=== PATIENT | female | born 1950 | race Caucasian/White ===

== ENCOUNTER 2016-10-30 08:00 | Day surgery (SDC) | payer MEDICARE, OTHER ==
--- NOTE | 2016-10-22 10:41 | HISTORY AND PHYSICAL E ---
History and Physical NAME: VANDANA COOL : 1950 AGE: 66Y ADMITTED: 10/30/2016 ROOM: CHIEF COMPLAINT: Followup regarding adenomatous polyps. HISTORY: The patient is known to us. She did have colonoscopy, 2004, showed rectosigmoid polyps. The patient is being followed by [facility], [place]. She did have ovarian cancer. The patient presented at this time regarding colon polyps, diverticulosis. The patient does have a history of diabetes. PAST SURGICAL HISTORY: 1. Hysterectomy. 2. Cardiac bypass. MEDICATION: She is on blood thinner. She is to stop her Eliquis for 2 days. ALLERGIES: Negative. SOCIAL HISTORY: She is , does not smoke, does not drink. FAMILY HISTORY: Her father had a stroke. Her mom had an accident. REVIEW OF SYSTEMS: ENDOCRINE: Diabetes. PHYSICAL EXAMINATION: GENERAL: On exam, pleasant, alert, oriented, in no acute distress. VITAL SIGNS: Blood pressure is 120/80, pulse 80, respirations 18, temp is 98. HEAD, EYES, EARS, NOSE, THROAT: Normal. ABDOMEN: Soft. NEUROLOGIC: Exam negative. CONCLUSION: 1. History adenomatous polyps. 2. Diverticulosis. 3. Colon screening. PLAN: Colonoscopy. Admit on 10/30. DICTATING PHYSICIAN: EFFIE GREER M.D. [id number] PHY#: [id number] ID: [id number] JOB#: [id number] ACCT: [id number] cc:EFFIE GREER M.D. >
[~2016-10-30 08:00] MED LIST: EPINEPHRINE INJ 1 MG/10 ML DISP.SYRIN ONE; FLUMAZENIL INJ 0.5 MG/5 ML VIAL IV ONE; GLUCAGON,HUMAN RECOMB 1 MG INJ ONE; GLYCOPYRROLATE INJ 0.4 MG/2 ML VIAL ONE; LIDOCAINE 2% JELLY 30 ML TUBE ONE; NALOXONE HCL INJ/PF 0.4 MG/1 ML SDV ONE; ONDANSETRON HCL INJ/PF 4 MG/2 ML SDV ONE
[2016-10-30] MEDS: MIDAZOLAM 2 MG/2 ML INJ ONE ×2 (09:23→09:27)
[2016-10-30] MEDS: FENTANYL CITRATE INJ/PF 100 MCG/2 ML AMPUL ONE ×3 (09:25→09:35)
--- NOTE | 2016-10-30 10:09 | OPERATIVE REPORT E ---
Operative Report NAME: VANDANA COOL : 1950 AGE: 66Y DATE OF SURGERY: 10/30/2016 ROOM: PREOPERATIVE DIAGNOSIS: Colon screening, history of polyps. POSTOPERATIVE DIAGNOSIS: Rectosigmoid polyps - benign looking, 1 mm polyp cecum. OPERATION: Colonoscopy. SURGEON: EFFIE GREER M.D. ANESTHESIA: Versed 3, fentanyl 100. TISSUE REMOVED OR ALTERED: Biopsy polyps rectosigmoid. PROCEDURE: Rectal exam shows tiny diminutive polyp, sigmoid diminutive polyp, descending colon normal, transverse colon normal. Ascending colon the cecum junction shows 1 mm polyp, difficult to biopsy, benign looking. Cecum normal. Scope withdrawn. Cecum, ascending, transverse, descending, sigmoid all the way to the rectum. CONCLUSION: Diminutive polyp 1 mm cecum, small to biopsy. Diminutive polyps rectosigmoid, biopsy obtained. DISCHARGE PLAN: Hold blood thinner for two days. Patient awaiting biopsy. The patient takes Xarelto 2 mg daily. Stop Xarelto today and tomorrow awaiting biopsy results. Patient will stop her Xarelto today, . She will start her Xarelto on Thursday morning. Awaiting biopsy results, baseline CBC and CEA. DICTATING PHYSICIAN: EFFIE GREER M.D. [id number] Y#: [id number] ID: [id number] JOB#: [id number] ACCT: [id number] cc:TERE GREER M.D. >
[2016-10-30 11:01] LABS: HEMATOCRIT 40.8 % (36.0-47.0); HEMOGLOBIN 13.3 g/dL (12.0-15.5); HGB HCT DIFFERENCE -0.9; MEAN CORPUSCULAR HEMOGLOBIN 28.5 pg (27.0-33.4); MEAN CORPUSCULAR HGB CONC 32.6 g/dL (32.0-36.0); MEAN CORPUSCULAR VOLUME 87 fl (80-97); RED BLOOD COUNT 4.68 10^6/uL (3.72-5.28); RED CELL DISTRIBUTION WIDTH 14.1 % (11.5-14.0); WHITE BLOOD COUNT 14.7 10^3/uL (4.0-10.5)
[2016-10-30 11:12] VITALS: BP 84/46
--- NOTE | 2016-11-03 10:08 | DISCHARGE SUMMARY E ---
Discharge Summary NAME: VANDANA COOL : 1950 AGE: 66Y ADMITTED: 10/30/2016 DISCHARGED: 10/30/2016 PROCEDURE: Colonoscopy, biopsy. HISTORY: The patient is 66, has history of colonoscopy in 2004 that showed sigmoid polyps. She has been treated by [facility] for ovarian cancer. Today's colonoscopy showing no cancer. She has benign-looking polyps in the rectum and cecum. DISCHARGE PLAN: Awaiting biopsy. Hold blood thinner, Xarelto, for 2 days. Baseline CBC, CEA. Consider followup colonoscopy 2-3 years pending biopsy results. DICTATING PHYSICIAN: EFFIE GREER M.D. [id number] PHY#: [id number] ID: [id number] JOB#: [id number] ACCT: [id number] cc:TERE LOYOLA, EFFIE Pérez >
== END 2016-10-30 11:19 | disposition home or self-care (01) ==
LOC: END 08:00
PROVIDERS: ATTEND Specialist
PROC: 0DBN8ZX Excision of Sigmoid Colon, Via Natural or Artificial Opening Endoscopic, Diagnostic (ICD-10-PCS; 2016-10-30)
PROC: 0DBP8ZX Excision of Rectum, Via Natural or Artificial Opening Endoscopic, Diagnostic (ICD-10-PCS; principal; 2016-10-30 09:00)
DX: Z12.11 Encounter for screening for malignant neoplasm of colon (principal); K63.5 Polyp of colon; R97.8 Other abnormal tumor markers; E11.9 Type 2 diabetes mellitus without complications; Z79.01 Long term (current) use of anticoagulants; Z85.43 Personal history of malignant neoplasm of ovary
CPT/HCPCS: 45380; 36415; 82962; 86304; 82378; 85027; 88305 ×2; J2250; J3010; J1610; J0171; J2310; J2405; J3490

== ENCOUNTER → 2017-08-10 | Outpatient (CLI) | payer MEDICARE, OTHER ==
--- NOTE | 2017-08-10 16:38 | XCELERA REPORT ---
[address] [address] Lower Extremity Arterial Evaluation Name: VANDANA COOL Age: 67 yrs Gender: Female : 1950 Patient Status: Outpatient Patient Location: Study Date: 08/10/2017 11:04 AM Procedure: A color flow and duplex scan of the lower extremity arteries was performed bilaterally with velocity and waveform anaylsis. Ankle brachial indicies performed. Reason For Study: PVD Ordering Physician: NOY MCNAMARA PA-C Performed By: Delmer Monson Measurements and Calculations Right Left PHOTO TECHNICIAN PSV 144.1 57.0 cm/sec Prox PFA PSV -138.3 -37.9 cm/sec Prox SFA PSV 57.0 33.2 cm/sec Mid SFA PSV -0.20 -44.9 cm/sec Dist SFA PSV -27.3 -9.8 cm/sec Prox Pop A PSV 37.2 27.7 cm/sec Dist DAVID PSV 28.5 10.6 cm/sec Dist RADIATOR SPECIALIST PSV 35.8 12.6 cm/sec Jackson Pedis PSV -19.6 0.20 cm/sec Right Side Arterial Evaluation Normal velocity and biphasic waveforms noted from the Common Femoral artery to the infrageniculate vessels. Monophasic in the Dorsalis Pedis. 20-49 % stenosis at the Aorto Iliac inflow. Sequential disease. Ankle Brachial index is 0.68. Left Side Arterial Evaluation Low normal velocity and monophasic waveforms noted from the Common Femoral artery to the infrageniculate vessels. Reduced velocities distally. 50-99% % stenosis at the Aorto Iliac inflow. Ankle Brachial index is 0.62. Interpretation Summary Moderate hemodynamically significant lesions in the right lower extremity only, on duplex imaging, at rest. Severe hemodynamically significant lesions in the left lower extremity only, on duplex imaging, at rest. : NOY MCNAMARA PA-C > Kumar Jackson
== END ==
LOC: SP 10:32
PROVIDERS: ATTEND Physician Assistant
DX: I73.9 Peripheral vascular disease, unspecified (principal)
CPT/HCPCS: 93925

== ENCOUNTER 2018-08-24 16:20 | Observation (INO) | payer MEDICARE, OTHER ==
[2018-08-24] MEDS ORDERED: NORMAL SALINE 1000 ML 1,000 ML IV ONE (16:31)
[2018-08-24 16:56] LABS: ABSOLUTE BASOPHILS # (AUTO) 0.1 10^3/uL (0.0-0.2); ABSOLUTE EOSINOPHILS # (AUTO) 0.2 10^3/uL (0.0-0.6); ABSOLUTE LYMPHOCYTES (AUTO) 2.3 10^3/uL (0.5-4.7); ABSOLUTE MONOCYTES (AUTO) 0.7 10^3/uL (0.1-1.4); ABSOLUTE NEUT (AUTO) 8.5 10^3/uL (1.7-8.2); BASOPHILS % (AUTO) 0.7 % (0-2); EOSINOPHILS % (AUTO) 2.1 % (0-6); HEMATOCRIT 37.4 % (36.0-47.0); HEMOGLOBIN 12.5 g/dL (12.0-15.5); LYMPHOCYTES % (AUTO) 19.4 % (13-45); MEAN CORPUSCULAR HGB CONC 33.4 g/dL (32.0-36.0); MEAN CORPUSCULAR VOLUME 87 fl (80-97); MONOCYTES % (AUTO) 5.9 % (3-13); PLATELET COUNT 149 10^3/uL (150-450); RED BLOOD COUNT 4.32 10^6/uL (3.72-5.28); RED CELL DISTRIBUTION WIDTH 15.8 % (11.5-14.0); SEGMENTED NEUTROPHILS % (AUTO) 71.9 % (42-78); TOTAL CELLS COUNTED % (AUTO) 100 %; WHITE BLOOD COUNT 11.8 10^3/uL (4.0-10.5)
[2018-08-24 17:03] LABS: INTERNATIONAL RATION (INR) 1.61; PROTHROMBIN TIME 19.9 SEC (11.4-15.4)
--- NOTE | 2018-08-24 17:04 | ER Document Report ---
ED Dizziness/Weakness - General Chief Complaint: Dizziness Stated Complaint: DIZZINESS Time Seen by Provider: 08/24/18 16:31 Primary Care Provider: NOY MCNAMARA PA-C [NO LOCAL MD] - Follow up as needed TRAVEL OUTSIDE OF THE [place] IN LAST 30 DAYS: No - HPI Notes: Patient is a 68-year-old female that presents to the emergency department for chief complaint of lightheadedness and syncope. Patient reports increased lightheadedness over the last few days. She states she has had issues with lightheadedness for years and was not concerned until she completely lost consciousness today. She states that when she stands up or exerts herself she begins to feel very lightheaded. Today she was walking and had a complete syncopal episode falling forward hitting the table. She does not remember hitting the table but states she woke up on the ground. Her family member heard her fall and came immediately into the room. Patient is complaining of some pain in the back of her neck since the fall. She has not taken any medication for pain. She denies any associated palpitations, headache, vision changes, numbness, weakness and shortness of breath. Past Medical History: Atrial fibrillation, CAD, hypertension Past Surgical History: CABG, pacemaker Social History: Reviewed in chart Family History: Reviewed and noncontributory for presenting illness Allergies: Reviewed, see documented allergy list. REVIEW OF SYSTEMS: CONSTITUTIONAL : No fever No chills No diaphoresis No recent illness EENT: No vision changes No congestion No sore throat CARDIOVASCULAR: No chest pain No palpitations RESPIRATORY: No shortness of breath No cough No difficulty breathing GASTROINTESTINAL: No abdominal pain No nausea No vomiting No diarrhea GENITOURINARY: No dysuria No hematuria No difficulty urinating MUSCULOSKELETAL: No back pain neck pain No leg pain No arm pain SKIN: No rashes No lesions LYMPHATIC: No swollen, enlarged glands. NEUROLOGICAL: lightheadedness No headache No weakness No paresthesias PSYCHIATRIC: No anxiety No depression PHYSICAL EXAMINATION: Vital signs reviewed, nursing noted reviewed. GENERAL: Well-appearing, obese and in no acute distress. HEAD: Atraumatic, normocephalic. EYES: Eyes appear normal, extraocular movements intact, sclera anicteric, conjunctiva are normal. ENT: nares patent, oropharynx clear without exudates. Moist mucous membranes. NECK: Midline cervical spine tenderness, bilateral paraspinal muscle tenderness, supple without lymphadenopathy LUNGS: Breath sounds mildly diminished to auscultation bilaterally and equal. No wheezes rales or rhonchi. HEART: Regular rate and rhythm without murmurs. No rubs ABDOMEN: Soft, nontender, normoactive bowel sounds. No rebound, guarding, or rigidity. No masses appreciated. EXTREMITIES: Nontender, good range of motion, no pitting or edema. NEUROLOGICAL: No focal neurological deficits. Moves all extremities spontaneously Motor and sensory grossly intact on exam. PSYCH: Normal mood, normal affect. SKIN: Warm, Dry, normal turgor, no rashes or lesions noted on exposed skin - Related Data Allergies/Adverse Reactions: Shellfish * [Shellfish] Allergy (Unknown, Verified 10/30/16 08:19) Hives digoxin [Digoxin] Adverse Reaction (Mild, Verified 10/30/16 08:19) Nausea oxycodone HCl [From Percocet] Adverse Reaction (Mild, Verified 10/30/16 08:19) Vomiting ramipril [From Altace] Adverse Reaction (Mild, Verified 10/30/16 08:19) cough Past Medical History - Social History Smoking Status: Unknown if Ever Smoked Family History: Reviewed & Not Pertinent - Past Medical History Cardiac Medical History: Reports: Hx Atrial Fibrillation, Hx Congestive Heart Failure, Hx Coronary Artery Disease, Hx Heart Attack - 1999, Hx Hypercholesterolemia, Hx Hypertension - no but takes blood pressure meds Pulmonary Medical History: Denies: Hx Asthma, Hx Bronchitis, Hx COPD, Hx Pneumonia Neurological Medical History: Denies: Hx Cerebrovascular Accident, Hx Seizures Endocrine Medical History: Reports: Hx Diabetes Mellitus Type 2 GI Medical History: Denies: Hx Hepatitis, Hx Hiatal Hernia, Hx Ulcer Musculoskeletal Medical History: Reports Hx Arthritis Infectious Medical History: Denies: Hx Hepatitis Past Surgical History: Reports: Hx Coronary Artery Bypass Graft, Hx Coronary Stent, Hx Hysterectomy, Hx Open Heart Surgery - QUAD BYPASS; pacemaker, Hx Pacemaker. Denies: Hx Mastectomy - Immunizations Hx Diphtheria, Pertussis, Tetanus Vaccination: Yes - 07/02/14 Hx Pneumococcal Vaccination: 07/02/14 Course - Re-evaluation Re-evalutation: 08/24/18 17:02 Vitals reviewed per nurse's reviewed. Patient has midline cervical spine tenderness and trauma and was placed in a cervical collar. She is currently anticoagulated on Xarelto and CT scan of her head and cervical spine obtained to evaluate for injury from her syncopal episode today. Patient placed on telemetry monitoring. She is not complaining of any chest pain or difficulty breathing. Her EKG does show new T wave inversion with nonspecific ST depressions in her precordial and lateral leads, there is no ST elevation 08/24/18 17:49 After hydration patient is feeling much better. Her blood pressure has significantly improved. She is less lightheaded with position changes. CT scan of her head and cervical spine show no acute injury. Cervical collar was removed. Patient is not acutely anemic. She does have acute renal insufficiency with a creatinine greater than 1.7 which is new for her. Patient symptoms may be related to dehydration and acute kidney injury. She does have a slight elevation of troponin in the indeterminate range however she has not had any chest pain and this may be related to her WILLIS. Patient was also hypoglycemic at 48 and was given 1 amp of D50. She is improving and will be admitted to the hospital for further cardiac monitoring as well as reevaluation of her acute kidney injury. Case discussed with Dr. Javed Arita 08/24/18 08/24/18 08/24/18 16:45 16:45 16:45 WBC 11.8 H RBC 4.32 Hgb 12.5 Hct 37.4 MCV 87 MCH 29.0 MCHC 33.4 RDW 15.8 H Plt Count 149 L Seg Neutrophils % 71.9 Lymphocytes % 19.4 Monocytes % 5.9 Eosinophils % 2.1 Basophils % 0.7 Absolute Neutrophils 8.5 H Absolute Lymphocytes 2.3 Absolute Monocytes 0.7 Absolute Eosinophils 0.2 Absolute Basophils 0.1 PT 19.9 H INR 1.61 Sodium 141.0 Potassium 4.4 Chloride 106 Carbon Dioxide 27 Anion Gap 8 BUN 40 H Creatinine 1.79 H Est GFR ( Amer) 34 L Est GFR (Non-Af Amer) 28 L Glucose 48 L Calcium 9.7 Total Bilirubin 0.5 Direct Bilirubin 0.3 Neonat Total Bilirubin Not Reportable Neonat Direct Bilirubin Not Reportable Neonat Indirect Bili Not Reportable AST 35 ALT 39 Alkaline Phosphatase 76 Troponin I Total Protein 7.1 Albumin 4.2 08/24/18 16:45 WBC RBC Hgb Hct MCV MCH MCHC RDW Plt Count Seg Neutrophils % Lymphocytes % Monocytes % Eosinophils % Basophils % Absolute Neutrophils Absolute Lymphocytes Absolute Monocytes Absolute Eosinophils Absolute Basophils PT INR Sodium Potassium Chloride Carbon Dioxide Anion Gap BUN Creatinine Est GFR ( Amer) Est GFR (Non-Af Amer) Glucose Calcium Total Bilirubin Direct Bilirubin Neonat Total Bilirubin Neonat Direct Bilirubin Neonat Indirect Bili AST ALT Alkaline Phosphatase Troponin I 0.037 Total Protein Albumin Cervical Spine CT 08/24/18 16:59 IMPRESSION: CHRONIC DEGENERATIVE CHANGES. NO ACUTE FINDINGS. Head CT 08/24/18 16:59 IMPRESSION: NORMAL BRAIN CT WITHOUT CONTRAST. EVIDENCE OF ACUTE STROKE: NO. fermin who has accepted admission. Patient in agreement with plan of care. - Laboratory Result Diagrams: 08/24/18 16:45 08/24/18 16:45 Laboratory results interpreted by me: 08/24/18 08/24/18 08/24/18 16:45 16:45 16:45 WBC 11.8 H RDW 15.8 H Plt Count 149 L Absolute Neutrophils 8.5 H PT 19.9 H BUN 40 H Creatinine 1.79 H Est GFR ( Amer) 34 L Est GFR (Non-Af Amer) 28 L Glucose 48 L - EKG Interpretation by Me Additional EKG results interpreted by me: 08/24/18 17:03 Interpreted by myself 1641: Sinus arrhythmia, rate 75, normal axis, no ectopy, T wave inversion V2 through V6 with slight associated ST depression. No STEMI. T wave changes new when compared to 06/22/2015 Discharge - Discharge Clinical Impression: WILLIS (acute kidney injury), Orthostatic hypotension, Hypoglycemia, Dehydration, Troponin I above reference range Syncope Qualifiers: Syncope type: unspecified Qualified Code(s): R55 - Syncope and collapse Condition: Stable Disposition: ADMITTED INPATIENT Admitting Provider: Cailin (Hospitalist) Unit Admitted: Telemetry Referrals: NOY MCNAMARA PA-C [NO LOCAL MD] - Follow up as needed
[2018-08-24 17:16] LABS: ALANINE AMINOTRANSFERASE 39 U/L (9-52); ALBUMIN 4.2 g/dL (3.5-5.0); ALKALINE PHOSPHATASE 76 U/L (38-126); ANION GAP 8 (5-19); ASPARTATE AMINO TRANSFERASE 35 U/L (14-36); BILIRUBIN,DIRECT 0.3 mg/dL (0.0-0.4); BILIRUBIN,TOTAL 0.5 mg/dL (0.2-1.3); BLOOD UREA NITROGEN 40 mg/dL (7-20); CALCIUM 9.7 mg/dL (8.4-10.2); CARBON DIOXIDE 27 mmol/L (22-30); CHLORIDE 106 mmol/L (98-107); POTASSIUM 4.4 mmol/L (3.6-5.0); TOTAL PROTEIN 7.1 g/dL (6.3-8.2)
[2018-08-24 17:18] LABS: GLUCOSE 48 mg/dL (75-110)
--- NOTE | 2018-08-24 17:23 | EKG REPORT ---
SEVERITY:- ABNORMAL ECG - SINUS ARRHYTHMIA, RATE 57-84 PROBABLE INFERIOR INFARCT, AGE INDETERMINATE NONSPECIFIC T ABNORMALITIES, ANT-LAT LEADS, CHANGES ARE NEW FROM 06/22/15 EKG : Confirmed by: Samuel Walton MD 24-Aug-2018 17:23:25
[2018-08-24] MEDS ORDERED: DEXTROSE 50%-WATER 25 GM/50 ML DISP.SYRIN IV ONE (17:33)
--- NOTE | 2018-08-24 17:33 | RADIOLOGY REPORT (SQ) ---
EXAM DESCRIPTION: CT HEAD WITHOUT COMPLETED DATE/TIME: 08/24/2018 5:16 pm REASON FOR STUDY: trauma COMPARISON: CT brain 09/20/2007 TECHNIQUE: Axial images acquired through the brain without intravenous contrast. Images reviewed wi th bone, brain and subdural windows. Additional sagittal and coronal reconstructions were generated. Images stored on PACS. All CT scanners at this facility use dose modulation, iterative reconstruction, and/or weight based d osing when appropriate to reduce radiation dose to as low as reasonably achievable (ALARA). [facility]: Dose Right [facility]: CareDose [facility]: Dose Right [facility]: Teradose 4D [facility]: [employer] RADIATION DOSE: mGy. LIMITATIONS: None. FINDINGS: VENTRICLES: Normal size and contour. CEREBRUM: No masses. No hemorrhage. No midline shift. No evidence for acute infarction. Normal gra y/white matter differentiation. No areas of low density in the white matter. CEREBELLUM: No masses. No hemorrhage. No alteration of density. No evidence for acute infarction. EXTRAAXIAL SPACES: No fluid collections. No masses. ORBITS AND GLOBE: No intra- or extraconal masses. Normal contour of globe without masses. CALVARIUM: No fracture. PARANASAL SINUSES: No fluid or mucosal thickening. SOFT TISSUES: No mass or hematoma. OTHER: Advanced dental caries on images through the maxilla IMPRESSION: NORMAL BRAIN CT WITHOUT CONTRAST. EVIDENCE OF ACUTE STROKE: NO. COMMENT: Quality ID # [id number]: Final reports with documentation of one or more dose reduction techniques (e.g., Automated exposure control, adjustment of the mA and/or kV according to patient size, use of iterative reconstruction technique) TECHNICAL DOCUMENTATION: JOB ID: [id number] [employer]- All Rights Reserved Reading location - IP/workstation name: [email or web address]
--- NOTE | 2018-08-24 17:35 | RADIOLOGY REPORT (SQ) ---
EXAM DESCRIPTION: CT CERVICAL SPINE WITHOUT COMPLETED DATE/TIME: 08/24/2018 5:19 pm REASON FOR STUDY: trauma COMPARISON: CT cervical spine 09/20/2007 TECHNIQUE: Axial images acquired through the cervical spine without intravenous contrast. Images re viewed with lung, soft tissue and bone windows. Reconstructed coronal and sagittal MPR images review ed. Images stored on PACS. All CT scanners at this facility use dose modulation, iterative reconstruction, and/or weight based d osing when appropriate to reduce radiation dose to as low as reasonably achievable (ALARA). [facility]: Dose Right [facility]: CareDose [facility]: Dose Right [facility]: Teradose 4D [facility]: [employer] RADIATION DOSE: mGy. LIMITATIONS: None. FINDINGS: ALIGNMENT: Anatomic. MINERALIZATION: Normal. VERTEBRAL BODIES: No fractures or dislocation. DISCS: Multilevel disc space narrowing with osteophytes. FACETS, LATERAL MASSES, POSTERIOR ELEMENTS: Facet arthropathy. No fractures. No dislocation. No ac amparo findings. HARDWARE: None in the spine. VISUALIZED RIBS: No fractures. LUNG APICES AND SOFT TISSUES: No significant or acute findings. OTHER: No other significant finding. IMPRESSION: CHRONIC DEGENERATIVE CHANGES. NO ACUTE FINDINGS. TECHNICAL DOCUMENTATION: JOB ID: [id number] Quality ID # [id number]: Final reports with documentation of one or more dose reduction techniques (e.g., Au tomated exposure control, adjustment of the mA and/or kV according to patient size, use of iterative reconstruction technique) 2010 [employer]- All Rights Reserved Reading location - IP/workstation name: [email or web address]
--- NOTE | 2018-08-24 18:01 | RADIOLOGY REPORT (SQ) ---
EXAM DESCRIPTION: CHEST 2 VIEWS COMPLETED DATE/TIME: 08/24/2018 5:35 pm REASON FOR STUDY: dizzieness COMPARISON: Chest films 06/22/2015, 07/01/2010 EXAM PARAMETERS: NUMBER OF VIEWS: two views TECHNIQUE: Digital Frontal and Lateral radiographic views of the chest acquired. RADIATION DOSE: NA LIMITATIONS: none FINDINGS: LUNGS AND PLEURA: Mild alveolar and interstitial edema with pulmonary vascular congestion. No pleural effusion. No pneumothorax. MEDIASTINUM AND HILAR STRUCTURES: No masses or contour abnormalities. HEART AND VASCULAR STRUCTURES: Moderate to marked cardiomegaly. Old sternotomy and CABG BONES: No acute findings. HARDWARE: Left-sided dual lead pacemaker OTHER: No other significant finding. IMPRESSION: Fluid overload or congestive failure with alveolar and interstitial edema Cardiomegaly, old CABG, left-sided pacemaker TECHNICAL DOCUMENTATION: JOB ID: [id number] [employer]- All Rights Reserved Reading location - IP/workstation name: [email or web address]
[2018-08-24 18:11] LABS: VENOUS BLOOD BASE EXCESS -2.4 mmol/L; VENOUS BLOOD HCO3 24.8 mmol/L (20-32); VENOUS BLOOD PCO2 52.9 mmHg (35-63); VENOUS BLOOD PH 7.29 (7.30-7.42)
[2018-08-24] MEDS: NORMAL SALINE 1000 ML 1,000 ML IV PRN ×2 (19:08→22:22)
[2018-08-24] MEDS ORDERED: DEXTROSE 50%-WATER 25 GM/50 ML DISP.SYRIN IV PRN ×2 (19:23)
[2018-08-24] MEDS ORDERED: GLUCAGON,HUMAN RECOMB 1 MG INJ IM PRN (19:23)
[2018-08-24] MEDS ORDERED: DEXTROSE 40% GEL 15 GM TUBE PO PRN ×2 (19:23)
--- NOTE | 2018-08-24 19:28 | PDOC H&P ---
History of Present Illness Admission Date/PCP: 08/24/18 17:50 THIAGO ALARCON MD Patient complains of: syncope History of Present Illness: VANDANA COOL is a 68 year old female with a PMH of atrial fibrillation on Xarelto, prior pacemaker placement, on multiple medications, CAD and CHF who presented with syncope. Patient says she has been having episodes of dizziness and light headedness for the past 2 months, on and off and usually occurring while standing or walking. She says today she had 4 episodes of passing out while standing. She denies any chest pain, palpitations or SOB. Denies headache or vertigo. No seizure-like activity or incontinence. In the ER, she was found to have orthostatic vital signs and was also found to be in WILLIS. Past Medical History Cardiac Medical History: Reports: Atrial Fibrillation, Congestive Heart Failure, Coronary Artery Disease, Myocardial Infarction - 1999, Hyperlipidema, Hypertension - no but takes blood pressure meds Pulmonary Medical History: Denies: Asthma, Bronchitis, Chronic Obstructive Pulmonary Disease (COPD), Pneumonia Neurological Medical History: Denies: Seizures Endocrine Medical History: Reports: Diabetes Mellitus Type 2 GI Medical History: Denies: Hepatitis, Hiatal Hernia Musculoskeltal Medical History: Reports: Arthritis Hematology: Denies: Anemia, Sickle Cell Disease Past Surgical History Past Surgical History: Reports: Coronary Artery Bypass Graft, Coronary Stent, Hysterectomy, Pacemaker Denies: Amputation, Mastectomy Social History Smoking Status: Unknown if Ever Smoked Frequency of Alcohol Use: None Hx Recreational Drug Use: No Family History Family History: Reviewed & Not Pertinent Parental Family History Reviewed: Yes - no premature CAD Children Family History Reviewed: No Sibling(s) Family History Reviewed.: No Medication/Allergy Home Medications: Insulin Glargine,Hum.rec.anlog [Lantus Insulin 100 Unit/mL] 50 unit SUBCUT BID 11/17/12 Isosorbide Mononitrate [Imdur] 60 mg PO DAILY 11/17/12 Losartan Potassium [Cozaar 50 mg Tablet] 50 mg PO QHS 11/17/12 Metoprolol Succinate [Toprol Xl 25 mg Tab.sr] 50 mg PO Q12 11/17/12 Pregabalin [Lyrica] 150 mg PO Q8 11/17/12 Potassium Chloride [Klor-Con 10] 20 meq PO DAILY 06/22/15 Rivaroxaban [Xarelto 10 mg Tablet] 10 mg PO DAILY 06/22/15 Rosuvastatin Calcium [Crestor 20 mg Tablet] 20 mg PO DAILY 06/22/15 Docusate Sodium [Colace 100 mg Capsule] 100 mg PO DAILY 10/27/16 Nitroglycerin [Nitrostat 0.4 mg (1/150 Gr) Tabs 25/Bottle] 1 tab SL Q5MP PRN 10/27/16 Aspirin [Ecotrin 81 mg EC Tablet] 81 mg PO DAILY 08/24/18 Cholecalciferol (Vitamin D3) [Vitamin D3 1000 Unit Tablet] 1,000 unit PO DAILY 08/24/18 Duloxetine HCl [Cymbalta 20 Mg Capsule.Dr] 20 mg PO Q12 08/24/18 Furosemide [Lasix 40 mg Tablet] 80 mg PO QAM 08/24/18 Hydrocodone/Acetaminophen [[place] 7.5-325 mg Tablet] 1 tab PO DAILYP PRN 08/24/18 Insulin Aspart [Novolog Flexpen] 0 unit SUBCUT .SLD SCALE 08/24/18 Levothyroxine Sodium [Synthroid 0.025 mg Tablet] 0.025 mg PO Q6AM 08/24/18 Pramipexole Di-HCl [Pramipexole Dihydrochloride] 0.25 mg PO QHS 08/24/18 Allergies/Adverse Reactions: Shellfish * [Shellfish] Allergy (Unknown, Verified 10/30/16 08:19) Hives digoxin [Digoxin] Adverse Reaction (Mild, Verified 10/30/16 08:19) Nausea oxycodone HCl [From Percocet] Adverse Reaction (Mild, Verified 10/30/16 08:19) Vomiting ramipril [From Altace] Adverse Reaction (Mild, Verified 10/30/16 08:19) cough Review of Systems All systems: reviewed and no additional remarkable complaints except as stated - as mentioned in HPI Physical Exam Vital Signs: Temp Pulse Resp BP Pulse Ox 97.4 F 14 116/74 93 08/24/18 17:32 08/24/18 18:01 08/24/18 18:01 08/24/18 18:01 Intake & Output 08/23/18 08/24/18 08/25/18 06:59 06:59 06:59 Intake Total 1000 Balance 1000 Weight 239 lb 10.279 oz General appearance: PRESENT: no acute distress, well-developed, well-nourished Head exam: PRESENT: atraumatic, normocephalic Eye exam: PRESENT: conjunctiva pink, EOMI, PERRLA. ABSENT: scleral icterus Ear exam: PRESENT: normal external ear exam Mouth exam: PRESENT: moist, tongue midline Neck exam: ABSENT: carotid bruit, JVD, lymphadenopathy, thyromegaly Respiratory exam: PRESENT: clear to auscultation huy. ABSENT: rales, rhonchi, wheezes Cardiovascular exam: PRESENT: RRR. ABSENT: diastolic murmur, rubs, systolic murmur Pulses: PRESENT: normal dorsalis pedis pul Vascular exam: PRESENT: normal capillary refill GI/Abdominal exam: PRESENT: normal bowel sounds, soft. ABSENT: distended, guarding, mass, organolmegaly, rebound, tenderness Rectal exam: PRESENT: deferred Extremities exam: PRESENT: +1 edema Neurological exam: PRESENT: alert, awake, oriented to person, oriented to place, oriented to time, oriented to situation, CN II-XII grossly intact. ABSENT: motor sensory deficit Results Laboratory Results: 08/24/18 16:45 08/24/18 16:45 08/24/18 08/24/18 08/24/18 16:45 16:45 17:50 WBC 11.8 H RBC 4.32 Hgb 12.5 Hct 37.4 MCV 87 MCH 29.0 MCHC 33.4 RDW 15.8 H Plt Count 149 L Seg Neutrophils % 71.9 Lymphocytes % 19.4 Monocytes % 5.9 Eosinophils % 2.1 Basophils % 0.7 Absolute Neutrophils 8.5 H Absolute Lymphocytes 2.3 Absolute Monocytes 0.7 Absolute Eosinophils 0.2 Absolute Basophils 0.1 VBG pH VBG pCO2 VBG HCO3 VBG Base Excess Sodium 141.0 Potassium 4.4 Chloride 106 Carbon Dioxide 27 Anion Gap 8 BUN 40 H Creatinine 1.79 H Est GFR ( Amer) 34 L Est GFR (Non-Af Amer) 28 L Glucose 48 L Lactic Acid 0.9 Calcium 9.7 Total Bilirubin 0.5 AST 35 ALT 39 Alkaline Phosphatase 76 Total Protein 7.1 Albumin 4.2 08/24/18 17:50 WBC RBC Hgb Hct MCV MCH MCHC RDW Plt Count Seg Neutrophils % Lymphocytes % Monocytes % Eosinophils % Basophils % Absolute Neutrophils Absolute Lymphocytes Absolute Monocytes Absolute Eosinophils Absolute Basophils VBG pH 7.29 L VBG pCO2 52.9 VBG HCO3 24.8 VBG Base Excess -2.4 Sodium Potassium Chloride Carbon Dioxide Anion Gap BUN Creatinine Est GFR ( Amer) Est GFR (Non-Af Amer) Glucose Lactic Acid Calcium Total Bilirubin AST ALT Alkaline Phosphatase Total Protein Albumin 08/24/18 16:45 Troponin I 0.037 Impressions: Chest X-Ray 08/24/18 16:31 IMPRESSION: Fluid overload or congestive failure with alveolar and interstitial edema Cardiomegaly, old CABG, left-sided pacemaker Cervical Spine CT 08/24/18 16:59 IMPRESSION: CHRONIC DEGENERATIVE CHANGES. NO ACUTE FINDINGS. Head CT 08/24/18 16:59 IMPRESSION: NORMAL BRAIN CT WITHOUT CONTRAST. EVIDENCE OF ACUTE STROKE: NO. Assessment and Plan - Diagnosis (1) Syncope Qualifiers: Syncope type: unspecified Qualified Code(s): R55 - Syncope and collapse Is this a current diagnosis for this admission?: Yes Plan: Likely related to orthostasis. Orthostatic vital signs q6h. Gentle hydration as she reports history of CHF. No echo on record. (2) Orthostatic hypotension Is this a current diagnosis for this admission?: Yes Plan: Hold antihypertensives. Gentle hydration due to CHF. (3) WILLIS (acute kidney injury) Is this a current diagnosis for this admission?: Yes Plan: Possible a combination of pre renal and ATN from hypotension. Hold antihypertensives. Gentle hydration due to CHF. (4) Dehydration Is this a current diagnosis for this admission?: Yes Plan: As per number 2. (5) Hypoglycemia Is this a current diagnosis for this admission?: Yes Plan: Hold off on home insulin regimen. Accuchecks q6. - Time Time Spent with patient: 25-34 minutes
--- NOTE | 2018-08-24 20:11 | ADVANCED CARE ---
- Diagnosis (1) Syncope Diagnosis Current: Yes (2) Orthostatic hypotension Diagnosis Current: Yes (3) WILLIS (acute kidney injury) Diagnosis Current: Yes (4) Dehydration Diagnosis Current: Yes Resuscitation Status: Full Code Discussion: Discussed with patient and on bedside who is also the surrogate decision maker. She says she wants chest compressions, defibrillation and temporary mechanical ventilation if the need arises. She expressed she does not however want to be on heel shaver ventilation.
[2018-08-24] MEDS: INSULIN LISPRO 100 UNIT/ML 3 ML VIAL SUBCUT SCH (22:10)
[2018-08-24] MEDS: DULOXETINE HCL 20 MG CAPSULE.DR PO SCH (22:23)
[2018-08-24] MEDS: ATORVASTATIN CALCIUM 40 MG TABLET PO SCH (22:23)
[2018-08-25] MEDS: LEVOTHYROXINE SODIUM 0.025 MG TABLET PO SCH (05:41)
[2018-08-25] MEDS: INSULIN LISPRO 100 UNIT/ML 3 ML VIAL SUBCUT SCH ×4 (07:51→22:50)
[2018-08-25 09:22] LABS: APPEARANCE,URINE CLEAR; BILIRUBIN,URINE NEGATIVE (NEGATIVE); COLOR,URINE YELLOW; GLUCOSE, URINE NEGATIVE (NEGATIVE); KETONES,URINE NEGATIVE (NEGATIVE); LEUKOCYTE ESTERASE,URINE NEGATIVE (NEGATIVE); NITRITE,URINE NEGATIVE (NEGATIVE); PROTEIN,URINE NEGATIVE (NEGATIVE); URINE SPECIFIC GRAVITY 1.016; UROBILINOGEN,URINE NEGATIVE mg/dL (<2.0)
[2018-08-25] MEDS ORDERED: (PENDING PHARMACY ID) (Rosuvastatin Calcium [Crestor 20 Mg Tablet] 20 MG) PO SCH (10:00)
[2018-08-25] MEDS: ASPIRIN 81 MG TABLET, ENT COATED PO SCH (11:19)
[2018-08-25] MEDS: RIVAROXABAN 10 MG TABLET PO SCH (11:20)
[2018-08-25] MEDS: DULOXETINE HCL 20 MG CAPSULE.DR PO SCH ×3 (11:22→22:50)
[2018-08-25 11:32] LABS: ABSOLUTE BASOPHILS # (AUTO) 0.1 10^3/uL (0.0-0.2); ABSOLUTE EOSINOPHILS # (AUTO) 0.2 10^3/uL (0.0-0.6); ABSOLUTE LYMPHOCYTES (AUTO) 2.2 10^3/uL (0.5-4.7); ABSOLUTE MONOCYTES (AUTO) 0.7 10^3/uL (0.1-1.4); ABSOLUTE NEUT (AUTO) 5.6 10^3/uL (1.7-8.2); BASOPHILS % (AUTO) 0.7 % (0-2); EOSINOPHILS % (AUTO) 2.5 % (0-6); HEMOGLOBIN 11.9 g/dL (12.0-15.5); LYMPHOCYTES % (AUTO) 25.3 % (13-45); MEAN CORPUSCULAR HEMOGLOBIN 29.3 pg (27.0-33.4); MEAN CORPUSCULAR HGB CONC 33.9 g/dL (32.0-36.0); MEAN CORPUSCULAR VOLUME 86 fl (80-97); MONOCYTES % (AUTO) 7.9 % (3-13); PLATELET COUNT 123 10^3/uL (150-450); RED BLOOD COUNT 4.06 10^6/uL (3.72-5.28); RED CELL DISTRIBUTION WIDTH 16.1 % (11.5-14.0); SEGMENTED NEUTROPHILS % (AUTO) 63.6 % (42-78); TOTAL CELLS COUNTED % (AUTO) 100 %; WHITE BLOOD COUNT 8.9 10^3/uL (4.0-10.5)
[2018-08-25 11:52] LABS: ANION GAP 9 (5-19); BLOOD UREA NITROGEN 30 mg/dL (7-20); CALCIUM 9.1 mg/dL (8.4-10.2); CARBON DIOXIDE 28 mmol/L (22-30); CHLORIDE 104 mmol/L (98-107); GLUCOSE 194 mg/dL (75-110); POTASSIUM 4.2 mmol/L (3.6-5.0); SODIUM 140.8 mmol/L (137-145)
--- NOTE | 2018-08-25 13:39 | RADIOLOGY REPORT (SQ) ---
EXAM DESCRIPTION: CHEST SINGLE VIEW COMPLETED DATE/TIME: 08/25/2018 12:02 pm REASON FOR STUDY: mana COMPARISON: 08/24/2018 EXAM PARAMETERS: NUMBER OF VIEWS: One view. TECHNIQUE: Single frontal radiographic view of the chest acquired. RADIATION DOSE: NA LIMITATIONS: None. FINDINGS: LUNGS AND PLEURA: Slight prominence of vascular markings improved since the recent chest x -ray. No focal infiltrates. No masses or effusions. MEDIASTINUM AND HILAR STRUCTURES: No masses. Contour normal. HEART AND VASCULAR STRUCTURES: Stable moderate cardiomegaly. BONES: No acute findings. HARDWARE: Pacing defibrillator leads intact. Midline sternotomy wires. OTHER: No other significant finding. IMPRESSION: Slight diffuse prominence of vascular markings which is improved when compared to the re cent chest x-ray. No overt congestive heart failure. No new infiltrates. No pleural effusions. TECHNICAL DOCUMENTATION: JOB ID: [id number] [employer]- All Rights Reserved Reading location - IP/workstation name: [email or web address]
--- NOTE | 2018-08-25 14:27 | PDOC PROGRESS REPORT ---
Subjective Progress Note for:: 08/25/18 Subjective:: VANDANA COOL is a 68 year old female with a PMH of atrial fibrillation on Xarelto, prior pacemaker placement, on multiple medications, CAD and CHF who presented with syncope. In the ER, she was found to have orthostatic vital signs and was also found to be in WILLIS. Per RN, patient did have a short episode of passing out last night when she stood up and used the bathroom. She "slouched" and was unresponsive for a few seconds while on the toilet seat and then recovered and was back to baseline after a few seconds. Orthostasis has improved with gentle hydration and withholding of antihypertensives but blood pressures are still running on the low end with the lowest one this morning at 95/48 and HR in the high 50s. She denies chest pain or SOB. She is insisting on going home today. Discussed risks of going AMA and she eventually agreed to staying one more day. Echo ruthy as she says she had a recent one with Dr. Guo. Records requested. Reason For Visit: SYNCOPE Physical Exam Vital Signs: Temp Pulse Resp BP Pulse Ox 97.6 F 59 L 16 100/57 L 98 08/25/18 12:43 08/25/18 12:43 08/25/18 12:43 08/25/18 12:43 08/25/18 12:43 Intake & Output 08/24/18 08/25/18 08/26/18 06:59 06:59 06:59 Intake Total 1462 Output Total 800 Balance 662 Weight 209 lb 14.081 oz General appearance: PRESENT: no acute distress, well-developed, well-nourished Head exam: PRESENT: atraumatic, normocephalic Eye exam: PRESENT: conjunctiva pink, EOMI, PERRLA. ABSENT: scleral icterus Ear exam: PRESENT: normal external ear exam Mouth exam: PRESENT: moist, tongue midline Neck exam: ABSENT: carotid bruit, JVD, lymphadenopathy, thyromegaly Respiratory exam: PRESENT: clear to auscultation huy. ABSENT: rales, rhonchi, wheezes Cardiovascular exam: PRESENT: RRR. ABSENT: diastolic murmur, rubs, systolic murmur Pulses: PRESENT: normal dorsalis pedis pul GI/Abdominal exam: PRESENT: normal bowel sounds, soft. ABSENT: distended, guarding, mass, organolmegaly, rebound, tenderness Rectal exam: PRESENT: deferred Extremities exam: PRESENT: +1 edema Neurological exam: PRESENT: alert, awake, oriented to person, oriented to place, oriented to time, oriented to situation, CN II-XII grossly intact. ABSENT: mot or sensory deficit Results Laboratory Results: 08/25/18 11:21 08/25/18 11:21 08/24/18 08/24/18 08/24/18 16:45 16:45 17:50 WBC 11.8 H RBC 4.32 Hgb 12.5 Hct 37.4 MCV 87 MCH 29.0 MCHC 33.4 RDW 15.8 H Plt Count 149 L Seg Neutrophils % 71.9 Lymphocytes % 19.4 Monocytes % 5.9 Eosinophils % 2.1 Basophils % 0.7 Absolute Neutrophils 8.5 H Absolute Lymphocytes 2.3 Absolute Monocytes 0.7 Absolute Eosinophils 0.2 Absolute Basophils 0.1 VBG pH VBG pCO2 VBG HCO3 VBG Base Excess Sodium 141.0 Potassium 4.4 Chloride 106 Carbon Dioxide 27 Anion Gap 8 BUN 40 H Creatinine 1.79 H Est GFR ( Amer) 34 L Est GFR (Non-Af Amer) 28 L Glucose 48 L Lactic Acid 0.9 Calcium 9.7 Total Bilirubin 0.5 AST 35 ALT 39 Alkaline Phosphatase 76 Total Protein 7.1 Albumin 4.2 Urine Color Urine Appearance Urine pH Ur Specific [place] Urine Protein Urine Glucose (UA) Urine Ketones Urine Blood Urine Nitrite Ur Leukocyte Esterase Urine WBC (Auto) Urine RBC (Auto) 08/24/18 08/25/18 08/25/18 17:50 09:00 10:35 WBC Cancelled RBC Cancelled Hgb Cancelled Hct Cancelled MCV Cancelled MCH Cancelled MCHC Cancelled RDW Cancelled Plt Count Cancelled Seg Neutrophils % Cancelled Lymphocytes % Cancelled Monocytes % Cancelled Eosinophils % Cancelled Basophils % Cancelled Absolute Neutrophils Cancelled Absolute Lymphocytes Cancelled Absolute Monocytes Cancelled Absolute Eosinophils Cancelled Absolute Basophils Cancelled VBG pH 7.29 L VBG pCO2 52.9 VBG HCO3 24.8 VBG Base Excess -2.4 Sodium Potassium Chloride Carbon Dioxide Anion Gap BUN Creatinine Est GFR ( Amer) Est GFR (Non-Af Amer) Glucose Lactic Acid Calcium Total Bilirubin AST ALT Alkaline Phosphatase Total Protein Albumin Urine Color YELLOW Urine Appearance CLEAR Urine pH 6.0 Ur Specific [place] 1.016 Urine Protein NEGATIVE Urine Glucose (UA) NEGATIVE Urine Ketones NEGATIVE Urine Blood NEGATIVE Urine Nitrite NEGATIVE Ur Leukocyte Esterase NEGATIVE Urine WBC (Auto) 0 Urine RBC (Auto) 0 08/25/18 08/25/18 08/25/18 10:35 11:21 11:21 WBC 8.9 RBC 4.06 Hgb 11.9 L Hct 35.0 L MCV 86 MCH 29.3 MCHC 33.9 RDW 16.1 H Plt Count 123 L Seg Neutrophils % 63.6 Lymphocytes % 25.3 Monocytes % 7.9 Eosinophils % 2.5 Basophils % 0.7 Absolute Neutrophils 5.6 Absolute Lymphocytes 2.2 Absolute Monocytes 0.7 Absolute Eosinophils 0.2 Absolute Basophils 0.1 VBG pH VBG pCO2 VBG HCO3 VBG Base Excess Sodium Cancelled 140.8 Potassium Cancelled 4.2 Chloride Cancelled 104 Carbon Dioxide Cancelled 28 Anion Gap Cancelled 9 BUN Cancelled 30 H Creatinine Cancelled 1.08 Est GFR ( Amer) Cancelled > 60 Est GFR (Non-Af Amer) Cancelled 51 L Glucose Cancelled 194 H Lactic Acid Calcium Cancelled 9.1 Total Bilirubin AST ALT Alkaline Phosphatase Total Protein Albumin Urine Color Urine Appearance Urine pH Ur Specific [place] Urine Protein Urine Glucose (UA) Urine Ketones Urine Blood Urine Nitrite Ur Leukocyte Esterase Urine WBC (Auto) Urine RBC (Auto) 08/24/18 08/24/18 16:45 20:22 Troponin I 0.037 0.033 Impressions: Cervical Spine CT 08/24/18 16:59 IMPRESSION: CHRONIC DEGENERATIVE CHANGES. NO ACUTE FINDINGS. Head CT 08/24/18 16:59 IMPRESSION: NORMAL BRAIN CT WITHOUT CONTRAST. EVIDENCE OF ACUTE STROKE: NO. Chest X-Ray 08/25/18 00:00 IMPRESSION: Slight diffuse prominence of vascular markings which is improved when compared to the recent chest x-ray. No overt congestive heart failure. No new infiltrates. No pleural effusions. Assessment and Plan - Diagnosis (1) Syncope Qualifiers: Syncope type: unspecified Qualified Code(s): R55 - Syncope and collapse Is this a current diagnosis for this admission?: Yes Plan: Likely related to orthostatic hypotension. 08/25: Per RN, patient did have a short episode of passing out last night when she stood up and used the bathroom. She "slouched" and was unresponsive for a few seconds while on the toilet seat and then recovered and was back to baseline after a few seconds. Orthostasis has improved with gentle hydration and withholding of antihypertensives but blood pressures are still running on the low end with the lowest one this morning at 95/48. She is now eating and drinking. WILLIS has resolved. Discontinue IV fluids. Will resume CHF/HTN medications (Toprol, losartan, Imdur and Lasix if blood pressures continue to improve. (2) Orthostatic hypotension Is this a current diagnosis for this admission?: Yes Plan: Improving. As per number 1. (3) WILLIS (acute kidney injury) Is this a current diagnosis for this admission?: Yes Plan: Possible a combination of pre renal and ATN from hypotension. Hold antihypertensives. Gentle hydration due to CHF. 08/25: Resolved with IV fluids. On normal saline at 50 cc/hr. Discontinue IVF. (4) Dehydration Is this a current diagnosis for this admission?: Yes Plan: As per number 3. (5) Hypoglycemia Is this a current diagnosis for this admission?: Yes Plan: Continue sliding scale coverage. Check Hba1c. Will resume home insulin regimen depending on subsequent blood sugars. (6) Chronic systolic (congestive) heart failure Is this a current diagnosis for this admission?: Yes - Time Time Spent with patient: 25-34 minutes
--- NOTE | 2018-08-25 18:16 | RADIOLOGY REPORT (SQ) ---
EXAM DESCRIPTION: CAROTID DOPPLER COMPLETED DATE/TIME: 08/25/2018 6:00 pm REASON FOR STUDY: syncope E11.9 TYPE 2 DIABETES MELLITUS WITHOUT COMPLICATIONS E03.8 OTHER SPECIFI ED HYPOTHYROIDISM COMPARISON: 03/03/2012 TECHNIQUE: Grayscale ultrasound, Doppler velocity and spectra, and color Doppler images acquired of the extra-cranial carotid and vertebral arteries. Images stored on PACS. LIMITATIONS: None. FINDINGS: RIGHT CAROTID CCA Velocities: Within normal limits. ICA Velocities Peak systolic 79 cm/s. End diastolic 21 cm/s. Proximal ICA/CCA peak systolic ratio 1.0. Spectra normal. No significant plaque. LEFT CAROTID CCA Velocities: Within normal limits. ICA Velocities Peak systolic 93 cm/s. End diastolic 22 cm/s. Proximal ICA/CCA peak systolic ratio 1.2. Spectra normal. No significant plaque. VERTEBRAL ARTERIES: Antegrade flow. Normal waveforms. SUBCLAVIAN ARTERIES: No finding. OTHER: Similar elevated ECA velocities, right greater than left. IMPRESSION: NO HEMODYNAMICALLY SIGNIFICANT STENOSIS. COMMENT: Quality ID #[id number]: Velocity criteria are extrapolated from the diameter data as defined by t he Society of Radiologists in Ultrasound Consensus Conference. Radiology 2003: 229; 340-346. TECHNICAL DOCUMENTATION: JOB ID: [id number] [employer]- All Rights Reserved Reading location - IP/workstation name: [email or web address]
[2018-08-25] MEDS: ATORVASTATIN CALCIUM 40 MG TABLET PO SCH (22:50)
[2018-08-26] MEDS: LEVOTHYROXINE SODIUM 0.025 MG TABLET PO SCH (05:47)
[2018-08-26] MEDS: INSULIN LISPRO 100 UNIT/ML 3 ML VIAL SUBCUT SCH (08:23)
[2018-08-26] MEDS: DULOXETINE HCL 20 MG CAPSULE.DR PO SCH (09:45)
[2018-08-26] MEDS: ASPIRIN 81 MG TABLET, ENT COATED PO SCH (09:45)
[2018-08-26] MEDS: RIVAROXABAN 10 MG TABLET PO SCH (09:45)
[2018-08-26] MEDS ORDERED: METOPROLOL TARTRATE 25 MG TABLET PO SCH (10:00)
[2018-08-26 11:37] VITALS: BP 113/60
--- NOTE | 2018-08-29 17:17 | PDOC DISCHARGE SUMMARY ---
General - Admit/Disc Date/PCP Admission Date/Primary Care Provider: 08/24/18 17:50 THIAGO ALARCON MD Discharge Date: 08/26/18 - Discharge Diagnosis (1) Syncope Is this a current diagnosis for this admission?: Yes (2) Orthostatic hypotension Is this a current diagnosis for this admission?: Yes (3) WILLIS (acute kidney injury) Is this a current diagnosis for this admission?: Yes (4) Dehydration Is this a current diagnosis for this admission?: Yes (5) Hypoglycemia Is this a current diagnosis for this admission?: Yes (6) Chronic systolic (congestive) heart failure Is this a current diagnosis for this admission?: Yes - Additional Information Resuscitation Status: Full Code Prescriptions: Furosemide [Lasix 40 mg Tablet] 20 mg PO QAM #10 tablet Insulin Glargine,Hum.rec.anlog [Lantus Insulin 100 Unit/1 ml 10 ml] 15 unit SUBCUT DAILY #1 unit Metoprolol Tartrate [Lopressor 25 mg Tablet] 12.5 mg PO Q12 #15 tablet Home Medications: Isosorbide Mononitrate [Imdur] 60 mg PO DAILY 11/17/12 Rivaroxaban [Xarelto 10 mg Tablet] 10 mg PO DAILY 06/22/15 Rosuvastatin Calcium [Crestor 20 mg Tablet] 20 mg PO DAILY 06/22/15 Docusate Sodium [Colace 100 mg Capsule] 100 mg PO DAILY 10/27/16 Aspirin [Ecotrin 81 mg EC Tablet] 81 mg PO DAILY 08/24/18 Cholecalciferol (Vitamin D3) [Vitamin D3 1000 Unit Tablet] 1,000 unit PO DAILY 08/24/18 Duloxetine HCl [Cymbalta 20 mg Capsule.dr] 20 mg PO Q12 08/24/18 Hydrocodone/Acetaminophen [[place] 7.5-325 mg Tablet] 1 tab PO DAILYP PRN 08/24/18 Insulin Aspart [Novolog Flexpen] 0 unit SUBCUT .SLD SCALE 08/24/18 Levothyroxine Sodium [Synthroid 0.025 mg Tablet] 0.025 mg PO Q6AM 08/24/18 Pramipexole Di-HCl [Pramipexole Dihydrochloride] 0.25 mg PO QHS 08/24/18 Furosemide [Lasix 40 mg Tablet] 20 mg PO QAM #10 tablet 08/26/18 Insulin Glargine,Hum.rec.anlog [Lantus Insulin 100 Unit/1 ml 10 ml] 15 unit SUBCUT DAILY #1 unit 08/26/18 Metoprolol Tartrate [Lopressor 25 mg Tablet] 12.5 mg PO Q12 #15 tablet 08/26/18 History of Present Illness History of Present Illness: VANDANA COOL is a 68 year old female with a PMH of atrial fibrillation on Xarelto, prior pacemaker placement, on multiple medications, CAD and CHF who p resented with syncope. Patient says she has been having episodes of dizziness and light headedness for the past 2 months, on and off and usually occurring while standing or walking. She says today she had 4 episodes of passing out while standing. She denies any chest pain, palpitations or SOB. Denies headache or vertigo. No seizure-like activity or incontinence. In the ER, she was found to have orthostatic vital signs and was also found to be in WILLIS. Hospital Course Hospital Course: VANDANA COOL is a 68 year old female with a PMH of atrial fibrillation on Xarelto, prior pacemaker placement, on multiple medications, CAD and CHF who presented with syncope. In the ER, she was found to have orthostatic vital signs and was also found to be in WILLIS. She was started on gentle hydration due to her CHF. Her HTN and CHF meds were initially her including her beta blockers, ACEi and diuretics. Her orthostasis did resolve but her blood pressures were running n the low normal end. Records were requested from her track walker, Dr. Guo. She has a known EF of 20%. Her WILLIS also resolved with cautious hydration. Her insulin regimen was also decreased as her A1c came back at 6.4 and she had initial hypoglycemia in the 40s on presentation. On day of discharge, her pressures improved but on the low normal end. Recommended keeping her one more day while we slowly resume and reduce the dose of her home medications. Patient is insistent on not staying another day. Called Dr. Guo and discussed case. He agrees with holding off on some of her CHF/HTN meds and decreasing on the dose. He has made an appt for her this coming Thursday at 8 am. Her other home meds will be resumed by Dr. Guo if her blood pressures continue to improve upon follow up with him. Physical Exam Vital Signs: Temp Pulse Resp BP Pulse Ox 97.2 F 76 16 105/37 L 96 08/26/18 08:11 08/26/18 08:11 08/26/18 08:11 08/26/18 08:11 08/26/18 08:11 Intake & Output 08/25/18 08/26/18 08/27/18 06:59 06:59 06:59 Intake Total 1462 1717 Output Total 800 1000 Balance 662 717 Weight 209 lb 14.081 oz 209 lb 14.081 oz General appearance: PRESENT: no acute distress, obese Head exam: PRESENT: atraumatic, normocephalic Eye exam: PRESENT: conjunctiva pink, EOMI, PERRLA. ABSENT: scleral icterus Ear exam: PRESENT: normal external ear exam Mouth exam: PRESENT: moist, tongue midline Neck exam: ABSENT: carotid bruit, JVD, lymphadenopathy, thyromegaly Respiratory exam: PRESENT: clear to auscultation huy. ABSENT: rales, rhonchi, wheezes Cardiovascular exam: PRESENT: RRR. ABSENT: diastolic murmur, rubs Pulses: PRESENT: normal dorsalis pedis pul Vascular exam: PRESENT: normal capillary refill GI/Abdominal exam: PRESENT: normal bowel sounds, soft. ABSENT: distended, guarding, mass, organolmegaly, rebound, tenderness Rectal exam: PRESENT: deferred Extremities exam: PRESENT: +2 edema Neurological exam: PRESENT: alert, awake, oriented to person, oriented to place, oriented to time, oriented to situation, CN II-XII grossly intact. ABSENT: motor sensory deficit Results Laboratory Results: 08/25/18 11:21 08/25/18 11:21 08/25/18 08/25/18 08/25/18 11:21 11:21 11:21 WBC 8.9 RBC 4.06 Hgb 11.9 L Hct 35.0 L MCV 86 MCH 29.3 MCHC 33.9 RDW 16.1 H Plt Count 123 L Seg Neutrophils % 63.6 Lymphocytes % 25.3 Monocytes % 7.9 Eosinophils % 2.5 Basophils % 0.7 Absolute Neutrophils 5.6 Absolute Lymphocytes 2.2 Absolute Monocytes 0.7 Absolute Eosinophils 0.2 Absolute Basophils 0.1 Sodium 140.8 Potassium 4.2 Chloride 104 Carbon Dioxide 28 Anion Gap 9 BUN 30 H Creatinine 1.08 Est GFR ( Amer) > 60 Est GFR (Non-Af Amer) 51 L Glucose 194 H Calcium 9.1 TSH 1.38 08/24/18 08/24/18 16:45 20:22 Troponin I 0.037 0.033 Impressions: Cervical Spine CT 08/24/18 16:59 IMPRESSION: CHRONIC DEGENERATIVE CHANGES. NO ACUTE FINDINGS. Head CT 08/24/18 16:59 IMPRESSION: NORMAL BRAIN CT WITHOUT CONTRAST. EVIDENCE OF ACUTE STROKE: NO. Carotid Doppler Study 08/25/18 00:00 IMPRESSION: NO HEMODYNAMICALLY SIGNIFICANT STENOSIS. Chest X-Ray 08/25/18 00:00 IMPRESSION: Slight diffuse prominence of vascular markings which is improved when compared to the recent chest x-ray. No overt congestive heart failure. No new infiltrates. No pleural effusions. Qualifiers - * PATIENT BEING DISCHARGED WITH ANY OF THE FOLLOWING DIAGNOSIS: No
== END 2018-08-26 12:40 | disposition home or self-care (01) ==
LOC: ER 16:20 → INTOOBSV 17:50 → EH 17:50 → 4N 20:47
PROVIDERS: ADMIT Internal Medicine; ATTEND Internal Medicine
DX: R55 Syncope and collapse (principal); I95.1 Orthostatic hypotension; N17.9 Acute kidney failure, unspecified; E86.0 Dehydration; E11.649 Type 2 diabetes mellitus with hypoglycemia without coma; I11.0 Hypertensive heart disease with heart failure; I50.22 Chronic systolic (congestive) heart failure; I48.91 Unspecified atrial fibrillation; I25.10 Atherosclerotic heart disease of native coronary artery without angina pectoris; E66.9 Obesity, unspecified; E78.5 Hyperlipidemia, unspecified; M54.2 Cervicalgia; W18.09XA Striking against other object with subsequent fall, initial encounter; I25.2 Old myocardial infarction; R79.89 Other specified abnormal findings of blood chemistry; Z79.4 Long term (current) use of insulin; Z79.899 Other long term (current) drug therapy; Z79.01 Long term (current) use of anticoagulants; Z95.0 Presence of cardiac pacemaker; Z95.1 Presence of aortocoronary bypass graft; Z95.5 Presence of coronary angioplasty implant and graft
CPT/HCPCS: 93005; 99285; 96361; 96374; 36415 ×2; 87040; 87086; 82962 ×3; 84443; 85025 ×2; 85610; 80048; 80053; 81001; 84484; 83036; 82803; 83605; 93880; 71046; 71045; 70450; 72125; 93010; G0378 ×4; L0120; A9270 ×11; J3490 ×3; J7030; J1815

== ENCOUNTER 2019-06-04 17:38 | Emergency (ER) | payer MEDICARE, OTHER ==
[2019-06-04] MEDS ORDERED: HYDROMORPHONE HCL INJ/PF 2 MG/ML AMPULE IV ONE (21:11)
[2019-06-04] MEDS ORDERED: ONDANSETRON HCL INJ/PF 4 MG/2 ML SDV IV ONE (21:11)
--- NOTE | 2019-06-04 21:12 | ER Document Report ---
ED Fall - General Chief Complaint: Fall Stated Complaint: FALL,BACK PAIN Time Seen by Provider: 06/04/19 20:59 Primary Care Provider: THIAGO ALARCON MD [Primary Care Provider] - Follow up as needed Notes: Patient is a 69-year-old female that comes emergency department for chief complaint of lower back pain from a fall. She states earlier today she was trying to transfer from her bed to a wheelchair, she states she twisted, lost her balance, and fell landing on her lower back on the floor. She denies head injury. She states she hurts in her hips and in her back with radiating pains down both of her legs and the back. She denies numbness, loss of bowel control, and she has been able to urinate without any difficulty. She states that during the day she could not get her pain under control from her back using her hydrocodone for her chronic lower back pain so she came in for evaluation. She has a history of A. fib on Xarelto, AICD, CHF, peripheral vascular disease with femoral stents. TRAVEL OUTSIDE OF THE [place] IN LAST 30 DAYS: No - Related data Allergies/Adverse Reactions: Shellfish * [Shellfish] Allergy (Unknown, Verified 06/04/19 17:48) Hives digoxin [Digoxin] Adverse Reaction (Mild, Verified 06/04/19 17:48) Nausea oxycodone HCl [From Percocet] Adverse Reaction (Mild, Verified 06/04/19 17:48) Vomiting ramipril [From Altace] Adverse Reaction (Mild, Verified 06/04/19 17:48) cough Past Medical History - General Information source: Patient - Social History Smoking Status: Current Some Day Smoker Chew tobacco use (# tins/day): No Frequency of alcohol use: None Drug Abuse: None Lives with: Family Family History: Reviewed & Not Pertinent Patient has suicidal ideation: No Patient has homicidal ideation: No - Past Medical History Cardiac Medical History: Reports: Hx Atrial Fibrillation, Hx Congestive Heart Failure, Hx Coronary Artery Disease, Hx Heart Attack - 1999, Hx Hypercholesterolemia, Hx Hypertension - no but takes blood pressure meds Pulmonary Medical History: Denies: Hx Asthma, Hx Bronchitis, Hx COPD, Hx Pneumonia Neurological Medical History: Denies: Hx Cerebrovascular Accident, Hx Seizures Endocrine Medical History: Reports: Hx Diabetes Mellitus Type 2 Renal/ Medical History: Denies: Hx Peritoneal Dialysis GI Medical History: Denies: Hx Hepatitis, Hx Hiatal Hernia, Hx Ulcer Musculoskeletal Medical History: Reports Hx Arthritis Infectious Medical History: Denies: Hx Hepatitis Past Surgical History: Reports: Hx Cardiac Surgery - open heart, Hx Coronary Artery Bypass Graft, Hx Coronary Stent, Hx Hysterectomy, Hx Open Heart Surgery - QUAD BYPASS; pacemaker, Hx Pacemaker. Denies: Hx Mastectomy - Immunizations Hx Diphtheria, Pertussis, Tetanus Vaccination: Yes - 07/02/14 Hx Pneumococcal Vaccination: 07/02/14 Review of Systems - Review of Systems Constitutional: No symptoms reported EENT: No symptoms reported Cardiovascular: No symptoms reported Respiratory: No symptoms reported Gastrointestinal: No symptoms reported Genitourinary: No symptoms reported Female Genitourinary: No symptoms reported Musculoskeletal: See HPI Skin: No symptoms reported Hematologic/Lymphatic: No symptoms reported Neurological/Psychological: No symptoms reported Physical Exam - Vital signs Vitals: Temp Pulse Resp BP Pulse Ox 97.8 F 77 22 H 163/82 H 93 06/04/19 17:52 06/04/19 17:52 06/04/19 17:52 06/04/19 17:52 06/04/19 17:52 - Notes Notes: GENERAL: Alert, interacts well. No acute distress. HEAD: Normocephalic, atraumatic. EYES: Pupils equal, round, and reactive to light. Extraocular movements intact. ENT: Oral mucosa moist, tongue midline. Oropharynx unremarkable. Airway patent. LUNGS: Clear to auscultation bilaterally, no wheezes, rales, or rhonchi. No respiratory distress. HEART: Regular rate and rhythm. No murmur ABDOMEN: Soft, non-tender. Non-distended. EXTREMITIES: Moves all 4 extremities spontaneously. No edema, normal radial and dorsalis pedis pulses bilaterally. No cyanosis. BACK: No signs of trauma. General tenderness over the lumbar spine and lumbar areas. No saddle anesthesia, normal distal neurovascular exam. Moves all extremities in full range of motion. NEUROLOGICAL: Alert and oriented x3. Normal speech. Cranial nerves II through XII grossly intact. PSYCH: Normal affect, normal mood. SKIN: Warm, dry, normal turgor. No rashes or lesions noted. Course - Re-evaluation Re-evalutation: Imaging performed to evaluate patient's fall, this shows herniated disks in the lumbar spine but no acute findings. Patient has no neurological deficits. She states her pain is worse than usual but her symptoms are at her baseline otherwise. She has not toxic in appearance, vital signs unremarkable, overall appearance is unremarkable. Patient states he does feel better after pain medication. I discussed treatment options with her. After discussion decision was made to provide her with muscle relaxants, she was given dexamethasone after discussion pros and cons including adjusting her insulin. Discussed close follow-up and return cautions in detail. She states appreciation and agreement. Stable at time of discharge. - Vital Signs Vital signs: Temp Pulse Resp BP Pulse Ox 97.8 F 77 16 121/73 92 06/04/19 17:52 06/04/19 17:52 06/05/19 00:01 06/05/19 00:01 06/05/19 00:01 Discharge - Discharge Clinical Impression: Fall Qualifiers: Encounter type: initial encounter Qualified Code(s): W19.XXXA - Unspecified fall, initial encounter Hip pain Qualifiers: Laterality: bilateral Qualified Code(s): M25.551 - Pain in right hip Lower back pain Qualifiers: Chronicity: acute Back pain laterality: bilateral Sciatica presence: with sciatica Sciatica laterality: sciatica laterality unspecified Qualified Code(s): M54.40 - Lumbago with sciatica, unspecified side Condition: Stable Disposition: HOME, SELF-CARE Additional Instructions: Your imaging does show herniated disks in the lower spine but no fractures or concerning findings are seen otherwise. You have been provided with a dose of steroids that will last in your system for about 3 days, please adjust your insulin doses for your blood sugar if needed. You have been prescribed diazepam to use as a muscle relaxer, please use with caution as this can be sedating especially if combined with other sedating medication including pain medication. Apply heat to your lower back and rest. Follow-up close with your provider and pain management for additional treatment. Come back if you are worse including loss of control of your bowels or bladder, fever, new numbness, or any other concerning or worsening symptoms. Prescriptions: Diazepam [Valium 5 mg Tablet] 1 - 2 tab PO TID PRN #15 tablet PRN Reason: Referrals: THIAGO ALARCON MD [Primary Care Provider] - Follow up as needed
--- NOTE | 2019-06-04 22:10 | RADIOLOGY REPORT (SQ) ---
Bilateral hip radiographs: 06/04/2019 9:09 PM DRAWING OPERATOR TECHNIQUE: AP pelvis and lateral views of the bilateral hips were obtained. COMPARISON: None available HISTORY: 69-year-old patient with fall, hip pain. FINDINGS: The visualized sacroiliac joints are unremarkable. There are no findings to suggest an acute fracture or subluxation within the bilateral hips. Mild degenerative changes are seen within the lower lumbar spine. There are surgical clips seen around both hips. Atherosclerotic calcifications are seen at the soft tissues. There are surgical clips seen at the right inguinal region. IMPRESSION: There are no findings to suggest an acute fracture or subluxation within the bilateral hips.
--- NOTE | 2019-06-04 22:16 | RADIOLOGY REPORT (SQ) ---
CT of the lumbar spine: 06/04/2019 9:13 PM TITRATOR TECHNIQUE: Multiple axial contiguous images were obtained through the lumbar spine without intravenous contrast administered. Coronal and sagittal reconstructed images were also obtained and examined. This exam was performed according to our departmental dose-optimization program, which includes automated exposure control, adjustment of the mA and/or KV according to the patient's size and/or use of iterative reconstruction technique. HISTORY: 69-year-old patient with lower back pain. COMPARISON:None available FINDINGS: The visualized vertebral bodies appear to be well aligned. No significant loss of vertebral body height is seen. No significant intervertebral disc space narrowing is seen. The visualized sacroiliac joints appear grossly unremarkable. There are no findings to suggest an acute fracture or subluxation. Moderate multilevel facet hypertrophy is seen. Their disc protrusion seen at L4/L5 and L5/S1. The visualized intrapelvic organs also appear unremarkable. There are no findings to suggest hydronephrosis. Moderate atherosclerotic calcification is seen at aorta and into the iliac arteries. There is a stent noted at the left common iliac artery region. IMPRESSION: There are no findings to suggest an acute fracture or subluxation of the lumbar spine.
--- NOTE | 2019-06-04 23:29 | EKG REPORT ---
SEVERITY:- ABNORMAL ECG - WANDERING PACEMAKER NONSPECIFIC INTRAVENTRICULAR CONDUCTION DELAY PROBABLE INFERIOR INFARCT, AGE INDETERMINATE : Confirmed by: Steph Anthony 04-Jun-2019 23:28:27
[2019-06-05 00:11] VITALS: BP 121/73
[2019-06-05] MEDS ORDERED: DEXAMETHASONE SOD PHOS INJ 10 MG/1 ML VIAL IV ONE (00:12)
[2019-06-05] MEDS ORDERED: HYDROMORPHONE HCL INJ/PF 2 MG/ML AMPULE IV ONE (00:12)
== END 2019-06-05 00:44 | disposition home or self-care (01) ==
LOC: ER 17:38
DX: M54.40 Lumbago with sciatica, unspecified side (principal); M25.551 Pain in right hip; M54.9 Dorsalgia, unspecified; X50.1XXA Overexertion from prolonged static or awkward postures, initial encounter; I48.91 Unspecified atrial fibrillation; Z79.01 Long term (current) use of anticoagulants; I50.9 Heart failure, unspecified; F17.200 Nicotine dependence, unspecified, uncomplicated; I25.10 Atherosclerotic heart disease of native coronary artery without angina pectoris; I25.2 Old myocardial infarction; I11.0 Hypertensive heart disease with heart failure; E11.9 Type 2 diabetes mellitus without complications
CPT/HCPCS: 93005; 96376; 99284; 96374; 96375; 73522; 72131; 93010; J1170 ×2; J2405; J1100

== ENCOUNTER 2019-06-26 18:20 | Inpatient (IN) | payer MEDICARE, OTHER ==
[2019-06-26 20:45] LABS: ABSOLUTE BASOPHILS # (AUTO) 0.1 10^3/uL (0.0-0.2); ABSOLUTE EOSINOPHILS # (AUTO) 0.2 10^3/uL (0.0-0.6); ABSOLUTE LYMPHOCYTES (AUTO) 2.1 10^3/uL (0.5-4.7); ABSOLUTE MONOCYTES (AUTO) 1.1 10^3/uL (0.1-1.4); ABSOLUTE NEUT (AUTO) 12.7 10^3/uL (1.7-8.2); BASOPHILS % (AUTO) 0.3 % (0-2); EOSINOPHILS % (AUTO) 1.2 % (0-6); HEMATOCRIT 40.5 % (36.0-47.0); HEMOGLOBIN 13.9 g/dL (12.0-15.5); MEAN CORPUSCULAR HEMOGLOBIN 32.2 pg (27.0-33.4); MEAN CORPUSCULAR HGB CONC 34.4 g/dL (32.0-36.0); MEAN CORPUSCULAR VOLUME 94 fl (80-97); MONOCYTES % (AUTO) 6.9 % (3-13); PLATELET COUNT 174 10^3/uL (150-450); RED BLOOD COUNT 4.32 10^6/uL (3.72-5.28); RED CELL DISTRIBUTION WIDTH 15.6 % (11.5-14.0); SEGMENTED NEUTROPHILS % (AUTO) 78.6 % (42-78); TOTAL CELLS COUNTED % (AUTO) 100 %; WHITE BLOOD COUNT 16.1 10^3/uL (4.0-10.5)
[2019-06-26] MEDS ORDERED: HYDROMORPHONE HCL INJ/PF 2 MG/ML AMPULE IV ONE (21:00)
[2019-06-26] MEDS ORDERED: ONDANSETRON HCL INJ/PF 4 MG/2 ML SDV IV ONE (21:01)
[2019-06-26 21:06] LABS: ALBUMIN 4.5 g/dL (3.5-5.0); ALKALINE PHOSPHATASE 88 U/L (38-126); ANION GAP 9 (5-19); ASPARTATE AMINO TRANSFERASE 36 U/L (14-36); BILIRUBIN,DIRECT 0.4 mg/dL (0.0-0.4); BILIRUBIN,TOTAL 0.5 mg/dL (0.2-1.3); BLOOD UREA NITROGEN 25 mg/dL (7-20); CALCIUM 10.1 mg/dL (8.4-10.2); CARBON DIOXIDE 33 mmol/L (22-30); CHLORIDE 98 mmol/L (98-107); GLUCOSE 146 mg/dL (75-110); POTASSIUM 3.8 mmol/L (3.6-5.0); TOTAL PROTEIN 7.7 g/dL (6.3-8.2)
[2019-06-26 21:58] LABS: INTERNATIONAL RATION (INR) 1.25; PROTHROMBIN TIME 15.8 SEC (11.4-15.4)
[2019-06-26 22:01] LABS: D-DIMER 0.82 ug/mL (0.00-0.50)
--- NOTE | 2019-06-26 22:12 | RADIOLOGY REPORT (SQ) ---
EXAM DESCRIPTION: XR CHEST 2 VIEWS COMPLETED DATE/TME: 06/26/2019 21:08 CLINICAL HISTORY: 69 years, Female, shortness of breath/chf COMPARISON: 08/25/2018 chest NUMBER OF VIEWS: 2 TECHNIQUE: 2 view chest LIMITATIONS: None. FINDINGS: Stable cardiomegaly and postsurgical change. Mild elevation of the right hemidiaphragm. Mild interstitial edema. No pneumothorax IMPRESSION: Cardiomegaly with mild interstitial edema copyright 2010 [employer]- All Rights Reserved
[2019-06-26 22:35] LABS: APPEARANCE,URINE SLIGHTLY-CLOUDY; BILIRUBIN,URINE NEGATIVE (NEGATIVE); COLOR,URINE YELLOW; GLUCOSE, URINE NEGATIVE (NEGATIVE); KETONES,URINE NEGATIVE (NEGATIVE); LEUKOCYTE ESTERASE,URINE MODERATE (NEGATIVE); NITRITE,URINE POSITIVE (NEGATIVE); PROTEIN,URINE 30 mg/dL (NEGATIVE); URINE SPECIFIC GRAVITY 1.027
[2019-06-26] MEDS ORDERED: CEFAZOLIN 2 GM/D5W RTU 2 GM/50 ML RTUPB IV ONE (22:39)
[2019-06-26] MEDS ORDERED: FUROSEMIDE INJ/PF 40 MG/4 ML SDV IV ONE (22:41)
[2019-06-26] MEDS ORDERED: CEFAZOLIN INJ 1 GM VIAL ONE (23:08)
--- NOTE | 2019-06-26 23:12 | EKG REPORT ---
SEVERITY:- ABNORMAL ECG - SINUS RHYTHM NONSPECIFIC INTRAVENTRICULAR CONDUCTION DELAY PROBABLE INFERIOR INFARCT, AGE INDETERMINATE : Confirmed by: Steph Anthony 26-Jun-2019 23:12:17
--- NOTE | 2019-06-27 00:30 | ER Document Report ---
Entered by JUAN JOSÉ DHILLON SCRIBE 06/26/[id number] Acting as scribe for:LEÓN GUERRA MD ED General - General Chief Complaint: Leg Swelling Stated Complaint: LEG SWELLING Time Seen by Provider: 06/26/19 20:14 Primary Care Provider: THIAGO ALARCON MD [NO LOCAL MD] - Follow up as needed Information source: Patient Notes: 69-year-old female patient presents to the emergency department with a cheif complaint of lower extremity swelling that began three days ago. Patient described associated pain as throbbing and burning. Patient states that the swelling has not been this bad in awhile. Patient stated that the swelling was inhibiting her from moving from her bed to her wheelchair and to her shower. Patient stated that she "could not feel her foot touching the floor". Patient report pale skin and gaining weight. Patient denied chest pain and shortness of breath. TRAVEL OUTSIDE OF THE [place] IN LAST 30 DAYS: No - Related Data Allergies/Adverse Reactions: Shellfish * [Shellfish] Allergy (Unknown, Verified 06/04/19 17:48) Hives digoxin [Digoxin] Adverse Reaction (Mild, Verified 06/04/19 17:48) Nausea oxycodone HCl [From Percocet] Adverse Reaction (Mild, Verified 06/04/19 17:48) Vomiting ramipril [From Altace] Adverse Reaction (Mild, Verified 06/04/19 17:48) cough Past Medical History - General Information source: Patient - Social History Smoking Status: Current Some Day Smoker Cigarette use (# per day): Yes Chew tobacco use (# tins/day): No Lives with: Spouse/Significant other Family History: Reviewed & Not Pertinent - Past Medical History Cardiac Medical History: Reports: Hx Atrial Fibrillation, Hx Congestive Heart Failure, Hx Coronary Artery Disease, Hx Heart Attack - 1999, Hx Hypercholesterolemia, Hx Hypertension - no but takes blood pressure meds Endocrine Medical History: Reports: Hx Diabetes Mellitus Type 2 Musculoskeletal Medical History: Reports Hx Arthritis Past Surgical History: Reports: Hx Cardiac Surgery - open heart, Hx Coronary Art hai Bypass Graft, Hx Coronary Stent, Hx Hysterectomy, Hx Open Heart Surgery - QUAD BYPASS; pacemaker, Hx Pacemaker - Immunizations Hx Diphtheria, Pertussis, Tetanus Vaccination: Yes - 07/02/14 Hx Pneumococcal Vaccination: 07/02/14 Review of Systems - Review of Systems Constitutional: See HPI, Weight gain EENT: No symptoms reported Cardiovascular: See HPI. denies: Chest pain Respiratory: See HPI. denies: Short of breath Gastrointestinal: No symptoms reported Genitourinary: No symptoms reported Female Genitourinary: No symptoms reported Musculoskeletal: See HPI, Leg swelling Skin: See HPI, Change in color Hematologic/Lymphatic: No symptoms reported Neurological/Psychological: No symptoms reported -: Yes All other systems reviewed and negative Physical Exam - Vital signs Vitals: Pulse Ox 98 06/26/19 18:50 - Notes Notes: Physical Exam: General: Alert, appears well. Obese. HEENT: Normocephalic. Atraumatic. PERRL. Extraocular movements intact. Oropharynx clear. Neck: Supple. Non-tender. Respiratory: No respiratory distress. Clear and equal breath sounds bilaterally. Cardiovascular: Regular rate and rhythm. Abdominal: Normal Inspection. Non-tender. No distension. Normal Bowel Sounds. Back: Tenderness to palpation. Extremities: Moves all four extremities. Upper extremities: Normal inspection. Normal ROM. Lower extremities: 3+ edema; LLE greater than RLE. Mild ecchymosis. Calf tenderness to palpation. Normal ROM. Neurological: Normal cognition. AAOx4. Normal speech. Psychological: Normal affect. Normal Mood. Skin: Warm. Dry. Normal color. Course - Vital Signs Vital signs: Temp Pulse Resp BP Pulse Ox 98.1 F 17 143/85 H 90 L 06/26/19 22:18 06/27/19 00:03 06/27/19 00:03 06/27/19 00:03 - Laboratory Result Diagrams: 06/26/19 20:30 06/26/19 20:30 Laboratory results interpreted by me: 06/26/19 06/26/19 06/26/19 20:30 20:30 20:30 WBC 16.1 H RDW 15.6 H Absolute Neuts (auto) 12.7 H Seg Neutrophils % 78.6 H PT D-Dimer Carbon Dioxide 33 H BUN 25 H Glucose 146 H NT-Pro-B Natriuret Pep 601 H Urine Protein Urine Nitrite Urine Urobilinogen Ur Leukocyte Esterase 06/26/19 06/26/19 20:30 22:00 WBC RDW Absolute Neuts (auto) Seg Neutrophils % PT 15.8 H D-Dimer 0.82 H Carbon Dioxide BUN Glucose NT-Pro-B Natriuret Pep Urine Protein 30 H Urine Nitrite POSITIVE H Urine Urobilinogen 2.0 H Ur Leukocyte Esterase MODERATE H 06/26/19 22:36 Patient had is has an elevated white blood cell count at 16. BNP is 601 and a d-dimer is 0.8. Pending at this time is a ultrasound of both lower extremities. Will get blood cultures x2 and begin patient on antibiotics through due to use of antibiotics and treating cellulitis of the left lower extremity. - Diagnostic Test Radiology reviewed: Image reviewed, Reports reviewed Radiology results interpreted by me: 06/26/19 22:36 Chest x-ray shows cardiomegaly and diffuse interstitial edema. Pacemaker defibrillator noted in the left upper chest area.. - EKG Interpretation by Me Additional EKG results interpreted by me: 06/26/19 22:37 Twelve-lead EKG 06/26/2019 done at 2202 atrial fibrillation rhythm rate control of 87 nonspecific intraventricular conduction delay. Probable inferior infarct age indeterminate. 06/27/19 00:17 Discharge - Discharge Clinical Impression: Acute exacerbation of CHF (congestive heart failure), Chronic atrial fibrillation, Bilateral edema of lower extremity, Cellulitis of left lower leg, On home oxygen therapy, Chronic back pain Condition: Fair Disposition: ADMITTED INPATIENT Admitting Provider: Charleen (Hospitalist) Unit Admitted: Medical Floor Referrals: THIAGO ALARCON MD [NO LOCAL MD] - Follow up as needed I personally performed the services described in the documentation, reviewed and edited the documentation which was dictated to the scribe in my presence, and it accurately records my words and actions.
[2019-06-27] MEDS ORDERED: PIPERACILLIN/TAZOBACTAM 3.375 GM VIAL IV SCH (00:54)
[2019-06-27] MEDS ORDERED: VANCOMYCIN HCL INJ 1000 MG VIAL IV ONE (00:54)
[2019-06-27] MEDS ORDERED: PIPERACILLIN SODIUM/TAZOBACTAM 3.375 GM in NORMAL SALINE 100 ML IV SCH (02:00)
[2019-06-27] MEDS ORDERED: VANCOMYCIN HCL INJ 1000 MG VIAL ONE (02:24)
[2019-06-27] MEDS ORDERED: VANCOMYCIN HCL INJ 500 MG VIAL ONE (02:24)
[2019-06-27] MEDS ORDERED: PIPERACILLIN/TAZOBACTAM 3.375 GM VIAL IV ONE (02:24)
[2019-06-27] MEDS ORDERED: PROMETHAZINE HCL INJ 25 MG/1 ML VIAL IV PRN (02:45)
[2019-06-27] MEDS ORDERED: MAG HYDROX/AL HYDROX/SIMETH SUSP 30 ML UDCUP PO PRN (02:45)
[2019-06-27] MEDS ORDERED: MAGNESIUM HYDROXIDE SUSP 30 ML UDCUP PO PRN (02:45)
[2019-06-27] MEDS ORDERED: MORPHINE SULFATE 10 MG/ML INJ IV PRN ×2 (02:50)
[2019-06-27] MEDS ORDERED: HYDRALAZINE HCL INJ/PF 20 MG/1 ML SDV IV PRN (02:50)
[2019-06-27] MEDS ORDERED: NICOTINE 21 MG/24 HR PATCH.TD24 TD PRN (02:50)
[2019-06-27] MEDS ORDERED: ACETAMINOPHEN 325 MG TABLET PO PRN (02:50)
[2019-06-27] MEDS ORDERED: VANCOMYCIN HCL 1,500 MG in DEXTROSE 5%-WATER 250 ML IV ONE (03:00)
--- NOTE | 2019-06-27 06:19 | PDOC H&P ---
History of Present Illness Admission Date/PCP: 06/27/19 00:47 JEY BENAVIDES MD Patient complains of: Left leg pain and swelling History of Present Illness: VANDANA ONOFRE is a 69 year old female who presented the emergency room with a 3-day history of pain in her left lower extremity. She admits to the gradual onset and progressive worsening of constant throbbing and burning pain with accompanying erythema and swelling in her left lower extremity over the last 3 days. She she admits that the pain has become severe, is worsened by activities of daily living and is associated with a recent weight gain. She denies other associated or accompanying signs and symptoms. She denies prior similar episodes. She denies identification of any additional aggravating or ameliorating factors for her left lower extremity pain. In the emergency room she was found to have an elevated white blood count and an erythematous, edematous and tender left lower extremity consistent with an acute cellulitis. Patient was started on IV antibiotics and subsequently admitted to the hospital for further evaluation and treatment. Past Medical History Cardiac Medical History: Reports: Atrial Fibrillation, Congestive Heart Failure, Coronary Artery Disease, Myocardial Infarction - 2000, Hyperlipidema, Hypertension Denies: DVT, Peripheral Vascular Disease, Pulmonary Embolism Pulmonary Medical History: Reports: Respiratory Failure - Chronic respiratory failure with hypoxia on home oxygen Denies: Asthma, Bronchitis, Chronic Obstructive Pulmonary Disease (COPD), Pneumonia, Sleep Apnea EENT Medical History: Denies: Cataracts, Ears - Hearing aids Neurological Medical History: Denies: Hemorrhagic CVA, Ischemic CVA, Seizures Endocrine Medical History: Reports: Diabetes Mellitus Type 2, Hypothyroidism, Obesity Denies: Diabetes Mellitus Type 1, Hyperthyroidism Renal/ Medical History: Denies: Chronic Kidney Disease, Nephrolithiasis Malignancy Medical History: Reports: None GI Medical History: Denies: Cirrhosis, Crohn's Disease, Gastroesophageal Reflux Disease, Hep atitis, Hiatal Hernia, Peptic Ulcer Disease, Ulcerative Colitis Musculoskeltal Medical History: Reports: Arthritis Denies: Gout Skin Medical History: Denies: Eczema, Psoriasis Psychiatric Medical History: Reports: Tobacco Dependency Denies: Alcohol Dependency, Substance Abuse Traumatic Medical History: Reports: None Hematology: Denies: Anemia, Bleeding Tendencies Infectious Medical History: Reports: None Past Surgical History Past Surgical History: Reports: Cardiac Catheterization, Coronary Artery Bypass Graft, Coronary Stent, Hysterectomy, Pacemaker - AICD Social History Information Source: Patient Lives with: Spouse/Significant other Smoking Status: Current Every Day Smoker Electronic Cigarette use?: No Frequency of Alcohol Use: None Hx Recreational Drug Use: No Drugs: None Hx Prescription Drug Abuse: No - Advance Directive Resuscitation Status: Full Code Surrogate healthcare decision maker:: Ruben Onofre Family History Parental Family History Reviewed: Yes Children Family History Reviewed: No Sibling(s) Family History Reviewed.: Yes Medication/Allergy Home Medications: Isosorbide Mononitrate [Imdur] 60 mg PO DAILY 11/17/12 Rivaroxaban [Xarelto 10 mg Tablet] 10 mg PO DAILY 06/22/15 Rosuvastatin Calcium [Crestor 20 mg Tablet] 20 mg PO DAILY 06/22/15 Docusate Sodium [Colace 100 mg Capsule] 100 mg PO DAILY 10/27/16 Aspirin [Ecotrin 81 mg EC Tablet] 81 mg PO DAILY 08/24/18 Cholecalciferol (Vitamin D3) [Vitamin D3 1000 Unit Tablet] 1,000 unit PO DAILY 08/24/18 Duloxetine HCl [Cymbalta 20 mg Capsule.dr] 20 mg PO Q12 08/24/18 Hydrocodone/Acetaminophen [[place] 7.5-325 mg Tablet] 1 tab PO DAILYP PRN 08/24/18 Insulin Aspart [Novolog Flexpen] 0 unit SUBCUT .SLD SCALE 08/24/18 Levothyroxine Sodium [Synthroid 0.025 mg Tablet] 0.025 mg PO Q6AM 08/24/18 Pramipexole Di-HCl [Pramipexole Dihydrochloride] 0.25 mg PO QHS 08/24/18 Furosemide [Lasix 40 mg Tablet] 20 mg PO QAM #10 tablet 08/26/18 Insulin Glargine,Hum.rec.anlog [Lantus Insulin 100 Unit/1 ml 10 ml] 15 unit SUBCUT DAILY #1 unit 08/26/18 Metoprolol Tartrate [Lopressor 25 mg Tablet] 12.5 mg PO Q12 #15 tablet 08/26/18 Diazepam [Valium 5 mg Tablet] 1 - 2 tab PO TID PRN #15 tablet 06/05/19 Allergies/Adverse Reactions: Shellfish * [Shellfish] Allergy (Unknown, Verified 06/04/19 17:48) Hives digoxin [Digoxin] Adverse Reaction (Mild, Verified 06/04/19 17:48) Nausea oxycodone HCl [From Percocet] Adverse Reaction (Mild, Verified 06/04/19 17:48) Vomiting ramipril [From Altace] Adverse Reaction (Mild, Verified 06/04/19 17:48) cough Review of Systems Constitutional: PRESENT: as per HPI, weight gain. ABSENT: chills, fever(s), headache(s) Eyes: ABSENT: visual disturbances, other - Eye pain Ears: ABSENT: hearing changes, other - Ear pain Nose, Mouth, and Throat: ABSENT: headache(s), mouth pain, sore throat Cardiovascular: PRESENT: as per HPI, edema - Left lower extremity. ABSENT: chest pain, dyspnea on exertion, orthropnea, palpitations Respiratory: ABSENT: cough, dyspnea Gastrointestinal: ABSENT: abdominal pain, constipation, diarrhea, nausea, vomiting Genitourinary: ABSENT: dysuria, hematuria Musculoskeletal: PRESENT: other - Painful left lower extremity. ABSENT: back pain, joint swelling, muscle weakness Integumentary: PRESENT: as per HPI, erythema - Left lower extremity, other - Swollen left lower extremity. ABSENT: pruritus, rash Neurological: ABSENT: confusion, convulsions, focal weakness, memory loss, syncope Psychiatric: ABSENT: anxiety, depression Endocrine: ABSENT: cold intolerance, heat intolerance, polydipsia, polyphagia, polyuria Hematologic/Lymphatic: ABSENT: easy bleeding, easy bruising Allergic/Immunologic: ABSENT: seasonal rhinorrhea Physical Exam Vital Signs: Temp Pulse Resp BP Pulse Ox 98.1 F 17 143/85 H 90 L 06/26/19 22:18 06/27/19 00:03 06/27/19 00:03 06/27/19 00:03 Intake & Output 06/25/19 06/26/19 06/27/19 23:59 23:59 23:59 Weight 113.3 kg General appearance: PRESENT: no acute distress, cooperative, morbidly obese Head exam: PRESENT: atraumatic, normocephalic Eye exam: PRESENT: conjunctiva pink. ABSENT: conjunctival injection, scleral i cterus Ear exam: PRESENT: normal external ear exam. ABSENT: bleeding, drainage Mouth exam: PRESENT: dry mucosa, neck supple Neck exam: ABSENT: thyromegaly, tracheal deviation Respiratory exam: PRESENT: rales - Fine bibasilar rales noted on auscultation, symmetrical, unlabored Cardiovascular exam: PRESENT: gallop - Soft S4 gallop, RRR. ABSENT: clicks, rubs Pulses: PRESENT: normal carotid pulses, normal radial pulses Vascular exam: PRESENT: normal capillary refill. ABSENT: pallor GI/Abdominal exam: PRESENT: normal bowel sounds, soft. ABSENT: tenderness Rectal exam: PRESENT: deferred Extremities exam: ABSENT: joint swelling, pedal edema Musculoskeletal exam: ABSENT: deformity, dislocation Neurological exam: PRESENT: alert, oriented to person, oriented to place, oriented to time, oriented to situation, CN II-XII grossly intact. ABSENT: motor sensory deficit Psychiatric exam: PRESENT: appropriate affect, normal mood Skin exam: PRESENT: dry, erythema - Erythema and edema with increased warmth to palpation noted in the left lower extremity from the toes to the knee. This area is also tender to palpation and pain induced by movements whether passive or active is noted., intact, warm. ABSENT: jaundice, rash, urticaria Results Laboratory Results: 06/26/19 20:30 06/26/19 20:30 06/26/19 06/26/19 06/26/19 20:30 20:30 22:00 WBC 16.1 H RBC 4.32 Hgb 13.9 Hct 40.5 MCV 94 MCH 32.2 MCHC 34.4 RDW 15.6 H Plt Count 174 Seg Neutrophils % 78.6 H Sodium 140.0 Potassium 3.8 Chloride 98 Carbon Dioxide 33 H Anion Gap 9 BUN 25 H Creatinine 0.83 Est GFR ( Amer) > 60 Glucose 146 H Lactic Acid 1.3 Calcium 10.1 Total Bilirubin 0.5 AST 36 Alkaline Phosphatase 88 Total Protein 7.7 Albumin 4.5 Urine Color Urine Appearance Urine pH Ur Specific [place] Urine Protein Urine Glucose (UA) Urine Ketones Urine Blood Urine Nitrite Ur Leukocyte Esterase Urine WBC (Auto) 06/26/19 22:00 WBC RBC Hgb Hct MCV MCH MCHC RDW Plt Count Seg Neutrophils % Sodium Potassium Chloride Carbon Dioxide Anion Gap BUN Creatinine Est GFR ( Amer) Glucose Lactic Acid Calcium Total Bilirubin AST Alkaline Phosphatase Total Protein Albumin Urine Color YELLOW Urine Appearance SLIGHTLY-CLOUDY Urine pH 6.0 Ur Specific [place] 1.027 Urine Protein 30 H Urine Glucose (UA) NEGATIVE Urine Ketones NEGATIVE Urine Blood NEGATIVE Urine Nitrite POSITIVE H Ur Leukocyte Esterase MODERATE H Urine WBC (Auto) 103 06/26/19 06/26/19 20:30 20:30 Troponin I 0.016 NT-Pro-B Natriuret Pep 601 H Impressions: Chest X-Ray 06/26/19 21:08 IMPRESSION: Cardiomegaly with mild interstitial edema copyright 2011 [employer]- All Rights Reserved Assessment and Plan - Diagnosis (1) Cellulitis of left lower leg Is this a current diagnosis for this admission?: Yes (2) Chronic respiratory failure with hypoxia Is this a current diagnosis for this admission?: Yes (3) Chronic congestive heart failure Qualifiers: Heart failure type: unspecified Qualified Code(s): I50.9 - Heart failure, unspecified Is this a current diagnosis for this admission?: Yes (4) Coronary artery disease Qualifiers: Coronary Disease-Associated Artery/Lesion type: [place] artery [place] vs. transplanted heart: [place] heart Associated angina: without angina Qualified Code(s): I25.10 - Atherosclerotic heart disease of [place] coronary artery without angina pectoris Is this a current diagnosis for this admission?: Yes (5) Hypertension Qualifiers: Hypertension type: essential hypertension Qualified Code(s): I10 - E ssential (primary) hypertension Is this a current diagnosis for this admission?: Yes (6) Hyperlipidemia Qualifiers: Hyperlipidemia type: unspecified Qualified Code(s): E78.5 - Hyperlipidemia, unspecified Is this a current diagnosis for this admission?: Yes (7) Tobacco use disorder Is this a current diagnosis for this admission?: Yes - Plan Summary Summary: Patient will be admitted to the medical floor where she will receive routine supportive and symptomatic cares. She will be treated with IV antibiotics utilizing vancomycin and Zosyn initially pending blood culture and urine culture results. Her pain will be treated with morphine sulfate 2 to 4 mg IV every 2 hours on as-needed basis. She will use Ativan 1 mg IV every 4 hours as needed for anxiety. Her left lower extremity will be elevated to help reduce the edema. CBCs, metabolic profiles and magnesium levels to be followed as appropriate. Patient will be started back on her usual home medications as appropriate, with adjustments for improved control of her congestive heart failure, as soon as her medication list has been verified and reconciled. Smoking cessation is advised and counseled briefly at the bedside. A nicotine replacement patch is available for the patient's use, if needed. - Time Time Spent with patient: 25-34 minutes Smoking Cessation Education: 3 to 10 minutes Medications reviewed and adjusted accordingly: Yes Anticipated discharge: Home - Inpatient Certification Based on my medical assessment, after consideration of the patient's comorbidities, presenting symptoms, or acuity I expect that the services needed warrant INPATIENT care.: Yes I certify that my determination is in accordance with my understanding of [employer] 's requirements for reasonable and necessary INPATIENT services [42 CFR 412.3e].: Yes Medical Necessity: Significant Comorbidiites Make Outpatient Treatment Too Risky, Need Close Monitoring Due to Risk of Patient Decompensation, Need for Pain Control, Need for IV Antibiotics, Risk of Complication if Not Cared For in Hospital
[2019-06-27] MEDS: HEPARIN SOD (PORCINE) 5,000 UNIT/ML 1 ML VIAL SUBCUT SCH ×3 (06:41→21:05)
--- NOTE | 2019-06-27 09:20 | XCELERA REPORT ---
[address] [facility] [address] Lower Extremity Venous Evaluation Procedure: Color flow and duplex imaging bilaterally of the veins of the lower extremities as well as the Common Femoral veins. Right Sided Venous Evaluation Normal vessel filling wall to wall, compression and augmentation as well as Colour flow down to the infrageniculate veins. Left Sided Venous Evaluation Normal vessel filling wall to wall, compression and augmentation as well as Colour flow down to the infrageniculate veins. Interpretation Summary No duplex evidence of DVT or obstruction in the bilateral lower extremities. Name: VANDANA COOL Age: 69 yrs Gender: Female : 1950 Patient Status: Emergency Patient Location: ER Study Date: 06/26/2019 11:08 PM Reason For Study: bilat lower ext swelling/pain Ordering Physician: LEÓN GUERRA Performed By: Oneida Kirby : LEÓN GUERRA > Kumar Jackson
[2019-06-27] MEDS: FAMOTIDINE 20 MG TABLET PO SCH ×2 (09:34→21:05)
[2019-06-27] MEDS: DOCUSATE SODIUM 100 MG CAPSULE PO SCH ×2 (09:34→18:31)
[2019-06-27] MEDS: PIPERACILLIN SODIUM/TAZOBACTAM 3.375 GM in NORMAL SALINE 100 ML IV SCH ×3 (09:35→21:04)
[2019-06-27] MEDS ORDERED: VANCOMYCIN HCL INJ 1000 MG VIAL IV SCH (10:00)
[2019-06-27] MEDS ORDERED: VANCOMYCIN HCL 750 MG in DEXTROSE 5%-WATER 250 ML IV SCH (10:00)
[2019-06-27] MEDS: MORPHINE SULFATE 10 MG/ML INJ IV PRN ×2 (13:49→20:03)
[2019-06-27] MEDS: VANCOMYCIN HCL 750 MG in DEXTROSE 5%-WATER 250 ML IV SCH (18:30)
[2019-06-27] MEDS: NYSTATIN TOPICAL POWDER 15 GM TP SCH (21:05)
[2019-06-28] MEDS: PIPERACILLIN SODIUM/TAZOBACTAM 3.375 GM in NORMAL SALINE 100 ML IV SCH ×4 (02:33→21:45)
[2019-06-28] MEDS: HEPARIN SOD (PORCINE) 5,000 UNIT/ML 1 ML VIAL SUBCUT SCH ×2 (05:13→13:00)
[2019-06-28] MEDS: VANCOMYCIN HCL 750 MG in DEXTROSE 5%-WATER 250 ML IV SCH ×2 (05:15→17:40)
[2019-06-28] MEDS: MORPHINE SULFATE 10 MG/ML INJ IV PRN ×2 (05:57→18:29)
[2019-06-28 06:43] LABS: HEMATOCRIT 39.3 % (36.0-47.0); HEMOGLOBIN 13.4 g/dL (12.0-15.5); MEAN CORPUSCULAR VOLUME 94 fl (80-97); PLATELET COUNT 137 10^3/uL (150-450); RED BLOOD COUNT 4.17 10^6/uL (3.72-5.28); RED CELL DISTRIBUTION WIDTH 15.5 % (11.5-14.0); WHITE BLOOD COUNT 14.9 10^3/uL (4.0-10.5)
[2019-06-28 07:19] LABS: ANION GAP 9 (5-19); BLOOD UREA NITROGEN 15 mg/dL (7-20); CALCIUM 9.3 mg/dL (8.4-10.2); CARBON DIOXIDE 26 mmol/L (22-30); CHLORIDE 101 mmol/L (98-107); GLUCOSE 187 mg/dL (75-110); POTASSIUM 4.2 mmol/L (3.6-5.0)
[2019-06-28] MEDS: DOCUSATE SODIUM 100 MG CAPSULE PO SCH ×2 (10:34→17:44)
[2019-06-28] MEDS: NYSTATIN TOPICAL POWDER 15 GM TP SCH ×2 (10:34→17:40)
[2019-06-28] MEDS: FAMOTIDINE 20 MG TABLET PO SCH ×2 (10:34→22:20)
[2019-06-28] MEDS ORDERED: HYDROCODONE/ACETAMINOPHEN 7.5-325 MG TABLET PO PRN (14:44)
[2019-06-28] MEDS ORDERED: DIAZEPAM 5 MG TABLET PO PRN (14:44)
--- NOTE | 2019-06-28 14:44 | PDOC PROGRESS REPORT ---
Subjective Progress Note for:: 06/28/19 Subjective:: This is a 69-year-old female who initially presented with lower back pain as well as left lower extremity pain and swelling. Patient was found to have a left lower leg cellulitis and a UTI. She was started on IV antibiotics. Upon encounter, she appears comfortable. Anterior aspect of leg does appear erythematous and tender. She complains of flareup of her chronic low back pain. Reason For Visit: ACUTE PULMONARY EDEMA,ACUTE ON CHRONIC Physical Exam Vital Signs: Temp Pulse Resp BP Pulse Ox 98.5 F 90 16 131/59 H 99 06/28/19 12:00 06/28/19 12:00 06/28/19 12:00 06/28/19 12:00 06/28/19 12:00 Intake & Output 06/27/19 06/28/19 06/29/19 06:59 06:59 06:59 Intake Total 350 1460 100 Balance 350 1460 100 Weight 249 lb 12.54 oz 229 lb 15.074 oz General appearance: PRESENT: no acute distress, well-developed, well-nourished Head exam: PRESENT: atraumatic, normocephalic Eye exam: PRESENT: conjunctiva pink, EOMI, PERRLA. ABSENT: scleral icterus Ear exam: PRESENT: normal external ear exam Mouth exam: PRESENT: moist, tongue midline Neck exam: ABSENT: carotid bruit, JVD, lymphadenopathy, thyromegaly Respiratory exam: PRESENT: clear to auscultation huy. ABSENT: rales, rhonchi, wheezes Cardiovascular exam: PRESENT: RRR. ABSENT: diastolic murmur, rubs, systolic murmur Pulses: PRESENT: normal dorsalis pedis pul GI/Abdominal exam: PRESENT: normal bowel sounds, soft. ABSENT: distended, guarding, mass, organolmegaly, rebound, tenderness Rectal exam: PRESENT: deferred Extremities exam: PRESENT: other - Anterior aspect of leg does appear erythematous and tender. Neurological exam: PRESENT: alert, awake, oriented to person, oriented to place, oriented to time, oriented to situation, CN II-XII grossly intact. ABSENT: motor sensory deficit Results Laboratory Results: 06/28/19 05:42 06/28/19 05:42 06/28/19 06/28/19 05:42 05:42 WBC 14.9 H RBC 4.17 Hgb 13.4 Hct 39.3 MCV 94 MCH 32.0 MCHC 34.0 RDW 15.5 H Plt Count 137 L Sodium 136.1 L Potassium 4.2 Chloride 101 Carbon Dioxide 26 Anion Gap 9 BUN 15 Creatinine 0.86 Est GFR ( Amer) > 60 Glucose 187 H Calcium 9.3 Magnesium 1.5 L 06/26/19 06/26/19 20:30 20:30 Troponin I 0.016 NT-Pro-B Natriuret Pep 601 H Impressions: Chest X-Ray 06/26/19 21:08 IMPRESSION: Cardiomegaly with mild interstitial edema copyright 2010 [employer]- All Rights Reserved Assessment and Plan - Diagnosis (1) Cellulitis of left lower leg Is this a current diagnosis for this admission?: Yes Plan: Currently on vancomycin and Zosyn. (2) UTI (urinary tract infection) Is this a current diagnosis for this admission?: Yes Plan: On Zosyn. (3) Chronic atrial fibrillation Is this a current diagnosis for this admission?: Yes Plan: Resume Xarelto and metoprolol. (4) Chronic back pain Is this a current diagnosis for this admission?: Yes Plan: Noted recent lumbar CT results. (5) Chronic congestive heart failure Qualifiers: Heart failure type: unspecified Qualified Code(s): I50.9 - Heart failure, unspecified Is this a current diagnosis for this admission?: Yes Plan: Resume home dose of Lasix. (6) Chronic respiratory failure with hypoxia Is this a current diagnosis for this admission?: Yes Plan: Patient uses 4 L of home O2. (7) Coronary artery disease Qualifiers: Coronary Disease-Associated Artery/Lesion type: [place] artery [place] vs. transplanted heart: [place] heart Associated angina: without angina Qualified Code(s): I25.10 - Atherosclerotic heart disease of [place] coronary artery without angina pectoris Is this a current diagnosis for this admission?: Yes Plan: Resume aspirin, Imdur and metoprolol. (8) Hypertension Qualifiers: Hypertension type: essential hypertension Qualified Code(s): I10 - Essential (primary) hypertension Is this a current diagnosis for this admission?: Yes (9) Morbid obesity with BMI of 40.0-44.9, adult Is this a current diagnosis for this admission?: Yes Plan: Counseled on lifestyle modifications and weight loss. - Plan Summary Summary: Patient will be admitted to the medical floor where she will receive routine supportive and symptomatic cares. She will be treated with IV antibiotics utilizing vancomycin and Zosyn initially pending blood culture and urine culture results. Her pain will be treated with morphine sulfate 2 to 4 mg IV every 2 hours on as-needed basis. She will use Ativan 1 mg IV every 4 hours as needed for anxiety. Her left lower extremity will be elevated to help reduce the edema. CBCs, metabolic profiles and magnesium levels to be followed as appropriate. Patient will be started back on her usual home medications as appropriate, with adjustments for improved control of her congestive heart failure, as soon as her medication list has been verified and reconciled. Smoking cessation is advised and counseled briefly at the bedside. A nicotine replacement patch is available for the patient's use, if needed. - Time Time Spent with patient: 25-34 minutes
--- NOTE | 2019-06-28 20:25 | XCELERA REPORT ---
[address] [address] Transthoracic Echocardiogram Report Name: VANDANA COOL Age: 69 yrs Gender: Female : 1950 Patient Status: Inpatient Patient Location: [address] [place] [address] Study Date: 06/28/2019 06:37 PM Height: 65 in Weight: 229 lb BSA: 2.1 m2 Procedure: A complete two-dimensional transthoracic echocardiogram was performed (2D, M-mode, spectral and color flow Doppler). The study was technically adequate with some images being suboptimal in quality. The subcostal views were difficult to obtain and are suboptimal in quality. Reason For Study: SOB, edema, congestion Ordering Physician: KHUSHBOO ELAM Performed By: Oneida Kirby Interpretation Summary The left ventricle is mildly to moderately dilated. Left ventricular systolic function is moderately reduced. The Ejection Fraction estimate is 30-35%. Doppler measurements suggest impaired left ventricular relaxation, which is associated with grade I/IV or mild diastolic dysfunction. Regional wall motion abnormalities cannot be excluded due to limited visualization. Mild LAE. Mild MAC without stenosis. Mild to moderate MR, mild to moderate TR, moderate PI. No prior studies for comparison. MMode/2D Measurements & Calculations RVDd: 3.6 cm LVIDd: 6.1 cm FS: 9.8 % Ao root diam: 2.7 cm IVSd: 1.4 cm LVIDs: 5.5 cm EDV(Teich): 188.6 ml Ao root area: 5.6 cm2 LVPWd: 0.96 cm ESV(Teich): 148.9 ml LA dimension: 4.8 cm EF(Teich): 21.1 % Doppler Measurements & Calculations MV E max krystina: MV P1/2t max krystina: Ao V2 max: LV V1 max P.0 cm/sec 95.6 cm/sec 135.3 cm/sec 3.5 mmHg MV A max krystina: MV P1/2t: 110.2 msec Ao max PG: LV V1 max: 88.8 cm/sec MVA(P1/2t): 2.0 cm2 7.3 mmHg 93.8 cm/sec MV E/A: 0.90 MV dec slope: 253.9 cm/sec2 MV dec time: 0.15 sec PA V2 max: PI end-d krystina: TR max krystina: MV P1/2t-pr_phl: 97.7 cm/sec 210.4 cm/sec 285.0 cm/sec 110.2 msec PA max PG: TR max P.8 mmHg 32.5 mmHg Left Ventricle The left ventricle is mildly to moderately dilated. Left ventricular systolic function is moderately reduced. The Ejection Fraction estimate is 30-35%. Doppler measurements suggest impaired left ventricular relaxation, which is associated with grade I/IV or mild diastolic dysfunction. Regional wall motion abnormalities cannot be excluded due to limited visualization. Right Ventricle The right ventricle is normal size. The right ventricular systolic function is normal. Atria The right atrium is normal. The left atrium is mildly dilated. Mitral Valve There is mild mitral annular calcification. There is no evidence of mitral valve prolapse. There is no mitral valve stenosis. There is a mild to moderate amount of mitral regurgitation. Aortic Valve The aortic valve is sclerotic, but shows no functional abnormality. There is no aortic valve stenosis. No aortic regurgitation is present. Tricuspid Valve The tricuspid valve is not well visualized secondary to technical limitations. There is a mild to moderate amount of tricuspid regurgitation. Pulmonic Valve The pulmonic valve is not well seen, but is grossly normal. There is no pulmonic valvular stenosis. There is a moderate amount of pulmonic regurgitation. Effusions There is no pericardial effusion. There is no pleural effusion. : KHUSHBOO ELAM Antonio
[2019-06-28] MEDS ORDERED: PRAMIPEXOLE DI-HCL 0.25 MG TABLET PO SCH (22:00)
[2019-06-28] MEDS ORDERED: ATORVASTATIN CALCIUM 40 MG TABLET PO SCH (22:00)
[2019-06-28] MEDS: INSULIN GLARGINE,HUM.REC.ANLOG 1,000 UNIT/10 ML VIAL SUBCUT SCH (22:16)
[2019-06-28] MEDS: DULOXETINE HCL 20 MG CAPSULE.DR PO SCH (22:19)
[2019-06-28] MEDS: METOPROLOL TARTRATE 25 MG TABLET PO SCH (22:28)
[2019-06-28] MEDS: FUROSEMIDE 40 MG TABLET PO SCH (22:30)
[2019-06-29] MEDS: MORPHINE SULFATE 10 MG/ML INJ IV PRN ×2 (01:50→06:45)
[2019-06-29] MEDS: PIPERACILLIN SODIUM/TAZOBACTAM 3.375 GM in NORMAL SALINE 100 ML IV SCH ×2 (02:01→09:47)
[2019-06-29] MEDS: VANCOMYCIN HCL 750 MG in DEXTROSE 5%-WATER 250 ML IV SCH (05:22)
[2019-06-29 06:24] LABS: HEMATOCRIT 38.6 % (36.0-47.0); HEMOGLOBIN 13.3 g/dL (12.0-15.5); MEAN CORPUSCULAR HEMOGLOBIN 32.2 pg (27.0-33.4); MEAN CORPUSCULAR HGB CONC 34.4 g/dL (32.0-36.0); MEAN CORPUSCULAR VOLUME 94 fl (80-97); PLATELET COUNT 125 10^3/uL (150-450); RED BLOOD COUNT 4.12 10^6/uL (3.72-5.28); RED CELL DISTRIBUTION WIDTH 15.1 % (11.5-14.0); WHITE BLOOD COUNT 11.4 10^3/uL (4.0-10.5)
[2019-06-29 06:58] LABS: VANCOMYCIN,TROUGH 16.2 ug/mL (5.0-20.0)
[2019-06-29] MEDS ORDERED: LEVOTHYROXINE SODIUM 0.025 MG TABLET PO SCH (08:00)
[2019-06-29] MEDS: FUROSEMIDE 40 MG TABLET PO SCH (09:47)
[2019-06-29] MEDS: INSULIN GLARGINE,HUM.REC.ANLOG 1,000 UNIT/10 ML VIAL SUBCUT SCH (09:49)
[2019-06-29] MEDS: FAMOTIDINE 20 MG TABLET PO SCH (09:50)
[2019-06-29] MEDS: DOCUSATE SODIUM 100 MG CAPSULE PO SCH (09:50)
[2019-06-29] MEDS: METOPROLOL TARTRATE 25 MG TABLET PO SCH (09:51)
[2019-06-29] MEDS: DULOXETINE HCL 20 MG CAPSULE.DR PO SCH (09:57)
[2019-06-29] MEDS: NYSTATIN TOPICAL POWDER 15 GM TP SCH (09:58)
[2019-06-29] MEDS ORDERED: CHOLECALCIFEROL (D3) 1,000 UNIT (25 MCG) TABLET PO SCH (10:00)
[2019-06-29] MEDS ORDERED: RIVAROXABAN 10 MG TABLET PO SCH (10:00)
[2019-06-29] MEDS ORDERED: ASPIRIN 81 MG TABLET, ENT COATED PO SCH (10:00)
[2019-06-29] MEDS ORDERED: (PENDING PHARMACY ID) (Rosuvastatin Calcium [Crestor] 20 MG) PO SCH (10:00)
[2019-06-29] MEDS ORDERED: ISOSORBIDE MONONITRATE 60 MG TAB.ER.24H PO SCH (10:00)
--- NOTE | 2019-06-29 10:39 | CDI QUERY ---
CDI Query CDI Review: Dear Provider: To better reflect your patients severity of illness, morbidity, and resource utilization Please specify and document in the Progress Notes and Discharge Summary if you are monitoring / treating / evaluating any of the following conditions: Query Clinical indicators Morbid Obesity / BMI 41.5 Obesity / BMI ? Other Undermined Per H&P: .associated with a recent weight gain. General appearance: PRESENT: no acute distress, cooperative, morbidly obese 06/26/19 23:59 Weight 113.3 kg BMI calculated on height of 5 ft 5 in; weight 113.3 kg (249.26 lbs) = 41.5 *Header of chart reports 5 ft 5 in BSA: 4.73m2 BMI: 259.4 k This is an error. Verified with patients nurse that patients weight is 113.3 kg The terms probable, suspected, likely, possible or still to be ruled out may be used if you are unable to determine the exact nature of a condition. Thank you, Clinical Documentation Physician Advisors JAMES Saeed RN, BSN RN [email or web address] Office [phone] Office [phone]
[2019-06-29 13:20] VITALS: BP 113/56
--- NOTE | 2019-06-29 19:00 | PDOC DISCHARGE SUMMARY ---
Impression - Admit/DC Date/PCP Admission Date/Primary Care Provider: 06/27/19 00:47 JEY BENAVIDES MD Discharge Date: 06/29/19 - Discharge Diagnosis (1) Cellulitis of left lower leg Is this a current diagnosis for this admission?: Yes (2) UTI (urinary tract infection) Is this a current diagnosis for this admission?: Yes (3) Chronic atrial fibrillation Is this a current diagnosis for this admission?: Yes (4) Chronic back pain Is this a current diagnosis for this admission?: Yes (5) Chronic congestive heart failure Is this a current diagnosis for this admission?: Yes (6) Chronic respiratory failure with hypoxia Is this a current diagnosis for this admission?: Yes (7) Coronary artery disease Is this a current diagnosis for this admission?: Yes (8) Hypertension Is this a current diagnosis for this admission?: Yes - Assessment Summary: Patient will be admitted to the medical floor where she will receive routine supportive and symptomatic cares. She will be treated with IV antibiotics utilizing vancomycin and Zosyn initially pending blood culture and urine culture results. Her pain will be treated with morphine sulfate 2 to 4 mg IV every 2 hours on as-needed basis. She will use Ativan 1 mg IV every 4 hours as needed for anxiety. Her left lower extremity will be elevated to help reduce the edema. CBCs, metabolic profiles and magnesium levels to be followed as appropriate. Patient will be started back on her usual home medications as appropriate, with adjustments for improved control of her congestive heart failure, as soon as her medication list has been verified and reconciled. Smoking cessation is advised and counseled briefly at the bedside. A nicotine replacement patch is available for the patient's use, if needed. - Additional Information Resuscitation Status: Full Code Discharge Diet: Cardiac, Diabetic Discharge Activity: Activity As Tolerated, Balance Activity w/Rest, Weigh Daily Referrals: TERE LOYOLA FNP [NO LOCAL MD] - 07/05/19 11:30 am BALWINDER ZENDEJAS MD [ACTIVE PROVISIONAL STAFF] - 07/04/19 3:45 pm Prescriptions: Amoxicillin/Potassium Clav [Augmentin 500-125 Tablet] 1 each PO BID 5 Days #10 tablet Home Medications: Aspirin [Adult Low Dose Aspirin EC] 81 mg PO DAILY 06/27/19 Cholecalciferol (Vitamin D3) [Vitamin D3 1000 Unit Tablet] 1,000 unit PO DAILY 06/27/19 Diazepam [Valium] 5 mg PO TIDP PRN 06/27/19 Docusate Sodium [Colace 100 mg Capsule] 100 mg PO DAILY 06/27/19 Duloxetine HCl [Cymbalta 20 mg Capsule.dr] 20 mg PO Q12 06/27/19 Furosemide [Lasix 40 mg Tablet] 40 mg PO Q12 06/27/19 Hydrocodone/Acetaminophen [[place] 7.5-325 mg Tablet] 1 each PO DAILYP PRN 06/27/19 Insulin Aspart [Novolog Flexpen] 0 unit SUBCUT .SLD SCALE 06/27/19 Insulin Glargine,Hum.rec.anlog [Lantus Insulin 100 Unit/1 ml 10 ml] 50 unit SUBCUT Q12 06/27/19 Isosorbide Mononitrate [Imdur 60 mg Tablet.er] 60 mg PO DAILY 06/27/19 Levothyroxine Sodium [Synthroid 0.025 mg Tablet] 25 mcg PO QAM 06/27/19 Metoprolol Tartrate [Lopressor 25 mg Tablet] 12.5 mg PO Q12 06/27/19 Pramipexole Di-HCl [Mirapex] 0.25 mg PO QHS 06/27/19 Rivaroxaban [Xarelto 10 mg Tablet] 10 mg PO DAILY 06/27/19 Rosuvastatin Calcium [Crestor] 20 mg PO DAILY 06/27/19 Amoxicillin/Potassium Clav [Augmentin 500-125 Tablet] 1 each PO BID 5 Days #10 tablet 06/29/19 History of Present Illiness History of Present Illness: Admitting hospitalist's H&P: VANDANA COOL is a 69 year old female who presented the emergency room with a 3-day history of pain in her left lower extremity. She admits to the gradual onset and progressive worsening of constant throbbing and burning pain with accompanying erythema and swelling in her left lower extremity over the last 3 days. She she admits that the pain has become severe, is worsened by activities of daily living and is associated with a recent weight gain. She denies other associated or accompanying signs and symptoms. She denies prior similar episodes. She denies identification of any additional aggravating or ameliorating factors for her left lower extremity pain. In the emergency room she was found to have an elevated white blood count and an erythematous, edematous and tender left lower extremity consistent with an acute cellulitis. Patient was started on IV antibiotics and subsequently admitted to the hospital for further evaluation and treatment. Hospital Course Hospital Course: This is a 69-year-old female who initially presented with lower back pain as well as left lower extremity pain and swelling. Patient was found to have a left lower leg cellulitis and a UTI. She was started on IV antibiotics. She had significant improvement on the erythema and tenderness of the left leg with IV antibiotics. Erythema was minimal on day of discharge. Her urine culture also grew pansensitive E. coli. She will be discharged on Augmentin for her UTI and her resolving left leg cellulitis. Patient is a chronic low back pain and follows up with pain specialist. She says she does have a following up appointment with them for further possible interventions. She had prior steroid injections in her back. She has a known history of congestive heart failure. She was also diuresed with Lasix. Her echo showed an EF of 30%. She was resumed on her CHF regimen. Patient returned to her baseline. She was evaluated by PT and recommended SNF placement. This was discussed with patient and she we have medically refused any sort of placement. She says she gets a lot of support at home from her family members. She will be discharged with home health and home PT instead. Physical Exam Vital Signs: Temp Pulse Resp BP Pulse Ox 98.2 F 80 16 113/56 L 95 06/29/19 13:14 06/29/19 13:14 06/29/19 13:14 06/29/19 13:14 06/29/19 13:14 Intake & Output 06/28/19 06/29/19 06/30/19 06:59 06:59 06:59 Intake Total 1460 1110 690 Balance 1460 1110 690 Weight 229 lb 15.074 oz 236 lb 1.841 oz General appearance: PRESENT: no acute distress, well-developed, well-nourished Head exam: PRESENT: atraumatic, normocephalic Eye exam: PRESENT: conjunctiva pink, EOMI, PERRLA. ABSENT: scleral icterus Ear exam: PRESENT: normal external ear exam Mouth exam: PRESENT: moist, tongue midline Neck exam: ABSENT: carotid bruit, JVD, lymphadenopathy, thyromegaly Respiratory exam: PRESENT: clear to auscultation huy. ABSENT: rales, rhonchi, wheezes Cardiovascular exam: PRESENT: RRR. ABSENT: diastolic murmur, rubs, systolic murmur Pulses: PRESENT: normal dorsalis pedis pul GI/Abdominal exam: PRESENT: normal bowel sounds, soft. ABSENT: distended, guarding, mass, organolmegaly, rebound, tenderness Rectal exam: PRESENT: deferred Extremities exam: PRESENT: +2 edema, other - minimal erythema on the left leg Neurological exam: PRESENT: alert, awake, oriented to person, oriented to place, oriented to time, oriented to situation, CN II-XII grossly intact. ABSENT: motor sensory deficit Results Laboratory Results: WBC 11.4 10^3/uL (4.0-10.5) H 06/29/19 05:59 RBC 4.12 10^6/uL (3.72-5.28) 06/29/19 05:59 Hgb 13.3 g/dL (12.0-15.5) 06/29/19 05:59 Hct 38.6 % (36.0-47.0) 06/29/19 05:59 MCV 94 fl (80-97) 06/29/19 05:59 MCH 32.2 pg (27.0-33.4) 06/29/19 05:59 MCHC 34.4 g/dL (32.0-36.0) 06/29/19 05:59 RDW 15.1 % (11.5-14.0) H 06/29/19 05:59 Plt Count 125 10^3/uL (150-450) L 06/29/19 05:59 Lymph % (Auto) 13.0 % (13-45) 06/26/19 20:30 [place] % (Auto) 6.9 % (3-13) 06/26/19 20:30 Eos % (Auto) 1.2 % (0-6) 06/26/19 20:30 Baso % (Auto) 0.3 % (0-2) 06/26/19 20:30 Absolute Neuts (auto) 12.7 10^3/uL (1.7-8.2) H 06/26/19 20:30 Absolute Lymphs (auto) 2.1 10^3/uL (0.5-4.7) 06/26/19 20:30 Absolute Monos (auto) 1.1 10^3/uL (0.1-1.4) 06/26/19 20:30 Absolute Eos (auto) 0.2 10^3/uL (0.0-0.6) 06/26/19 20:30 Absolute Basos (auto) 0.1 10^3/uL (0.0-0.2) 06/26/19 20:30 Seg Neutrophils % 78.6 % (42-78) H 06/26/19 20:30 PT 15.8 SEC (11.4-15.4) H 06/26/19 20:30 INR 1.25 06/26/19 20:30 APTT 34.0 SEC (23.5-35.8) 06/26/19 20:30 D-Dimer 0.82 ug/mL (0.00-0.50) H 06/26/19 20:30 Sodium 136.1 mmol/L (137-145) L 06/28/19 05:42 Potassium 4.2 mmol/L (3.6-5.0) 06/28/19 05:42 Chloride 101 mmol/L (98-107) 06/28/19 05:42 Carbon Dioxide 26 mmol/L (22-30) 06/28/19 05:42 Anion Gap 9 (5-19) 06/28/19 05:42 BUN 15 mg/dL (7-20) 06/28/19 05:42 Creatinine 0.86 mg/dL (0.52-1.25) 06/28/19 05:42 Est GFR ( Amer) > 60 (>60) 06/28/19 05:42 Est GFR (MDRD) Non-Af > 60 (>60) 06/28/19 05:42 Glucose 187 mg/dL (75-110) H 06/28/19 05:42 POC Glucose 196 mg/dL (70-110) H 06/29/19 09:46 Hemoglobin A1c % 7.3 % (4.7-6.0) H 06/28/19 05:42 Lactic Acid 1.3 mmol/L (0.7-2.1) 06/26/19 22:00 Calcium 9.3 mg/dL (8.4-10.2) 06/28/19 05:42 Magnesium 1.5 mg/dL (1.6-2.3) L 06/28/19 05:42 Total Bilirubin 0.5 mg/dL (0.2-1.3) 06/26/19 20:30 Direct Bilirubin 0.4 mg/dL (0.0-0.4) 06/26/19 20:30 Neonat Total Bilirubin Not Reportable 06/26/19 20:30 Neonat Direct Bilirubin Not Reportable 06/26/19 20:30 Neonat Indirect Bili Not Reportable 06/26/19 20:30 AST 36 U/L (14-36) 06/26/19 20:30 ALT 35 U/L (<35) 06/26/19 20: Alkaline Phosphatase 88 U/L (38-126) 06/26/19 20:30 Troponin I 0.016 ng/mL 06/26/19 20:30 NT-Pro-B Natriuret Pep 601 pg/mL (<125) H 06/26/19 20:30 Total Protein 7.7 g/dL (6.3-8.2) 06/26/19 20:30 Albumin 4.5 g/dL (3.5-5.0) 06/26/19 20:30 Urine Color YELLOW 06/26/19 22:00 Urine Appearance SLIGHTLY-CLOUDY 06/26/19 22:00 Urine pH 6.0 (5.0-9.0) 06/26/19 22:00 Ur Specific [place] 1.027 06/26/19 22:00 Urine Protein 30 mg/dL (NEGATIVE) H 06/26/19 22:00 Urine Glucose (UA) NEGATIVE mg/dL (NEGATIVE) 06/26/19 22:00 Urine Ketones NEGATIVE mg/dL (NEGATIVE) 06/26/19 22:00 Urine Blood NEGATIVE (NEGATIVE) 06/26/19 22:00 Urine Nitrite POSITIVE (NEGATIVE) H 06/26/19 22:00 Urine Bilirubin NEGATIVE (NEGATIVE) 06/26/19 22:00 Urine Urobilinogen 2.0 mg/dL (<2.0) H 06/26/19 22:00 Ur Leukocyte Esterase MODERATE (NEGATIVE) H 06/26/19 22:00 Urine WBC (Auto) 103 /HPF 06/26/19 22:00 Urine Bacteria (Auto) 3+ /HPF 06/26/19 22:00 Squamous Epi Cells Auto 1 /HPF 06/26/19 22:00 Urine Ascorbic Acid NEGATIVE (NEGATIVE) 06/26/19 22:00 Time Trough Drawn 0559 06/29/19 05:59 Vancomycin Trough 16.2 ug/mL (5.0-20.0) 06/29/19 05:59 06/26/19 06/26/19 20:30 20:30 Troponin I 0.016 NT-Pro-B Natriuret Pep 601 H Impressions: Chest X-Ray 06/26/19 21:08 IMPRESSION: Cardiomegaly with mild interstitial edema copyright 2011 [employer]- All Rights Reserved Stroke Is this a Stroke Patient?: No Acute Heart Failure - Is this a Heart Failure Patient?: Yes Documentation of LVEF assessment?: Yes LVEF < 40%?: Yes-if yes answer questions a through e a) Discharged on ACEI?: Yes b) Discharges on ARB?: Yes c) Discharged on ARNI?: No-Document Contraindications d) Discharged on evidence-based Beta lamin(carvedilol, sustained release metoprolol succinate, or bisoprolol)?: Yes e) For LVEF <35%, discharged on Aldosterone antagonist?: No-document contraincations Reason(s) not discharged on Aldosterone antagonist for LVEF < 35%: Other 3. Anticoagulant therapy for permanect/persistent/paraoxysmal Afib or Aflutter: Yes
== END 2019-06-29 14:16 | disposition home health service (06) | DRG 603 ==
LOC: ER 18:20 → EH 06-27 00:47 → 5 06-27 14:05
PROVIDERS: ADMIT Emergency Medicine; ATTEND Emergency Medicine
DX: L03.116 Cellulitis of left lower limb (principal); J96.11 Chronic respiratory failure with hypoxia; I48.20 Chronic atrial fibrillation, unspecified; N39.0 Urinary tract infection, site not specified; Z68.41 Body mass index [BMI] 40.0-44.9, adult; I11.0 Hypertensive heart disease with heart failure; I50.9 Heart failure, unspecified; Z99.81 Dependence on supplemental oxygen; B96.20 Unspecified Escherichia coli [E. coli] as the cause of diseases classified elsewhere; E11.9 Type 2 diabetes mellitus without complications; E03.9 Hypothyroidism, unspecified; M54.9 Dorsalgia, unspecified; G89.29 Other chronic pain; I25.10 Atherosclerotic heart disease of native coronary artery without angina pectoris; E78.5 Hyperlipidemia, unspecified; E66.01 Morbid (severe) obesity due to excess calories; M19.90 Unspecified osteoarthritis, unspecified site; F17.210 Nicotine dependence, cigarettes, uncomplicated; Z71.6 Tobacco abuse counseling; Z79.82 Long term (current) use of aspirin; Z79.4 Long term (current) use of insulin; I25.2 Old myocardial infarction; Z95.1 Presence of aortocoronary bypass graft; Z95.5 Presence of coronary angioplasty implant and graft; Z95.0 Presence of cardiac pacemaker; Z88.6 Allergy status to analgesic agent; Z91.013 Allergy to seafood
CPT/HCPCS: 36415; 71046; 80048; 80053; 80202; 81001; 82962; 83036; 83605; 83735; 83880; 84484; 85025; 85027; 85379; 85610; 85730; 87040; 87086; 87088; 87186; 93005; 93010; 93306; 93970; 96374; 96375; 99284; J1170; J1644; J1815; J1940; J2270; J2405; J2543; J3370; J3490; J7050; J7060

== ENCOUNTER 2019-11-10 15:39 | Emergency (ER) | payer MEDICARE, OTHER ==
[2019-11-10] MEDS ORDERED: LIDOCAINE 1% INJ-PF (10 MG/ML) 30 ML SDV INJ ONE (16:02)
--- NOTE | 2019-11-10 16:10 | ER Document Report ---
ED Medical Screen (RME) - General Chief Complaint: Foot Injury Stated Complaint: LEFT FOOT LACERATION Time Seen by Provider: 11/10/19 15:57 Primary Care Provider: TERE LOYOLA FNP [Primary Care Provider] - Follow up as needed Information source: Patient Notes: HPI; 69-year-old female presents to the emergency room with a laceration to her right foot. Patient states she is wheelchair-bound and went to turn in her kitchen without any shoes on and cut the top of her right foot underneath her cabinet. Bleeding is persistent. Patient is on Xarelto. PE: Alert and oriented x3. Right dorsal aspect of the foot with a irregular 7 cm laceration. Bleeding is persistent. Dressing applied. Positive right pedal pulse. Capillary refill less than 3 seconds. I have greeted and performed a rapid initial assessment of this patient. A comprehensive ED assessment and evaluation of the patient, analysis of test results and completion of the medical decision making process will be conducted by additional ED providers. I have specifically instructed the patient or family members with the patient to immediately return to any nursing staff should anything change in the patient's condition or with their chief complaint. TRAVEL OUTSIDE OF THE [place] IN LAST 30 DAYS: No - Related Data Allergies/Adverse Reactions: Shellfish * [Shellfish] Allergy (Unknown, Verified 11/10/19 15:52) Hives digoxin [Digoxin] Adverse Reaction (Mild, Verified 11/10/19 15:52) Nausea oxycodone HCl [From Percocet] Adverse Reaction (Mild, Verified 11/10/19 15:52) Vomiting ramipril [From Altace] Adverse Reaction (Mild, Verified 11/10/19 15:52) cough Home Medications: pt reports she does not have her list of medications with her. states it is a very long list. Past Medical History - Social History Chew tobacco use (# tins/day): No Frequency of alcohol use: None Drug Abuse: None - Past Medical History Cardiac Medical History: Reports: Hx Atrial Fibrillation, Hx Congestive Heart Failure, Hx Coronary Artery Disease, Hx Heart Attack - 1999, Hx Hypercholesterolemia, Hx Hypertension Denies: Hx DVT, Hx Peripheral Vascular Disease, Hx Pulmonary Embolism Pulmonary Medical History: Reports: Hx Respiratory Failure - Chronic respiratory failure with hypoxia on home oxygen Denies: Hx Asthma, Hx Bronchitis, Hx COPD, Hx Pneumonia, Hx Sleep Apnea Neurological Medical History: Denies: Hx Cerebrovascular Accident, Hx Seizures Endocrine Medical History: Reports: Hx Diabetes Mellitus Type 2, Hx Hypothyroidism. Denies: Hx Diabetes Mellitus Type 1, Hx Hyperthyroidism Renal/ Medical History: Denies: Hx Peritoneal Dialysis GI Medical History: Denies: Hx Cirrhosis, Hx Crohn's Disease, Hx Gastroesophageal Reflux Disease, Hx Hepatitis, Hx Hiatal Hernia, Hx Ulcer, Hx Ulcerative Colitis Musculoskeltal Medical History: Reports Hx Arthritis, Denies Hx Gout Skin Medical History: Denies Hx Eczema, Denies Hx Psoriasis Infectious Medical History: Denies: Hx Hepatitis Past Surgical History: Reports: Hx Cardiac Catheterization, Hx Cardiac Surgery - open heart, Hx Coronary Artery Bypass Graft, Hx Coronary Stent, Hx Hysterectomy, Hx Open Heart Surgery - QUAD BYPASS; pacemaker, Hx Pacemaker - AICD. Denies: Hx Mastectomy - Immunizations Hx Diphtheria, Pertussis, Tetanus Vaccination: Yes - 07/02/14 Physical Exam - Vital signs Vitals: Temp Pulse Resp BP Pulse Ox 98.4 F 79 22 H 106/58 L 93 11/10/19 15:45 11/10/19 15:45 11/10/19 15:45 11/10/19 15:45 11/10/19 15:45 Course - Vital Signs Vital signs: Temp Pulse Resp BP Pulse Ox 98.4 F 79 22 H 106/58 L 93 11/10/19 15:52 11/10/19 15:45 11/10/19 15:45 11/10/19 15:45 11/10/19 15:45 Doctor's Discharge - Discharge Referrals: TERE LOYOLA FNP [Primary Care Provider] - Follow up as needed
[2019-11-10] MEDS ORDERED: HYDROCODONE/ACETAMINOPHEN 5-325 MG TABLET PO ONE (18:49)
--- NOTE | 2019-11-10 19:34 | ER Document Report ---
HPI - HPI Patient complains to provider of: Laceration Time Seen by Provider: 11/10/19 15:57 Onset: Other - This is a 69-year-old female presents to the emergency room today stating that she had a laceration to her right foot on the anterior surface from the bottom of a cabinet this evening. Pain Level: 5 Associated Symptoms: None Exacerbated by: Denies Relieved by: Denies - CONSTITUTIONAL Constitutional: DENIES: Fever, Chills - REPRODUCTIVE Reproductive: DENIES: : - MUSCULOSKELETAL Musculoskeletal: REPORTS: Extremity pain - right foot - DERM Skin Color: Normal Past Medical History - General Information source: Patient - Social History Smoking Status: Current Every Day Smoker Chew tobacco use (# tins/day): No Frequency of alcohol use: None Drug Abuse: None Family History: Reviewed & Not Pertinent Patient has homicidal ideation: No - Past Medical History Cardiac Medical History: Reports: Hx Atrial Fibrillation, Hx Congestive Heart Failure, Hx Coronary Artery Disease, Hx Heart Attack - 1999, Hx Hypercholesterolemia, Hx Hypertension Denies: Hx DVT, Hx Peripheral Vascular Disease, Hx Pulmonary Embolism Pulmonary Medical History: Reports: Hx Respiratory Failure - Chronic respiratory failure with hypoxia on home oxygen Denies: Hx Asthma, Hx Bronchitis, Hx COPD, Hx Pneumonia, Hx Sleep Apnea Neurological Medical History: Denies: Hx Cerebrovascular Accident, Hx Seizures Endocrine Medical History: Reports: Hx Diabetes Mellitus Type 2, Hx Hypothyro idism. Denies: Hx Diabetes Mellitus Type 1, Hx Hyperthyroidism Renal/ Medical History: Denies: Hx Peritoneal Dialysis GI Medical History: Denies: Hx Cirrhosis, Hx Crohn's Disease, Hx Gastroesophageal Reflux Disease, Hx Hepatitis, Hx Hiatal Hernia, Hx Ulcer, Hx Ulcerative Colitis Musculoskeletal Medical History: Reports Hx Arthritis, Denies Hx Gout Skin Medical History: Denies Hx Eczema, Denies Hx Psoriasis Infectious Medical History: Denies: Hx Hepatitis Past Surgical History: Reports: Hx Cardiac Catheterization, Hx Cardiac Surgery - open heart, Hx Coronary Artery Bypass Graft, Hx Coronary Stent, Hx Hysterectomy, Hx Open Heart Surgery - QUAD BYPASS; pacemaker, Hx Pacemaker - AICD. Denies: Hx Mastectomy - Immunizations Hx Diphtheria, Pertussis, Tetanus Vaccination: Yes - 07/02/14 Hx Pneumococcal Vaccination: 07/02/14 Vertical Provider Document - CONSTITUTIONAL Agree With Documented VS: Yes - INFECTION CONTROL TRAVEL OUTSIDE OF THE [place] IN LAST 30 DAYS: No - HEENT HEENT: Atraumatic, Conjuctival Injection, Normocephalic, PERRLA - NECK Neck: Normal Inspection, Supple - RESPIRATORY Respiratory: Breath Sounds Normal, No Respiratory Distress - CARDIOVASCULAR Cardiovascular: Regular Rate, Regular Rhythm - GI/ABDOMEN Gastrointestinal: Abdomen Soft, Abdomen Non-Tender - NEURO Level of Consciousness: Awake, Alert - DERM Integumentary: Warm, Dry, Laceration - Patient sustained a large laceration to the anterior surface of her right foot avulsion type laceration approximately 4 inches x 3 inches in a V-shaped pattern. Course - Re-evaluation Re-evalutation: 11/10/19 19:31 This 69-year-old female with a history of diabetes diabetes peripheral vascular disease she had a spinal injury does not have much sensation to her lower extremities. She lacerated the anterior aspect of her right foot on the bottom of a cabinet today at home prior to arrival. She does have a rapid capillary refill distal to the affected area. - Vital Signs Vital signs: Temp Pulse Resp BP Pulse Ox 98.4 F 79 22 H 106/58 L 93 11/10/19 15:52 11/10/19 15:45 11/10/19 15:45 11/10/19 15:45 11/10/19 15:45 Procedures - Laceration/Wound Repair Right Dorsal Foot Wound length (cm): 8 Wound's Depth, Shape: Flap, Contused tissue Anesthetic type: 1% Lidocaine Wound explored: Contaminated Wound Debrided: Moderate Wound Repaired With: Sutures, [place] Suture Size/Type: 4:0, Ethilon Number of Sutures: 6 - 10 jan were also utilized Discharge - Discharge Clinical Impression: Laceration Condition: Fair Disposition: HOME, SELF-CARE Instructions: Laceration Care ([facility]), Soap Cleansing ([facility]) Additional Instructions: Must keep wound clean and dry. Must keep wound dressed. Must present here to the emergency room in 2 days for a recheck. Must follow-up with podiatry in 4 to 5 days. Must have wound care evaluations at home per current schedule twice a week. Return to the emergency room for absolutely any change worsening condition. Prescriptions: Sulfamethoxazole/Trimethoprim [Septra-Ds 800-160 mg Tablet] 1 tab PO BID #20 tablet Referrals: TERE LOYOLA FNP [Primary Care Provider] - Follow up as needed
[2019-11-10] MEDS ORDERED: HYDROCODONE/ACETAMINOPHEN 7.5-325 MG TABLET PO ONE (19:35)
[2019-11-10] MEDS ORDERED: SULFAMETHOXAZOLE/TRIMETHOPRIM 800-160 MG TABLET PO ONE (19:35)
[2019-11-10] MEDS ORDERED: DIPH/PERTUSS(ACELL)/TETANUS VAC/PF 0.5 ML SYR (>=10YO) IM ONE (19:35)
[2019-11-10 19:56] VITALS: BP 119/54
== END 2019-11-10 20:05 | disposition home or self-care (01) ==
LOC: ER 15:39
DX: S91.311A Laceration without foreign body, right foot, initial encounter (principal); W45.8XXA Other foreign body or object entering through skin, initial encounter; Y93.89 Activity, other specified; Y92.000 Kitchen of unspecified non-institutional (private) residence as the place of occurrence of the external cause; E11.51 Type 2 diabetes mellitus with diabetic peripheral angiopathy without gangrene; F17.200 Nicotine dependence, unspecified, uncomplicated; I25.10 Atherosclerotic heart disease of native coronary artery without angina pectoris; I10 Essential (primary) hypertension; Z23 Encounter for immunization
CPT/HCPCS: 12004; 99282; 90471; 90715; J3490; A9270 ×3

== ENCOUNTER 2019-11-11 17:10 | Emergency (ER) | payer MEDICARE, OTHER ==
--- NOTE | 2019-11-11 17:58 | ER Document Report ---
ED Medical Screen (RME) - General Chief Complaint: Post Surgical Bleeding Stated Complaint: POST SURGICAL BLEEDING Time Seen by Provider: 11/11/19 17:56 Primary Care Provider: TERE LOYOLA FNP [Primary Care Provider] - Follow up as needed Information source: Patient Notes: This 69-year-old female with peripheral vascular disease a spinal injury and lower extremity neuropathy that lacerated her right dorsal aspect of her foot last night on the bottom of her counter when she spun around with a wheelchair. Was pretty large wound was closed to the best of my ability yesterday patient presents today because she is losing a fair amount of blood and felt that she started getting dizzy as a result of such. Should also be noted she is on Xarelto. TRAVEL OUTSIDE OF THE [place] IN LAST 30 DAYS: No - Related Data Allergies/Adverse Reactions: Shellfish * [Shellfish] Allergy (Unknown, Verified 11/10/19 15:52) Hives digoxin [Digoxin] Adverse Reaction (Mild, Verified 11/10/19 15:52) Nausea oxycodone HCl [From Percocet] Adverse Reaction (Mild, Verified 11/10/19 15:52) Vomiting ramipril [From Altace] Adverse Reaction (Mild, Verified 11/10/19 15:52) cough Past Medical History - Past Medical History Cardiac Medical History: Reports: Hx Atrial Fibrillation, Hx Congestive Heart Failure, Hx Coronary Artery Disease, Hx Heart Attack - 1999, Hx Hypercholesterolemia, Hx Hypertension Denies: Hx DVT, Hx Peripheral Vascular Disease, Hx Pulmonary Embolism Pulmonary Medical History: Reports: Hx Respiratory Failure - Chronic respiratory failure with hypoxia on home oxygen Denies: Hx Asthma, Hx Bronchitis, Hx COPD, Hx Pneumonia, Hx Sleep Apnea Neurological Medical History: Denies: Hx Cerebrovascular Accident, Hx Seizures Endocrine Medical History: Reports: Hx Diabetes Mellitus Type 2, Hx Hypothyroidism. Denies: Hx Diabetes Mellitus Type 1, Hx Hyperthyroidism Renal/ Medical History: Denies: Hx Peritoneal Dialysis GI Medical History: Denies: Hx Cirrhosis, Hx Crohn's Disease, Hx Gastroesophageal Reflux Disease, Hx Hepatitis, Hx Hiatal Hernia, Hx Ulcer, Hx Ulcerative Colitis Musculoskeltal Medical History: Reports Hx Arthritis, Denies Hx Gout Skin Medical History: Denies Hx Eczema, Denies Hx Psoriasis Infectious Medical History: Denies: Hx Hepatitis Past Surgical History: Reports: Hx Cardiac Catheterization, Hx Cardiac Surgery - open heart, Hx Coronary Artery Bypass Graft, Hx Coronary Stent, Hx Hysterectomy, Hx Open Heart Surgery - QUAD BYPASS; pacemaker, Hx Pacemaker - AICD. Denies: Hx Mastectomy - Immunizations Hx Diphtheria, Pertussis, Tetanus Vaccination: Yes - 07/02/14 Doctor's Discharge - Discharge Referrals: TERE LOYOLA FNP [Primary Care Provider] - Follow up as needed
[2019-11-11 18:46] LABS: ABSOLUTE BASOPHILS # (AUTO) 0.1 10^3/uL (0.0-0.2); ABSOLUTE EOSINOPHILS # (AUTO) 0.5 10^3/uL (0.0-0.6); ABSOLUTE LYMPHOCYTES (AUTO) 1.5 10^3/uL (0.5-4.7); ABSOLUTE MONOCYTES (AUTO) 1.3 10^3/uL (0.1-1.4); ABSOLUTE NEUT (AUTO) 9.6 10^3/uL (1.7-8.2); BASOPHILS % (AUTO) 0.4 % (0-2); EOSINOPHILS % (AUTO) 4.2 % (0-6); HEMATOCRIT 32.6 % (36.0-47.0); LYMPHOCYTES % (AUTO) 11.7 % (13-45); MEAN CORPUSCULAR HEMOGLOBIN 30.2 pg (27.0-33.4); MEAN CORPUSCULAR HGB CONC 33.7 g/dL (32.0-36.0); MEAN CORPUSCULAR VOLUME 90 fl (80-97); MONOCYTES % (AUTO) 9.9 % (3-13); PLATELET COUNT 191 10^3/uL (150-450); RED BLOOD COUNT 3.63 10^6/uL (3.72-5.28); RED CELL DISTRIBUTION WIDTH 14.7 % (11.5-14.0); SEGMENTED NEUTROPHILS % (AUTO) 73.8 % (42-78); TOTAL CELLS COUNTED % (AUTO) 100 %
[2019-11-11 19:05] LABS: ALKALINE PHOSPHATASE 87 U/L (38-126); ANION GAP 6 (5-19); ASPARTATE AMINO TRANSFERASE 22 U/L (14-36); BILIRUBIN,DIRECT 0.1 mg/dL (0.0-0.4); BILIRUBIN,TOTAL 0.3 mg/dL (0.2-1.3); BLOOD UREA NITROGEN 25 mg/dL (7-20); CALCIUM 9.2 mg/dL (8.4-10.2); CARBON DIOXIDE 29 mmol/L (22-30); CHLORIDE 102 mmol/L (98-107); GLUCOSE 117 mg/dL (75-110); POTASSIUM 4.3 mmol/L (3.6-5.0); TOTAL PROTEIN 7.2 g/dL (6.3-8.2)
[2019-11-11] MEDS ORDERED: MORPHINE SULFATE 10 MG/ML INJ IV ONE (22:33)
[2019-11-11] MEDS ORDERED: TRANEXAMIC ACID INJ/PF 1,000 MG/10 ML SDV IV ONE (22:35)
--- NOTE | 2019-11-11 23:11 | EKG REPORT ---
SEVERITY:- ABNORMAL ECG - SINUS ARRHYTHMIA, RATE 61-85 NONSPECIFIC INTRAVENTRICULAR CONDUCTION DELAY NONSPECIFIC ST-T CHANGES : Confirmed by: Samuel Walton MD 11-Nov-2019 23:10:50
--- NOTE | 2019-11-12 00:21 | ER Document Report ---
Entered by PATRICE VARGHESE SCRIBE 11/11/19 2226 Acting as scribe for:ISMAEL STARR IV, MD ED General - General Chief Complaint: Post Surgical Bleeding Stated Complaint: POST SURGICAL BLEEDING Time Seen by Provider: 11/11/19 17:56 Primary Care Provider: TERE LOYOLA FNP [Primary Care Provider] - Follow up as needed Mode of Arrival: Wheelchair Information source: Patient Notes: This 69 year old female patient on Xarelto presents to the ED today with complaints of bleeding from a laceration to her right foot. Patient states that she cut her foot yesterday and came to the ED where it was repaired. Tonight, she reports increased pain and bleeding from the site. Denies any other complaints. TRAVEL OUTSIDE OF THE [place] IN LAST 30 DAYS: No - Related Data Allergies/Adverse Reactions: Shellfish * [Shellfish] Allergy (Unknown, Verified 11/10/19 15:52) Hives digoxin [Digoxin] Adverse Reaction (Mild, Verified 11/10/19 15:52) Nausea oxycodone HCl [From Percocet] Adverse Reaction (Mild, Verified 11/10/19 15:52) Vomiting ramipril [From Altace] Adverse Reaction (Mild, Verified 11/10/19 15:52) cough Past Medical History - General Information source: Patient - Social History Smoking Status: Never Smoker Cigarette use (# per day): No Chew tobacco use (# tins/day): No Smoking Education Provided: No Frequency of alcohol use: None Drug Abuse: None Family History: Reviewed & Not Pertinent Patient has suicidal ideation: No Patient has homicidal ideation: No - Past Medical History Cardiac Medical History: Reports: Hx Atrial Fibrillation, Hx Congestive Heart Failure, Hx Coronary Artery Disease, Hx Heart Attack - 1999, Hx Hypercholesterolemia, Hx Hypertension Pulmonary Medical History: Reports: Hx Respiratory Failure - Chronic respiratory failure with hypoxia on home oxygen Endocrine Medical History: Reports: Hx Diabetes Mellitus Type 2, Hx Hypothyroidism Musculoskeletal Medical History: Reports Hx Arthritis Past Surgical History: Reports: Hx Cardiac Catheterization, Hx Coronary Artery Bypass Graft, Hx Coronary Stent, Hx Hysterectomy, Hx Open Heart Surgery - QUAD BYPASS; pacemaker, Hx Pacemaker - AICD - Immunizations Hx Diphtheria, Pertussis, Tetanus Vaccination: Yes - 07/02/14 Hx Pneumococcal Vaccination: 07/02/14 Review of Systems - Review of Systems Constitutional: No symptoms reported EENT: No symptoms reported Cardiovascular: No symptoms reported Respiratory: No symptoms reported Gastrointestinal: No symptoms reported Genitourinary: No symptoms reported Female Genitourinary: No symptoms reported Musculoskeletal: See HPI, Other - Right foot pain Skin: See HPI Hematologic/Lymphatic: No symptoms reported Neurological/Psychological: No symptoms reported -: Yes All other systems reviewed and negative Physical Exam - General General appearance: Alert In distress: None - HEENT Head: Normocephalic, Atraumatic Eyes: Normal Pupils: PERRL - Respiratory Respiratory status: No respiratory distress Chest status: Nontender Breath sounds: Normal Chest palpation: Normal - Cardiovascular Rhythm: Regular Heart sounds: Normal auscultation Murmur: No Friction rub: No Gallop: None auscultated Normal capillary refill: Yes - < 2 seconds in distal extremites - Abdominal Inspection: Normal Distension: No distension Bowel sounds: Normal Tenderness: Nontender - Abdomen soft Organomegaly: No organomegaly - Back Back: Normal, Nontender - Extremities General upper extremity: Normal inspection Foot: Laceration, Other - Left foot is grossly neurovasculary intact - Neurological Neuro grossly intact: Yes Phillip Coma Scale Eye Opening: Spontaneous Phillip Coma Scale Verbal: Oriented Phillip Coma Scale Motor: Obeys Commands [place] Coma Scale Total: 15 - Psychological Associated symptoms: Tearful - Skin Skin irregularity: Laceration - 8 cm V-shaped laceration noted to dorsum of rig ht foot that appears adequately repaired. There are some areas with weeping blood and there is ecchymosis noted under the flap itself. The skin is not pale, tense, or distended. Course - Re-evaluation Re-evalutation: 11/12/19 00:15 Bleeding at wound site was controlled with quick clot pads saturated in TXA as well as pressure dressing. results of ED MSE discussed with patient. Patient states her foot feels much better this point. Patient asked when she should have her jan and sutures removed. This MD recommended 10 days the patient asked if she can have her concrete plant laborer do this. This MD sent that was acceptable. All questions were answered prior to discharge. Emergency signs and symptoms, reasons to return to the emergency department discussed with patient. 11/12/19 00:19 - Laboratory Result Diagrams: 11/11/19 18:25 11/11/19 18:25 Laboratory results interpreted by me: 11/11/19 11/11/19 18:25 18:25 WBC 13.0 H RBC 3.63 L Hgb 11.0 L Hct 32.6 L RDW 14.7 H Lymph % (Auto) 11.7 L Absolute Neuts (auto) 9.6 H BUN 25 H Est GFR ( Amer) 56 L Est GFR (MDRD) Non-Af 46 L Glucose 117 H Procedures - Immobilization Right Foot Time completed: 00:07 - Short leg posterior splint ordered to immobilize foot, avoid movement and rebleeding of foot laceration Pre-Proc Neuro Vasc Exam: Normal Immobilizer type: Short Leg Posterior Performed by: PCT Post-Proc Neuro Vasc Exam: Normal Alignment checked and good: Yes Notes: 11/12/19 00:17 Splint appears to be in good placement. There is noted coming through the dressing. Patient denies pain. Discharge - Discharge Clinical Impression: Encounter for post-traumatic wound check Condition: Stable Disposition: HOME, SELF-CARE Additional Instructions: Return to the Emergency Department without delay if any worse. Follow-up with your concrete plant laborer in 10 days to reevaluate your foot wound and look at the possibility of removing the sutures and jan at that time. HOME CARE INSTRUCTIONS & INFORMATION: Thank you for choosing us for your medical needs. We hope you're satisfied with the care you received. After you leave, you must properly care for your problem and, at the same time, observe its progress. Any condition can change. Some illnesses can change rapidly over hours or days. If your condition worsens, return to the Emergency Department or see your physician promptly. ABOUT YOUR X-RAYS AND EKG'S: If you had an EKG or X-rays taken, they have been read by the Emergency Physician. The X-rays and EKG's will also be read by a Radiologist or Caustic Room Operator within 24 hours. If discrepancies are noted, you will be notified by telephone. Please be certain the ED has a correct telephone number & address where you can be reached. Also, realize that some fractures or abnormalities do not show up on initial X-rays. If your symptoms continue, see your physician. ABOUT YOUR LABORATORY TEST: If you had laboratory tests, the results have been reviewed by the Emergency Physician. Some test results (for example cultures) may not be available for several days. You will be contacted if any test result shows you need additional treatment. Please be certain the ED has a correct telephone number and address where you can be reached. ABOUT YOUR MEDICATIONS: You will receive instructions on how to take your medicine on the prescription label you receive. Additional information may be provided by the Pharmacy. If you have questions afterwards, call the ED for clarification or further instructions. Some prescribed medications may cause drowsiness. Do not perform tasks such as driving a car or operating machinery without consulting your Pharmacist. If you feel you need a refill of pain medication, your condition will need re-evaluation. Please do not call for a refill of any medication. ABOUT YOUR SIGNATURE: Signature of this document acknowledges to followin. Understanding that you received emergency treatment and that you may be released before al medical problems are known or treated. Please be certain the ED has a correct phone number & address where you can be reached. 2. Acknowledgement that you will arrange for follow-up care as recommended. 3. Authorization for the Emergency Physician to provide information to your follow-up Physician in order to maximize your care. AT ANY TIME, IF YOUR SYMPTOMS CHANGE SIGNIFICANTLY OR WORSEN OR YOU DEVELOP NEW SYMPTOMS, RETURN TO THE EMERGENCY DEPARTMENT IMMEDIATELY FOR RE-EVALUATION. OUR GOAL IS TO PROVIDE EXCELLENT MEDICAL CARE! WE HOPE THAT WE HAVE MET YOUR EXPECTATIONS DURING YOUR EMERGENCY DEPARTMENT VISIT AND THAT YOU FEEL YOU HAVE RECEIVED EXCELLENT CARE! Referrals: TERE LOYOLA FNP [Primary Care Provider] - Follow up as needed I personally performed the services described in the documentation, reviewed and edited the documentation which was dictated to the scribe in my presence, and it accurately records my words and actions.
[2019-11-12 00:52] VITALS: BP 110/60
== END 2019-11-12 00:52 | disposition home or self-care (01) ==
LOC: ER 17:10
DX: S91.311D Laceration without foreign body, right foot, subsequent encounter (principal); X58.XXXD Exposure to other specified factors, subsequent encounter
CPT/HCPCS: 93005; 99283; 96374; 96375; 36415; 85025; 80053; 84484; 93010; 29515; J2270; J3490

== ENCOUNTER → 2019-11-16 | Outpatient (CLI) | payer MEDICARE, OTHER ==
[2019-11-16 15:35] LABS: ABSOLUTE BASOPHILS # (AUTO) 0.1 10^3/uL (0.0-0.2); ABSOLUTE EOSINOPHILS # (AUTO) 0.8 10^3/uL (0.0-0.6); ABSOLUTE LYMPHOCYTES (AUTO) 2.3 10^3/uL (0.5-4.7); ABSOLUTE MONOCYTES (AUTO) 0.9 10^3/uL (0.1-1.4); ABSOLUTE NEUT (AUTO) 8.9 10^3/uL (1.7-8.2); BASOPHILS % (AUTO) 1.1 % (0-2); HEMATOCRIT 26.1 % (36.0-47.0); HEMOGLOBIN 8.7 g/dL (12.0-15.5); LYMPHOCYTES % (AUTO) 17.9 % (13-45); MEAN CORPUSCULAR HEMOGLOBIN 29.8 pg (27.0-33.4); MEAN CORPUSCULAR HGB CONC 33.5 g/dL (32.0-36.0); MEAN CORPUSCULAR VOLUME 89 fl (80-97); PLATELET COUNT 188 10^3/uL (150-450); RED BLOOD COUNT 2.93 10^6/uL (3.72-5.28); RED CELL DISTRIBUTION WIDTH 14.9 % (11.5-14.0); TOTAL CELLS COUNTED % (AUTO) 100 %; WHITE BLOOD COUNT 13.1 10^3/uL (4.0-10.5)
== END ==
LOC: OD 15:06
PROVIDERS: ATTEND Nurse Practitioner
DX: D50.9 Iron deficiency anemia, unspecified (principal); D64.89 Other specified anemias; Z79.01 Long term (current) use of anticoagulants
CPT/HCPCS: 36415; 83540; 85025

== ENCOUNTER 2019-11-19 09:23 | Emergency (ER) | payer MEDICARE, OTHER ==
[2019-11-19] MEDS ORDERED: DILTIAZEM HCL INJ 25 MG/5 ML VIAL IV ONE ×2 (09:51→10:48)
[2019-11-19] MEDS ORDERED: NORMAL SALINE 250 ML IV PRN ×2 (09:52)
[2019-11-19] MEDS ORDERED: DILTIAZEM HCL/D5W 125 MG/125 ML RTUINJ IV ONE (10:05)
[2019-11-19 10:07] LABS: HEMATOCRIT 28.9 % (36.0-47.0); HEMOGLOBIN 9.6 g/dL (12.0-15.5); MEAN CORPUSCULAR HEMOGLOBIN 30.1 pg (27.0-33.4); MEAN CORPUSCULAR HGB CONC 33.3 g/dL (32.0-36.0); MEAN CORPUSCULAR VOLUME 90 fl (80-97); PLATELET COUNT 246 10^3/uL (150-450); RED CELL DISTRIBUTION WIDTH 15.3 % (11.5-14.0); WHITE BLOOD COUNT 21.7 10^3/uL (4.0-10.5)
[2019-11-19 10:13] LABS: INTERNATIONAL RATION (INR) 1.17; PROTHROMBIN TIME 14.9 SEC (11.4-15.4)
[2019-11-19] MEDS ORDERED: DILTIAZEM HCL/D5W 125 MG/125 ML RTUINJ IV PRN (10:20)
[2019-11-19 10:22] LABS: ALBUMIN 4.1 g/dL (3.5-5.0); ALKALINE PHOSPHATASE 94 U/L (38-126); ANION GAP 9 (5-19); ASPARTATE AMINO TRANSFERASE 52 U/L (14-36); BILIRUBIN,DIRECT 0.2 mg/dL (0.0-0.4); BILIRUBIN,TOTAL 0.7 mg/dL (0.2-1.3); BLOOD UREA NITROGEN 13 mg/dL (7-20); CALCIUM 9.3 mg/dL (8.4-10.2); CARBON DIOXIDE 24 mmol/L (22-30); CHLORIDE 105 mmol/L (98-107); CREATINE KINASE 478 U/L (30-135); GLUCOSE 241 mg/dL (75-110); POTASSIUM 4.3 mmol/L (3.6-5.0); TOTAL PROTEIN 7.8 g/dL (6.3-8.2)
[2019-11-19] MEDS ORDERED: FENTANYL CITRATE INJ/PF 100 MCG/2 ML AMPUL IV ONE (10:22)
[2019-11-19 10:27] LABS: ABSOLUTE LYMPHOCYTES# (MANUAL) 2.2 10^3/uL (0.5-4.7); ABSOLUTE MONOCYTES # (MANUAL) 1.3 10^3/uL (0.1-1.4); BASOPHILS % (MANUAL) 0 % (0-2); EOSINOPHILS % (MANUAL) 1 % (0-6); LYMPHOCYTES % (MANUAL) 10 % (13-45); MONOCYTES % (MANUAL) 6 % (3-13); SEGMENTED NEUTROPHILS % (MAN) 83 % (42-78); TOTAL CELLS COUNTED 100
--- NOTE | 2019-11-19 10:27 | RADIOLOGY REPORT (SQ) ---
EXAM DESCRIPTION: CHEST SINGLE VIEW IMAGES COMPLETED DATE/TIME: 11/19/2019 10:06 am REASON FOR STUDY: chest pain COMPARISON: 08/25/2018 EXAM PARAMETERS: NUMBER OF VIEWS: One view. TECHNIQUE: Single frontal radiographic view of the chest acquired. RADIATION DOSE: NA LIMITATIONS: None. FINDINGS: LUNGS AND PLEURA: New opacity at the right lung base. No effusions. MEDIASTINUM AND HILAR STRUCTURES: No masses. Contour normal. HEART AND VASCULAR STRUCTURES: Heart enlarged with vascular congestion. BONES: Sternal wires. HARDWARE: Extensive cardiac hardware unchanged. OTHER: No other significant finding. IMPRESSION: New opacity at the right base superimposed on chronic vascular congestion. TECHNICAL DOCUMENTATION: JOB ID: [id number] 2010 [employer]- All Rights Reserved Reading location - IP/workstation name: [email or web address]
[2019-11-19 10:28] LABS: ANISOCYTOSIS SLIGHT; PLATELET COMMENT ADEQUATE; POLYCHROMASIA SLIGHT; TOXIC GRANULATION 1+
[2019-11-19 10:34] LABS: CREATINE KINASE MB 27.2 ng/mL (<4.55)
[2019-11-19 10:38] LABS: TROPONIN I 2.58 ng/mL
--- NOTE | 2019-11-19 10:42 | ER Document Report ---
Entered by SHARDA STEWARD SCRIBE 11/19/19 0949 Acting as scribe for:FRANCISCA DURHAM MD ED General - General Stated Complaint: CHEST PAIN Time Seen by Provider: 11/19/19 09:43 Primary Care Provider: TERE LOYOLA FNP [Primary Care Provider] - Follow up as needed Information source: Patient Notes: This 69 year old female patient presents to the emergency department today for complaints of shortness of breath. Patient states she began feeling short of breath yesterday but wasn't sure if it was anxiety or true shortness of breath. Patient is tachycardic and hypoxic on arrival here. She is also complaining of substernal chest pain. Patient's past history is significant for coronary artery disease, atrial fib, CHF, myocardial infarction. She had a four-vessel bypass in 1999 at [facility]. She had a pacemaker defibrillator placed in 2012 at [facility]. Her outsole molder is Dr. Guo with the [facility] group here in [place]. She is in chronic pain management and takes [place] 7.5 mg 4 times daily. TRAVEL OUTSIDE OF THE [place] IN LAST 30 DAYS: No - Related Data Allergies/Adverse Reactions: Shellfish * [Shellfish] Allergy (Unknown, Verified 11/10/19 15:52) Hives digoxin [Digoxin] Adverse Reaction (Mild, Verified 11/10/19 15:52) Nausea oxycodone HCl [From Percocet] Adverse Reaction (Mild, Verified 11/10/19 15:52) Vomiting ramipril [From Altace] Adverse Reaction (Mild, Verified 11/10/19 15:52) cough Past Medical History - General Information source: Patient - Social History Smoking Status: Current Every Day Smoker Cigarette use (# per day): Yes Family History: Reviewed & Not Pertinent - Past Medical History Cardiac Medical History: Reports: Hx Atrial Fibrillation, Hx Congestive Heart Failure, Hx Coronary Artery Disease, Hx Heart Attack - 1999, Hx Hypercholesterolemia, Hx Hypertension Pulmonary Medical History: Reports: Hx Respiratory Failure - Chronic respiratory failure with hypoxia on home oxygen Endocrine Medical History: Reports: Hx Diabetes Mellitus Type 2, Hx Hypothyroidism Musculoskeletal Medical History: Reports Hx Arthritis Past Surgical History: Reports: Hx Cardiac Catheterization, Hx Cardiac Surgery - open heart, Hx Coronary Artery Bypass Graft, Hx Coronary Stent, Hx Hysterectomy, Hx Open Heart Surgery - QUAD BYPASS; pacemaker, Hx Pacemaker - AICD - Immunizations Hx Diphtheria, Pertussis, Tetanus Vaccination: Yes - 07/02/14 Hx Pneumococcal Vaccination: 07/02/14 Review of Systems - Review of Systems Constitutional: No symptoms reported EENT: No symptoms reported Cardiovascular: See HPI, Heart racing Respiratory: See HPI, Short of breath Gastrointestinal: No symptoms reported Genitourinary: No symptoms reported Female Genitourinary: No symptoms reported Musculoskeletal: No symptoms reported Skin: No symptoms reported Hematologic/Lymphatic: No symptoms reported Neurological/Psychological: See HPI, Anxiety -: Yes All other systems reviewed and negative Physical Exam - Vital signs Vitals: Resp 21 H 11/19/19 09:30 - General General appearance: Alert, Anxious In distress: Moderate - HEENT Head: Normocephalic, Atraumatic Eyes: Pale conjunctiva Pupils: PERRL Neck: Normal - Respiratory Breath sounds: Rales - Faint rales in bases, Other - Decreased breath sounds in the right lower lung field Chest palpation: Normal. No: Tender - no chest wall tenderness - Cardiovascular Rhythm: Irregularly irregular, Tachycardia Murmur: No - Abdominal Inspection: Obese Bowel sounds: Normal Tenderness: Nontender - No epigastric tenderness. - Back Back: Normal - Extremities General upper extremity: Normal inspection General lower extremity: Edema - 2-3+ pitting edema to the lower extremities - Neurological Neuro grossly intact: Yes - Psychological Associated symptoms: Normal affect, Normal mood, Anxious - Skin Skin Temperature: Warm Skin Moisture: Dry Skin Color: Normal Course - Re-evaluation Re-evalutation: 11/19/19 11:58 The patient requested that if she needed transfer, she would like to go to [facility]. I discussed the case with the cardiology on-call Dr. Almanza at [facility], he requested a repeat troponin to see if it is rising to confirm non-STEMI. He recommended not giving aspirin or any other antiplatelet or anticoagulant therapy due to the patient being on Xarelto. 11/19/19 15:28 The repeat troponin showed the value go from 2.58 to 2.84 over a 2-hour period. Dr. Almanza felt this was a nonsignificant elevation and really represented a flat curve. He did not feel this was a non-STEMI, that the elevated troponin was only due to her atrial fibrillation and tachycardia. He did agree to accept the patient. I recently went back to reevaluate the patient because of her ongoing pain, she has been given topical nitroglycerin after my last visit to see her. On repeat physical exam, the patient has no tenderness with epigastric palpation, and she does report that she is not had reflux-like symptoms in many many years. There is no tenderness to palpate the anterior chest wall where she feels her discomfort. She does not describe the pain she is having is really being related to her breathing, she just states that the severe pain tends to come and go but never completely goes away. Due to her being on chronic pain management, it is a little difficult to evaluate her pain in her response to pain medication. 11/19/19 16:21 Noticed the patient's pulse oximetry readings had dropped into the 78% range but there was not a particular good waveform. I went to check on the patient and she said her breathing was feeling much worse. A stat portable chest x-ray was ordered and I asked for a manual blood pressure. 11/19/19 16:51 Chest x-ray shows worsening CHF. Lasix 20 mg IV was ordered, BiPAP was ordered, nonrebreather until BiPAP could arrive was ordered, and the patient had a Ruth catheter put in and received Ativan 0.5 mg IV for her anxiety. The third troponin came back and had gone up to 4.6 I called back to [facility] and spoke with the motor vehicle light assembler Dr. Ruano, he agrees to accept the patient into their ICU. The transfer center will coordinate with [facility] for helicopter transport due to the patient's rapidly deteriorating condition. 11/19/19 17:20 BiPAP was placed, the patient required some Ativan for her anxiety and to allow her to tolerate the mask. Once she was relaxed enough to tolerate the mask her pulse ox went to 96 to 98%. 11/19/19 17:30 At this time the patient's pulse is down to 110-115, pulse oximetry is 94%. - Vital Signs Vital signs: Temp Pulse Resp BP Pulse Ox 98.1 F 128 H 20 107/63 92 11/19/19 10:30 11/19/19 12:24 11/19/19 17:15 11/19/19 17:05 11/19/19 17:15 - Laboratory Result Diagrams: 11/19/19 15:43 11/19/19 09:40 Laboratory results interpreted by me: 11/19/19 11/19/19 11/19/19 09:40 09:40 09:40 WBC 21.7 H RBC 3.20 L Hgb 9.6 L Hct 28.9 L RDW 15.3 H Seg Neuts % (Manual) 83 H Lymphocytes % (Manual) 10 L Abs Neuts (Manual) 18.0 H Abs Monocytes (Manual) Glucose 241 H AST 52 H Creatine Kinase 478 H CK-MB (CK-2) 27.20 H Crossmatch 11/19/19 11/19/19 09:54 15:43 WBC 20.3 H RBC 3.58 L Hgb 10.5 L Hct 32.5 L RDW 15.4 H Seg Neuts % (Manual) 83 H Lymphocytes % (Manual) 8 L Abs Neuts (Manual) 16.8 H Abs Monocytes (Manual) 1.8 H Glucose AST Creatine Kinase CK-MB (CK-2) Crossmatch See Detail - Diagnostic Test Radiology reviewed: Image reviewed, Reports reviewed - Chest x-ray shows a new right lower lobe infiltrate superimposed on chronic vascular congestion. - EKG Interpretation by Me EKG shows normal: [place], Intervals, QRS Complexes. abnormal: ST-T Waves - Rate related ST depression Rate: Tachycardia - 147 Rhythm: A.Fib Hardin/QRS: IVCD - A repeat EKG done after pain medication, blood transfusion, and Cardizem shows atrial fibrillation with RVR rate 114, and ST depression in the lateral leads. - Transfer of Care Care transferred to following provider: Dr. Echeverria Notes: 11/19/19 17:31 Patient is pending transfer to [facility]. She is currently on BiPAP, has nitroglycerin paste, has received 1 unit of packed RBCs, is beginning to diurese. Her oxygen saturation, heart rate, and blood pressure are all improving at this time. Critical Care Note - Critical Care Note Total time excluding time spent on procedures (mins): 75 Comments: Initial H&P evaluation. Review of past admissions and the past several emergency room visits which were contributory to today's problem. Multiple re- evaluations. Multiple phone calls and attempts to get the patient transferred. The patient is a very complicated, critically ill patient with several serious issues occurring simultaneously. Discharge - Discharge Clinical Impression: Anemia due to blood loss, Atrial fibrillation with RVR, Elevated troponin I le krystina, Non-STEMI (non-ST elevated myocardial infarction) Chest pain Qualifiers: Chest pain type: chest pain due to myocardial ischemia Ischemic chest pain type: unstable angina pectoris Qualified Code(s): I20.0 - Unstable angina Hypotension Qualifiers: Hypotension type: unspecified hypotension type Qualified Code(s): I95.9 - Hypotension, unspecified Acute on chronic congestive heart failure Qualifiers: Heart failure type: systolic Qualified Code(s): I50.23 - Acute on chronic systolic (congestive) heart failure Condition: Serious Disposition: [facility] Referrals: TERE LOYOLA FNP [Primary Care Provider] - Follow up as needed I personally performed the services described in the documentation, reviewed and edited the documentation which was dictated to the scribe in my presence, and it accurately records my words and actions.
[2019-11-19] MEDS ORDERED: MORPHINE SULFATE 10 MG/ML INJ IV ONE ×2 (10:49→13:09)
[2019-11-19] MEDS ORDERED: LEVOFLOXACIN 750 MG/D5W RTU 750 MG/150 ML RTUPB IV ONE (11:40)
--- NOTE | 2019-11-19 11:49 | EKG REPORT ---
SEVERITY:- ABNORMAL ECG - PROBABLE SINUS TACHYCARDIA WITH PACS REPOL ABNRM SUGGESTS ISCHEMIA, LATERAL LEADS : Confirmed by: Harish Porras MD 19-Nov-2019 11:49:11
--- NOTE | 2019-11-19 11:49 | EKG REPORT ---
SEVERITY:- ABNORMAL ECG - SINUS TACHYCARDIA NONSPECIFIC INTRAVENTRICULAR CONDUCTION DELAY ST DEPRESSION, PROBABLY RATE RELATED : Confirmed by: Harish Porras MD 19-Nov-2019 11:49:21
[2019-11-19] MEDS ORDERED: HYDROMORPHONE HCL INJ/PF 2 MG/ML AMPULE IV ONE (14:22)
[2019-11-19] MEDS ORDERED: NITROGLYCERIN 2% OINTMENT 1 GM PACKET TP ONE (14:22)
[2019-11-19 15:56] LABS: HEMATOCRIT 32.5 % (36.0-47.0); HEMOGLOBIN 10.5 g/dL (12.0-15.5); MEAN CORPUSCULAR HEMOGLOBIN 29.3 pg (27.0-33.4); MEAN CORPUSCULAR HGB CONC 32.2 g/dL (32.0-36.0); MEAN CORPUSCULAR VOLUME 91 fl (80-97); PLATELET COUNT 232 10^3/uL (150-450); RED BLOOD COUNT 3.58 10^6/uL (3.72-5.28); RED CELL DISTRIBUTION WIDTH 15.4 % (11.5-14.0); WHITE BLOOD COUNT 20.3 10^3/uL (4.0-10.5)
[2019-11-19 16:26] LABS: ABSOLUTE LYMPHOCYTES# (MANUAL) 1.6 10^3/uL (0.5-4.7); ABSOLUTE MONOCYTES # (MANUAL) 1.8 10^3/uL (0.1-1.4); BASOPHILS % (MANUAL) 0 % (0-2); EOSINOPHILS % (MANUAL) 0 % (0-6); LYMPHOCYTES % (MANUAL) 8 % (13-45); MONOCYTES % (MANUAL) 9 % (3-13); SEGMENTED NEUTROPHILS % (MAN) 83 % (42-78); TOTAL CELLS COUNTED 100
[2019-11-19 16:28] LABS: ANISOCYTOSIS 1+; PLATELET COMMENT ADEQUATE
[2019-11-19] MEDS ORDERED: FUROSEMIDE INJ/PF 20 MG/2 ML SDV IV ONE (16:28)
[2019-11-19] MEDS ORDERED: LORAZEPAM INJ 2 MG/1 ML VIAL IV ONE ×2 (16:37→16:59)
--- NOTE | 2019-11-19 16:41 | RADIOLOGY REPORT (SQ) ---
EXAM DESCRIPTION: CHEST SINGLE VIEW IMAGES COMPLETED DATE/TIME: 11/19/2019 4:33 pm REASON FOR STUDY: increasing SOB COMPARISON: 11/19/2019 NUMBER OF VIEWS: One view. TECHNIQUE: Single frontal radiographic view of the chest acquired. LIMITATIONS: None. FINDINGS: LUNGS AND PLEURA: Worsening bilateral airspace disease most consistent with pulmonary delma a. MEDIASTINUM AND HILAR STRUCTURES: Stable. HEART AND VASCULATURE: Cardiac enlargement. Vascular congestion. BONES: No acute findings. HARDWARE: CABG. Defibrillator. OTHER: No other significant finding. IMPRESSION: CHF. TECHNICAL DOCUMENTATION: JOB ID: [id number] 2010 [employer]- All Rights Reserved Reading location - IP/workstation name: [email or web address]
[2019-11-19 18:20] LABS: APPEARANCE,URINE CLEAR; BILIRUBIN,URINE NEGATIVE (NEGATIVE); COLOR,URINE YELLOW; GLUCOSE, URINE 50 mg/dL (NEGATIVE); KETONES,URINE TRACE mg/dL (NEGATIVE); LEUKOCYTE ESTERASE,URINE NEGATIVE (NEGATIVE); NITRITE,URINE NEGATIVE (NEGATIVE); PROTEIN,URINE 100 mg/dL (NEGATIVE); URINE SPECIFIC GRAVITY 1.027
[2019-11-19 19:00] VITALS: BP 97/66
--- NOTE | 2019-11-20 08:43 | EKG REPORT ---
SEVERITY:- ABNORMAL ECG - SINUS TACHYCARDIA REPOL ABNRM SUGGESTS ISCHEMIA, LATERAL LEADS : Confirmed by: Harish Porras MD 20-Nov-2019 08:41:59
== END 2019-11-19 19:00 | disposition short-term general hospital (02) ==
LOC: ER 09:23
DX: I21.4 Non-ST elevation (NSTEMI) myocardial infarction (principal); I11.0 Hypertensive heart disease with heart failure; I50.23 Acute on chronic systolic (congestive) heart failure; I25.110 Atherosclerotic heart disease of native coronary artery with unstable angina pectoris; I95.9 Hypotension, unspecified; I48.91 Unspecified atrial fibrillation; D50.0 Iron deficiency anemia secondary to blood loss (chronic); F41.9 Anxiety disorder, unspecified; I25.2 Old myocardial infarction; F17.210 Nicotine dependence, cigarettes, uncomplicated; Z95.810 Presence of automatic (implantable) cardiac defibrillator; Z79.899 Other long term (current) drug therapy; Z79.01 Long term (current) use of anticoagulants; Z95.5 Presence of coronary angioplasty implant and graft; Z95.1 Presence of aortocoronary bypass graft; Z91.013 Allergy to seafood
CPT/HCPCS: 93005; 96376; 99291; 99292; 51702; 96375; 96365; 96366; 96367; 86900; 86901; 36415; 87040; 82553; 36430; 86850; 82550; 85025; 85610; 80053; 81001; 84484; 86920; 71045; 93010; P9016; A9270; J3010; J1940; J3490 ×2; J2270; J1170; J2060; J1956

== ENCOUNTER 2019-12-13 12:28 | Emergency (ER) | payer MEDICARE, OTHER ==
[2019-12-13 13:01] LABS: ABSOLUTE EOSINOPHILS # (AUTO) 0.7 10^3/uL (0.0-0.6); ABSOLUTE LYMPHOCYTES (AUTO) 1.7 10^3/uL (0.5-4.7); ABSOLUTE MONOCYTES (AUTO) 0.7 10^3/uL (0.1-1.4); ABSOLUTE NEUT (AUTO) 10.5 10^3/uL (1.7-8.2); BASOPHILS % (AUTO) 0.3 % (0-2); EOSINOPHILS % (AUTO) 5.1 % (0-6); HEMATOCRIT 32.6 % (36.0-47.0); HEMOGLOBIN 10.6 g/dL (12.0-15.5); LYMPHOCYTES % (AUTO) 12.4 % (13-45); MEAN CORPUSCULAR HEMOGLOBIN 28.3 pg (27.0-33.4); MEAN CORPUSCULAR HGB CONC 32.6 g/dL (32.0-36.0); MONOCYTES % (AUTO) 5.3 % (3-13); PLATELET COUNT 195 10^3/uL (150-450); RED BLOOD COUNT 3.75 10^6/uL (3.72-5.28); RED CELL DISTRIBUTION WIDTH 16.1 % (11.5-14.0); SEGMENTED NEUTROPHILS % (AUTO) 76.9 % (42-78); TOTAL CELLS COUNTED % (AUTO) 100 %; WHITE BLOOD COUNT 13.6 10^3/uL (4.0-10.5)
[2019-12-13 13:14] LABS: ALBUMIN 3.5 g/dL (3.5-5.0); ALKALINE PHOSPHATASE 102 U/L (38-126); ANION GAP 8 (5-19); ASPARTATE AMINO TRANSFERASE 27 U/L (14-36); BILIRUBIN,TOTAL 0.6 mg/dL (0.2-1.3); BLOOD UREA NITROGEN 18 mg/dL (7-20); CALCIUM 9.3 mg/dL (8.4-10.2); CARBON DIOXIDE 30 mmol/L (22-30); CHLORIDE 102 mmol/L (98-107); GLUCOSE 92 mg/dL (75-110); POTASSIUM 4.1 mmol/L (3.6-5.0)
[2019-12-13 13:18] LABS: MEAN CORPUSCULAR VOLUME 87 fl (80-97)
[2019-12-13] MEDS ORDERED: MORPHINE SULFATE 10 MG/ML INJ IV ONE (13:51)
--- NOTE | 2019-12-13 15:15 | RADIOLOGY REPORT (SQ) ---
EXAM DESCRIPTION: HIP RIGHT AP/LATERAL IMAGES COMPLETED DATE/TIME: 12/13/2019 3:06 pm REASON FOR STUDY: bed 11 right hip s/o fall +tenderness COMPARISON: 06/04/2019. NUMBER OF VIEWS: Two views. TECHNIQUE: AP pelvis and additional frog-leg view of the right hip. LIMITATIONS: None. FINDINGS: MINERALIZATION: Normal. RIGHT HIP: No fracture or dislocation. No worrisome bone lesions. LEFT HIP: No fracture or dislocation. No worrisome bone lesions. PUBIS AND ISCHIUM: No fracture. PELVIS: No fracture. SACRUM: No fracture or dislocation. No worrisome bone lesions. LOWER LUMBAR SPINE: No fracture or dislocation. No worrisome bone lesions. Degenerative disc disease . SOFT TISSUES: No findings. OTHER: No other significant finding. IMPRESSION: NEGATIVE STUDY OF THE RIGHT HIP. NO RADIOGRAPHIC EVIDENCE OF ACUTE INJURY. TECHNICAL DOCUMENTATION: JOB ID: [id number] 2010 [employer]- All Rights Reserved Reading location - IP/workstation name: [email or web address]
--- NOTE | 2019-12-13 15:55 | RADIOLOGY REPORT (SQ) ---
EXAM DESCRIPTION: CT RT LOWER EXTREMITY WITHOUT IMAGES COMPLETED DATE/TIME: 12/13/2019 3:26 pm REASON FOR STUDY: right hip pain COMPARISON: None. TECHNIQUE: CT scan of the pelvis performed without intravenous or oral contrast. Images reviewed wi th soft tissue and bone windows. Reconstructed coronal and sagittal MPR images reviewed. All images stored on PACS. All CT scanners at this facility use dose modulation, iterative reconstruction, and/or weight based d osing when appropriate to reduce radiation dose to as low as reasonably achievable (ALARA). [facility]: Dose Right [facility]: CareDose [facility]: Dose Right [facility]: Teradose 4D [facility]: Defixo RADIATION DOSE: CT Rad equipment meets quality standard of care and radiation dose reduction techniq ues were employed. CTDIvol: 42.3 mGy. DLP: 1559 mGy-cm. mGy. LIMITATIONS: None. FINDINGS: PELVIC BONES: No acute fracture. No worrisome bone lesions. VISUALIZED SPINE: No acute findings. HIP(S): No acute fracture or dislocation. No worrisome bone lesions. PELVIC SOFT TISSUES: No significant findings. EXTRAPELVIC SOFT TISSUES: No significant findings. OTHER: There is a rounded mixed density material in the right psoas muscle, measuring up to 2.2 cm. There are a few bubbles of gas within this mixed density material (axial series 4, image 23 and image 36). This finding was not present on prior CT lumbar spine dated 06/04/2019. IMPRESSION: 1. NO EVIDENCE OF ACUTE FRACTURE IN THE PELVIS OR HIPS. 2. ROUNDED MIXED DENSITY MATERIAL IN THE RIGHT PSOAS MUSCLE DESCRIBED. THIS MAY REPRESENT A SUBAC IVA HEMATOMA. ABSCESS IS LESS LIKELY. TECHNICAL DOCUMENTATION: JOB ID: [id number] Quality ID # [id number]: Final reports with documentation of one or more dose reduction techniques (e.g., Au tomated exposure control, adjustment of the mA and/or kV according to patient size, use of iterative reconstruction technique) 2010 [employer]- All Rights Reserved Reading location - IP/workstation name: [email or web address]
--- NOTE | 2019-12-13 17:35 | ER Document Report ---
ED General - General Chief Complaint: Hip Pain Stated Complaint: RIGHT HIP PAIN Time Seen by Provider: 12/13/19 13:27 Primary Care Provider: TERE LOYOLA FNP [Primary Care Provider] - Follow up as needed Mode of Arrival: Medic Information source: Patient TRAVEL OUTSIDE OF THE [place] IN LAST 30 DAYS: No - HPI Notes: Patient comes in complaining of right hip pain. She states the pain is in the lateral and anterior aspects of the hip. It is constant. It is worse if moved and better if left alone. It is severe and sharp. She states the pain started several days ago when her was turning her in the bed. She states she felt a "pop" and ever since she has had pain. No fevers. No known previous issues with the right hip. The pain does radiate down the right leg. - Related Data Allergies/Adverse Reactions: Shellfish * [Shellfish] Allergy (Unknown, Verified 11/10/19 15:52) Hives digoxin [Digoxin] Adverse Reaction (Mild, Verified 11/10/19 15:52) Nausea oxycodone HCl [From Percocet] Adverse Reaction (Mild, Verified 11/10/19 15:52) Vomiting ramipril [From Altace] Adverse Reaction (Mild, Verified 11/10/19 15:52) cough Home Medications: Clonidine, lasix, lantus, iron, lyrica, novolog, vicaden, xaralto Past Medical History - General Information source: Patient - Social History Smoking Status: Former Smoker Frequency of alcohol use: None Drug Abuse: None Family History: Reviewed & Not Pertinent Patient has homicidal ideation: No - Past Medical History Cardiac Medical History: Reports: Hx Atrial Fibrillation, Hx Congestive Heart Failure, Hx Coronary Artery Disease, Hx Heart Attack - 1999, Hx Hypercholesterolemia, Hx Hypertension Denies: Hx DVT, Hx Peripheral Vascular Disease, Hx Pulmonary Embolism Pulmonary Medical History: Reports: Hx Respiratory Failure - Chronic respiratory failure with hypoxia on home oxygen Denies: Hx Asthma, Hx Bronchitis, Hx COPD, Hx Pneumonia, Hx Sleep Apnea Neurological Medical History: Denies: Hx Cerebrovascular Accident, Hx Seizures Endocrine Medical History: Reports: Hx Diabetes Mellitus Type 2, Hx Hypothyroidism. Denies: Hx Diabetes Mellitus Type 1, Hx Hyperthyroidism Renal/ Medical History: Denies: Hx Peritoneal Dialysis GI Medical History: Denies: Hx Cirrhosis, Hx Crohn's Disease, Hx Gastroesophageal Reflux Disease, Hx Hepatitis, Hx Hiatal Hernia, Hx Ulcer, Hx Ulcerative Colitis Musculoskeletal Medical History: Reports Hx Arthritis, Denies Hx Gout Skin Medical History: Denies Hx Eczema, Denies Hx Psoriasis Infectious Medical History: Denies: Hx Hepatitis Past Surgical History: Reports: Hx Cardiac Catheterization, Hx Cardiac Surgery - open heart, Hx Coronary Artery Bypass Graft, Hx Coronary Stent, Hx Hysterectomy, Hx Open Heart Surgery - QUAD BYPASS; pacemaker, Hx Pacemaker - AICD. Denies: Hx Mastectomy - Immunizations Hx Diphtheria, Pertussis, Tetanus Vaccination: Yes - 07/02/14 Hx Pneumococcal Vaccination: 07/02/14 Review of Systems - Review of Systems Constitutional: denies: Chills, Fever Cardiovascular: denies: Chest pain, Palpitations Respiratory: denies: Cough, Short of breath -: Yes All other systems reviewed and negative Physical Exam - Vital signs Vitals: Resp 12 12/13/19 12:32 Interpretation: Normal - General General appearance: Appears well, Alert - HEENT Head: Normocephalic, Atraumatic Eyes: Normal Pupils: PERRL - Respiratory Respiratory status: No respiratory distress Chest status: Nontender Breath sounds: Normal Chest palpation: Normal - Cardiovascular Rhythm: Irregularly irregular Heart sounds: Normal auscultation Murmur: No - Abdominal Inspection: Normal Distension: No distension Bowel sounds: Normal Tenderness: Nontender Organomegaly: No organomegaly - Back Back: Normal, Nontender - Extremities General upper extremity: Normal inspection, Nontender, Normal color, Normal ROM, Normal temperature General lower extremity: Normal color, Normal temperature, Other - Patient has tenderness to palpation of the right lateral and right anterior hip. Inspection of these areas is unremarkable. There is no evidence of induration or erythema. No evidence of fluctuance or crepitus. There is no bruising overlying the skin. Patient does have limited range of motion of the right hip secondary to pain. She has a 2+ dorsalis pedis pulse on the right. She has a chronic healing foot wound on the right. She has inability to flex or extend the toes on the right however she said this is been going on for many months.. No: Angelito's sign - Neurological Neuro grossly intact: Yes Cognition: Normal Orientation: AAOx4 [place] Coma Scale Eye Opening: Spontaneous Phillip Coma Scale Verbal: Oriented [place] Coma Scale Motor: Obeys Commands Phillip Coma Scale Total: 15 Speech: Normal - Psychological Associated symptoms: Normal affect, Normal mood - Skin Skin Temperature: Warm Skin Moisture: Dry Course - Re-evaluation Re-evalutation: 12/13/19 17:47 Patient presents with severe right hip pain. CT scan shows no evidence of fracture. It does show an ill-defined mass that is a hematoma versus abscess. With the patient having no fever, and no significant elevation of her C-reactive protein it seems most consistent with a hematoma. The patient is on Xarelto so this also lends more credence to this being a hematoma. I have discussed the case with Dr. Saucedo. He will see the patient at 8 AM in the office 2 days from now. Patient states that she believes she may not have transportation to this visit. Therefore I have left a note with case management to assist the patient with transportation. - Vital Signs Vital signs: Temp Pulse Resp BP Pulse Ox 98.2 F 13 140/67 H 99 12/13/19 16:07 12/13/19 17:00 12/13/19 15:01 12/13/19 17:00 - Laboratory Result Diagrams: 12/13/19 12:42 12/13/19 12:42 Laboratory results interpreted by me: 12/13/19 12/13/19 12/13/19 12:42 12:42 12:42 WBC 13.6 H Hgb 10.6 L Hct 32.6 L RDW 16.1 H Lymph % (Auto) 12.4 L Absolute Neuts (auto) 10.5 H Absolute Eos (auto) 0.7 H ESR 81 H C-Reactive Protein 28.2 H - Diagnostic Test Radiology reviewed: Image reviewed, Reports reviewed Discharge - Discharge Clinical Impression: Psoas hematoma, right, secondary to anticoagulant therapy Qualifiers: Encounter type: initial encounter Qualified Code(s): S30.1XXA - Contusion of abdominal wall, initial encounter Condition: Stable Disposition: HOME, SELF-CARE Instructions: Hematoma ([facility]) Additional Instructions: Please go to Dr. Saucedo's office this December 14 at 8am. Someone from the hospital should be in contact with you tomorrow to discuss transportation to doctor's visits. Referrals: CORONA SAUCEDO MD [ACTIVE STAFF] - 12/15/19 8:00 am
[2019-12-13 18:19] VITALS: BP 140/86
== END 2019-12-13 19:03 | disposition home or self-care (01) ==
LOC: ER 12:28
DX: M79.81 Nontraumatic hematoma of soft tissue (principal); T45.515A Adverse effect of anticoagulants, initial encounter; M25.551 Pain in right hip; I25.10 Atherosclerotic heart disease of native coronary artery without angina pectoris; E11.9 Type 2 diabetes mellitus without complications; I11.0 Hypertensive heart disease with heart failure; I50.9 Heart failure, unspecified; I48.91 Unspecified atrial fibrillation; I25.2 Old myocardial infarction; Z79.899 Other long term (current) drug therapy; Z79.4 Long term (current) use of insulin; Z79.01 Long term (current) use of anticoagulants; Z79.891 Long term (current) use of opiate analgesic; Z95.1 Presence of aortocoronary bypass graft; Z95.5 Presence of coronary angioplasty implant and graft; Z95.810 Presence of automatic (implantable) cardiac defibrillator; Z87.891 Personal history of nicotine dependence; Z91.013 Allergy to seafood
CPT/HCPCS: 99285; 96374; 36415; 85025; 85652; 86140; 80053; 73502; 73700; J2270

== ENCOUNTER 2020-01-25 21:43 | Inpatient (IN) | payer MEDICARE, OTHER ==
--- NOTE | 2020-01-25 22:13 | ER Document Report ---
ED General - General Chief Complaint: Knee Pain Stated Complaint: KNEE PAIN Time Seen by Provider: 01/25/20 22:12 Primary Care Provider: TERE LOYOLA FNP [Primary Care Provider] - Follow up as needed TRAVEL OUTSIDE OF THE [place] IN LAST 30 DAYS: No - HPI Notes: 69-year-old female presents with right knee pain following a fall. Patient states she was attempting to transfer herself from her wheelchair to her home hospital bed, fell to the ground. States she did not hit her head. Patient reports that she has no sensation in her lower legs, however can still feel pain. She had a previous spinal cord injury. Nonambulatory at baseline. Patient states that she has home health that comes out about twice a week. Patient was noted to have a very large sacral wound, patient states that she knows about the wound, home health has been applying dressings to it but feels like it is gotten out of hand. She states that she has noticed an odor recently. She wears oxygen at baseline. Patient also states that her blood pressure is typically very low, normally 90s/50s. - Related Data Allergies/Adverse Reactions: Shellfish * [Shellfish] Allergy (Unknown, Verified 11/10/19 15:52) Hives digoxin [Digoxin] Adverse Reaction (Mild, Verified 11/10/19 15:52) Nausea oxycodone HCl [From Percocet] Adverse Reaction (Mild, Verified 11/10/19 15:52) Vomiting ramipril [From Altace] Adverse Reaction (Mild, Verified 11/10/19 15:52) cough Past Medical History - General Information source: Patient - Social History Smoking Status: Unknown if Ever Smoked Family History: Reviewed & Not Pertinent - Past Medical History Cardiac Medical History: Reports: Hx Atrial Fibrillation, Hx Congestive Heart Failure, Hx Coronary Artery Disease, Hx Heart Attack - 1999, Hx Hyp ercholesterolemia, Hx Hypertension Denies: Hx DVT, Hx Peripheral Vascular Disease, Hx Pulmonary Embolism Pulmonary Medical History: Reports: Hx Respiratory Failure - Chronic respiratory failure with hypoxia on home oxygen Denies: Hx Asthma, Hx Bronchitis, Hx COPD, Hx Pneumonia, Hx Sleep Apnea Neurological Medical History: Denies: Hx Cerebrovascular Accident, Hx Seizures Endocrine Medical History: Reports: Hx Diabetes Mellitus Type 2, Hx Hypothyroidism. Denies: Hx Diabetes Mellitus Type 1, Hx Hyperthyroidism Renal/ Medical History: Denies: Hx Peritoneal Dialysis GI Medical History: Denies: Hx Cirrhosis, Hx Crohn's Disease, Hx Gastroesophageal Reflux Disease, Hx Hepatitis, Hx Hiatal Hernia, Hx Ulcer, Hx Ulcerative Colitis Musculoskeletal Medical History: Reports Hx Arthritis, Denies Hx Gout Skin Medical History: Denies Hx Eczema, Denies Hx Psoriasis Infectious Medical History: Denies: Hx Hepatitis Past Surgical History: Reports: Hx Cardiac Catheterization, Hx Cardiac Surgery - open heart, Hx Coronary Artery Bypass Graft, Hx Coronary Stent, Hx Hysterectomy, Hx Open Heart Surgery - QUAD BYPASS; pacemaker, Hx Pacemaker - AICD. Denies: Hx Mastectomy - Immunizations Hx Diphtheria, Pertussis, Tetanus Vaccination: Yes - 07/02/14 Hx Pneumococcal Vaccination: 07/02/14 Review of Systems - Review of Systems Constitutional: denies: Fever EENT: No symptoms reported Cardiovascular: denies: Chest pain Respiratory: Short of breath - At baseline Gastrointestinal: denies: Abdominal pain Genitourinary: Other - Chronic indwelling Ruth Musculoskeletal: Joint pain Skin: Other - Wound Hematologic/Lymphatic: No symptoms reported Neurological/Psychological: Paralysis - Baseline Physical Exam - Vital signs Vitals: Temp 97.3 F 01/25/20 21:44 - General General appearance: Alert In distress: None - HEENT Head: Normocephalic, Atraumatic Extraocular movements intact: Yes Pupils: PERRL - Respiratory Breath sounds: Decreased air movement - At bases - Cardiovascular Rhythm: Regular Heart sounds: Normal auscultation - Abdominal Inspection: Obese Tenderness: Nontender - Extremities Notes: No ecchymosis or wound to right knee. Musculature atrophy to lower extremities - Neurological Cognition: Normal Orientation: AAOx4 - Psychological Associated symptoms: Normal affect - Skin Skin Temperature: Warm Notes: Large necrotic sacral ulcer with purulent appearing material, foul smelling Course - Re-evaluation Re-evalutation: 69-year-old female here for reported right knee pain after fall while transferring from wheelchair to bed, no head injury, no loss of consciousness. She does report some tenderness to the knee, no ecchymosis or abrasion, will obtain x-ray. She also reports chronic pain to her right hip, however will obtain x-ray of this as well. Most concerning is actually patient's large sacral ulcer which appears necrotic and is very foul smelling. She additionally has chronic wounds to her heels as well. Labs including blood cultures to be drawn. Patient is afebrile and not tachycardic, her blood pressure is mamta hnically hypotension, however she reports this is her normal, likely has some degree of autonomic dysfunction. Additionally has significant yeast infection under her pannus and groin, nystatin cream ordered. 01/26/20 01:36 Mild leukocytosis present. She does have reported toxic granulations as well. Hemoglobin has dropped since previous values. Electrolytes are okay currently. Her creatinine is elevated markedly from baseline, WILLIS present. No elevation of lactic acid. Given her decreased renal function, have elected to cover her with linezolid and cefepime for sacral wound as source of infection Patient to be admitted to the hospitalist service - Vital Signs Vital signs: Temp Pulse Resp BP Pulse Ox 97.1 F 10 L 87/63 L 98 01/26/20 02:04 01/26/20 03:29 01/26/20 03:30 01/26/20 03:30 - Laboratory Result Diagrams: 01/26/20 00:30 01/26/20 00:30 Laboratory results interpreted by me: 01/26/20 01/26/20 01/26/20 00:20 00:30 00:30 WBC 13.3 H RBC 3.00 L Hgb 8.3 L Hct 25.5 L RDW 17.7 H Band Neutrophils % 1 L Abs Neuts (Manual) 8.9 H Abs Monocytes (Manual) 1.6 H Absolute Eos (Manual) 0.7 H Sodium 135.4 L Chloride 95 L BUN 73 H Creatinine 2.54 H Est GFR ( Amer) 23 L Est GFR (MDRD) Non-Af 19 L Glucose 240 H NT-Pro-B Natriuret Pep Urine Protein 100 H Urine Blood MODERATE H Urine Urobilinogen 2.0 H Ur Leukocyte Esterase MODERATE H 01/26/20 00:30 WBC RBC Hgb Hct RDW Band Neutrophils % Abs Neuts (Manual) Abs Monocytes (Manual) Absolute Eos (Manual) Sodium Chloride BUN Creatinine Est GFR ( Amer) Est GFR (MDRD) Non-Af Glucose NT-Pro-B Natriuret Pep 13161 H Urine Protein Urine Blood Urine Urobilinogen Ur Leukocyte Esterase - Diagnostic Test Radiology reviewed: Image reviewed, Reports reviewed Discharge - Discharge Clinical Impression: WILLIS (acute kidney injury), Fungal skin infection Sacral wound Qualifiers: Encounter type: initial encounter Qualified Code(s): S31.000A - Unspecified open wound of lower back and pelvis without penetration into retroperitoneum, initial encounter Knee pain Qualifiers: Chronicity: acute Laterality: right Qualified Code(s): M25.561 - Pain in right knee Disposition: ADMITTED INPATIENT Admitting Provider: Radames (Hospitalist) Unit Admitted: [facility] Referrals: TERE LOYOLA FNP [Primary Care Provider] - Follow up as needed
[2020-01-25] MEDS ORDERED: NYSTATIN TOPICAL POWDER 15 GM TP ONE (22:26)
[2020-01-25] MEDS ORDERED: HYDROCODONE/ACETAMINOPHEN 5-325 MG TABLET PO ONE (22:29)
--- NOTE | 2020-01-25 23:44 | RADIOLOGY REPORT (SQ) ---
EXAM DESCRIPTION: XR KNEE 1-2 VIEWS COMPLETED DATE/TME: 01/25/2020 22:26 CLINICAL HISTORY: 69 years, Female, fall, pain COMPARISON: None. NUMBER OF VIEWS: 2 views TECHNIQUE: Frontal and lateral radiograph are obtained LIMITATIONS: None. FINDINGS: Visualized osseous structures are normal in appearance. Joint spaces are well-maintained. No acute fracture or dislocation is evident. Suspect trace knee joint effusion. Multiple surgical clips are noted about the visualized portions of the distal thigh/lower leg. Arterial calcinosis. IMPRESSION: No acute osseous anomaly. copyright 2010 [employer]- All Rights Reserved
--- NOTE | 2020-01-25 23:44 | RADIOLOGY REPORT (SQ) ---
EXAM DESCRIPTION: XR HIP 2 OR MORE VIEWS COMPLETED DATE/TME: 01/25/2020 22:26 CLINICAL HISTORY: 69 years, Female, fall, pain COMPARISON: None. TECHNIQUE: Four view study of the pelvis and both hips. FINDINGS: Extensive vascular calcifications. Previous surgery presumably vascular. Suspected degenerative changes in lower lumbar spine. No suspicious acute fracture dislocation. IMPRESSION: No acute fracture dislocation the pelvis and both hips.
--- NOTE | 2020-01-25 23:46 | RADIOLOGY REPORT (SQ) ---
EXAM DESCRIPTION: X-ray, single view of the chest CLINICAL HISTORY: 69 years Female, fall, pain COMPARISON: Single view of the chest November 19, 2019 FINDINGS: Lungs: There is diffuse prominence of the interstitial lung markings with more focal volume loss seen in the right medial lung base. Overall lung volumes and aeration have improved. No pneumothorax. No pleural effusion. Mediastinum: Heart size is enlarged. ICD device is in place. There is postoperative change of CABG. The appearance is stable. Bones: No displaced fractures are identified. IMPRESSION: Cardiomegaly with mild volume loss in the right medial lung base. Overall lung volumes and aeration have improved. No acute process.
[2020-01-26] MEDS ORDERED: RINGERS SOLUTION,LACTATED 1,000 ML IV ONE ×2 (00:50→03:37)
[2020-01-26 00:55] LABS: HEMATOCRIT 25.5 % (36.0-47.0); HEMOGLOBIN 8.3 g/dL (12.0-15.5); MEAN CORPUSCULAR HEMOGLOBIN 27.5 pg (27.0-33.4); MEAN CORPUSCULAR HGB CONC 32.4 g/dL (32.0-36.0); MEAN CORPUSCULAR VOLUME 85 fl (80-97); PLATELET COUNT 222 10^3/uL (150-450); RED CELL DISTRIBUTION WIDTH 17.7 % (11.5-14.0); WHITE BLOOD COUNT 13.3 10^3/uL (4.0-10.5)
[2020-01-26 01:04] LABS: ANION GAP 15 (5-19); BLOOD UREA NITROGEN 73 mg/dL (7-20); CALCIUM 8.5 mg/dL (8.4-10.2); CARBON DIOXIDE 25 mmol/L (22-30); CHLORIDE 95 mmol/L (98-107); GLUCOSE 240 mg/dL (75-110)
[2020-01-26 01:20] LABS: ABSOLUTE LYMPHOCYTES# (MANUAL) 2.1 10^3/uL (0.5-4.7); ABSOLUTE MONOCYTES # (MANUAL) 1.6 10^3/uL (0.1-1.4); BAND NEUTROPHILS % (MANUAL) 1 % (3-5); BASOPHILS % (MANUAL) 0 % (0-2); EOSINOPHILS % (MANUAL) 5 % (0-6); LYMPHOCYTES % (MANUAL) 16 % (13-45); METAMYELOCYTES % (MANUAL) 1 % (0-1); MONOCYTES % (MANUAL) 12 % (3-13); NUCLEATED RED BLOOD CELLS 2 /100 WBC (0); SEGMENTED NEUTROPHILS % (MAN) 65 % (42-78); TOTAL CELLS COUNTED 100
[2020-01-26 01:24] LABS: ANISOCYTOSIS 1+; BURR CELLS SLIGHT; OVALOCYTES SLIGHT; PLATELET COMMENT ADEQUATE; POIKILOCYTOSIS SLIGHT; POLYCHROMASIA SLIGHT; SCHISTOCYTES SLIGHT; TOXIC GRANULATION SLIGHT; TOXIC VACUOLATION PRESENT
[2020-01-26] MEDS ORDERED: CEFEPIME 2 GM/D5W RTU 2 GM/50 ML RTUPB IV ONE (01:33)
[2020-01-26] MEDS ORDERED: LINEZOLID 600 MG/300 ML RTUPB IV ONE ×2 (01:33→02:32)
[2020-01-26] MEDS ORDERED: NYSTATIN CREAM 15 GM ONE (02:12)
[2020-01-26] MEDS ORDERED: NYSTATIN CREAM 15 GM TOP ONE (02:30)
[2020-01-26 03:07] LABS: APPEARANCE,URINE TURBID; BILIRUBIN,URINE NEGATIVE (NEGATIVE); COLOR,URINE AMBER; GLUCOSE, URINE NEGATIVE (NEGATIVE); KETONES,URINE NEGATIVE (NEGATIVE); LEUKOCYTE ESTERASE,URINE MODERATE (NEGATIVE); NITRITE,URINE NEGATIVE (NEGATIVE); PROTEIN,URINE 100 mg/dL (NEGATIVE); URINE SPECIFIC GRAVITY 1.017
[2020-01-26] MEDS: MIDODRINE HCL 5 MG TABLET PO SCH ×4 (04:25→17:18)
[2020-01-26] MEDS ORDERED: TEMAZEPAM 7.5 MG CAPSULE PO PRN (04:48)
[2020-01-26] MEDS ORDERED: ACETAMINOPHEN 325 MG TABLET PO PRN (04:48)
[2020-01-26] MEDS ORDERED: IPRATROPIUM/ALBUTEROL 0.5-2.5 MG/3 ML AMPUL NEB PRN (04:48)
[2020-01-26] MEDS ORDERED: ONDANSETRON HCL INJ/PF 4 MG/2 ML SDV IV PRN ×2 (04:48→10:00)
[2020-01-26] MEDS ORDERED: PROMETHAZINE HCL INJ 25 MG/1 ML VIAL IV PRN ×2 (04:48→10:00)
--- NOTE | 2020-01-26 06:10 | PDOC H&P ---
History of Present Illness Admission Date/PCP: 01/26/20 04:28 CHER WELCH History of Present Illness: VANDANA COOL is a 69 year old female past medical history of atrial f ibrillation, CHF, CAD, hyperlipidemia, hypertension, COPD on home oxygen, diabetes type 2, hypothyroidism, arthritis, CAD status post CABG and stent placement, who is paraplegic due to spinal cord injury, chronic indwelling Ruth catheter due to neurogenic bladder caused by spinal cord injury, presenting to ED after a fall out of the bed. Patient is stating that when she was transferring herself from wheelchair to her bed he fell on her right knee and to the ground, patient does not lose any consciousness, did not have any head trauma, and is nonambulatory at baseline due to spinal cord injury, patient has bilateral lower extremity stasis dermatitis and worsening large sacral wound. Patient is also has soft BPs at baseline. Patient denies any fever, chills, nausea, vomiting, abdominal pain, chest pain, shortness of breath. In ED was noted to have mild leukocytosis, elevated creatinine, elevated proBNP, positive leukocyte esterase on UA with normal lactic acid. Hospitalist consulted for further management. Past Medical History Cardiac Medical History: Reports: Atrial Fibrillation, Congestive Heart Failure, Coronary Artery Disease, Myocardial Infarction - 2000, Hyperlipidema, Hypertension Denies: DVT, Peripheral Vascular Disease, Pulmonary Embolism Pulmonary Medical History: Reports: Respiratory Failure - Chronic respiratory failure with hypoxia on home oxygen Denies: Asthma, Bronchitis, Chronic Obstructive Pulmonary Disease (COPD), Pneumonia, Sleep Apnea Neurological Medical History: Denies: Seizures Endocrine Medical History: Reports: Diabetes Mellitus Type 2, Hypothyroidism Denies: Diabetes Mellitus Type 1, Hyperthyroidism GI Medical History: Denies: Cirrhosis, Crohn's Disease, Gastroesophageal Reflux Disease, Hep atitis, Hiatal Hernia, Ulcerative Colitis Musculoskeltal Medical History: Reports: Arthritis Denies: Gout Skin Medical History: Denies: Eczema, Psoriasis Hematology: Denies: Anemia, Sickle Cell Disease, Bleeding Tendencies Past Surgical History Past Surgical History: Reports: Cardiac Catheterization, Coronary Artery Bypass Graft, Coronary Stent, Hysterectomy, Pacemaker - AICD Denies: Amputation, Mastectomy Social History Smoking Status: Unknown if Ever Smoked Electronic Cigarette use?: No Frequency of Alcohol Use: None Hx Recreational Drug Use: No Drugs: None Hx Prescription Drug Abuse: No Family History Family History: Reviewed & Not Pertinent Parental Family History Reviewed: Yes Children Family History Reviewed: Yes Sibling(s) Family History Reviewed.: Yes Medication/Allergy Home Medications: Aspirin [Adult Low Dose Aspirin EC] 81 mg PO DAILY 06/27/19 Cholecalciferol (Vitamin D3) [Vitamin D3 1000 Unit Tablet] 1,000 unit PO DAILY 06/27/19 Diazepam [Valium] 5 mg PO TIDP PRN 06/27/19 Docusate Sodium [Colace 100 mg Capsule] 100 mg PO DAILY 06/27/19 Duloxetine HCl [Cymbalta 20 mg Capsule.dr] 20 mg PO Q12 06/27/19 Furosemide [Lasix 40 mg Tablet] 40 mg PO Q12 06/27/19 Hydrocodone/Acetaminophen [[place] 7.5-325 mg Tablet] 1 each PO DAILYP PRN 06/27/19 Insulin Aspart [Novolog Flexpen] 0 unit SUBCUT .SLD SCALE 06/27/19 Insulin Glargine,Hum.rec.anlog [Lantus Insulin 100 Unit/1 ml 10 ml] 50 unit SUBCUT Q12 06/27/19 Isosorbide Mononitrate [Imdur 60 mg Tablet.er] 60 mg PO DAILY 06/27/19 Levothyroxine Sodium [Synthroid 0.025 mg Tablet] 25 mcg PO QAM 06/27/19 Metoprolol Tartrate [Lopressor 25 mg Tablet] 12.5 mg PO Q12 06/27/19 Pramipexole Di-HCl [Mirapex] 0.25 mg PO QHS 06/27/19 Rivaroxaban [Xarelto 10 mg Tablet] 10 mg PO DAILY 06/27/19 Rosuvastatin Calcium [Crestor] 20 mg PO DAILY 06/27/19 Amoxicillin/Potassium Clav [Augmentin 500-125 Tablet] 1 each PO BID 5 Days #10 tablet 06/29/19 Sulfamethoxazole/Trimethoprim [Septra-Ds 800-160 mg Tablet] 1 tab PO BID #20 tablet 11/10/19 Allergies/Adverse Reactions: Shellfish * [Shellfish] Allergy (Unknown, Verified 11/10/19 15:52) Hives digoxin [Digoxin] Adverse Reaction (Mild, Verified 11/10/19 15:52) Nausea oxycodone HCl [From Percocet] Adverse Reaction (Mild, Verified 11/10/19 15:52) Vomiting ramipril [From Altace] Adverse Reaction (Mild, Verified 11/10/19 15:52) cough Review of Systems Review of Systems: as per hpi Physical Exam Vital Signs: Temp Pulse Resp BP Pulse Ox 97.1 F 10 L 90/54 L 100 01/26/20 02:04 01/26/20 05:31 01/26/20 05:31 01/26/20 05:31 Intake & Output 01/24/20 01/25/20 01/26/20 06:59 06:59 06:59 Intake Total 2350 Balance 2350 Weight 110 kg General appearance: PRESENT: no acute distress, obese, well-developed, well- nourished Neck exam: ABSENT: carotid bruit, JVD, lymphadenopathy, thyromegaly Respiratory exam: PRESENT: clear to auscultation huy. ABSENT: rales, rhonchi, wheezes Cardiovascular exam: PRESENT: RRR. ABSENT: diastolic murmur, rubs, systolic murmur GI/Abdominal exam: PRESENT: normal bowel sounds, soft. ABSENT: distended, guarding, mass, organolmegaly, rebound, tenderness Extremities exam: PRESENT: full ROM. ABSENT: calf tenderness, clubbing, pedal edema Musculoskeletal exam: PRESENT: other - Large unstable decubitus sacral ulcer with necrotic tissue and foul-smelling discharge. Neurological exam: PRESENT: alert, awake, oriented to person, oriented to place, oriented to time, oriented to situation, CN II-XII grossly intact, motor sensory deficit - Bilateral lower extremity weakness, chronic. Results Laboratory Results: 01/26/20 00:30 01/26/20 00:30 01/26/20 01/26/20 01/26/20 00:20 00:30 00:30 WBC 13.3 H RBC 3.00 L Hgb 8.3 L Hct 25.5 L MCV 85 MCH 27.5 MCHC 32.4 RDW 17.7 H Plt Count 222 Seg Neutrophils % Not Reportable Sodium 135.4 L Potassium 4.0 Chloride 95 L Carbon Dioxide 25 Anion Gap 15 BUN 73 H Creatinine 2.54 H Est GFR ( Amer) 23 L Glucose 240 H Lactic Acid Calcium 8.5 Urine Color ANTONI Urine Appearance TURBID Urine pH 5.0 Ur Specific [place] 1.017 Urine Protein 100 H Urine Glucose (UA) NEGATIVE Urine Ketones NEGATIVE Urine Blood MODERATE H Urine Nitrite NEGATIVE Ur Leukocyte Esterase MODERATE H Urine WBC (Auto) 32 Urine RBC (Auto) 12 01/26/20 00:30 WBC RBC Hgb Hct MCV MCH MCHC RDW Plt Count Seg Neutrophils % Sodium Potassium Chloride Carbon Dioxide Anion Gap BUN Creatinine Est GFR ( Amer) Glucose Lactic Acid 1.5 Calcium Urine Color Urine Appearance Urine pH Ur Specific [place] Urine Protein Urine Glucose (UA) Urine Ketones Urine Blood Urine Nitrite Ur Leukocyte Esterase Urine WBC (Auto) Urine RBC (Auto) 01/26/20 00:30 NT-Pro-B Natriuret Pep [id number] H Impressions: Chest X-Ray 01/25/20 22:26 IMPRESSION: Cardiomegaly with mild volume loss in the right medial lung base. Overall lung volumes and aeration have improved. No acute process. Hip/Pelvis X-Ray 01/25/20 22:26 IMPRESSION: No acute fracture dislocation the pelvis and both hips. Knee X-Ray 01/25/20 22:26 IMPRESSION: No acute osseous anomaly. copyright 2010 [employer]- All Rights Reserved Assessment and Plan - Diagnosis (1) Decubitus ulcer Qualifiers: Pressure injury location: sacral region Pressure injury stage: unstageable Qualified Code(s): L89.150 - Pressure ulcer of sacral region, unstageable Is this a current diagnosis for this admission?: Yes Plan: Chronic unstageable sacral decubitus ulcer with necrotic tissue and foul- smelling discharge. Empiric broad-spectrum IV antibiotics, will consult surgery for I&D. (2) Hypotension Qualifiers: Hypotension type: idiopathic hypotension Qualified Code(s): I95.0 - Idiopathic hypotension Is this a current diagnosis for this admission?: Yes Plan: As per patient baseline SBP is in the 90s. No sign of sepsis. Mild leukocytosis, lactic acid WNL. Cautious polymerization guided by volume status, may use midodrine. Continue treating underlying infectious process. (3) WILLIS (acute kidney injury) Is this a current diagnosis for this admission?: Yes Plan: Likely prerenal, electrolytes WNL, cautious volume restriction guided volume status. If no improvement consult nephrology. Avoid nephrotoxic meds. (4) Chronic atrial fibrillation Is this a current diagnosis for this admission?: Yes Plan: Chronic persistent atrial fibrillation, rate controlled. Anticoagulated. Resume home meds. Outpatient PCP and cardiology follow-up. (5) UTI (urinary tract infection) Qualifiers: Urinary tract infection type: catheter-associated UTI Indwelling urinary catheter type: indwelling urethral catheter Is this a current diagnosis for this admission?: Yes Plan: Indwelling chronic Ruth catheter due to spinal cord injury. UA positive for leukocyte esterase. We will start empiric IV antibiotics, urine culture, blood culture. Replace Ruth cath. Ruth care. - Time Time Spent with patient: 35 or more minutes Smoking Cessation Education: 3 to 10 minutes Medications reviewed and adjusted accordingly: Yes Anticipated Discharge Disposition: Care Home Facility Anticipated Discharge Timeframe: within 72 hours
[2020-01-26] MEDS ORDERED: NALOXONE HCL INJ/PF 0.4 MG/1 ML SDV IV ONE (06:19)
[2020-01-26] MEDS ORDERED: NALOXONE HCL INJ/PF 0.4 MG/1 ML SDV ONE (06:21)
[2020-01-26 06:51] LABS: ARTERIAL BLOOD BASE EXCESS -1.4 mmol/L; ARTERIAL BLOOD H2CO3 1.07 mmol/L (1.05-1.35); ARTERIAL BLOOD HCO3 22.7 mmol/L (20-24); ARTERIAL BLOOD O2 SATURATION 97.8 % (94-98); ARTERIAL BLOOD PCO2 35.7 mmHg (35-45); ARTERIAL BLOOD PH 7.42 (7.35-7.45); ARTERIAL BLOOD PO2 100.9 mmHg (80-100); ARTERIAL BLOOD TOTAL CO2 23.8 mmol/L (21-25)
[2020-01-26] MEDS: LEVOTHYROXINE SODIUM 0.025 MG TABLET PO SCH (07:20)
[2020-01-26] MEDS ORDERED: NORMAL SALINE 1000 ML 1,000 ML IV PRN (09:48)
[2020-01-26] MEDS ORDERED: DOCUSATE SODIUM 100 MG/10 ML UDC PO SCH (10:00)
[2020-01-26] MEDS ORDERED: FUROSEMIDE INJ/PF 20 MG/2 ML SDV IV SCH (10:00)
--- NOTE | 2020-01-26 10:05 | PDOC CONSULTATION ---
Consultation Consult Date: 01/26/20 Provider Consulted: CYNTHIA HASSAN Consult reason:: Evaluate sacral decubitus ulcer History of Present Illness Admission Date/PCP: 01/26/20 04:28 CHER WELCH Patient complains of: Status post fall. History of Present Illness: VANDANA COOL is a 69 year old female who has been bedbound with multiple medical problems including diabetes, significant cardiac issues with congestive heart failure and coronary artery disease with myocardial infarction several weeks ago (uncertain whether any stents were placed at that time) on Xarelto. She presented to the ER status post low impact fall from a wheelchair hitting her right knee and hip with some associated pain. She had no loss of consciousness and no evidence of upper extremity nor head or neck trauma. Patient was noted with acute renal insufficiency as well as decubitus ulcer over sacral region and was subsequently admitted. Patient has noted sacral decubitus ulcer for several weeks now. Uncertain whether she has had drainage at home or fevers. Surgicalist now being consulted for evaluation of the sacral decubitus ulcer. Past Medical History Cardiac Medical History: Reports: Atrial Fibrillation, Congestive Heart Failure, Coronary Artery Disease, Myocardial Infarction - 1999, Hyperlipidema, Hypertension Denies: DVT, Peripheral Vascular Disease, Pulmonary Embolism Pulmonary Medical History: Reports: Respiratory Failure - Chronic respiratory failure with hypoxia on home oxygen Denies: Asthma, Bronchitis, Chronic Obstructive Pulmonary Disease (COPD), Pneumonia, Sleep Apnea Neurological Medical History: Denies: Seizures Endocrine Medical History: Reports: Diabetes Mellitus Type 2, Hypothyroidism Denies: Diabetes Mellitus Type 1, Hyperthyroidism GI Medical History: Denies: Cirrhosis, Crohn's Disease, Gastroesophageal Reflux Disease, Hepatitis, Hiatal Hernia, Ulcerative Colitis Musculoskeltal Medical History: Reports: Arthritis Denies: Gout Skin Medical History: Denies: Eczema, Psoriasis Psychiatric Medical History: Denies: Depression Hematology: Denies: Anemia, Sickle Cell Disease, Bleeding Tendencies Past Surgical History Past Surgical History: Reports: Cardiac Catheterization, Coronary Artery Bypass Graft, Coronary Stent, Hysterectomy, Pacemaker - AICD Denies: Amputation, Mastectomy Social History Smoking Status: Former Smoker Electronic Cigarette use?: No Frequency of Alcohol Use: None Hx Recreational Drug Use: No Drugs: None Hx Prescription Drug Abuse: No Family History Family History: Reviewed & Not Pertinent Parental Family History Reviewed: No Children Family History Reviewed: No Sibling(s) Family History Reviewed.: No Medication/Allergy Home Medications: Docusate Sodium [Colace 100 mg Capsule] 100 mg PO BID 06/27/19 Furosemide [Lasix 40 mg Tablet] 40 mg PO Q12 06/27/19 Hydrocodone/Acetaminophen [[place] 7.5-325 mg Tablet] 1 each PO Q6HP PRN 06/27/19 Insulin Aspart [Novolog Flexpen] 0 unit SUBCUT .SLD SCALE 06/27/19 Levothyroxine Sodium [Synthroid 0.025 mg Tablet] 25 mcg PO QAM 06/27/19 Rivaroxaban [Xarelto 10 mg Tablet] 10 mg PO DAILY 06/27/19 Clonazepam [Klonopin] 0.5 mg PO BIDP PRN 01/26/20 Ferrous Sulfate [Feosol 325 mg Tablet] 325 mg PO DAILY 01/26/20 Multivitamin [One-Daily Multi-Vitamin] 1 each PO DAILY 01/26/20 Nitroglycerin [Nitrostat 0.4 mg (1/150 Gr) Tabs 25/Bottle] 1 tab SL Q5MP PRN 01/26/20 Potassium Chloride 20 meq PO DAILY 01/26/20 Allergies/Adverse Reactions: Shellfish * [Shellfish] Allergy (Unknown, Verified 11/10/19 15:52) Hives digoxin [Digoxin] Adverse Reaction (Mild, Verified 11/10/19 15:52) Nausea oxycodone HCl [From Percocet] Adverse Reaction (Mild, Verified 11/10/19 15:52) Vomiting ramipril [From Altace] Adverse Reaction (Mild, Verified 11/10/19 15:52) cough Physical Exam Vital Signs: Temp Pulse Resp BP Pulse Ox 95.2 F L 78 13 93/51 L 100 01/26/20 06:47 01/26/20 07:00 01/26/20 06:47 01/26/20 06:47 01/26/20 06:47 Intake & Output 01/25/20 01/26/20 01/27/20 06:59 06:59 06:59 Intake Total 2350 Output Total 400 Balance 1950 Weight 110 kg General appearance: PRESENT: no acute distress, cooperative Neck exam: PRESENT: other - Supple with no tenderness. No tenderness along her spine. No palpable deformities of her spine. No ecchymosis. Head is normocephalic atraumatic. Respiratory exam: PRESENT: clear to auscultation hyu Cardiovascular exam: PRESENT: RRR GI/Abdominal exam: PRESENT: other - Soft, Nondistended, nontender to palpation. Pelvis stable. No ecchymosis noted in the hip region. Extremities exam: PRESENT: +2 edema, other - No leg deformities seen however she does have a partial-thickness relatively clean ulcer at the dorsum of her right foot as well as her left heel with no fluctuance and no necrotic tissue. Neurological exam: PRESENT: alert, awake Skin exam: PRESENT: warm, other - At her sacral region there is an approximately 10 x 8 cm region of partial thickness decubitus ulcer with central area that appears dusky with a small punctate opening with no active drainage at this time. Results Laboratory Results: 01/26/20 00:30 01/26/20 00:30 01/26/20 01/26/20 01/26/20 00:20 00:30 00:30 WBC 13.3 H RBC 3.00 L Hgb 8.3 L Hct 25.5 L MCV 85 MCH 27.5 MCHC 32.4 RDW 17.7 H Plt Count 222 Seg Neutrophils % Not Reportable Carbonic Acid HCO3/H2CO3 Ratio ABG pH ABG pCO2 ABG pO2 ABG HCO3 ABG O2 Saturation ABG Base Excess FiO2 Sodium 135.4 L Potassium 4.0 Chloride 95 L Carbon Dioxide 25 Anion Gap 15 BUN 73 H Creatinine 2.54 H Est GFR ( Amer) 23 L Glucose 240 H Lactic Acid Calcium 8.5 Urine Color ANTONI Urine Appearance TURBID Urine pH 5.0 Ur Specific [place] 1.017 Urine Protein 100 H Urine Glucose (UA) NEGATIVE Urine Ketones NEGATIVE Urine Blood MODERATE H Urine Nitrite NEGATIVE Ur Leukocyte Esterase MODERATE H Urine WBC (Auto) 32 Urine RBC (Auto) 12 01/26/20 01/26/20 00:30 06:30 WBC RBC Hgb Hct MCV MCH MCHC RDW Plt Count Seg Neutrophils % Carbonic Acid 1.07 HCO3/H2CO3 Ratio 21:1 ABG pH 7.42 ABG pCO2 35.7 ABG pO2 100.9 H ABG HCO3 22.7 ABG O2 Saturation 97.8 ABG Base Excess -1.4 FiO2 34% Sodium Potassium Chloride Carbon Dioxide Anion Gap BUN Creatinine Est GFR ( Amer) Glucose Lactic Acid 1.5 Calcium Urine Color Urine Appearance Urine pH Ur Specific [place] Urine Protein Urine Glucose (UA) Urine Ketones Urine Blood Urine Nitrite Ur Leukocyte Esterase Urine WBC (Auto) Urine RBC (Auto) 01/26/20 01/26/20 01/26/20 00:30 06:52 06:52 Creatine Kinase 567 H Troponin I 0.219 NT-Pro-B Natriuret Pep [id number] H Impressions: Chest X-Ray 01/25/20 22:26 IMPRESSION: Cardiomegaly with mild volume loss in the right medial lung base. Overall lung volumes and aeration have improved. No acute process. Hip/Pelvis X-Ray 01/25/20 22:26 IMPRESSION: No acute fracture dislocation the pelvis and both hips. Knee X-Ray 01/25/20 22:26 IMPRESSION: No acute osseous anomaly. copyright 2011 [employer]- All Rights Reserved Assessment & Plan - Diagnosis (1) Sacral decubitus ulcer Is this a current diagnosis for this admission?: Yes Plan: Patient would likely benefit from debridement of this ulcer however would like cardiology input concerning stoppage of Xarelto, would like to optimize her medical status, obtain a COVID test prior to operative debridement. Patient does have shallow ulcer at her right foot that appears clean and can be managed with Santyl ointment dressings. The left heel ulcer can be managed with Allevyn dressing.
[2020-01-26] MEDS: DOCUSATE SODIUM 100 MG CAPSULE PO SCH (10:55)
[2020-01-26] MEDS: ASPIRIN 81 MG TABLET, CHEWABLE PO SCH (11:07)
[2020-01-26] MEDS: PRAMIPEXOLE DI-HCL 0.25 MG TABLET PO SCH (11:07)
[2020-01-26] MEDS: CEFEPIME 1 GM/D5W RTU 1 GM/50 ML RTUPB IV SCH ×2 (11:08→21:44)
[2020-01-26] MEDS: ISOSORBIDE MONONITRATE 30 MG TAB.ER.24H PO SCH (11:10)
[2020-01-26] MEDS: METOPROLOL TARTRATE 25 MG TABLET PO SCH ×2 (11:10→21:44)
[2020-01-26] MEDS: DULOXETINE HCL 20 MG CAPSULE.DR PO SCH ×2 (12:15→17:18)
[2020-01-26] MEDS: FAMOTIDINE 20 MG TABLET PO SCH ×2 (12:16→21:44)
--- NOTE | 2020-01-26 14:20 | PDOC PROGRESS REPORT ---
Subjective Progress Note for:: 01/26/20 Subjective:: VANDANA COOL is a 69 year old female past medical history of atrial fibrillation, CHF, CAD, hyperlipidemia, hypertension, COPD on home oxygen, diabetes type 2, hypothyroidism, arthritis, CAD status post CABG and stent placement, who is paraplegic due to spinal cord injury, chronic indwelling Ruth catheter due to neurogenic bladder caused by spinal cord injury who was admitted 01/26/20 for acute kidney injury, hypotension, and decubitus ulcer. Patient was seen on morning rounds with her daughter present. She is found resting in bed, comfortably, On supplemental oxygen at 3.5 L/min. She is home O2 dependent. Patient is very tearful today; primarily related to disagreement she had with her . Otherwise, she has no specific complaints. She does comment on multiple chronic skin wounds. She also reports that she was admitted to [facility] in November for CO; can't recall if she underwent cardiac cath. She denies fever, chills, chest pain, palpitations, dyspnea, abd pain, nausea and vomiting. She has no questions or concerns at this time. No concerns per nursing. Reason For Visit: DECUBITUS ULCER,UTI,HYPOTENSION,ACUTE CHF EXACERBA Physical Exam Vital Signs: Temp Pulse Resp BP Pulse Ox 95.2 F L 68 14 99/48 L 95 01/26/20 06:47 01/26/20 13:27 01/26/20 13:27 01/26/20 11:29 01/26/20 13:27 Intake & Output 01/25/20 01/26/20 01/27/20 06:59 06:59 06:59 Intake Total 2350 290 Output Total 400 Balance 1950 290 Weight 110 kg General appearance: PRESENT: no acute distress, disheveled, obese, well- developed, well-nourished Head exam: PRESENT: atraumatic, normocephalic Eye exam: PRESENT: conjunctiva pink, EOMI, PERRLA. ABSENT: scleral icterus Mouth exam: PRESENT: moist, tongue midline Respiratory exam: PRESENT: clear to auscultation huy, symmetrical, unlabored, other - supplemental oxygen. ABSENT: rales, rhonchi, wheezes Cardiovascular exam: PRESENT: RRR. ABSENT: diastolic murmur, rubs, systolic murmur Vascular exam: PRESENT: normal capillary refill GI/Abdominal exam: PRESENT: normal bowel sounds, soft. ABSENT: distended, guarding, mass, organolmegaly, rebound, tenderness Rectal exam: PRESENT: deferred Gentrourinary exam: PRESENT: indwelling catheter - chronic Extremities exam: PRESENT: +2 edema - BLE pitting edema. ABSENT: calf tenderness, clubbing, pedal edema Neurological exam: PRESENT: alert, awake, oriented to person, oriented to place, oriented to time, oriented to situation, CN II-XII grossly intact, other - Bilateral lower extremity weakness, chronic. ABSENT: motor sensory deficit Psychiatric exam: PRESENT: depressed - tearful, normal mood. ABSENT: homicidal ideation, suicidal ideation Skin exam: PRESENT: dry, warm, other - multiple skin wounds: partial thickness wound to dorsum Rt foot w/ slough, multiple ~1 cm round shallow ulcerations to left pretibial region (?venous stasis), unstagable left heel, large unstagable decubitus sacral ulcer w/ surrounding erythema. ABSENT: cyanosis, intact, rash Results Laboratory Results: 01/26/20 00:30 01/26/20 00:30 01/26/20 01/26/20 01/26/20 00:20 00:30 00:30 WBC 13.3 H RBC 3.00 L Hgb 8.3 L Hct 25.5 L MCV 85 MCH 27.5 MCHC 32.4 RDW 17.7 H Plt Count 222 Seg Neutrophils % Not Reportable Carbonic Acid HCO3/H2CO3 Ratio ABG pH ABG pCO2 ABG pO2 ABG HCO3 ABG O2 Saturation ABG Base Excess FiO2 Sodium 135.4 L Potassium 4.0 Chloride 95 L Carbon Dioxide 25 Anion Gap 15 BUN 73 H Creatinine 2.54 H Est GFR ( Amer) 23 L Glucose 240 H Lactic Acid Calcium 8.5 Urine Color ANTONI Urine Appearance TURBID Urine pH 5.0 Ur Specific [place] 1.017 Urine Protein 100 H Urine Glucose (UA) NEGATIVE Urine Ketones NEGATIVE Urine Blood MODERATE H Urine Nitrite NEGATIVE Ur Leukocyte Esterase MODERATE H Urine WBC (Auto) 32 Urine RBC (Auto) 12 01/26/20 01/26/20 00:30 06:30 WBC RBC Hgb Hct MCV MCH MCHC RDW Plt Count Seg Neutrophils % Carbonic Acid 1.07 HCO3/H2CO3 Ratio 21:1 ABG pH 7.42 ABG pCO2 35.7 ABG pO2 100.9 H ABG HCO3 22.7 ABG O2 Saturation 97.8 ABG Base Excess -1.4 FiO2 34% Sodium Potassium Chloride Carbon Dioxide Anion Gap BUN Creatinine Est GFR ( Amer) Glucose Lactic Acid 1.5 Calcium Urine Color Urine Appearance Urine pH Ur Specific [place] Urine Protein Urine Glucose (UA) Urine Ketones Urine Blood Urine Nitrite Ur Leukocyte Esterase Urine WBC (Auto) Urine RBC (Auto) 01/26/20 01/26/20 01/26/20 00:30 06:52 06:52 Creatine Kinase 567 H Troponin I 0.219 NT-Pro-B Natriuret Pep 83412 H 01/26/20 11:14 Creatine Kinase Troponin I 0.190 NT-Pro-B Natriuret Pep Impressions: Chest X-Ray 01/25/20 22:26 IMPRESSION: Cardiomegaly with mild volume loss in the right medial lung base. Overall lung volumes and aeration have improved. No acute process. Hip/Pelvis X-Ray 01/25/20 22:26 IMPRESSION: No acute fracture dislocation the pelvis and both hips. Knee X-Ray 01/25/20 22:26 IMPRESSION: No acute osseous anomaly. copyright 2010 [employer]- All Rights Reserved Assessment and Plan - Diagnosis (1) WILLIS (acute kidney injury) Is this a current diagnosis for this admission?: Yes Plan: Likely prerenal, electrolytes WNL, cautious volume restriction guided volume status. Has received 2.3 L IV fluids. Some urine noted to Ruth bag. Nephrology was consulted; appreciate Dr. Quintana's assistance. Optimize cardiac output. Avoid nephrotoxic medications as able. Continue gentle IV fluids; some bilateral lower extremity edema noted. Monitor for fluid volume overload. Follow-up chemistry. (2) Decubitus ulcer Qualifiers: Pressure injury location: sacral region Pressure injury stage: unstageable Qualified Code(s): L89.150 - Pressure ulcer of sacral region, unstageable Is this a current diagnosis for this admission?: Yes Plan: Chronic unstageable sacral decubitus ulcer with necrotic tissue and foul- smelling discharge. Unstageable left foot ulceration Blood cultures pending Continue IV cefepime and Zyvox. Surgical service is consulted Wound care per surgery. Every 2 turns. (3) Hypotension Qualifiers: Hypotension type: idiopathic hypotension Qualified Code(s): I95.0 - Idiopathic hypotension Is this a current diagnosis for this admission?: Yes Plan: As per patient baseline SBP is in the 90s. No sign of sepsis. Mild leukocytosis, lactic acid WNL. Trial midodrine. Cautious IVF Continue treating underlying infectious process. Cardiology and Nephrology consulted. (4) Chronic atrial fibrillation Is this a current diagnosis for this admission?: Yes Plan: Chronic persistent atrial fibrillation, rate controlled. Monitor on telemetry Anticoagulated on Xarelto Discussed w/ Dr. Cancino. Hold Xarelto today, start Heparin gtt in am in anticipation of operative intervention. Outpatient PCP and cardiology follow-up. (5) Troponin I above reference range Is this a current diagnosis for this admission?: Yes Plan: Trending down; 0.219-> 0.190 Monitor on telemtry. Discussed w/ Dr. Cancino. Troponin elevation is likely 2/2 WILLIS. Cardiology is consulted. (6) UTI (urinary tract infection) Qualifiers: Urinary tract infection type: catheter-associated UTI Indwelling urinary catheter type: indwelling urethral catheter Is this a current diagnosis for this admission?: Yes Plan: Indwelling chronic Ruth catheter due to spinal cord injury. UA positive for leukocyte esterase. Blood and Urine cultures pending. Replace Ruth cath. Meticulous Ruth care. Continue Cefepime and Zyvoxx. (7) Morbid obesity with BMI of 40.0-44.9, adult Is this a current diagnosis for this admission?: Yes Plan: BMI 41.6 Bed-bound/wheelchair bound patient Incentive spirometer. Turn/reposition Wound care as mentioned above. We will check TSH, lipid, A1c with a.m. lab work. Registered dietitian is consulted. - Time Time Spent with patient: 35 or more minutes Medications reviewed and adjusted accordingly: Yes Anticipated Discharge Disposition: [facility] Facility Anticipated Discharge Timeframe: >72 hrs
[2020-01-26 16:16] LABS: APPEARANCE,URINE CLOUDY; BILIRUBIN,URINE NEGATIVE (NEGATIVE); COLOR,URINE YELLOW; GLUCOSE, URINE NEGATIVE (NEGATIVE); KETONES,URINE NEGATIVE (NEGATIVE); LEUKOCYTE ESTERASE,URINE LARGE (NEGATIVE); NITRITE,URINE NEGATIVE (NEGATIVE); PROTEIN,URINE 100 mg/dL (NEGATIVE); URINE SPECIFIC GRAVITY 1.016; UROBILINOGEN,URINE NEGATIVE mg/dL (<2.0)
[2020-01-26] MEDS ORDERED: RIVAROXABAN 10 MG TABLET PO SCH (17:00)
[2020-01-26] MEDS: LINEZOLID 600 MG/300 ML RTUPB IV SCH (17:19)
[2020-01-26] MEDS: ATORVASTATIN CALCIUM 40 MG TABLET PO SCH (21:44)
--- NOTE | 2020-01-26 21:55 | PDOC CONSULTATION ---
Consultation-Blank Consultation: CARDIOLOGY CONSULTATION by Dr. Delfina Oliveros on 01/26/2020. Patient seen at 3 PM 60 minutes spent with patient more than 50% of time spent in direct patient care. REASON FOR CONSULTATION: Preoperative cardiac risk assessment. CONSULT REQUESTING PHYSICIAN: dong Alas hospitalist physician group history OF present ILLNESS: Patient is a 69-year-old morbidly obese female with multiple medical problems was seen in the emergency room after accidental fall and injury to her right knee. At this time she was found to have a elevated BUN/creatinine, elevated troponin I and elevated lactic acid levels and was admitted for further treatment. The patient also was found to have a decubitus ulcer that had needed debridement and debridement. Hence cardiology consultation. The patient does have a history of oxygen dependent COPD. He also has chronic kidney disease and coronary artery disease history of coronary bypass graft surgery after an NV in the past and moderately reduced LV ejection fraction of 35%. She also has an AICD which has not fired. The patient denies any recent symptoms of angina. She has no PND orthopnea or leg edema. The patient has chronic atrial fibrillation on Xarelto. There is no history of TIA CVA. There is no rapid ventricular response to atrial fib rillation. There is no syncope. In spite of her multiple problems the patient's lung and cardiac status seem to be stable. She was in November transferred to [facility] after a troponin elevation which led to a diagnosis of non-ST relation NV. At that time echocardiogram showed LV ejection fraction of 35%. She was treated conservatively. Past Medical History Cardiac Medical History: Reports: Atrial Fibrillation, Congestive Heart Failure, Coronary Artery Disease, Myocardial Infarction - 2000, Hyperlipidema, Hypertension Denies: DVT, Peripheral Vascular Disease, Pulmonary Embolism Pulmonary Medical History: Reports: Respiratory Failure - Chronic respiratory failure with hypoxia on home oxygen Denies: Asthma, Bronchitis, Chronic Obstructive Pulmonary Disease (COPD), Pneumonia, Sleep Apnea Neurological Medical History: Denies: Seizures Endocrine Medical History: Reports: Diabetes Mellitus Type 2, Hypothyroidism Denies: Diabetes Mellitus Type 1, Hyperthyroidism GI Medical History: Denies: Cirrhosis, Crohn's Disease, Gastroesophageal Reflux Disease, Hepatitis, Hiatal Hernia, Ulcerative Colitis Musculoskeltal Medical History: Reports: Arthritis Denies: Gout Skin Medical History: Denies: Eczema, Psoriasis Hematology: Denies: Anemia, Sickle Cell Disease, Bleeding Tendencies Past Surgical History Past Surgical History: Reports: Cardiac Catheterization, Coronary Artery Bypass Graft, Coronary Stent, Hysterectomy, Pacemaker - AICD Denies: Amputation, Mastectomy Social History Smoking Status: Unknown if Ever Smoked Electronic Cigarette use?: No Frequency of Alcohol Use: None Hx Recreational Drug Use: No Drugs: None Hx Prescription Drug Abuse: No Family History Family History: Reviewed & Not Pertinent Parental Family History RevRN 06/27/19 Docusate Sodium [Colace 100 mg Capsule] 100 mg PO DAILY 06/27/19 Duloxetine HCl [Cymbalta 20 mg Capsule.dr] 20 mg PO Q12 06/27/19 Furosemide [Lasix 40 mg Tablet] 40 mg PO Q12 06/27/19 Hydrocodone/Acetaminophen [Underwood 7.5-325 mg Tablet] 1 each PO DAILYP PRN 06/27/19 Insulin Aspart [Novolog Flexpen] 0 unit SUBCUT .SLD SCALE 06/27/19 Current Medications Generic Name Dose Route Start Last Admin Trade Name Freq PRN Reason Stop Dose Admin Acetaminophen 325 mg 01/26/20 04:48 Tylenol 325 Mg Tablet PO 02/25/20 04:47 Q4HP PRN FEVER >101 Hydrocodone Bitart/Acetaminophen 1 tab 01/26/20 04:44 Underwood 7.5-325 Mg Tablet PO 02/02/20 04:43 Q6HP PRN FOR PAIN SCALE 3-5 Albuterol/Ipratropium 3 ml 01/26/20 04:48 Duoneb 3 Ml Ampul NEB 02/25/20 04:47 RTQ6HP PRN SHORTNESS OF BREATH Aspirin 81 mg 01/26/20 10:00 01/26/20 11:07 Aspirin 81 Mg Chewable Tablet PO 02/25/20 09:59 81 mg DAILY RADHA Administration Atorvastatin Calcium 40 mg 01/26/20 22:00 01/26/20 21:44 Lipitor 40 Mg Tablet PO 02/25/20 21:59 40 mg QHS RADHA Administration Docusate Sodium 100 mg 01/26/20 10:00 01/26/20 10:55 Colace 100 Mg Capsule PO 02/25/20 09:59 Not Given DAILY RADHA Duloxetine HCl 20 mg 01/26/20 10:00 01/26/20 17:18 Cymbalta 20 Mg Capsule.Dr PO 02/25/20 09:59 20 mg BID RADHA Administration Famotidine 20 mg 01/26/20 10:00 01/26/20 21:44 Pepcid 20 Mg Tablet PO 02/25/20 09:59 20 mg Q12 RADHA Administration Heparin Sodium (Porcine) 4,000 unit 01/27/20 06:00 Heparin Inj 1,000 Unit/Ml 10 Ml Vial IV 01/27/20 06:01 NOW ONE Heparin Sodium (Porcine) 0 - 12,000 unit 01/27/20 06:00 Heparin Inj 1,000 Unit/Ml 10 Ml Vial IV 02/26/20 05:59 .BOLUS PER PROTOCOL PRN RESPOND TO aPTT VALUE Protocol Linezolid 600 mg in 300 mls @ 300 mls/hr 01/26/20 18:00 01/26/20 18:19 Zyvox Rtu 600 Mg/300 Ml Premixed IV 02/02/20 17:59 Infused Q12A RADHA Infusion Cefepime HCl 1 gm in 50 mls @ 100 mls/hr 01/26/20 10:00 01/26/20 21:44 Maxipime Rtu 1 Gm/D5w 50 Ml Premix Bag IV 02/02/20 09:59 100 mls/hr Q12 RADHA Administration Heparin Sodium/Dextrose 25,000 unit in 250 mls @ 0 mls/hr 01/27/20 06:00 Heparin Rtu 25,000 Unit/250 Ml D5w Premix IV 02/26/20 05:59 CONTINUOUS PRN THIS MED IS NOT "PRN" Protocol Titrate Isosorbide Mononitrate 30 mg 01/26/20 10:00 01/26/20 11:10 Imdur 30 Mg Tablet.Er PO 02/25/20 09:59 Not Given DAILY RADHA Levothyroxine Sodium 0.025 mg 01/26/20 06:00 01/26/20 07:20 Synthroid 0.025 Mg Tablet PO 02/25/20 05:59 Not Given Q6AM RADHA Metoprolol Tartrate 12.5 mg 01/26/20 10:00 01/26/20 21:44 Lopressor 25 Mg Tablet PO 02/25/20 09:59 12.5 mg Q12 RADHA Administration Midodrine 5 mg 01/26/20 04:00 01/26/20 17:18 Proamatine 5 Mg Tablet PO 02/25/20 03:59 5 mg TID RADHA Administration Ondansetron HCl 4 mg 01/26/20 10:00 Zofran Inj/Pf 4 Mg/2 Ml Sdv IV 02/25/20 04:47 Q4HP PRN FOR NAUSEA/VOMITING Pramipexole Dihydrochloride 0.25 mg 01/26/20 10:00 01/26/20 11:07 Mirapex 0.25 Mg Tablet PO 02/25/20 09:59 0.25 mg DAILY RADHA Administration Promethazine HCl 12.5 mg 01/26/20 10:00 Phenergan Inj 25 Mg/1 Ml Vial IV 02/25/20 04:47 Q4HP PRN UNRESOLVED NAUSEA/VOMITING Temazepam 7.5 mg 01/26/20 04:48 Restoril 7.5 Mg Capsule PO 02/02/20 04:47 HSP PRN SLEEP OR INSOMNIA Discontinued Medications Generic Name Dose Route Start Last Admin Trade Name Freq PRN Reason Stop Dose Admin Hydrocodone Bitart/Acetaminophen 1 tab 01/25/20 22:29 01/25/20 22:55 [place]wood 5-325 Mg Tablet PO 01/25/20 22:30 1 tab NOW ONE Administration Docusate Sodium 100 mg 01/26/20 10:00 Colace Udc 100 Mg/10 Ml Oral Soln PO 02/25/20 09:59 DAILY RADHA Furosemide 20 mg 01/26/20 10:00 Lasix Inj/Pf 20 Mg/2 Ml Sdv IV 02/25/20 09:59 Q12 RADHA Lactated Ringer's 1,000 mls @ 0 mls/hr 01/26/20 00:50 01/26/20 02:52 Lactated Ringers 1000 Ml Iv Soln IV 01/26/20 00:51 Infused BOLUS ONE Infusion Wide Open Cefepime HCl 2 gm in 50 mls @ 100 mls/hr 01/26/20 01:33 01/26/20 02:30 Maxipime Rtu 2 Gm-D5w 50 Ml Premix Bag IV 01/26/20 02:02 Infused NOW ONE Infusion Linezolid 600 mg in 300 mls @ 300 mls/hr 01/26/20 01:33 01/26/20 03:45 Zyvox Rtu 600 Mg/300 Ml Premixed IV 01/26/20 02:32 Infused NOW ONE Infusion Linezolid Confirm 01/26/20 02:32 01/26/20 02:36 Zyvox Rtu 600 Mg/300 Ml Premixed Administered 01/26/20 02:33 Not Given Dose 600 mg in 300 mls @ ud IV .STK-MED ONE Lactated Ringer's 1,000 mls @ 0 mls/hr 01/26/20 03:37 01/26/20 05:42 Lactated Ringers 1000 Ml Iv Soln IV 01/26/20 03:38 Infused BOLUS ONE Infusion Wide Open Sodium Chloride 1,000 mls @ 250 mls/hr 01/26/20 09:48 01/26/20 15:08 Nacl 0.9% 1000 Ml Iv Soln IV Infused CONTINUOUS PRN Infusion THIS MED IS NOT "PRN" Naloxone HCl 0.4 mg 01/26/20 06:19 01/26/20 06:49 Narcan Inj/Pf 0.4 Mg/1 Ml Sdv IV 01/26/20 06:20 0.4 mg NOW ONE Administration Naloxone HCl Confirm 01/26/20 06:21 01/26/20 06:49 Narcan Inj/Pf 0.4 Mg/1 Ml Sdv Administered 01/26/20 06:22 Not Given Dose 0.4 mg .ROUTE .STK-MED ONE Nystatin 1 applic 01/25/20 22:26 01/26/20 02:22 Mycostatin Topical Powder 15 Gm TP 01/25/20 22:27 Not Given NOW ONE Nystatin Confirm 01/26/20 02:12 01/26/20 02:18 Mycostatin Cream 15 Gm Administered 01/26/20 02:13 Not Given Dose 15 applic .ROUTE .STK-MED ONE Nystatin 15 applic 01/26/20 02:30 01/26/20 02:25 Mycostatin Cream 15 Gm TOP 01/26/20 02:31 15 gm NOW ONE Administration Ondansetron HCl 4 mg 01/26/20 04:48 Zofran Inj/Pf 4 Mg/2 Ml Sdv IV 02/25/20 04:47 Q4HP PRN FOR NAUSEA/VOMITING Promethazine HCl 12.5 mg 01/26/20 04:48 Phenergan Inj 25 Mg/1 Ml Vial IV 02/25/20 04:47 Q4HP PRN FOR NAUSEA/VOMITING Rivaroxaban 10 mg 01/26/20 17:00 Xarelto 10 Mg Tablet PO 02/25/20 16:59 [facility] Insulin Glargine,Hum.rec.anlog [Lantus Insulin 100 Unit/1 ml 10 ml] 50 unit SUBCUT Q12 06/27/19 Isosorbide Mononitrate [Imdur 60 mg Tablet.er] 60 mg PO DAILY 06/27/19 Levothyroxine Sodium [Synthroid 0.025 mg Tablet] 25 mcg PO QAM 06/27/19 Metoprolol Tartrate [Lopressor 25 mg Tablet] 12.5 mg PO Q12 06/27/19 Pramipexole Di-HCl [Mirapex] 0.25 mg PO QHS 06/27/19 Rivaroxaban [Xarelto 10 mg Tablet] 10 mg PO DAILY 06/27/19 Rosuvastatin Calcium [Crestor] 20 mg PO DAILY 06/27/19 Amoxicillin/Potassium Clav [Augmentin 500-125 Tablet] 1 each PO BID 5 Days #10 tablet 06/29/19 Sulfamethoxazole/Trimethoprim [Septra-Ds 800-160 mg Tablet] 1 tab PO BID #20 tablet 11/10/19 Allergies/Adverse Reactions: Shellfish * [Shellfish] Allergy (Unknown, Verified 11/10/19 15:52) Hives digoxin [Digoxin] Adverse Reaction (Mild, Verified 11/10/19 15:52) Nausea oxycodone HCl [From Percocet] Adverse Reaction (Mild, Verified 11/10/19 15:52) Vomiting ramipril [From Altace] Adverse Reaction (Mild, Verified 11/10/19 15:52) cough Review of Systems CONSTITUTIONAL: Denies fever chills or rigors. HEAD:. No history of headaches or migraines. EYES: No history of amblyopia diplopia. EARS: No history of hearing loss. No tinnitus. NOSE: No history of hayfever. No nosebleeds. MOUTH: No history of altered taste sensation. No ulcers in the mouth. THROAT: No odynophagia dysphagia. SKIN: No history of pruritus. She does have a decubitus ulcer. No history of petechia or ecchymosis. No pruritus. No LH discoloration skin. THROAT: No history of odynophagia or dysphagia. LUNGS: No history of cough or sputum production. HEART: No history of anginal symptoms. Denies shortness of breath. There is no PND orthopnea. Patient has chronic atrial fibrillation with no rapid ventricular response no syncope. History of AICD no firing of AICD recently. GI: History of GERD. No history of GI bleed. ENDOCRINE: History of diabetes mellitus. No polydipsia polyuria. No history of heat or cold intolerance. METABOLIC: History of obesity present history of hyperlipidemia present. No history of gout. RENAL: History of chronic kidney disease. No history of symptoms of UTI. Patient has a neurogenic bladder and has a chronic indwelling Ruth. ANUS: Denies history of TIA CVA. History of spinal cord injury and hence the patient is bedridden and nonambulatory. Alcohol psychiatric: No history of suicidal ideation or homicidal ideation. PHYSICAL EXAMINATION: The patient is morbidly obese. At present in no acute distress. Selected Entries 01/26/20 15:32 Temperature 97.2 F Temperature Axillary Source Pulse Rate 62 Respiratory 17 Rate Blood Pressure 92/43 L Blood Pressure 59 Mean BP Location Right Arm BP Position Supine O2 Sat by Pulse 100 Oximetry Oxygen Flow 3.50 Rate Oxygen Delivery Nasal Cannula Method HEAD: Is atraumatic normocephalic. EYES: Pupils equal round regular reactive light accommodation. Extraocular movements are normal. THERE IS NO CONJUNCTIVAL PALLOR. THERE IS NO SCLERAL ICTERUS. Ears: Tympanic membranes intact. External auditory canals are clear. NOSE: There is no deviated nasal septum. There is no inflammation of the nasal mucous membrane. MOUTH: There is no ulcers in the mouth. There is no bleeding from the gums. THROAT: There is no redness of the oropharynx there is no exudates. SKIN: There is no skin rashes. There is no petechia or ecchymosis. There is no skin lesions. LUNGS: There is diminished air entry and prolonged expiration without any rhonchi rales or wheezing. HEART: S1-S2 is heard. There is no S3 gallop. There is no S4 gallop. S1 is of variable intensity. There is systolic murmur left sternal border and the apex there is no rub. ABDOMEN: Is obese. Nontender there is no paraspinal megaly. Bowel sounds are well heard. EXTREMITIES femorals are deep femorals are diminished. Leg pulses are diminished. There is a dressing in the right foot of an ulcer. There is no pedal edema. There is no DVT or cellulitis. Decubitus patient has a decubitus ulcer. FOUNDRY PROCESS ENGINEER: The patient is conscious awake alert oriented x3 with no focal deficits. PSYCHIATRIC: The patient judgment site are intact her affect is normal. Labs- Entire Visit 01/26/20 01/26/20 01/26/20 00:20 00:30 00:30 WBC 13.3 H RBC 3.00 L Hgb 8.3 L Hct 25.5 L MCV 85 MCH 27.5 MCHC 32.4 RDW 17.7 H Plt Count 222 Lymph % (Auto) Not Reportable [place] % (Auto) Not Reportable Eos % (Auto) Not Reportable Baso % (Auto) Not Reportable Absolute Neuts (auto) Not Reportable Absolute Lymphs (auto) Not Reportable Absolute Monos (auto) Not Reportable Absolute Eos (auto) Not Reportable Absolute Basos (auto) Not Reportable Total Counted 100 Seg Neutrophils % Not Reportable Seg Neuts % (Manual) 65 Band Neutrophils % 1 L Lymphocytes % (Manual) 16 Monocytes % (Manual) 12 Eosinophils % (Manual) 5 Basophils % (Manual) 0 Metamyelocytes % 1 Abs Neuts (Manual) 8.9 H Abs Lymphs (Manual) 2.1 Abs Monocytes (Manual) 1.6 H Absolute Eos (Manual) 0.7 H Abs Basophils (Manual) 0.0 Nucleated RBCs 2 Toxic Granulation SLIGHT Toxic Vacuolation PRESENT Platelet Comment ADEQUATE Polychromasia SLIGHT Poikilocytosis SLIGHT Anisocytosis 1+ Ovalocytes SLIGHT [place] Cells SLIGHT Schistocytes SLIGHT Carbonic Acid HCO3/H2CO3 Ratio ABG pH ABG pCO2 ABG pO2 ABG HCO3 ABG Total CO2 ABG O2 Saturation ABG Base Excess FiO2 Sodium 135.4 L Potassium 4.0 Chloride 95 L Carbon Dioxide 25 Anion Gap 15 BUN 73 H Creatinine 2.54 H Est GFR ( Amer) 23 L Est GFR (MDRD) Non-Af 19 L Glucose 240 H Lactic Acid Calcium 8.5 Creatine Kinase Troponin I NT-Pro-B Natriuret Pep Urine Color ANTONI Urine Appearance TURBID Urine pH 5.0 Ur Specific [place] 1.017 Urine Protein 100 H Urine Glucose (UA) NEGATIVE Urine Ketones NEGATIVE Urine Blood MODERATE H Urine Nitrite NEGATIVE Urine Bilirubin NEGATIVE Urine Urobilinogen 2.0 H Ur Leukocyte Esterase MODERATE H Urine WBC (Auto) 32 Urine RBC (Auto) 12 Urine Bacteria (Auto) 1+ Urine WBC Clumps Squamous Epi Cells Auto <1 U Non-Squamous Epis Auto Urine Mucus (Auto) Urine Ascorbic Acid NEGATIVE COVID-19 Source 01/26/20 01/26/20 01/26/20 00:30 00:30 06:30 WBC RBC Hgb Hct MCV MCH MCHC RDW Plt Count Lymph % (Auto) [place] % (Auto) Eos % (Auto) Baso % (Auto) Absolute Neuts (auto) Absolute Lymphs (auto) Absolute Monos (auto) Absolute Eos (auto) Absolute Basos (auto) Total Counted Seg Neutrophils % Seg Neuts % (Manual) Band Neutrophils % Lymphocytes % (Manual) Monocytes % (Manual) Eosinophils % (Manual) Basophils % (Manual) Metamyelocytes % Abs Neuts (Manual) Abs Lymphs (Manual) Abs Monocytes (Manual) Absolute Eos (Manual) Abs Basophils (Manual) Nucleated RBCs Toxic Granulation Toxic Vacuolation Platelet Comment Polychromasia Poikilocytosis Anisocytosis Ovalocytes [place] Cells Schistocytes Carbonic Acid 1.07 HCO3/H2CO3 Ratio 21:1 ABG pH 7.42 ABG pCO2 35.7 ABG pO2 100.9 H ABG HCO3 22.7 ABG Total CO2 23.8 ABG O2 Saturation 97.8 ABG Base Excess -1.4 FiO2 34% Sodium Potassium Chloride Carbon Dioxide Anion Gap BUN Creatinine Est GFR ( Amer) Est GFR (MDRD) Non-Af Glucose Lactic Acid 1.5 Calcium Creatine Kinase Troponin I NT-Pro-B Natriuret Pep 83336 H Urine Color Urine Appearance Urine pH Ur Specific [place] Urine Protein Urine Glucose (UA) Urine Ketones Urine Blood Urine Nitrite Urine Bilirubin Urine Urobilinogen Ur Leukocyte Esterase Urine WBC (Auto) Urine RBC (Auto) Urine Bacteria (Auto) Urine WBC Clumps Squamous Epi Cells Auto U Non-Squamous Epis Auto Urine Mucus (Auto) Urine Ascorbic Acid COVID-19 Source 01/26/20 01/26/20 01/26/20 06:52 06:52 11:14 WBC RBC Hgb Hct MCV MCH MCHC RDW Plt Count Lymph % (Auto) [place] % (Auto) Eos % (Auto) Baso % (Auto) Absolute Neuts (auto) Absolute Lymphs (auto) Absolute Monos (auto) Absolute Eos (auto) Absolute Basos (auto) Total Counted Seg Neutrophils % Seg Neuts % (Manual) Band Neutrophils % Lymphocytes % (Manual) Monocytes % (Manual) Eosinophils % (Manual) Basophils % (Manual) Metamyelocytes % Abs Neuts (Manual) Abs Lymphs (Manual) Abs Monocytes (Manual) Absolute Eos (Manual) Abs Basophils (Manual) Nucleated RBCs Toxic Granulation Toxic Vacuolation Platelet Comment Polychromasia Poikilocytosis Anisocytosis Ovalocytes [place] Cells Schistocytes Carbonic Acid HCO3/H2CO3 Ratio ABG pH ABG pCO2 ABG pO2 ABG HCO3 ABG Total CO2 ABG O2 Saturation ABG Base Excess FiO2 Sodium Potassium Chloride Carbon Dioxide Anion Gap BUN Creatinine Est GFR ( Amer) Est GFR (MDRD) Non-Af Glucose Lactic Acid Calcium Creatine Kinase 567 H Troponin I 0.219 0.190 NT-Pro-B Natriuret Pep Urine Color Urine Appearance Urine pH Ur Specific [place] Urine Protein Urine Glucose (UA) Urine Ketones Urine Blood Urine Nitrite Urine Bilirubin Urine Urobilinogen Ur Leukocyte Esterase Urine WBC (Auto) Urine RBC (Auto) Urine Bacteria (Auto) Urine WBC Clumps Squamous Epi Cells Auto U Non-Squamous Epis Auto Urine Mucus (Auto) Urine Ascorbic Acid COVID-19 Source 01/26/20 01/26/20 14:30 15:15 WBC RBC Hgb Hct MCV MCH MCHC RDW Plt Count Lymph % (Auto) [place] % (Auto) Eos % (Auto) Baso % (Auto) Absolute Neuts (auto) Absolute Lymphs (auto) Absolute Monos (auto) Absolute Eos (auto) Absolute Basos (auto) Total Counted Seg Neutrophils % Seg Neuts % (Manual) Band Neutrophils % Lymphocytes % (Manual) Monocytes % (Manual) Eosinophils % (Manual) Basophils % (Manual) Metamyelocytes % Abs Neuts (Manual) Abs Lymphs (Manual) Abs Monocytes (Manual) Absolute Eos (Manual) Abs Basophils (Manual) Nucleated RBCs Toxic Granulation Toxic Vacuolation Platelet Comment Polychromasia Poikilocytosis Anisocytosis Ovalocytes [place] Cells Schistocytes Carbonic Acid HCO3/H2CO3 Ratio ABG pH ABG pCO2 ABG pO2 ABG HCO3 ABG Total CO2 ABG O2 Saturation ABG Base Excess FiO2 Sodium Potassium Chloride Carbon Dioxide Anion Gap BUN Creatinine Est GFR ( Amer) Est GFR (MDRD) Non-Af Glucose Lactic Acid Calcium Creatine Kinase Troponin I NT-Pro-B Natriuret Pep Urine Color YELLOW Urine Appearance CLOUDY Urine pH 5.0 Ur Specific [place] 1.016 Urine Protein 100 H Urine Glucose (UA) NEGATIVE Urine Ketones NEGATIVE Urine Blood MODERATE H Urine Nitrite NEGATIVE Urine Bilirubin NEGATIVE Urine Urobilinogen NEGATIVE Ur Leukocyte Esterase LARGE H Urine WBC (Auto) >182 Urine RBC (Auto) 17 Urine Bacteria (Auto) TRACE Urine WBC Clumps MANY Squamous Epi Cells Auto 5 U Non-Squamous Epis Auto 3 Urine Mucus (Auto) RARE Urine Ascorbic Acid NEGATIVE COVID-19 Source See comment Chest X-Ray 01/25/20 22:26 IMPRESSION: Cardiomegaly with mild volume loss in the right medial lung base. Overall lung volumes and aeration have improved. No acute process. Hip/Pelvis X-Ray 01/25/20 22:26 IMPRESSION: No acute fracture dislocation the pelvis and both hips. Knee X-Ray 01/25/20 22:26 IMPRESSION: No acute osseous anomaly. copyright 2010 [email or web address]- All Rights Reserved IMPRESSION/RECOMMENDATION: 1. Elevated troponin iron level. Most likely secondary to supply demand mismatch. This is secondary to patient's low blood pressure, cardiomyopathy, and acute on chronic renal failure. No definite evidence of non-ST elevation NV. 2. Coronary artery disease. History of coronary artery bypass graft surgery and history of old NV. No anginal symptoms. 3. Dilated cardiomyopathy with moderately reduced LV ejection fraction. LV ejection fraction by recent echo was 35%. No evidence of heart failure there is decompensated. . History of hypertension: Blood pressure is on the low side. But patient is not symptomatic from her blood pressure in the high 90s. 5. History of chronic atrial fibrillation: On Xarelto. Would recommend holding Xarelto for 48 hours prior to surgery. 6. Diabetes mellitus. Continue antidiabetic medication. 7. Oxygen dependent COPD continue current nasal O2 and anti-COPD medication. No evidence of acute exacerbation of COPD. 8. Hypothyroidism: Continue thyroid replacement. 9. History of AICD placement no firing of her AICD. 10. Acute on chronic kidney disease at present stage IV. Avoid nephrotoxic drugs. 11. History of spinal cord injury. 12. Decubitus ulcer for debridement right foot ulcer which is supposedly clean and not infected. And decubitus ulcer. 13. Preoperative cardiac risk assessment. 14. History of bed bedridden status due to spinal cord injury. There is no EKG done. We will get an EKG morning. NOTE: Would place a magnet on the patient's AICD during the surgical procedure to prevent unexpected firing of the AICD. Medication reviewed. The patient's overall clinical status reviewed. The patient has multiple significant comorbidities. But at present seems to be clinically stable. Hence the patient will be at moderate risk for this debridement procedure. Postoperative continue to monitor patient and check serial EKGs and enzymes. Will follow medical decision making is of high complexity. 60 minutes spent with patient with more than 50% of time spent direct patient care.
[2020-01-27] MEDS: LEVOTHYROXINE SODIUM 0.025 MG TABLET PO SCH (05:27)
[2020-01-27] MEDS: LINEZOLID 600 MG/300 ML RTUPB IV SCH ×2 (05:28→17:59)
[2020-01-27] MEDS ORDERED: HEPARIN SOD (PORCINE) 1,000 UNIT/ML 10 ML VIAL IV PRN (06:00)
[2020-01-27] MEDS ORDERED: HEPARIN SOD (PORCINE) 1,000 UNIT/ML 10 ML VIAL IV ONE (06:00)
[2020-01-27 06:48] LABS: HEMATOCRIT 26.6 % (36.0-47.0); HEMOGLOBIN 8.5 g/dL (12.0-15.5); MEAN CORPUSCULAR HEMOGLOBIN 27.9 pg (27.0-33.4); MEAN CORPUSCULAR VOLUME 87 fl (80-97); PLATELET COUNT 171 10^3/uL (150-450); RED BLOOD COUNT 3.06 10^6/uL (3.72-5.28); RED CELL DISTRIBUTION WIDTH 17.4 % (11.5-14.0); WHITE BLOOD COUNT 11.9 10^3/uL (4.0-10.5)
[2020-01-27 06:57] LABS: INTERNATIONAL RATION (INR) 1.41; PROTHROMBIN TIME 17.4 SEC (11.4-15.4)
[2020-01-27 06:58] LABS: PARTIAL THROMBOPLASTIN TIME 49.8 SEC (23.5-35.8)
[2020-01-27 07:11] LABS: ALBUMIN 3.2 g/dL (3.5-5.0); ALKALINE PHOSPHATASE 202 U/L (38-126); ANION GAP 12 (5-19); ASPARTATE AMINO TRANSFERASE 443 U/L (14-36); BILIRUBIN,DIRECT 0.8 mg/dL (0.0-0.4); BILIRUBIN,TOTAL 0.9 mg/dL (0.2-1.3); BLOOD UREA NITROGEN 63 mg/dL (7-20); CALCIUM 8.4 mg/dL (8.4-10.2); CARBON DIOXIDE 26 mmol/L (22-30); CHLORIDE 97 mmol/L (98-107); GLUCOSE 294 mg/dL (75-110); PHOSPHORUS 4.7 mg/dL (2.5-4.5); POTASSIUM 4.4 mmol/L (3.6-5.0); TRIGLYCERIDES 117 mg/dL (<150)
[2020-01-27 07:24] LABS: CHOLESTEROL < 50.00 mg/dL (0-200); DIRECT LDL < 30 mg/dL (<100)
[2020-01-27 08:14] LABS: ABSOLUTE LYMPHOCYTES# (MANUAL) 1.7 10^3/uL (0.5-4.7); ABSOLUTE MONOCYTES # (MANUAL) 2.1 10^3/uL (0.1-1.4); BASOPHILS % (MANUAL) 0 % (0-2); EOSINOPHILS % (MANUAL) 7 % (0-6); LYMPHOCYTES % (MANUAL) 14 % (13-45); MONOCYTES % (MANUAL) 18 % (3-13); NUCLEATED RED BLOOD CELLS 2 /100 WBC (0); SEGMENTED NEUTROPHILS % (MAN) 61 % (42-78); TOTAL CELLS COUNTED 100
[2020-01-27 08:15] LABS: ANISOCYTOSIS 1+; HYPOCHROMASIA SLIGHT; PLATELET COMMENT ADEQUATE; PLATELET LARGE PRESENT; POLYCHROMASIA SLIGHT
[2020-01-27 08:16] LABS: OVALOCYTES SLIGHT
[2020-01-27] MEDS: ASPIRIN 81 MG TABLET, CHEWABLE PO SCH (10:18)
[2020-01-27] MEDS: DOCUSATE SODIUM 100 MG CAPSULE PO SCH (10:18)
[2020-01-27] MEDS: ISOSORBIDE MONONITRATE 30 MG TAB.ER.24H PO SCH (10:22)
[2020-01-27] MEDS: MIDODRINE HCL 5 MG TABLET PO SCH ×3 (10:22→17:57)
[2020-01-27] MEDS: CEFEPIME 1 GM/D5W RTU 1 GM/50 ML RTUPB IV SCH ×2 (10:23→21:51)
[2020-01-27] MEDS: FAMOTIDINE 20 MG TABLET PO SCH ×2 (10:31→21:52)
[2020-01-27] MEDS: DULOXETINE HCL 20 MG CAPSULE.DR PO SCH ×2 (10:31→17:56)
[2020-01-27] MEDS: PRAMIPEXOLE DI-HCL 0.25 MG TABLET PO SCH (10:31)
[2020-01-27] MEDS: METOPROLOL TARTRATE 25 MG TABLET PO SCH ×2 (10:31→21:49)
--- NOTE | 2020-01-27 12:13 | RADIOLOGY REPORT (SQ) ---
EXAM DESCRIPTION: U/S ABDOMEN LIMITED W/O DOP IMAGES COMPLETED DATE/TIME: 01/27/2020 11:47 am REASON FOR STUDY: elevated lft COMPARISON: None. TECHNIQUE: Dynamic and static grayscale images acquired of the abdomen and recorded on PACS. Marialuisao shaista selected color Doppler and spectral images recorded. LIMITATIONS: None. FINDINGS: PANCREAS: Not seen. LIVER: Slightly heterogeneous echotexture. No masses. LIVER VASCULATURE: Normal directional flow of the main portal vein and hepatic veins. GALLBLADDER: There are some small gallstones. There is thickening of the gallbladder wall to 6 mm. There is small amount of pericholecystic fluid. ULTRASOUND-DETECTED ESTRELLA'S SIGN: Negative. INTRAHEPATIC DUCTS AND COMMON DUCT: CBD and intrahepatic ducts normal caliber. No filling defects. AORTA: Proximal aorta is normal. Mid and distal aorta were obscured by gas. RIGHT KIDNEY: Normal size, 10.9 cm. Normal echogenicity. No solid or suspicious masses. No hydroneph rosis. No calcifications. PERITONEAL AND RIGHT PLEURAL SPACE: No ascites or effusions. OTHER: No other significant findings. IMPRESSION: Cholelithiasis with thickening of gallbladder wall and small amount of pericholecystic f luid. Correlate for cholecystitis. The liver is slightly heterogeneous, but there is no sage fatty infiltration. Study is slightly limited. TECHNICAL DOCUMENTATION: JOB ID: [id number] 2010 [employer]- All Rights Reserved Reading location - IP/workstation name: [email or web address]
[2020-01-27] MEDS: HEPARIN SODIUM,PORCINE/D5W 25,000 UNIT/250 ML RTUINJ IV PRN (13:27)
[2020-01-27] MEDS ORDERED: NORMAL SALINE 1000 ML 1,000 ML IV PRN (14:31)
[2020-01-27] MEDS ORDERED: DEXTROSE 40% GEL 15 GM TUBE PO PRN ×2 (14:36)
[2020-01-27] MEDS ORDERED: GLUCAGON,HUMAN RECOMB 1 MG INJ IM PRN (14:36)
[2020-01-27] MEDS ORDERED: DEXTROSE 50%-WATER 25 GM/50 ML DISP.SYRIN IV PRN ×2 (14:36)
--- NOTE | 2020-01-27 14:44 | PDOC PROGRESS REPORT ---
Subjective Progress Note for:: 01/27/20 Subjective:: VANDANA COOL is a 69 year old female past medical history of atrial fibrillation, CHF, CAD, hyperlipidemia, hypertension, COPD on home oxygen, diabetes type 2, hypothyroidism, arthritis, CAD status post CABG and stent placement, who is paraplegic due to spinal cord injury, chronic indwelling Ruth catheter due to neurogenic bladder caused by spinal cord injury who was admitted 01/26/20 for acute kidney injury, hypotension, and decubitus ulcer. Patient was seen on morning rounds. She is found resting in bed, comfortably, On supplemental oxygen at 3.5 L/min. She is home O2 dependent. She was sleeping and had a breathing pattern consistent with TEVIN. She did wake easily w/ startle. She reports last sleep study was several years ago; no CPAP at that time. She reports fatigue, but otherwise denies all complaints. She specifically denies fever, chills, chest pain, palpitations, dyspnea, abd pain, nausea and vomiting. She has no questions or concerns at this time. No concerns per nursing. Reason For Visit: DECUBITUS ULCER,UTI,HYPOTENSION,ACUTE CHF EXACERBA Physical Exam Vital Signs: Temp Pulse Resp BP Pulse Ox 97.4 F 62 14 110/53 L 99 01/27/20 12:00 01/27/20 12:00 01/27/20 12:00 01/27/20 12:00 01/27/20 12:00 Intake & Output 01/26/20 01/27/20 01/28/20 06:59 06:59 06:59 Intake Total 2350 2392 Output Total 400 1150 Balance 1950 1242 Weight 110 kg 110.2 kg General appearance: PRESENT: no acute distress, disheveled, obese, well- developed, well-nourished Head exam: PRESENT: atraumatic, normocephalic Eye exam: PRESENT: conjunctiva pink, EOMI, PERRLA. ABSENT: scleral icterus Mouth exam: PRESENT: moist, tongue midline Respiratory exam: PRESENT: clear to auscultation huy, decreased breath sounds - throughout r/t effort, positioning, habitus, symmetrical, unlabored, other - supplemental oxygen via NC. ABSENT: rales, rhonchi, wheezes Cardiovascular exam: PRESENT: RRR. ABSENT: diastolic murmur, rubs, systolic murmur Pulses: PRESENT: normal dorsalis pedis pul Vascular exam: PRESENT: normal capillary refill Gentrourinary exam: PRESENT: indwelling catheter - chronic Extremities exam: PRESENT: full ROM, +1 edema - LLE. ABSENT: calf tenderness, clubbing, pedal edema Neurological exam: PRESENT: alert, awake, oriented to person, oriented to place, oriented to time, oriented to situation, CN II-XII grossly intact, other - fa tigue. ABSENT: motor sensory deficit Psychiatric exam: PRESENT: depressed, normal mood. ABSENT: homicidal ideation, suicidal ideation Skin exam: PRESENT: dry, warm, other. ABSENT: cyanosis, intact - multiple skin wounds: partial thickness wound to dorsum Rt foot w/ slough, multiple ~1 cm round shallow ulcerations to left pretibial region (?venous stasis), unstagable left heel, large unstagable decubitus sacral ulcer w/ surrounding erythema., r job Results Laboratory Results: 01/27/20 05:55 01/27/20 05:55 01/26/20 01/27/20 01/27/20 15:15 05:55 05:55 WBC 11.9 H RBC 3.06 L Hgb 8.5 L Hct 26.6 L MCV 87 MCH 27.9 MCHC 32.0 RDW 17.4 H Plt Count 171 Seg Neutrophils % Not Reportable Sodium 135.0 L Potassium 4.4 Chloride 97 L Carbon Dioxide 26 Anion Gap 12 BUN 63 H Creatinine 2.09 H Est GFR ( Amer) 29 L Glucose 294 H Calcium 8.4 Phosphorus 4.7 H Magnesium 2.0 Total Bilirubin 0.9 AST 443 H Alkaline Phosphatase 202 H Total Protein 7.0 Albumin 3.2 L Triglycerides 117 Cholesterol < 50.00 LDL Cholesterol Direct < 30 VLDL Cholesterol 23.0 HDL Cholesterol 8 L TSH Free T4 Urine Color YELLOW Urine Appearance CLOUDY Urine pH 5.0 Ur Specific [place] 1.016 Urine Protein 100 H Urine Glucose (UA) NEGATIVE Urine Ketones NEGATIVE Urine Blood MODERATE H Urine Nitrite NEGATIVE Ur Leukocyte Esterase LARGE H Urine WBC (Auto) >182 Urine RBC (Auto) 17 01/27/20 01/27/20 05:55 05:55 WBC RBC Hgb Hct MCV MCH MCHC RDW Plt Count Seg Neutrophils % Sodium Potassium Chloride Carbon Dioxide Anion Gap BUN Creatinine Est GFR ( Amer) Glucose Calcium Phosphorus Magnesium Total Bilirubin AST Alkaline Phosphatase Total Protein Albumin Triglycerides Cholesterol LDL Cholesterol Direct VLDL Cholesterol HDL Cholesterol TSH 4.77 H Free T4 0.97 Urine Color Urine Appearance Urine pH Ur Specific [place] Urine Protein Urine Glucose (UA) Urine Ketones Urine Blood Urine Nitrite Ur Leukocyte Esterase Urine WBC (Auto) Urine RBC (Auto) 01/26/20 01/26/20 01/26/20 00:30 06:52 06:52 Creatine Kinase 567 H Troponin I 0.219 NT-Pro-B Natriuret Pep 01742 H 01/26/20 11:14 Creatine Kinase Troponin I 0.190 NT-Pro-B Natriuret Pep Impressions: Chest X-Ray 01/25/20 22:26 IMPRESSION: Cardiomegaly with mild volume loss in the right medial lung base. Overall lung volumes and aeration have improved. No acute process. Hip/Pelvis X-Ray 01/25/20 22:26 IMPRESSION: No acute fracture dislocation the pelvis and both hips. Knee X-Ray 01/25/20 22:26 IMPRESSION: No acute osseous anomaly. copyright 2011 [employer]- All Rights Reserved Abdomen Ultrasound 01/27/20 00:00 IMPRESSION: Cholelithiasis with thickening of gallbladder wall and small amount of pericholecystic fluid. Correlate for cholecystitis. The liver is slightly heterogeneous, but there is no sage fatty infiltration. Study is slightly limited. Assessment and Plan - Diagnosis (1) WILLIS (acute kidney injury) Is this a current diagnosis for this admission?: Yes Plan: Likely prerenal, electrolytes WNL, cautious volume restriction guided volume status. Nephrology was consulted; appreciate Dr. Blackman's assistance. Optimize cardiac output. Avoid nephrotoxic medications as able. Continue gentle IV fluids; some bilateral lower extremity edema noted. Monitor for fluid volume overload. daily weight, Strict I&Os Follow-up chemistry. (2) Decubitus ulcer Qualifiers: Pressure injury location: sacral region Pressure injury stage: unstageable Qualified Code(s): L89.150 - Pressure ulcer of sacral region, unstageable Is this a current diagnosis for this admission?: Yes Plan: Chronic unstageable sacral decubitus ulcer with necrotic tissue and foul- smelling discharge. Unstageable left foot ulceration Blood cultures pending Continue IV cefepime and Zyvox. Surgical service is consulted Wound care per surgery. Every 2 turns. (3) Hypotension Qualifiers: Hypotension type: idiopathic hypotension Qualified Code(s): I95.0 - Idiopathic hypotension Is this a current diagnosis for this admission?: Yes Plan: Improved; 110/53 today As per patient baseline SBP is in the 90s. No sign of sepsis. Mild leukocytosis, lactic acid WNL. Continue midodrine. Cautious IVF Continue treating underlying infectious process. Cardiology and Nephrology consulted. (4) Chronic atrial fibrillation Is this a current diagnosis for this admission?: Yes Plan: Chronic persistent atrial fibrillation, rate controlled. Monitor on telemetry Anticoagulated on Xarelto Discussed w/ Dr. Cancino. Hold Xarelto, start Heparin gtt in am in anticipation of operative intervention. Outpatient PCP and cardiology follow-up. (5) Troponin I above reference range Is this a current diagnosis for this admission?: Yes Plan: Trending down; 0.219-> 0.190 Monitor on telemtry. Discussed w/ Dr. Cancino. Troponin elevation is likely 2/2 WILLIS. Cardiology is consulted. (6) UTI (urinary tract infection) Qualifiers: Urinary tract infection type: catheter-associated UTI Indwelling urinary catheter type: indwelling urethral catheter Is this a current diagnosis for this admission?: Yes Plan: Indwelling chronic Ruth catheter due to spinal cord injury. UA positive for leukocyte esterase. Blood and Urine cultures pending. Replace Ruth cath. Meticulous Ruth care. Continue Cefepime and Zyvoxx. (7) Morbid obesity with BMI of 40.0-44.9, adult Is this a current diagnosis for this admission?: Yes Plan: BMI 41.6 Bed-bound/wheelchair bound patient Incentive spirometer. Turn/reposition Wound care as mentioned above. Registered dietitian is consulted. (8) Diabetes Qualifiers: Diabetes mellitus type: type 2 Diabetes mellitus ocean transportation intermediary insulin use: without fpc use Is this a current diagnosis for this admission?: Yes Plan: A1c 7.2% Patient is placed on a consistent carb diet. Accu-Cheks before meals and at bedtime with Humalog for sliding scale coverage. Hypoglycemia protocol in place. Registered dietitian and medical educator consulted. (9) Cholelithiasis Qualifiers: Cholelithiasis location: gallbladder Is this a current diagnosis for this admission?: Yes Plan: Right upper quadrant ultrasound shows cholelithiasis with thickening of gallbladder wall and small amount of pericholecystic fluid; correlate for cholecystitis. Patient currently asymptomatic; denies abdominal pain, nausea and vomiting. Discussed findings with Dr. Vincent. (10) Elevated LFTs Is this a current diagnosis for this admission?: Yes Plan: U/S findings as above. Hepatitis panel is pending. Monitor labs. - Time Time Spent with patient: 35 or more minutes Medications reviewed and adjusted accordingly: Yes Anticipated Discharge Disposition: Care Home Facility Anticipated Discharge Timeframe: >72 hrs
[2020-01-27] MEDS: FUROSEMIDE INJ/PF 20 MG/2 ML SDV IV SCH ×2 (17:56→22:00)
[2020-01-27] MEDS: INSULIN LISPRO 100 UNIT/ML 3 ML VIAL SUBCUT SCH ×2 (17:57→21:52)
--- NOTE | 2020-01-27 20:17 | PDOC PROGRESS REPORT ---
Subjective Progress Note for:: 01/27/20 Subjective:: 69-year-old female with degenerative disc disease, and lower extremity weakness. She can no longer walk. She has a developing sacral decubitus ulcer. She reports weakness. She also has a history of congestive heart failure with an EF of 35% she has an AICD in place. Today she denies chest pain, shortness of breath, fevers, chills, nausea, vomiting, abdominal pain, blurry vision, headache. Reason For Visit: DECUBITUS ULCER,UTI,HYPOTENSION,ACUTE CHF EXACERBA Physical Exam Vital Signs: Temp Pulse Resp BP Pulse Ox 97.4 F 60 18 122/57 L 99 01/27/20 12:00 01/27/20 16:41 01/27/20 16:41 01/27/20 16:41 01/27/20 12:00 Intake & Output 01/26/20 01/27/20 01/28/20 06:59 06:59 06:59 Intake Total 2350 2392 50 Output Total 400 1150 Balance 1950 1242 50 Weight 110 kg 110.2 kg 110.2 kg General appearance: PRESENT: no acute distress, morbidly obese Head exam: PRESENT: atraumatic Eye exam: PRESENT: EOMI. ABSENT: scleral icterus Mouth exam: PRESENT: moist, neck supple Neck exam: ABSENT: meningismus, tenderness, thyromegaly, tracheal deviation Respiratory exam: PRESENT: unlabored. ABSENT: tachypnea, wheezes Cardiovascular exam: ABSENT: tachycardia GI/Abdominal exam: PRESENT: soft. ABSENT: distended, tenderness Rectal exam: PRESENT: deferred Extremities exam: ABSENT: clubbing Musculoskeletal exam: ABSENT: deformity Neurological exam: PRESENT: alert, awake, oriented to person, oriented to place, oriented to time, oriented to situation, CN II-XII grossly intact Psychiatric exam: ABSENT: agitated, anxious, depressed Focused psych exam: ABSENT: delusional Skin exam: PRESENT: other - Developing sacral decubitus ulcer. There is ongoing necrosis. It is at least stage II at this time.. ABSENT: cyanosis Results Laboratory Results: 01/27/20 05:55 01/27/20 05:55 01/27/20 01/27/20 01/27/20 05:55 05:55 05:55 WBC 11.9 H RBC 3.06 L Hgb 8.5 L Hct 26.6 L MCV 87 MCH 27.9 MCHC 32.0 RDW 17.4 H Plt Count 171 Seg Neutrophils % Not Reportable Sodium 135.0 L Potassium 4.4 Chloride 97 L Carbon Dioxide 26 Anion Gap 12 BUN 63 H Creatinine 2.09 H Est GFR ( Amer) 29 L Glucose 294 H Calcium 8.4 Phosphorus 4.7 H Magnesium 2.0 Total Bilirubin 0.9 AST 443 H Alkaline Phosphatase 202 H Total Protein 7.0 Albumin 3.2 L Triglycerides 117 Cholesterol < 50.00 LDL Cholesterol Direct < 30 VLDL Cholesterol 23.0 HDL Cholesterol 8 L TSH 4.77 H Free T4 01/27/20 05:55 WBC RBC Hgb Hct MCV MCH MCHC RDW Plt Count Seg Neutrophils % Sodium Potassium Chloride Carbon Dioxide Anion Gap BUN Creatinine Est GFR ( Amer) Glucose Calcium Phosphorus Magnesium Total Bilirubin AST Alkaline Phosphatase Total Protein Albumin Triglycerides Cholesterol LDL Cholesterol Direct VLDL Cholesterol HDL Cholesterol TSH Free T4 0.97 01/26/20 01/26/20 01/26/20 00:30 06:52 06:52 Creatine Kinase 567 H Troponin I 0.219 NT-Pro-B Natriuret Pep 93651 H 01/26/20 11:14 Creatine Kinase Troponin I 0.190 NT-Pro-B Natriuret Pep Impressions: Chest X-Ray 01/25/20 22:26 IMPRESSION: Cardiomegaly with mild volume loss in the right medial lung base. Overall lung volumes and aeration have improved. No acute process. Hip/Pelvis X-Ray 01/25/20 22:26 IMPRESSION: No acute fracture dislocation the pelvis and both hips. Knee X-Ray 01/25/20 22:26 IMPRESSION: No acute osseous anomaly. copyright 2011 [employer]- All Rights Reserved Abdomen Ultrasound 01/27/20 00:00 IMPRESSION: Cholelithiasis with thickening of gallbladder wall and small amount of pericholecystic fluid. Correlate for cholecystitis. The liver is slightly heterogeneous, but there is no sage fatty infiltration. Study is slightly limited. Assessment & Plan - Diagnosis (1) Decubitus ulcer Qualifiers: Pressure injury location: sacral region Pressure injury stage: stage 2 Qualified Code(s): L89.152 - Pressure ulcer of sacral region, stage 2 Is this a current diagnosis for this admission?: Yes (2) Elevated LFTs Is this a current diagnosis for this admission?: Yes - Time Anticipated Discharge Disposition: unknown Anticipated Discharge Timeframe: unknown - Plan Summary Plan Summary: 69-year-old female who is nonambulatory due to "back problems". The patient also has incontinence of urine and stool. She has a sacral decubitus ulcer that is currently stage II. There is necrosis present, and it will require debridement. After debridement, I suspect it will be stage IV. Her anticoagulants are on hold, and we are awaiting her COVID test results. N.p.o. after midnight for likely surgery tomorrow (pending COVID results). I have discussed the distinct possibility that the patient will require a diverting colostomy due to her non-ambulatory status and her worsening sacral decubitus ulcer. The patient would like to think about this, prior to agreeing to undergo surgery. The patient was found to have elevated liver function tests. An ultrasound was performed showing thickened gallbladder wall. The patient has known congestive heart failure. Thickening of the gallbladder wall in conjunction with elevated AST and ALT is a common finding in congestive heart failure (cardiac hepatopathy). Unless she begins to exhibit symptoms, I would not recommend any intervention besides watchful waiting. Surgery will continue to follow closely with you.
--- NOTE | 2020-01-27 21:24 | EKG REPORT ---
SEVERITY:- ABNORMAL ECG - ATRIAL-PACED COMPLEXES MULTIFORM VENTRICULAR PREMATURE COMPLEXES NONSPECIFIC INTRAVENTRICULAR CONDUCTION DELAY : Confirmed by: Delfina Oliveros MD 27-Jan-2020 21:23:52
[2020-01-27] MEDS: ATORVASTATIN CALCIUM 40 MG TABLET PO SCH (21:52)
--- NOTE | 2020-01-27 22:43 | Progress Note ---
Provider Note Provider Note: CARDIOLOGY PROGRESS NOTE by Dr. Delfina Oliveros on 01/27/2020. OBJECTIVE: The patient denies any chest pain discomfort. There is no shortness of breath. There is no PND orthopnea. She is in atrial fibrillation with controlled ventricular response. Xarelto has been held for proposed/schedule surgery. There is no firing of her AICD. There is no pedal edema. There is no ventricle arrhythmia seen on the monitor. PHYSICAL EXAMINATION: The patient is morbidly obese. In no acute distress. Selected Entries 01/27/20 12:00 Temperature 97.4 F Temperature Axillary Source Pulse Rate 62 Respiratory 14 Rate Blood Pressure 110/53 L Blood Pressure 72 Mean BP Location Left Arm BP Position Supine O2 Sat by Pulse 99 Oximetry Oxygen Flow 3.00 Rate Oxygen Delivery Nasal Cannula Method HEAD: Is atraumatic normocephalic. EYES: Pupils equal round regular reactive light accommodation. Extraocular movements are normal. THERE IS NO CONJUNCTIVAL PALLOR. THERE IS NO SCLERAL ICTERUS. Ears: Tympanic membranes intact. External auditory canals are clear. NOSE: There is no deviated nasal septum. There is no inflammation of the nasal mucous membrane. MOUTH: There is no ulcers in the mouth. There is no bleeding from the gums. THROAT: There is no redness of the oropharynx there is no exudates. SKIN: There is no skin rashes. There is no petechia or ecchymosis. There is no skin lesions. LUNGS: There is diminished air entry and prolonged expiration without any rhonchi rales or wheezing. HEART: S1-S2 is heard. There is no S3 gallop. There is no S4 gallop. S1 is of variable intensity. There is systolic murmur left sternal border and the apex there is no rub. ABDOMEN: Is obese. Nontender there is no paraspinal megaly. Bowel sounds are well heard. EXTREMITIES femorals are deep femorals are diminished. Leg pulses are diminished. There is a dressing in the right foot of an ulcer. There is no pedal edema. There is no DVT or cellulitis. Decubitus patient has a decubitus ulcer. DEPUTY COURT CLERK: The patient is conscious awake alert oriented x3 with no focal deficits. PSYCHIATRIC: The patient judgment site are intact her affect is normal. Labs- All tests 24 hr 01/27/20 01/27/20 01/27/20 05:55 05:55 05:55 WBC 11.9 H RBC 3.06 L Hgb 8.5 L Hct 26.6 L MCV 87 MCH 27.9 MCHC 32.0 RDW 17.4 H Plt Count 171 Lymph % (Auto) Not Reportable [place] % (Auto) Not Reportable Eos % (Auto) Not Reportable Baso % (Auto) Not Reportable Absolute Neuts (auto) Not Reportable Absolute Lymphs (auto) Not Reportable Absolute Monos (auto) Not Reportable Absolute Eos (auto) Not Reportable Absolute Basos (auto) Not Reportable Total Counted 100 Seg Neutrophils % Not Reportable Seg Neuts % (Manual) 61 Lymphocytes % (Manual) 14 Monocytes % (Manual) 18 H Eosinophils % (Manual) 7 H Basophils % (Manual) 0 Abs Neuts (Manual) 7.3 Abs Lymphs (Manual) 1.7 Abs Monocytes (Manual) 2.1 H Absolute Eos (Manual) 0.8 H Abs Basophils (Manual) 0.0 Nucleated RBCs 2 Large Platelets PRESENT Platelet Comment ADEQUATE Polychromasia SLIGHT Hypochromasia SLIGHT Anisocytosis 1+ Ovalocytes SLIGHT PT 17.4 H INR 1.41 APTT 49.8 H Sodium 135.0 L Potassium 4.4 Chloride 97 L Carbon Dioxide 26 Anion Gap 12 BUN 63 H Creatinine 2.09 H Est GFR ( Amer) 29 L Est GFR (MDRD) Non-Af 24 L Glucose 294 H POC Glucose Hemoglobin A1c % Calcium 8.4 Phosphorus 4.7 H Magnesium 2.0 Total Bilirubin 0.9 Direct Bilirubin 0.8 H Neonat Total Bilirubin Not Reportable Neonat Direct Bilirubin Not Reportable Neonat Indirect Bili Not Reportable AST 443 H ALT 394 H Alkaline Phosphatase 202 H Total Protein 7.0 Albumin 3.2 L Triglycerides 117 Cholesterol < 50.00 LDL Cholesterol Direct < 30 VLDL Cholesterol 23.0 HDL Cholesterol 8 L TSH Free T4 01/27/20 01/27/20 01/27/20 05:55 05:55 05:55 WBC RBC Hgb Hct MCV MCH MCHC RDW Plt Count Lymph % (Auto) [place] % (Auto) Eos % (Auto) Baso % (Auto) Absolute Neuts (auto) Absolute Lymphs (auto) Absolute Monos (auto) Absolute Eos (auto) Absolute Basos (auto) Total Counted Seg Neutrophils % Seg Neuts % (Manual) Lymphocytes % (Manual) Monocytes % (Manual) Eosinophils % (Manual) Basophils % (Manual) Abs Neuts (Manual) Abs Lymphs (Manual) Abs Monocytes (Manual) Absolute Eos (Manual) Abs Basophils (Manual) Nucleated RBCs Large Platelets Platelet Comment Polychromasia Hypochromasia Anisocytosis Ovalocytes PT INR APTT Sodium Potassium Chloride Carbon Dioxide Anion Gap BUN Creatinine Est GFR ( Amer) Est GFR (MDRD) Non-Af Glucose POC Glucose Hemoglobin A1c % 7.2 H Calcium Phosphorus Magnesium Total Bilirubin Direct Bilirubin Neonat Total Bilirubin Neonat Direct Bilirubin Neonat Indirect Bili AST ALT Alkaline Phosphatase Total Protein Albumin Triglycerides Cholesterol LDL Cholesterol Direct VLDL Cholesterol HDL Cholesterol TSH 4.77 H Free T4 0.97 01/27/20 01/27/20 01/27/20 17:29 19:25 21:00 WBC RBC Hgb Hct MCV MCH MCHC RDW Plt Count Lymph % (Auto) [place] % (Auto) Eos % (Auto) Baso % (Auto) Absolute Neuts (auto) Absolute Lymphs (auto) Absolute Monos (auto) Absolute Eos (auto) Absolute Basos (auto) Total Counted Seg Neutrophils % Seg Neuts % (Manual) Lymphocytes % (Manual) Monocytes % (Manual) Eosinophils % (Manual) Basophils % (Manual) Abs Neuts (Manual) Abs Lymphs (Manual) Abs Monocytes (Manual) Absolute Eos (Manual) Abs Basophils (Manual) Nucleated RBCs Large Platelets Platelet Comment Polychromasia Hypochromasia Anisocytosis Ovalocytes PT INR APTT 75.3 H Sodium Potassium Chloride Carbon Dioxide Anion Gap BUN Creatinine Est GFR ( Amer) Est GFR (MDRD) Non-Af Glucose POC Glucose 324 H 391 H Hemoglobin A1c % Calcium Phosphorus Magnesium Total Bilirubin Direct Bilirubin Neonat Total Bilirubin Neonat Direct Bilirubin Neonat Indirect Bili AST ALT Alkaline Phosphatase Total Protein Albumin Triglycerides Cholesterol LDL Cholesterol Direct VLDL Cholesterol HDL Cholesterol TSH Free T4 Chest X-Ray 01/25/20 22:26 IMPRESSION: Cardiomegaly with mild volume loss in the right medial lung base. Overall lung volumes and aeration have improved. No acute process. Hip/Pelvis X-Ray 01/25/20 22:26 IMPRESSION: No acute fracture dislocation the pelvis and both hips. Knee X-Ray 01/25/20 22:26 IMPRESSION: No acute osseous anomaly. copyright 2011 [employer]- All Rights Reserved Abdomen Ultrasound 01/27/20 00:00 IMPRESSION: Cholelithiasis with thickening of gallbladder wall and small amount of pericholecystic fluid. Correlate for cholecystitis. The liver is slightly heterogeneous, but there is no sage fatty infiltration. Study is slightly limited. IMPRESSION/RECOMMENDATION: 1. Elevated troponin iron level. Most likely secondary to supply demand mismatch. This is secondary to patient's low blood pressure, cardiomyopathy, and acute on chronic renal failure. No definite evidence of non-ST elevation MD. 2. Coronary artery disease. History of coronary artery bypass graft surgery and history of old MD. No anginal symptoms. 3. Dilated cardiomyopathy with moderately reduced LV ejection fraction. LV ejection fraction by recent echo was 35%. No evidence of heart failure there is decompensated. . History of hypertension: Blood pressure is on the low side. But patient is not symptomatic from her blood pressure in the high 90s. 5. History of chronic atrial fibrillation: On Xarelto. Would recommend holding Xarelto for 48 hours prior to surgery. 6. Diabetes mellitus. Continue antidiabetic medication. 7. Oxygen dependent COPD continue current nasal O2 and anti-COPD medication. No evidence of acute exacerbation of COPD. 8. Hypothyroidism: Continue thyroid replacement. 9. History of AICD placement no firing of her AICD. 10. Acute on chronic kidney disease at present stage IV. Avoid nephrotoxic drugs. 11. History of spinal cord injury. 12. Decubitus ulcer for debridement right foot ulcer which is supposedly clean and not infected. And decubitus ulcer. 13. Preoperative cardiac risk assessment. 14. History of bed bedridden status due to spinal cord injury. There is no EKG done. We will get an EKG morning. NOTE: Would place a magnet on the patient's AICD during the surgical procedure to prevent unexpected firing of the AICD. Medication reviewed. The patient's overall clinical status reviewed. The ginette ortiz has multiple significant comorbidities. But at present seems to be clinically stable. Hence the patient will be at moderate risk for this debridement procedure. Postoperative continue to monitor patient and check serial EKGs and enzymes. Will follow.Medical decision making is of moderate complexity. 40 minutes spent with patient with more than 50% of time spent direct patient care.
--- NOTE | 2020-01-27 23:03 | PDOC CONSULTATION ---
Consultation Consult Date: 01/27/20 Provider Consulted: YOLIS GARCÍA Consult reason:: WILLIS History of Present Illness Admission Date/PCP: 01/26/20 04:28 CHER WELCH History of Present Illness: VANDANA COOL is a 69 year old female with history of coronary artery disease, dilated cardiomyopathy, atrial fibrillation, hypertension, COPD on home oxygen, diabetes mellitus type 2, paraplegia due to spinal cord injury, neurogenic bladder and chronic indwelling Ruth catheter and hypothyroidism who was admitted yesterday after a fall. Patient was found to be hypotensive as low as 80/55 yesterday. Blood pressure is better today. Patient relates though that her usual blood pressure has been low to about 90s systolic. Patient relates that since her non-STEMI in November 2019 she has not been able to transfer by herself. She has been incontinent and had Ruth catheter inserted since then. Upon initial evaluation patient was found to have decubitus ulcer. Initial labs showed a BUN of 73, creatinine of 2.54 with EGFR of 19. Back in December 2019 she had a BUN of 18, creatinine of 0.65 with normal EGFR. She was given 3 L of IV fluids since admission. Today her BUN is 63, creatinine of 2.09 with EGFR of 26. She has made about 1150 mL of urine output. Her hemoglobin A1c is 7.2. COVID-19 testing is still pending. She has elevated liver enzymes and abdominal ultrasound revealed cholelithiasis. She also has elevated troponin for which Dr. Oliveros has evaluated the patient she also has urinary tract infection with urine culture positive for gram-negative rods. Her hemoglobin is also low at 8.3 initially Patient states that she has had abnormal kidney function in the past. She has no history of kidney stones no hepatitis. She states that her urine volume has not changed. She denies any hematuria or foamy urine. She admits that she takes Aleve twice a day for the past month. She also admits that she has been having leg swelling for the last couple months. She denies any nausea, vomiting, diarrhea, cough, fever nor abdominal pain. She denies chest pains nor shortness of breath. Past Medical History Cardiac Medical History: Reports: Atrial Fibrillation, CHF-Systolic, Coronary Artery Disease, Hyperlipidemia, Myocardial Infarction - 1999, Peripheral Vascular Disease Pulmonary Medical History: Reports: Respiratory Failure - Chronic respiratory failure with hypoxia on home oxygen Endocrine Medical History: Reports: Diabetes Mellitus Type 2, Hypothyroidism Renal/ Medical History: Reports: Other - Neurogenic bladder Musculoskeltal Medical History: Reports: Arthritis Past Surgical History Past Surgical History: Reports: Cardiac Catheterization, Coronary Artery Bypass Graft - X4, Coronary Stent, Hysterectomy, Pacemaker - AICD, Vascular Surgery - Angioplasty for the left leg and bypass grafting on the right leg, Other - Bilateral carpal tunnel surgery, bilateral cataract surgery Social History Information Source: Patient Lives with: Spouse/Significant other Smoking Status: Former Smoker Electronic Cigarette use?: No Frequency of Alcohol Use: None Hx Recreational Drug Use: No Drugs: None Hx Prescription Drug Abuse: No Family History Family History: CAD - Father and paternal grandfather, DM - Maternal grandmother Parental Family History Reviewed: Yes Children Family History Reviewed: Yes Sibling(s) Family History Reviewed.: Yes Medication/Allergy Home Medications: Docusate Sodium [Colace 100 mg Capsule] 100 mg PO BID 06/27/19 Furosemide [Lasix 40 mg Tablet] 40 mg PO Q12 06/27/19 Hydrocodone/Acetaminophen [[place] 7.5-325 mg Tablet] 1 each PO Q6HP PRN 06/27/19 Insulin Aspart [Novolog Flexpen] 0 unit SUBCUT .SLD SCALE 06/27/19 Levothyroxine Sodium [Synthroid 0.025 mg Tablet] 25 mcg PO QAM 06/27/19 Rivaroxaban [Xarelto 10 mg Tablet] 10 mg PO DAILY 06/27/19 Clonazepam [Klonopin] 0.5 mg PO BIDP PRN 01/26/20 Ferrous Sulfate [Feosol 325 mg Tablet] 325 mg PO DAILY 01/26/20 Multivitamin [One-Daily Multi-Vitamin] 1 each PO DAILY 01/26/20 Nitroglycerin [Nitrostat 0.4 mg (1/150 Gr) Tabs 25/Bottle] 1 tab SL Q5MP PRN 01/26/20 Potassium Chloride 20 meq PO DAILY 01/26/20 Allergies/Adverse Reactions: Shellfish * [Shellfish] Allergy (Unknown, Verified 11/10/19 15:52) Hives digoxin [Digoxin] Adverse Reaction (Mild, Verified 11/10/19 15:52) Nausea oxycodone HCl [From Percocet] Adverse Reaction (Mild, Verified 11/10/19 15:52) Vomiting ramipril [From Altace] Adverse Reaction (Mild, Verified 11/10/19 15:52) cough Review of Systems All systems: reviewed and no additional remarkable complaints except as stated Review of Systems: Constitutional: ABSENT: chills, fatigue, fever(s), headache(s), weight gain, weight loss Eyes: ABSENT: visual disturbances Ears: ABSENT: hearing changes Cardiovascular: ABSENT: chest pain, dyspnea on exertion, edema, orthropnea, palpitations Respiratory: ABSENT: cough, dyspnea, hemoptysis Gastrointestinal: ABSENT: abdominal pain, constipation, diarrhea, hematemesis, hematochezia, nausea, vomiting Genitourinary: ABSENT: dysuria, hematuria Musculoskeletal: ABSENT: joint swelling; reports knee pain Integumentary: ABSENT: rash, wounds Neurological: ABSENT: abnormal speech, confusion, dizziness, focal weakness, numbness, syncope; patient is paraplegic Psychiatric: ABSENT: anxiety, depression Endocrine: ABSENT: cold intolerance, heat intolerance, polydipsia, polyuria Hematologic/Lymphatic: ABSENT: easy bleeding, easy bruising, lymphadenopathy Physical Exam Vital Signs: Temp Pulse Resp BP Pulse Ox 97.4 F 62 14 110/53 L 99 01/27/20 12:00 01/27/20 12:00 01/27/20 12:00 01/27/20 12:00 01/27/20 12:00 Intake & Output 01/26/20 01/27/20 01/28/20 06:59 06:59 06:59 Intake Total 2350 2392 50 Output Total 400 1150 Balance 1950 1242 50 Weight 110 kg 110.2 kg Exam: General appearance: No acute distress, cooperative, well-developed, well- nourished, obese Head exam: PRESENT: atraumatic, normocephalic Eye exam: PRESENT: Conjunctiva pale, EOMI, PERRLA. ABSENT: conjunctival injection, scleral icterus Mouth exam: PRESENT: moist, neck supple, tongue midline Neck exam: PRESENT: full ROM. ABSENT: carotid bruit, JVD, lymphadenopathy, thyromegaly Respiratory exam: PRESENT: clear to auscultation bilaterally. ABSENT: rales, rhonchi, stridor, wheezes Cardiovascular exam: PRESENT: RRR, +S1, +S2. ABSENT: systolic murmur Pulses: PRESENT: normal radial pulses, normal dorsalis pedis pulses GI/Abdominal exam: PRESENT: normal bowel sounds, soft. Obese ABSENT: guarding, mass, tenderness Rectal exam: Deferred Extremities exam: PRESENT: full ROM. Grade 2 bilateral pitting edema ABSENT: calf tenderness Musculoskeletal: PRESENT: full ROM. ABSENT: deformity Neurological exam: PRESENT: alert, Awake, Oriented to person, Oriented to place, Oriented to time, reflexes normal, CN II-XII grossly intact. ABSENT: motor sensory deficit Psychiatric exam: PRESENT: appropriate affect, normal mood. ABSENT: homicidal ideation, suicidal ideation Skin exam: PRESENT: intact, dry, warm. Positive sacral decubitus ulcer ABSENT: rash Results Laboratory Results: 01/27/20 05:55 01/27/20 05:55 01/27/20 01/27/20 01/27/20 05:55 05:55 05:55 WBC 11.9 H RBC 3.06 L Hgb 8.5 L Hct 26.6 L MCV 87 MCH 27.9 MCHC 32.0 RDW 17.4 H Plt Count 171 Seg Neutrophils % Not Reportable Sodium 135.0 L Potassium 4.4 Chloride 97 L Carbon Dioxide 26 Anion Gap 12 BUN 63 H Creatinine 2.09 H Est GFR ( Amer) 29 L Glucose 294 H Calcium 8.4 Phosphorus 4.7 H Magnesium 2.0 Total Bilirubin 0.9 AST 443 H Alkaline Phosphatase 202 H Total Protein 7.0 Albumin 3.2 L Triglycerides 117 Cholesterol < 50.00 LDL Cholesterol Direct < 30 VLDL Cholesterol 23.0 HDL Cholesterol 8 L TSH 4.77 H Free T4 01/27/20 05:55 WBC RBC Hgb Hct MCV MCH MCHC RDW Plt Count Seg Neutrophils % Sodium Potassium Chloride Carbon Dioxide Anion Gap BUN Creatinine Est GFR ( Amer) Glucose Calcium Phosphorus Magnesium Total Bilirubin AST Alkaline Phosphatase Total Protein Albumin Triglycerides Cholesterol LDL Cholesterol Direct VLDL Cholesterol HDL Cholesterol TSH Free T4 0.97 01/26/20 01/26/20 01/26/20 00:30 06:52 06:52 Creatine Kinase 567 H Troponin I 0.219 NT-Pro-B Natriuret Pep 44625 H 01/26/20 11:14 Creatine Kinase Troponin I 0.190 NT-Pro-B Natriuret Pep Impressions: Chest X-Ray 01/25/20 22:26 IMPRESSION: Cardiomegaly with mild volume loss in the right medial lung base. Overall lung volumes and aeration have improved. No acute process. Hip/Pelvis X-Ray 01/25/20 22:26 IMPRESSION: No acute fracture dislocation the pelvis and both hips. Knee X-Ray 01/25/20 22:26 IMPRESSION: No acute osseous anomaly. copyright 2010 [employer]- All Rights Reserved Abdomen Ultrasound 01/27/20 00:00 IMPRESSION: Cholelithiasis with thickening of gallbladder wall and small amount of pericholecystic fluid. Correlate for cholecystitis. The liver is slightly heterogeneous, but there is no sage fatty infiltration. Study is slightly limited. Assessment & Plan - Diagnosis (1) WILLIS (acute kidney injury) Is this a current diagnosis for this admission?: Yes Plan: Patient is nonoliguric. Baseline creatinine was 0.65 in December 2019. Acute worsening of kidney function is most likely secondary to prerenal factors including hypotension, NSAID use and cardiorenal syndrome. Patient has minimal positive response to IV fluid hydration of 3 L since admission. Clinically the patient appears to actually be hypervolemic. I will start the patient on low-dose diuretics. Monitor urine output. Continue to monitor kidney function. Advised the patient avoid NSAIDs. Patient does not need any renal replacement therapy currently. Avoid nephrotoxic medications. (2) Decubitus ulcer Qualifiers: Pressure injury location: sacral region Pressure injury stage: stage 2 Qualified Code(s): L89.152 - Pressure ulcer of sacral region, stage 2 Is this a current diagnosis for this admission?: Yes Plan: Surgery consulted and patient is scheduled for debridement tomorrow. (3) UTI (urinary tract infection) Qualifiers: Urinary tract infection type: catheter-associated UTI Indwelling urinary catheter type: indwelling urethral catheter Is this a current diagnosis for this admission?: Yes Plan: Due to gram-negative rods. Patient on IV cefepime and linezolid. (4) Hypotension Qualifiers: Hypotension type: idiopathic hypotension Qualified Code(s): I95.0 - Idiopathic hypotension Is this a current diagnosis for this admission?: Yes Plan: Possibly due to cardiomyopathy. Patient started on midodrine. (5) Anemia Is this a current diagnosis for this admission?: Yes Plan: Check iron panel and stool for occult blood. (6) Hyponatremia Is this a current diagnosis for this admission?: Yes Plan: Secondary to hypervolemic state. (7) Cholelithiasis Qualifiers: Cholelithiasis location: gallbladder Is this a current diagnosis for this admission?: Yes Plan: Associated with elevated liver enzymes. Currently asymptomatic. (8) Chronic atrial fibrillation Is this a current diagnosis for this admission?: Yes (9) Chronic systolic (congestive) heart failure Is this a current diagnosis for this admission?: Yes Plan: Patient with LVEF of 35% last November 2019. - Notes Notes: Thank you very much for this consultation. Discussed with JEROME Jane.
[2020-01-28] MEDS: FUROSEMIDE INJ/PF 20 MG/2 ML SDV IV SCH ×4 (06:29→21:48)
[2020-01-28] MEDS: LEVOTHYROXINE SODIUM 0.025 MG TABLET PO SCH (06:30)
[2020-01-28] MEDS: LINEZOLID 600 MG/300 ML RTUPB IV SCH ×2 (06:30→18:47)
[2020-01-28 06:43] LABS: HEMATOCRIT 27.6 % (36.0-47.0); MEAN CORPUSCULAR HEMOGLOBIN 28.3 pg (27.0-33.4); MEAN CORPUSCULAR HGB CONC 32.6 g/dL (32.0-36.0); MEAN CORPUSCULAR VOLUME 87 fl (80-97); PLATELET COUNT 164 10^3/uL (150-450); RED BLOOD COUNT 3.18 10^6/uL (3.72-5.28); RED CELL DISTRIBUTION WIDTH 17.8 % (11.5-14.0); RETICULOCYTE COUNT (AUTO) 8.48 % (0.66-2.85); WHITE BLOOD COUNT 11.6 10^3/uL (4.0-10.5)
[2020-01-28 07:04] LABS: ALBUMIN 3.1 g/dL (3.5-5.0); ALKALINE PHOSPHATASE 192 U/L (38-126); ANION GAP 11 (5-19); ASPARTATE AMINO TRANSFERASE 229 U/L (14-36); BILIRUBIN,DIRECT 0.7 mg/dL (0.0-0.4); BLOOD UREA NITROGEN 50 mg/dL (7-20); CALCIUM 8.8 mg/dL (8.4-10.2); CARBON DIOXIDE 29 mmol/L (22-30); CHLORIDE 97 mmol/L (98-107); GLUCOSE 297 mg/dL (75-110); IRON(TIBC) 43.6 ug/dL (37-170); POTASSIUM 3.7 mmol/L (3.6-5.0); TOTAL PROTEIN 7.1 g/dL (6.3-8.2)
[2020-01-28 08:10] LABS: FOLATE 9.91 ng/mL (>2.76)
[2020-01-28 08:37] LABS: HEPATITS B SURFACE ANTIGEN Negative (Negative)
[2020-01-28] MEDS: ASPIRIN 81 MG TABLET, CHEWABLE PO SCH (10:32)
[2020-01-28] MEDS: MIDODRINE HCL 5 MG TABLET PO SCH ×3 (10:32→18:47)
[2020-01-28] MEDS: INSULIN LISPRO 100 UNIT/ML 3 ML VIAL SUBCUT SCH ×4 (10:32→21:48)
[2020-01-28] MEDS: FAMOTIDINE 20 MG TABLET PO SCH ×2 (10:32→21:48)
[2020-01-28] MEDS: DOCUSATE SODIUM 100 MG CAPSULE PO SCH (10:32)
[2020-01-28] MEDS: CEFEPIME 1 GM/D5W RTU 1 GM/50 ML RTUPB IV SCH ×2 (10:33→21:49)
[2020-01-28] MEDS: ISOSORBIDE MONONITRATE 30 MG TAB.ER.24H PO SCH (10:41)
[2020-01-28] MEDS: METOPROLOL TARTRATE 25 MG TABLET PO SCH ×2 (10:41→21:50)
[2020-01-28] MEDS: PRAMIPEXOLE DI-HCL 0.25 MG TABLET PO SCH (10:43)
[2020-01-28] MEDS: DULOXETINE HCL 20 MG CAPSULE.DR PO SCH ×2 (10:43→18:47)
[2020-01-28] MEDS: HYDROCODONE/ACETAMINOPHEN 7.5-325 MG TABLET PO PRN (10:50)
--- NOTE | 2020-01-28 13:15 | PDOC PROGRESS REPORT ---
Subjective Progress Note for:: 01/28/20 Subjective:: VANDANA COOL is a 69 year old female past medical history of atrial fibrillation, CHF, CAD, hyperlipidemia, hypertension, COPD on home oxygen, diabetes type 2, hypothyroidism, arthritis, CAD status post CABG and stent placement, who is paraplegic due to spinal cord injury, chronic indwelling Ruth catheter due to neurogenic bladder caused by spinal cord injury who was admitted 01/26/20 for acute kidney injury, hypotension, and decubitus ulcer. Patient was seen on morning rounds with nursing present. She is found resting in bed, comfortably, on her baseline supplemental oxygen. She reports fatigue, but otherwise denies all complaints. She is noted to be somewhat tearful w/ flat affect and avoidance of eye contact. She denies fever, chills, chest pain, palpitations, dyspnea, abd pain, nausea and vomiting. She has no questions or concerns at this time. No concerns per nursing. Reason For Visit: DECUBITUS ULCER,UTI,HYPOTENSION,ACUTE CHF EXACERBA Physical Exam Vital Signs: Temp Pulse Resp BP Pulse Ox 97.4 F 65 19 107/60 100 01/28/20 11:33 01/28/20 11:33 01/28/20 11:33 01/28/20 11:33 01/28/20 11:33 Intake & Output 01/27/20 01/28/20 01/29/20 06:59 06:59 06:59 Intake Total 2392 1032 400 Output Total 1150 3425 425 Balance 1242 -6413 -25 Weight 110.2 kg 107.1 kg General appearance: PRESENT: no acute distress, disheveled, morbidly obese, well-developed, well-nourished Head exam: PRESENT: atraumatic, normocephalic Eye exam: PRESENT: conjunctiva pink, EOMI, PERRLA. ABSENT: scleral icterus Mouth exam: PRESENT: moist, tongue midline Teeth exam: PRESENT: poor dentation Respiratory exam: PRESENT: clear to auscultation uhy - anterior, decreased breath sounds - throughout r/t effort, positioning, habitus, symmetrical, unlabored, other - baseline oxygen requirement. ABSENT: rales, rhonchi, wheezes Cardiovascular exam: PRESENT: RRR. ABSENT: diastolic murmur, rubs, systolic murmur Vascular exam: PRESENT: normal capillary refill GI/Abdominal exam: PRESENT: normal bowel sounds, soft. ABSENT: distended, guarding, mass, organolmegaly, rebound, tenderness Rectal exam: PRESENT: deferred Gentrourinary exam: PRESENT: indwelling catheter - chronic Extremities exam: PRESENT: +1 edema - BLE. ABSENT: calf tenderness, clubbing, pedal edema Neurological exam: PRESENT: alert, awake, oriented to person, oriented to place, oriented to time, oriented to situation, CN II-XII grossly intact. ABSENT: motor sensory deficit Psychiatric exam: PRESENT: depressed, flat affect. ABSENT: homicidal ideation, suicidal ideation Skin exam: PRESENT: dry, warm, other - multiple skin wounds: partial thickness wound to dorsum Rt foot w/ slough, multiple ~1 cm round shallow ulcerations to left pretibial region (?venous stasis), unstagable left heel, large unstagable decubitus sacral ulcer w/ surrounding erythema. ABSENT: cyanosis, rash Results Laboratory Results: 01/28/20 06:12 01/28/20 06:12 01/28/20 01/28/20 06:12 06:12 WBC 11.6 H RBC 3.18 L Hgb 9.0 L Hct 27.6 L MCV 87 MCH 28.3 MCHC 32.6 RDW 17.8 H Plt Count 164 Retic Count (auto) 8.48 H Sodium 136.9 L Potassium 3.7 Chloride 97 L Carbon Dioxide 29 Anion Gap 11 BUN 50 H Creatinine 1.66 H Est GFR ( Amer) 37 L Glucose 297 H Calcium 8.8 Iron 43.6 TIBC 302 % Saturation 14 Ferritin 816.00 H Total Bilirubin 1.0 AST 229 H Alkaline Phosphatase 192 H Total Protein 7.1 Albumin 3.1 L Vitamin B12 > 1000.0 H Folate 9.91 01/26/20 00:20 Ruth Catheter Urine Culture - Final Enterobacter Cloacae 01/26/20 01/26/20 01/26/20 00:30 06:52 06:52 Creatine Kinase 567 H Troponin I 0.219 NT-Pro-B Natriuret Pep 45590 H 01/26/20 11:14 Creatine Kinase Troponin I 0.190 NT-Pro-B Natriuret Pep Impressions: Chest X-Ray 01/25/20 22:26 IMPRESSION: Cardiomegaly with mild volume loss in the right medial lung base. Overall lung volumes and aeration have improved. No acute process. Hip/Pelvis X-Ray 01/25/20 22:26 IMPRESSION: No acute fracture dislocation the pelvis and both hips. Knee X-Ray 01/25/20 22:26 IMPRESSION: No acute osseous anomaly. copyright 2011 [employer]- All Rights Reserved Abdomen Ultrasound 01/27/20 00:00 IMPRESSION: Cholelithiasis with thickening of gallbladder wall and small amount of pericholecystic fluid. Correlate for cholecystitis. The liver is slightly heterogeneous, but there is no sage fatty infiltration. Study is slightly limited. Assessment and Plan - Diagnosis (1) WILLIS (acute kidney injury) Is this a current diagnosis for this admission?: Yes Plan: Improved; Cr 2.54-> 2.09-> 1.66 Normal renal function at baseline Likely prerenal, electrolytes WNL, cautious volume restriction guided volume status. Nephrology was consulted; appreciate Dr. Blackman's assistance. Optimize cardiac output. Avoid nephrotoxic medications as able. IV fluids held Furosemide 20 IV q8h per nephrology Daily weight, Strict I&Os Follow-up chemistry. (2) Decubitus ulcer Qualifiers: Pressure injury location: sacral region Pressure injury stage: stage 2 Qualified Code(s): L89.152 - Pressure ulcer of sacral region, stage 2 Is this a current diagnosis for this admission?: Yes Plan: Chronic unstageable sacral decubitus ulcer with necrotic tissue and foul- smelling discharge. Unstageable left heal wound Blood cultures negative at 48 hrs Preop COVID pending. Continue IV cefepime and Zyvox. Surgical service is consulted Xarelto held; last dose >48 hrs ago On Heparing gtt for anticoagulation needs r/t a.fib during intraoperative period Wound care per surgery. Every 2 turns. (3) Hypotension Qualifiers: Hypotension type: idiopathic hypotension Qualified Code(s): I95.0 - Idiopathic hypotension Is this a current diagnosis for this admission?: Yes Plan: Improved; 107/60 today As per patient baseline SBP is in the 90s. No sign of sepsis. Mild leukocytosis, lactic acid WNL. Continue midodrine. Continue treating underlying infectious process. Cardiology and Nephrology consulted. (4) Chronic atrial fibrillation Is this a current diagnosis for this admission?: Yes Plan: Chronic persistent atrial fibrillation, rate controlled. Monitor on telemetry Discussed w/ Dr. Cancino. Xarelto held; last dose >48 hrs ago On Heparing gtt for anticoagulation needs r/t a.fib during intraoperative period Outpatient PCP and cardiology follow-up. (5) Troponin I above reference range Is this a current diagnosis for this admission?: Yes Plan: Trending down; 0.219-> 0.190; no longer following. Monitor on telemtry. Discussed w/ Dr. Cancino. Troponin elevation is likely 2/2 WILLIS. Cardiology is consulted. (6) UTI (urinary tract infection) Qualifiers: Urinary tract infection type: catheter-associated UTI Indwelling urinary catheter type: indwelling urethral catheter Is this a current diagnosis for this admission?: Yes Plan: Indwelling chronic Ruth catheter due to spinal cord injury. UA positive for leukocyte esterase. Blood culture negative Urine cultures shows enterobacter cloacae >100k colonies; sensitive to cefepime Have replaced Ruth cath. Meticulous Ruth care. Continue Cefepime and Zyvoxx. (7) Morbid obesity with BMI of 40.0-44.9, adult Is this a current diagnosis for this admission?: Yes Plan: BMI 41.6 Bed-bound/wheelchair bound patient Incentive spirometer. Turn/reposition Wound care as mentioned above. Registered dietitian is consulted. (8) Diabetes Qualifiers: Diabetes mellitus type: type 2 Diabetes mellitus care home insulin use: without care home use Is this a current diagnosis for this admission?: Yes Plan: A1c 7.2% Patient is placed on a consistent carb diet. Accu-Cheks before meals and at bedtime with Humalog for sliding scale coverage. Hypoglycemia protocol in place. Registered dietitian and ict educator consulted. (9) Cholelithiasis Qualifiers: Cholelithiasis location: gallbladder Is this a current diagnosis for this admission?: Yes Plan: Right upper quadrant ultrasound shows cholelithiasis with thickening of gallbladder wall and small amount of pericholecystic fluid; correlate for cholecystitis. Patient currently asymptomatic; denies abdominal pain, nausea and vomiting. Discussed findings with Dr. Vincent. (10) Elevated LFTs Is this a current diagnosis for this admission?: Yes Plan: U/S findings as above. Hepatitis panel is pending. LFTs somewhat improved today Monitor labs. (11) Depression Is this a current diagnosis for this admission?: Yes Plan: Continue home medication regimen. Supportive care. - Time Time Spent with patient: 35 or more minutes Medications reviewed and adjusted accordingly: Yes Anticipated Discharge Disposition: Retirement Facility Anticipated Discharge Timeframe: >72 hrs
--- NOTE | 2020-01-28 14:50 | PDOC PROGRESS REPORT ---
Subjective Progress Note for:: 01/28/20 Reason For Visit: DECUBITUS ULCER,UTI,HYPOTENSION,ACUTE CHF EXACERBA Patient tearful Physical Exam Vital Signs: Temp Pulse Resp BP Pulse Ox 97.4 F 65 19 107/60 100 01/28/20 11:33 01/28/20 11:33 01/28/20 11:33 01/28/20 11:33 01/28/20 11:33 Intake & Output 01/27/20 01/28/20 01/29/20 06:59 06:59 06:59 Intake Total 2392 1032 400 Output Total 1150 3425 425 Balance 1242 -2393 -25 Weight 110.2 kg 107.1 kg General appearance: PRESENT: no acute distress - No acute distress Rectal exam: PRESENT: other - Sacral wound not examined Results Laboratory Results: 01/28/20 06:12 01/28/20 06:12 01/28/20 01/28/20 06:12 06:12 WBC 11.6 H RBC 3.18 L Hgb 9.0 L Hct 27.6 L MCV 87 MCH 28.3 MCHC 32.6 RDW 17.8 H Plt Count 164 Retic Count (auto) 8.48 H Sodium 136.9 L Potassium 3.7 Chloride 97 L Carbon Dioxide 29 Anion Gap 11 BUN 50 H Creatinine 1.66 H Est GFR ( Amer) 37 L Glucose 297 H Calcium 8.8 Iron 43.6 TIBC 302 % Saturation 14 Ferritin 816.00 H Total Bilirubin 1.0 AST 229 H Alkaline Phosphatase 192 H Total Protein 7.1 Albumin 3.1 L Vitamin B12 > 1000.0 H Folate 9.91 01/26/20 00:20 Ruth Catheter Urine Culture - Final Enterobacter Cloacae 01/26/20 01/26/20 01/26/20 00:30 06:52 06:52 Creatine Kinase 567 H Troponin I 0.219 NT-Pro-B Natriuret Pep 06619 H 01/26/20 11:14 Creatine Kinase Troponin I 0.190 NT-Pro-B Natriuret Pep Impressions: Chest X-Ray 01/25/20 22:26 IMPRESSION: Cardiomegaly with mild volume loss in the right medial lung base. Overall lung volumes and aeration have improved. No acute process. Hip/Pelvis X-Ray 01/25/20 22:26 IMPRESSION: No acute fracture dislocation the pelvis and both hips. Knee X-Ray 01/25/20 22:26 IMPRESSION: No acute osseous anomaly. copyright 2011 [employer]- All Rights Reserved Abdomen Ultrasound 01/27/20 00:00 IMPRESSION: Cholelithiasis with thickening of gallbladder wall and small amount of pericholecystic fluid. Correlate for cholecystitis. The liver is slightly heterogeneous, but there is no sage fatty infiltration. Study is slightly limited. Assessment & Plan - Diagnosis (1) Decubitus ulcer Qualifiers: Pressure injury location: sacral region Pressure injury stage: stage 2 Qualified Code(s): L89.152 - Pressure ulcer of sacral region, stage 2 Plan: Impression: Chronic intermediate to deep stage sacral ulcer in need of debridement and patient on anticoagulation, now held; COVID status unknown plan: Fecal incontinence Recommendations: 1. No rapid COVID tests available; awaiting send out COVID test sent yesterday. 2. We will attempt to take patient to the operating room if COVID status is known. - Time Time Spent: 30 to 50 Minutes Medications reviewed and adjusted accordingly: Yes Anticipated Discharge Disposition: Home, Self Care Anticipated Discharge Timeframe: tbd
[2020-01-28 15:01] LABS: HEPATITIS C VIRUS ANTIBODY 0.1 s/co ratio (0.0-0.9)
[2020-01-28] MEDS: HEPARIN SODIUM,PORCINE/D5W 25,000 UNIT/250 ML RTUINJ IV PRN (15:30)
[2020-01-28 17:13] LABS: AMORPHOUS SEDIMENT,URINE TRACE /HPF; APPEARANCE,URINE CLOUDY; BILIRUBIN,URINE NEGATIVE (NEGATIVE); COLOR,URINE YELLOW; GLUCOSE, URINE 50 mg/dL (NEGATIVE); KETONES,URINE NEGATIVE (NEGATIVE); LEUKOCYTE ESTERASE,URINE MODERATE (NEGATIVE); NITRITE,URINE NEGATIVE (NEGATIVE); PROTEIN,URINE 30 mg/dL (NEGATIVE); URIC ACID CRYSTALS,URINE FEW /HPF; URINE SPECIFIC GRAVITY 1.014; UROBILINOGEN,URINE NEGATIVE mg/dL (<2.0)
[2020-01-28] MEDS: ATORVASTATIN CALCIUM 40 MG TABLET PO SCH (21:48)
--- NOTE | 2020-01-28 22:05 | Progress Note ---
Provider Note Provider Note: CARDIOLOGY PROGRESS NOTE by Dr. Delfina Oliveros on 01/28/2020. SUBJECTIVE: The patient is awaiting for her debridement surgery. She denies any chest pain or discomfort. There is no shortness of breath. There is no PND orthopnea. She continues to be atrial fibrillation with controlled ventricular response. There is no anginal symptoms. There is no PND orthopnea. There is no firing of the AICD. There is no ventricular arrhythmias seen on the monitor. PHYSICAL EXAMINATION: The patient is morbidly obese. In no acute distress Selected Entries 01/28/20 15:56 Temperature 97.4 F Temperature Axillary Source Pulse Rate 64 Respiratory 17 Rate Blood Pressure 126/60 H Blood Pressure 82 Mean BP Location Left Arm BP Position Supine O2 Sat by Pulse 99 Oximetry Oxygen Flow 3.00 Rate Oxygen Delivery Nasal Cannula Method HEAD: Is atraumatic normocephalic. EYES: Pupils equal round regular reactive light accommodation. Extraocular movements are normal. THERE IS NO CONJUNCTIVAL PALLOR. THERE IS NO SCLERAL ICTERUS. Ears: Tympanic membranes intact. External auditory canals are clear. NOSE: There is no deviated nasal septum. There is no inflammation of the nasal mucous membrane. MOUTH: There is no ulcers in the mouth. There is no bleeding from the gums. THROAT: There is no redness of the oropharynx there is no exudates. SKIN: There is no skin rashes. There is no petechia or ecchymosis. There is no skin lesions. LUNGS: There is diminished air entry and prolonged expiration without any rhonchi rales or wheezing. HEART: S1-S2 is heard. There is no S3 gallop. There is no S4 gallop. S1 is of variable intensity. There is systolic murmur left sternal border and the apex there is no rub. ABDOMEN: Is obese. Nontender there is no paraspinal megaly. Bowel sounds are well heard. EXTREMITIES femorals are deep femorals are diminished. Leg pulses are diminished. There is a dressing in the right foot of an ulcer. There is no pedal edema. There is no DVT or cellulitis. Decubitus patient has a decubitus ulcer. REPORTING CONSULTANT: The patient is conscious awake alert oriented x3 with no focal deficits. PSYCHIATRIC: The patient judgment site are intact her affect is normal. Labs- All tests 24 hr 01/26/20 01/27/20 01/28/20 14:30 09:03 06:12 WBC 11.6 H RBC 3.18 L Hgb 9.0 L Hct 27.6 L MCV 87 MCH 28.3 MCHC 32.6 RDW 17.8 H Plt Count 164 Reticulocyte # 0.270 H Retic Count (auto) 8.48 H APTT Sodium Potassium Chloride Carbon Dioxide Anion Gap BUN Creatinine Est GFR ( Amer) Est GFR (MDRD) Non-Af Glucose POC Glucose Calcium Iron TIBC % Saturation Ferritin Total Bilirubin Direct Bilirubin Neonat Total Bilirubin Neonat Direct Bilirubin Neonat Indirect Bili AST ALT Alkaline Phosphatase Total Protein Albumin Vitamin B12 Folate Urine Color Urine Appearance Urine pH Ur Specific [place] Urine Protein Urine Glucose (UA) Urine Ketones Urine Blood Urine Nitrite Urine Bilirubin Urine Urobilinogen Ur Leukocyte Esterase Urine WBC (Auto) Urine RBC (Auto) Squamous Epi Cells Auto Uric Acid Cryst (Auto) Amorphous Sediment Auto Urine Mucus (Auto) Urine Yeast (Budding) Urine Ascorbic Acid COVID-19 ([facility]) Not Detected Hepatitis A IgM Ab Negative Hep Bs Antigen Negative Hep B Core IgM Ab Negative Hepatitis C Antibody 0.1 01/28/20 01/28/20 01/28/20 06:12 08:08 11:34 WBC RBC Hgb Hct MCV MCH MCHC RDW Plt Count Reticulocyte # Retic Count (auto) APTT Sodium 136.9 L Potassium 3.7 Chloride 97 L Carbon Dioxide 29 Anion Gap 11 BUN 50 H Creatinine 1.66 H Est GFR ( Amer) 37 L Est GFR (MDRD) Non-Af 31 L Glucose 297 H POC Glucose 274 H 299 H Calcium 8.8 Iron 43.6 TIBC 302 % Saturation 14 Ferritin 816.00 H Total Bilirubin 1.0 Direct Bilirubin 0.7 H Neonat Total Bilirubin Not Reportable Neonat Direct Bilirubin Not Reportable Neonat Indirect Bili Not Reportable AST 229 H ALT 314 H Alkaline Phosphatase 192 H Total Protein 7.1 Albumin 3.1 L Vitamin B12 > 1000.0 H Folate 9.91 Urine Color Urine Appearance Urine pH Ur Specific [place] Urine Protein Urine Glucose (UA) Urine Ketones Urine Blood Urine Nitrite Urine Bilirubin Urine Urobilinogen Ur Leukocyte Esterase Urine WBC (Auto) Urine RBC (Auto) Squamous Epi Cells Auto Uric Acid Cryst (Auto) Amorphous Sediment Auto Urine Mucus (Auto) Urine Yeast (Budding) Urine Ascorbic Acid COVID-19 ([facility]) Hepatitis A IgM Ab Hep Bs Antigen Hep B Core IgM Ab Hepatitis C Antibody 01/28/20 01/28/20 01/28/20 15:12 15:56 20:19 WBC RBC Hgb Hct MCV MCH MCHC RDW Plt Count Reticulocyte # Retic Count (auto) APTT 147.9 H* Sodium Potassium Chloride Carbon Dioxide Anion Gap BUN Creatinine Est GFR ( Amer) Est GFR (MDRD) Non-Af Glucose POC Glucose 235 H Calcium Iron TIBC % Saturation Ferritin Total Bilirubin Direct Bilirubin Neonat Total Bilirubin Neonat Direct Bilirubin Neonat Indirect Bili AST ALT Alkaline Phosphatase Total Protein Albumin Vitamin B12 Folate Urine Color YELLOW Urine Appearance CLOUDY Urine pH 6.0 Ur Specific [place] 1.014 Urine Protein 30 H Urine Glucose (UA) 50 H Urine Ketones NEGATIVE Urine Blood SMALL H Urine Nitrite NEGATIVE Urine Bilirubin NEGATIVE Urine Urobilinogen NEGATIVE Ur Leukocyte Esterase MODERATE H Urine WBC (Auto) 31 Urine RBC (Auto) 16 Squamous Epi Cells Auto <1 Uric Acid Cryst (Auto) FEW Amorphous Sediment Auto TRACE Urine Mucus (Auto) RARE Urine Yeast (Budding) PRESENT Urine Ascorbic Acid NEGATIVE COVID-19 ([facility]) Hepatitis A IgM Ab Hep Bs Antigen Hep B Core IgM Ab Hepatitis C Antibody 01/28/20 21:41 WBC RBC Hgb Hct MCV MCH MCHC RDW Plt Count Reticulocyte # Retic Count (auto) APTT Sodium Potassium Chloride Carbon Dioxide Anion Gap BUN Creatinine Est GFR ( Amer) Est GFR (MDRD) Non-Af Glucose POC Glucose 266 H Calcium Iron TIBC % Saturation Ferritin Total Bilirubin Direct Bilirubin Neonat Total Bilirubin Neonat Direct Bilirubin Neonat Indirect Bili AST ALT Alkaline Phosphatase Total Protein Albumin Vitamin B12 Folate Urine Color Urine Appearance Urine pH Ur Specific [place] Urine Protein Urine Glucose (UA) Urine Ketones Urine Blood Urine Nitrite Urine Bilirubin Urine Urobilinogen Ur Leukocyte Esterase Urine WBC (Auto) Urine RBC (Auto) Squamous Epi Cells Auto Uric Acid Cryst (Auto) Amorphous Sediment Auto Urine Mucus (Auto) Urine Yeast (Budding) Urine Ascorbic Acid COVID-19 ([facility]) Hepatitis A IgM Ab Hep Bs Antigen Hep B Core IgM Ab Hepatitis C Antibody Chest X-Ray 01/25/20 22:26 IMPRESSION: Cardiomegaly with mild volume loss in the right medial lung base. Overall lung volumes and aeration have improved. No acute process. Hip/Pelvis X-Ray 01/25/20 22:26 IMPRESSION: No acute fracture dislocation the pelvis and both hips. Knee X-Ray 01/25/20 22:26 IMPRESSION: No acute osseous anomaly. copyright 2010 [employer]- All Rights Reserved Abdomen Ultrasound 01/27/20 00:00 IMPRESSION: Cholelithiasis with thickening of gallbladder wall and small amount of pericholecystic fluid. Correlate for cholecystitis. The liver is slightly heterogeneous, but there is no sage fatty infiltration. Study is slightly limited. EKGARIAL-PACED COMPLEXES [MFVPC] . MULTIFORM VENTRICULAR PREMATURE COMPLEXES [NIVCD] . NONSPECIFIC INTRAVENTRICULAR CONDUCTION DELAY. Intermittent V paced rhythm. IMPRESSION/RECOMMENDATION: 1. Elevated troponin iron level. Most likely secondary to supply demand mismatch. This is secondary to patient's low blood pressure, cardiomyopathy, and acute on chronic renal failure. No definite evidence of non-ST elevation VT. 2. Coronary artery disease. History of coronary artery bypass graft surgery and history of old VT. No anginal symptoms. 3. Dilated cardiomyopathy with moderately reduced LV ejection fraction. LV ejection fraction by recent echo was 35%. No evidence of heart failure there is decompensated. . History of hypertension: Blood pressure is on the low side. But patient is not symptomatic from her blood pressure in the high 90s. 5. History of chronic atrial fibrillation: On Xarelto. Would recommend holding Xarelto for 48 hours prior to surgery. 6. Diabetes mellitus. Continue antidiabetic medication. 7. Oxygen dependent COPD continue current nasal O2 and anti-COPD medication. No evidence of acute exacerbation of COPD. 8. Hypothyroidism: Continue thyroid replacement. 9. History of AICD placement no firing of her AICD. 10. Acute on chronic kidney disease at present stage IV. Avoid nephrotoxic drugs. 11. History of spinal cord injury. 12. Decubitus ulcer for debridement. Right foot ulcer which is supposedly clean and not infected. 13. Preoperative cardiac risk assessment. 14. History of bed bedridden status due to spinal cord injury. . NOTE: Would place a magnet on the patient's AICD during the surgical procedure to prevent unexpected firing of the AICD. Medication reviewed. The patient's overall clinical status reviewed. The patient has multiple significant comorbidities. But at present seems to be clinically stable. Hence the patient will be at moderate risk for this debridement procedure. Postoperative continue to monitor patient and check serial EKGs and enzymes. Will follow.Medical decision making is of moderate complexity. 40 minutes spent with patient with more than 50% of time spent direct patient care.
[2020-01-29 03:54] LABS: HEMATOCRIT 28.3 % (36.0-47.0); HEMOGLOBIN 9.2 g/dL (12.0-15.5); MEAN CORPUSCULAR HEMOGLOBIN 27.8 pg (27.0-33.4); MEAN CORPUSCULAR HGB CONC 32.4 g/dL (32.0-36.0); MEAN CORPUSCULAR VOLUME 86 fl (80-97); PLATELET COUNT 155 10^3/uL (150-450); RED CELL DISTRIBUTION WIDTH 18.4 % (11.5-14.0)
[2020-01-29 04:37] LABS: ANION GAP 11 (5-19); BLOOD UREA NITROGEN 38 mg/dL (7-20); CALCIUM 8.8 mg/dL (8.4-10.2); CARBON DIOXIDE 29 mmol/L (22-30); CHLORIDE 96 mmol/L (98-107); GLUCOSE 247 mg/dL (75-110); POTASSIUM 3.2 mmol/L (3.6-5.0)
[2020-01-29] MEDS: LINEZOLID 600 MG/300 ML RTUPB IV SCH ×2 (05:46→17:36)
[2020-01-29] MEDS: FUROSEMIDE INJ/PF 20 MG/2 ML SDV IV SCH ×3 (05:46→21:20)
[2020-01-29] MEDS: LEVOTHYROXINE SODIUM 0.025 MG TABLET PO SCH (05:47)
[2020-01-29] MEDS ORDERED: LIDOCAINE 1% INJ-PF (10 MG/ML) 30 ML SDV ONE (07:32)
[2020-01-29] MEDS ORDERED: BUPIVACAINE HCL 0.25 % INJ/PF (2.5 MG/1 ML) 30 ML VIAL ONE (07:32)
[2020-01-29] MEDS ORDERED: LIDOCAINE 2% INJ-PF (20 MG/ML) 10 ML AMPUL ONE (07:39)
[2020-01-29] MEDS ORDERED: ONDANSETRON HCL INJ/PF 4 MG/2 ML SDV ONE (07:39)
[2020-01-29] MEDS ORDERED: PROPOFOL INJ 200 MG/20 ML VIAL IV ONE (07:39)
[2020-01-29] MEDS ORDERED: FENTANYL CITRATE INJ/PF 100 MCG/2 ML AMPUL ONE (07:39)
[2020-01-29] MEDS ORDERED: HYDROMORPHONE HCL INJ/PF 2 MG/ML AMPULE ONE (07:39)
[2020-01-29] MEDS: INSULIN LISPRO 100 UNIT/ML 3 ML VIAL SUBCUT SCH ×4 (08:47→21:26)
[2020-01-29] MEDS: POTASSI CL 20 MEQ/50 ML RIDER 20 MEQ/50 ML RTUPB IV SCH ×2 (08:48→13:24)
[2020-01-29] MEDS ORDERED: MIDAZOLAM 2 MG/2 ML INJ ONE (09:52)
[2020-01-29] MEDS ORDERED: DIPHENHYDRAMINE HCL 50 MG/ML VIAL IV PRN (10:44)
--- NOTE | 2020-01-29 10:55 | Operative Report ---
Operative Report DATE OF SURGERY: 01/29/20 PREOPERATIVE DIAGNOSIS: 1. Stage III sacral decutius necrotic tissue. 2. Obe sity. 3. Pharmacologic anticoagulation POSTOPERATIVE DIAGNOSIS: Same OPERATION: Excisional debridement of skin subcutaneous tissue of 6 x 6 x 2 cm s tage III deep sacral decubitus SURGEON: BILLY FLORES ANESTHESIA: LMAC TISSUE REMOVED OR ALTERED: Skin, subcutaneous tissue necrotic material COMPLICATIONS: None ESTIMATED BLOOD LOSS: Minimal INTRAOPERATIVE FINDINGS: See below PROCEDURE: Patient was taken to the main holding area to the operating room where LMAC anesthesia was induced. She was placed in the left lateral cubitus position. Buttock taped widely open and sacrum exposed. Is prepped and draped sterile fashion Surgical plan and surgical timeout were conducted. This was a stage III sacral decubitus approximately 6 cm in diameter in terms of the full-thickness component. The skin was anesthetized with 1% plain lidocaine. The 6 cm x 6 cm plug of necrotic full-thickness skin was excised with a #10 blade down to the subcutaneous tissue. The epithelium and partial dermis of the surrounding skin which was a stage I-II depth was shaved with the #10 blade. Wound irrigated and small bleeders controlled with electrocautery. There was approximately 1/2 to 1 cm undermining in a circumferential fashion around the perimeter of the excisionally debrided cavity. Patient had been on heparin which was stopped several hours prior to the operation. Wound irrigated again, packed with one-point five 4 x 4's, slightly moistened with saline gauzes, then Adaptic placed around the perimeter skin, then honeycomb dressing applied. Patient Toller procedure well Plan: 1. Dressing changes initiated as above on a daily basis 2. Pressure offloading by having patient lie in the left and right lateral decubitus positions. 3. Surgery will sign off; reconsult if clinically indicated
--- NOTE | 2020-01-29 12:27 | PDOC PROGRESS REPORT ---
Subjective Progress Note for:: 01/29/20 Subjective:: VANDANA COOL is a 69 year old female past medical history of atrial fibrillation, CHF, CAD, hyperlipidemia, hypertension, COPD on home oxygen, diabetes type 2, hypothyroidism, arthritis, CAD status post CABG and stent placement, who is paraplegic due to spinal cord injury, chronic indwelling Ruth catheter due to neurogenic bladder caused by spinal cord injury who was admitted 01/26/20 for acute kidney injury, hypotension, and decubitus ulcer. Patient was seen on morning rounds. She is found resting in bed, comfortably, on her baseline supplemental oxygen. She reports fatigue, but otherwise denies all complaints. Continues to avoid eye contact and speak in flat affect; per nursing she cries frequently. She denies fever, chills, chest pain, palpitations, dyspnea, abd pain, nausea and vomiting. She has no questions or concerns at this time. No concerns per nursing. Reason For Visit: DECUBITUS ULCER,UTI,HYPOTENSION,ACUTE CHF EXACERBA Physical Exam Vital Signs: Temp Pulse Resp BP Pulse Ox 98.0 F 68 14 150/79 H 99 01/29/20 11:17 01/29/20 11:17 01/29/20 11:17 01/29/20 11:17 01/29/20 11:17 Intake & Output 01/28/20 01/29/20 01/30/20 06:59 06:59 06:59 Intake Total 1032 1071 663 Output Total 8633 0130 420 Balance -1656 -1448 243 Weight 107.1 kg 109.6 kg General appearance: PRESENT: no acute distress, disheveled, morbidly obese, well-developed, well-nourished Head exam: PRESENT: atraumatic, normocephalic Eye exam: PRESENT: conjunctiva pink, EOMI, PERRLA. ABSENT: scleral icterus Mouth exam: PRESENT: moist, tongue midline Teeth exam: PRESENT: poor dentation Respiratory exam: PRESENT: clear to auscultation huy, symmetrical, unlabored, other - baseline oxygen. ABSENT: rales, rhonchi, wheezes Cardiovascular exam: PRESENT: RRR. ABSENT: diastolic murmur, rubs, systolic murmur Vascular exam: PRESENT: normal capillary refill Rectal exam: PRESENT: deferred Gentrourinary exam: PRESENT: indwelling catheter Extremities exam: PRESENT: full ROM, +1 edema - pitting BLE; improved. ABSENT: calf tenderness, clubbing, pedal edema Neurological exam: PRESENT: alert, awake, oriented to person, oriented to place, oriented to time, oriented to situation, CN II-XII grossly intact. ABSENT: motor sensory deficit Psychiatric exam: PRESENT: depressed, flat affect. ABSENT: homicidal ideation, suicidal ideation Skin exam: PRESENT: dry, warm, other - multiple skin wounds: partial thickness wound to dorsum Rt foot, multiple ~1 cm round shallow ulcerations to left pr etibial region (improved appearance), unstagable left heel, large unstagable decubitus sacral ulcer w/ surrounding erythema. ABSENT: cyanosis, rash Results Laboratory Results: 01/29/20 03:44 01/29/20 03:44 01/28/20 01/29/20 01/29/20 15:12 03:44 03:44 WBC 12.0 H RBC 3.30 L Hgb 9.2 L Hct 28.3 L MCV 86 MCH 27.8 MCHC 32.4 RDW 18.4 H Plt Count 155 Sodium 136.3 L Potassium 3.2 L Chloride 96 L Carbon Dioxide 29 Anion Gap 11 BUN 38 H Creatinine 1.42 H Est GFR ( Amer) 45 L Glucose 247 H Calcium 8.8 Urine Color YELLOW Urine Appearance CLOUDY Urine pH 6.0 Ur Specific [place] 1.014 Urine Protein 30 H Urine Glucose (UA) 50 H Urine Ketones NEGATIVE Urine Blood SMALL H Urine Nitrite NEGATIVE Ur Leukocyte Esterase MODERATE H Urine WBC (Auto) 31 Urine RBC (Auto) 16 01/26/20 01/26/20 01/26/20 00:30 06:52 06:52 Creatine Kinase 567 H Troponin I 0.219 NT-Pro-B Natriuret Pep 41904 H 01/26/20 11:14 Creatine Kinase Troponin I 0.190 NT-Pro-B Natriuret Pep Impressions: Chest X-Ray 01/25/20 22:26 IMPRESSION: Cardiomegaly with mild volume loss in the right medial lung base. Overall lung volumes and aeration have improved. No acute process. Hip/Pelvis X-Ray 01/25/20 22:26 IMPRESSION: No acute fracture dislocation the pelvis and both hips. Knee X-Ray 01/25/20 22:26 IMPRESSION: No acute osseous anomaly. copyright 2011 [employer]- All Rights Reserved Abdomen Ultrasound 01/27/20 00:00 IMPRESSION: Cholelithiasis with thickening of gallbladder wall and small amount of pericholecystic fluid. Correlate for cholecystitis. The liver is slightly heterogeneous, but there is no sage fatty infiltration. Study is slightly limited. Assessment and Plan - Diagnosis (1) WILLIS (acute kidney injury) Is this a current diagnosis for this admission?: Yes Plan: Improved; Cr 2.54-> 2.09-> 1.66-> 1.42 Normal renal function at baseline Likely prerenal, electrolytes WNL, cautious volume restriction guided volume status. Nephrology was consulted; appreciate Dr. Blackman's assistance. Optimize cardiac output. Avoid nephrotoxic medications as able. IV fluids held Furosemide 20 IV q8h per nephrology Daily weight, Strict I&Os Follow-up chemistry. (2) Decubitus ulcer Qualifiers: Pressure injury location: sacral region Pressure injury stage: stage 2 Qualified Code(s): L89.152 - Pressure ulcer of sacral region, stage 2 Is this a current diagnosis for this admission?: Yes Plan: Chronic stage III sacral decubitus ulcer s/p surgical debridement (01/29/20) Unstageable left heal wound Blood cultures negative at 72 hrs Surgical service is consulted; have signed off. Xarelto held; last dose >48 hrs ago On Heparing gtt for anticoagulation needs r/t a.fib during intraoperative period Wound care per surgery; advise wet-to-dry for sacral wound Turn/reposition every 2 hours. (3) Hypotension Qualifiers: Hypotension type: idiopathic hypotension Qualified Code(s): I95.0 - Idiopathic hypotension Is this a current diagnosis for this admission?: Yes Plan: Resolved As per patient baseline SBP is in the 90s. No sign of sepsis. Mild leukocytosis, lactic acid WNL. Continue midodrine. Continue treating underlying infectious process. Cardiology and Nephrology consulted. (4) Chronic atrial fibrillation Is this a current diagnosis for this admission?: Yes Plan: Chronic persistent atrial fibrillation, rate controlled. Monitor on telemetry Discussed w/ Dr. Cancino. Xarelto held; last dose >48 hrs ago On Heparing gtt for anticoagulation needs r/t a.fib during intraoperative period No s/p surgical debridement; plan to resume Xarelto tomorrow. Outpatient PCP and cardiology follow-up. (5) Troponin I above reference range Is this a current diagnosis for this admission?: Yes Plan: Trending down; 0.219-> 0.190; no longer following. Monitor on telemtry. Discussed w/ Dr. Cancino. Troponin elevation is likely 2/2 WILLIS. Cardiology is consulted. (6) UTI (urinary tract infection) Qualifiers: Urinary tract infection type: catheter-associated UTI Indwelling urinary catheter type: indwelling urethral catheter Is this a current diagnosis for this admission?: Yes Plan: Indwelling chronic Ruth catheter due to spinal cord injury. UA positive for leukocyte esterase. Blood culture negative Urine cultures shows enterobacter cloacae >100k colonies; sensitive to cefepime Have replaced Ruth cath. Meticulous Ruth care. Continue Cefepime; Day #3 (7) Morbid obesity with BMI of 40.0-44.9, adult Is this a current diagnosis for this admission?: Yes Plan: BMI 41.6 Bed-bound/wheelchair bound patient Incentive spirometer. Turn/reposition Wound care as mentioned above. Registered dietitian is consulted. (8) Diabetes Qualifiers: Diabetes mellitus type: type 2 Diabetes mellitus intermodal customer service insulin use: wi thout intermodal customer service use Is this a current diagnosis for this admission?: Yes Plan: A1c 7.2% Patient is placed on a consistent carb diet. Accu-Cheks before meals and at bedtime with Humalog for sliding scale coverage. Hypoglycemia protocol in place. Registered dietitian and medical educator consulted. (9) Cholelithiasis Qualifiers: Cholelithiasis location: gallbladder Is this a current diagnosis for this admission?: Yes Plan: Right upper quadrant ultrasound shows cholelithiasis with thickening of gallbladder wall and small amount of pericholecystic fluid; correlate for cholecystitis. Patient currently asymptomatic; denies abdominal pain, nausea and vomiting. Discussed findings with Dr. Vincent; no surgical intervention indicated. (10) Elevated LFTs Is this a current diagnosis for this admission?: Yes Plan: U/S findings as above. Hepatitis panel is negative. LFTs trending down Periodically follow up liver panel. (11) Depression Is this a current diagnosis for this admission?: Yes Plan: Lexapro Supportive care. - Time Time Spent with patient: 35 or more minutes Medications reviewed and adjusted accordingly: Yes Anticipated Discharge Disposition: [facility] Facility Anticipated Discharge Timeframe: within 72 hours
[2020-01-29] MEDS: ISOSORBIDE MONONITRATE 30 MG TAB.ER.24H PO SCH (12:32)
[2020-01-29] MEDS: ESCITALOPRAM OXALATE 10 MG TABLET PO SCH (12:32)
[2020-01-29] MEDS: FAMOTIDINE 20 MG TABLET PO SCH ×2 (12:32→21:21)
[2020-01-29] MEDS: ASPIRIN 81 MG TABLET, CHEWABLE PO SCH (12:32)
[2020-01-29] MEDS: METOPROLOL TARTRATE 25 MG TABLET PO SCH ×2 (12:32→21:21)
[2020-01-29] MEDS: MIDODRINE HCL 5 MG TABLET PO SCH ×3 (12:33→17:50)
[2020-01-29] MEDS: CEFEPIME 1 GM/D5W RTU 1 GM/50 ML RTUPB IV SCH ×2 (12:33→21:21)
[2020-01-29] MEDS: PRAMIPEXOLE DI-HCL 0.25 MG TABLET PO SCH (12:36)
[2020-01-29] MEDS: DOCUSATE SODIUM 100 MG CAPSULE PO SCH (12:52)
[2020-01-29] MEDS: HYDROCODONE/ACETAMINOPHEN 7.5-325 MG TABLET PO PRN (15:05)
--- NOTE | 2020-01-29 20:30 | Progress Note ---
Provider Note Provider Note: CARDIOLOGY PROGRESS NOTE by Dr. Delfina Oliveros on 01/29/2020. SUBJECTIVE: The patient underwent debridement of her sacral decubitus without any problems. She remained stable she has no anginal symptoms. There is no shortness of breath. There is no PND orthopnea. There is no leg edema. There is no arrhythmias seen on the monitor. There is no firing of AICD. PHYSICAL EXAMINATION: The patient morbidly obese. In no acute distress. Selected Entries 01/29/20 15:30 Temperature 97.8 F Temperature Oral Source Pulse Rate 63 Respiratory 20 Rate Blood Pressure 135/77 H Blood Pressure 96 Mean BP Location Left Arm BP Position Sitting O2 Sat by Pulse 100 Oximetry Oxygen Flow 3.00 Rate Oxygen Delivery Nasal Cannula Method HEAD: Is atraumatic normocephalic. EYES: Pupils equal round regular reactive light accommodation. Extraocular movements are normal. THERE IS NO CONJUNCTIVAL PALLOR. THERE IS NO SCLERAL ICTERUS. Ears: Tympanic membranes intact. External auditory canals are clear. NOSE: There is no deviated nasal septum. There is no inflammation of the nasal mucous membrane. MOUTH: There is no ulcers in the mouth. There is no bleeding from the gums. THROAT: There is no redness of the oropharynx there is no exudates. SKIN: There is no skin rashes. There is no petechia or ecchymosis. There is no skin lesions. LUNGS: There is diminished air entry and prolonged expiration without any rhonchi rales or wheezing. HEART: S1-S2 is heard. There is no S3 gallop. There is no S4 gallop. S1 is of variable intensity. There is systolic murmur left sternal border and the apex there is no rub. ABDOMEN: Is obese. Nontender there is no paraspinal megaly. Bowel sounds are well heard. EXTREMITIES femorals are deep femorals are diminished. Leg pulses are diminished. There is a dressing in the right foot of an ulcer. There is no pedal edema. There is no DVT or cellulitis. Decubitus patient has a decubitus ulcer. 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 PSYCHIATRIC: The patient judgment site are intact her affect is normal. Chest X-Ray 01/25/20 22:26 IMPRESSION: Cardiomegaly with mild volume loss in the right medial lung base. Overall lung volumes and aeration have improved. No acute process. Hip/Pelvis X-Ray 01/25/20 22:26 IMPRESSION: No acute fracture dislocation the pelvis and both hips. Knee X-Ray 01/25/20 22:26 IMPRESSION: No acute osseous anomaly. copyright 2010 [employer]- All Rights Reserved Abdomen Ultrasound 01/27/20 00:00 IMPRESSION: Cholelithiasis with thickening of gallbladder wall and small amount of pericholecystic fluid. Correlate for cholecystitis. The liver is slightly heterogeneous, but there is no sage fatty infiltration. Study is slightly limited. Labs- All tests 24 hr 01/29/20 01/29/20 01/29/20 03:44 03:44 03:44 WBC 12.0 H RBC 3.30 L Hgb 9.2 L Hct 28.3 L MCV 86 MCH 27.8 MCHC 32.4 RDW 18.4 H Plt Count 155 APTT 80.8 H Sodium 136.3 L Potassium 3.2 L Chloride 96 L Carbon Dioxide 29 Anion Gap 11 BUN 38 H Creatinine 1.42 H Est GFR ( Amer) 45 L Est GFR (MDRD) Non-Af 37 L Glucose 247 H POC Glucose Calcium 8.8 01/29/20 01/29/20 01/29/20 07:21 11:41 16:45 WBC RBC Hgb Hct MCV MCH MCHC RDW Plt Count APTT Sodium Potassium Chloride Carbon Dioxide Anion Gap BUN Creatinine Est GFR ( Amer) Est GFR (MDRD) Non-Af Glucose POC Glucose 275 H 218 H 183 H Calcium 01/29/20 21:13 WBC RBC Hgb Hct MCV MCH MCHC RDW Plt Count APTT Sodium Potassium Chloride Carbon Dioxide Anion Gap BUN Creatinine Est GFR ( Amer) Est GFR (MDRD) Non-Af Glucose POC Glucose 209 H Calcium IMPRESSION/RECOMMENDATION: 1. Elevated troponin iron level. Most likely secondary to supply demand mismatch. This is secondary to patient's low blood pressure, cardiomyopathy, and acute on chronic renal failure. No definite evidence of non-ST elevation GA. 2. Coronary artery disease. History of coronary artery bypass graft surgery and history of old GA. No anginal symptoms. 3. Dilated cardiomyopathy with moderately reduced LV ejection fraction. LV ejection fraction by recent echo was 35%. No evidence of heart failure there is decompensated. . History of hypertension: Blood pressure is on the low side. But patient is not symptomatic from her blood pressure in the high 90s. 5. History of chronic atrial fibrillation: On Xarelto. Would recommend holding Xarelto for 48 hours prior to surgery. 6. Diabetes mellitus. Continue antidiabetic medication. 7. Oxygen dependent COPD continue current nasal O2 and anti-COPD medication. No evidence of acute exacerbation of COPD. 8. Hypothyroidism: Continue thyroid replacement. 9. History of AICD placement no firing of her AICD. 10. Acute on chronic kidney disease at present stage IV. Avoid nephrotoxic drugs. 11. History of spinal cord injury. 12. Decubitus ulcer : Status post debridement.. Patient cardiac status is stable. Would recommend restarting the patient's Xarelto. Medical decision making is a moderate complexity. 40 minutes spent as patient more than 50% of time spent in direct patient care. We will sign off the case. The patient can follow-up with Dr. Guo as an outpatient.
[2020-01-29] MEDS: ATORVASTATIN CALCIUM 40 MG TABLET PO SCH (21:21)
[2020-01-30] MEDS: LEVOTHYROXINE SODIUM 0.025 MG TABLET PO SCH (05:19)
[2020-01-30] MEDS: FUROSEMIDE INJ/PF 20 MG/2 ML SDV IV SCH (05:19)
[2020-01-30] MEDS: LINEZOLID 600 MG/300 ML RTUPB IV SCH (05:19)
[2020-01-30 05:40] LABS: HEMATOCRIT 29.5 % (36.0-47.0); HEMOGLOBIN 9.8 g/dL (12.0-15.5); MEAN CORPUSCULAR HEMOGLOBIN 28.1 pg (27.0-33.4); MEAN CORPUSCULAR VOLUME 85 fl (80-97); PLATELET COUNT 130 10^3/uL (150-450); RED BLOOD COUNT 3.47 10^6/uL (3.72-5.28); RED CELL DISTRIBUTION WIDTH 19.1 % (11.5-14.0); WHITE BLOOD COUNT 10.6 10^3/uL (4.0-10.5)
[2020-01-30 06:27] LABS: ANION GAP 10 (5-19); BLOOD UREA NITROGEN 28 mg/dL (7-20); CALCIUM 9.1 mg/dL (8.4-10.2); CARBON DIOXIDE 36 mmol/L (22-30); CHLORIDE 91 mmol/L (98-107); GLUCOSE 178 mg/dL (75-110); POTASSIUM 3.1 mmol/L (3.6-5.0)
[2020-01-30] MEDS: ESCITALOPRAM OXALATE 10 MG TABLET PO SCH (09:23)
[2020-01-30] MEDS: FAMOTIDINE 20 MG TABLET PO SCH ×2 (09:23→22:13)
[2020-01-30] MEDS: METOPROLOL TARTRATE 25 MG TABLET PO SCH ×2 (09:23→22:13)
[2020-01-30] MEDS: DOCUSATE SODIUM 100 MG CAPSULE PO SCH (09:23)
[2020-01-30] MEDS: ISOSORBIDE MONONITRATE 30 MG TAB.ER.24H PO SCH (09:23)
[2020-01-30] MEDS: MIDODRINE HCL 5 MG TABLET PO SCH ×3 (09:23→17:56)
[2020-01-30] MEDS: ASPIRIN 81 MG TABLET, CHEWABLE PO SCH (09:23)
[2020-01-30] MEDS: CEFEPIME 1 GM/D5W RTU 1 GM/50 ML RTUPB IV SCH (09:24)
[2020-01-30] MEDS: INSULIN LISPRO 100 UNIT/ML 3 ML VIAL SUBCUT SCH ×4 (09:24→22:12)
[2020-01-30] MEDS ORDERED: LORAZEPAM INJ 2 MG/1 ML VIAL ONE (09:45)
[2020-01-30] MEDS: PRAMIPEXOLE DI-HCL 0.25 MG TABLET PO SCH (09:54)
[2020-01-30] MEDS: HYDROCODONE/ACETAMINOPHEN 7.5-325 MG TABLET PO PRN (10:14)
--- NOTE | 2020-01-30 11:46 | PDOC PROGRESS REPORT ---
Subjective Progress Note for:: 01/30/20 Subjective:: Patient states today that she just does not feel well. She denies any shortness of breath or chest pains. She constantly complains of generalized pain. She has been passing an excellent amount of urine output when I initiated her on Lasix last Thursday. Over the weekend she made anywhere between 3 to 7 L daily of urine output. She had surgical debridement of her decubitus ulcer yesterday. Reason For Visit: DECUBITUS ULCER,UTI,HYPOTENSION,ACUTE CHF EXACERBA Physical Exam Vital Signs: Temp Pulse Resp BP Pulse Ox 97.8 F 77 18 132/64 H 90 L 01/30/20 07:47 01/30/20 07:00 01/30/20 03:41 01/30/20 03:41 01/30/20 10:30 Intake & Output 01/29/20 01/30/20 01/31/20 06:59 06:59 06:59 Intake Total 0289 8603 50 Output Total 6029 5802 [facility] -[id number] -[id number] 50 Weight 109.6 kg 108.4 kg Exam: General appearance: PRESENT: no acute distress, cooperative, well-developed, well-nourished Head exam: PRESENT: atraumatic, normocephalic Eye exam: PRESENT: conjunctiva pale, PERRLA. ABSENT: scleral icterus Neck exam: ABSENT: JVD Respiratory exam: PRESENT: Diminished breath sounds. ABSENT: crackles, rales, rhonchi, unlabored, wheezes Cardiovascular exam: PRESENT: Regular rate rhythm -+S1, +S2. ABSENT: diastolic murmur, systolic murmur GI/Abdominal exam: PRESENT: normal bowel sounds, soft. Obese ABSENT: guarding, mass, tenderness Extremities exam: Much improved grade 1 bilateral lower extremity pitting edema; right foot ulcer appears to be clean without any drainage Neurological exam: PRESENT: alert, awake, oriented to person, place and time. Skin exam: PRESENT: dry, warm, Results Laboratory Results: 01/30/20 05:01 01/30/20 05:01 01/30/20 01/30/20 05:01 05:01 WBC 10.6 H RBC 3.47 L Hgb 9.8 L Hct 29.5 L MCV 85 MCH 28.1 MCHC 33.0 RDW 19.1 H Plt Count 130 L Sodium 136.6 L Potassium 3.1 L Chloride 91 L Carbon Dioxide 36 H Anion Gap 10 BUN 28 H Creatinine 1.14 Est GFR ( Amer) 58 L Glucose 178 H Calcium 9.1 01/26/20 01/26/20 01/26/20 00:30 06:52 06:52 Creatine Kinase 567 H Troponin I 0.219 NT-Pro-B Natriuret Pep 86011 H 01/26/20 11:14 Creatine Kinase Troponin I 0.190 NT-Pro-B Natriuret Pep Impressions: Chest X-Ray 01/25/20 22:26 IMPRESSION: Cardiomegaly with mild volume loss in the right medial lung base. Overall lung volumes and aeration have improved. No acute process. Hip/Pelvis X-Ray 01/25/20 22:26 IMPRESSION: No acute fracture dislocation the pelvis and both hips. Knee X-Ray 01/25/20 22: IMPRESSION: No acute osseous anomaly. copyright 2011 [employer]- All Rights Reserved Abdomen Ultrasound 01/27/20 00:00 IMPRESSION: Cholelithiasis with thickening of gallbladder wall and small amount of pericholecystic fluid. Correlate for cholecystitis. The liver is slightly heterogeneous, but there is no sage fatty infiltration. Study is slightly limited. Assessment & Plan - Diagnosis (1) WILLIS (acute kidney injury) Is this a current diagnosis for this admission?: Yes Plan: Patient is nonoliguric. Baseline creatinine was 0.65 in December 2019. Acute worsening of kidney function is most likely secondary to prerenal factors including hypotension, NSAID use and cardiorenal syndrome. Patient has minimal positive response to IV fluid hydration of 3 L since admission. Clinically the patient appears to actually be hypervolemic. Kidney function now much improved with creatinine of 1.14 today with excellent response to furosemide 20 mg IV every 8 hours for the last 72 hours. I would decrease her furosemide dose to 20 mg IV daily at this point. She may need to go home with a maintenance Lasix orally. Continue to monitor kidney function. Advised the patient avoid NSAIDs. Patient does not need any renal replacement therapy currently. Avoid nephrotoxic medications. I expect the patient's kidney function to continue to improve. I will sign off at this time. Please do not hesitate to call if I can be of further help. (2) Decubitus ulcer Qualifiers: Pressure injury location: sacral region Pressure injury stage: stage 2 Qualified Code(s): L89.152 - Pressure ulcer of sacral region, stage 2 Is this a current diagnosis for this admission?: Yes Plan: Status post surgical debridement, 01/28. (3) UTI (urinary tract infection) Qualifiers: Urinary tract infection type: catheter-associated UTI Indwelling urinary catheter type: indwelling urethral catheter Is this a current diagnosis for this admission?: Yes Plan: Positive for Enterobacter Cloacae. On oral cefpodoxime. (4) Hypotension Qualifiers: Hypotension type: idiopathic hypotension Qualified Code(s): I95.0 - Idi opathic hypotension Is this a current diagnosis for this admission?: Yes Plan: Possibly due to cardiomyopathy. Patient started on midodrine. Stable. (5) Anemia Is this a current diagnosis for this admission?: Yes Plan: Hemoglobin improved. Iron is 43.6, T sat 14 and ferritin 816 secondary to acute infection. Stool for occult blood not collected yet. (6) Hypokalemia Is this a current diagnosis for this admission?: Yes Plan: Replete as necessary. (7) Hyponatremia Is this a current diagnosis for this admission?: Yes Plan: Secondary to hypervolemic state. Improved. (8) Chronic systolic (congestive) heart failure Is this a current diagnosis for this admission?: Yes Plan: Patient with LVEF of 35% last November 2019. Clinically improved. Lasix be decreased to 20 mg IV daily today. (9) Cholelithiasis Qualifiers: Cholelithiasis location: gallbladder Is this a current diagnosis for this admission?: Yes Plan: Associated with elevated liver enzymes. Currently asymptomatic. (10) Chronic atrial fibrillation Is this a current diagnosis for this admission?: Yes - Time Time with patient: 15-25 minutes
[2020-01-30] MEDS: POTASSI CL 20 MEQ/50 ML RIDER 20 MEQ/50 ML RTUPB IV SCH ×2 (12:24→14:44)
--- NOTE | 2020-01-30 15:46 | PDOC PROGRESS REPORT ---
Subjective Progress Note for:: 01/30/20 Subjective:: VANDANA COOL is a 69 year old female past medical history of atrial fibrillation, CHF, CAD, hyperlipidemia, hypertension, COPD on home oxygen, diabetes type 2, hypothyroidism, arthritis, CAD status post CABG and stent placement, who is paraplegic due to spinal cord injury, chronic indwelling Ruth catheter due to neurogenic bladder caused by spinal cord injury who was admitted 01/26/20 for acute kidney injury, hypotension, and decubitus ulcer. Patient was seen on morning rounds. She is found resting in bed, comfortably, on her baseline supplemental oxygen. She reports fatigue, and "pain everywhere." She does not describe her pain further despite multiple attempts to clarify/quantify. Later in our conversation, she does say, "I just ache, I hate this bed." Otherwise, she is very tearful; initially did not make eye contact and would intermittently not answer questions. She did become engaged in conversation for a short period when prompted to tell me what she thinks of the president (determined through this conversation that she is orientated to self, time, and situation; previously had not answered my questions and turned her head away from me). She appears to be very depressed. She denies fever, chest pain, dyspnea, abd pain, and nausea. Poor appetite; ate ~25% of her meal. She has no questions or concerns at this time. No concerns per nursing. Reason For Visit: DECUBITUS ULCER,UTI,HYPOTENSION,ACUTE CHF EXACERBA Physical Exam Vital Signs: Temp Pulse Resp BP Pulse Ox 97.8 F 77 18 132/64 H 90 L 01/30/20 07:47 01/30/20 07:00 01/30/20 03:41 01/30/20 03:41 01/30/20 10:30 Intake & Output 01/29/20 01/30/20 01/31/20 06:59 06:59 06:59 Intake Total 1466 0703 50 Output Total 6689 5109 [facility] -[id number] -[id number] 50 Weight 109.6 kg 108.4 kg General appearance: PRESENT: no acute distress, disheveled, morbidly obese, well-developed, well-nourished Head exam: PRESENT: atraumatic, normocephalic Eye exam: PRESENT: conjunctiva pink, EOMI, PERRLA. ABSENT: scleral icterus Mouth exam: PRESENT: moist, tongue midline Teeth exam: PRESENT: poor dentation Respiratory exam: PRESENT: clear to auscultation huy, symmetrical, unlabored, other. ABSENT: rales, rhonchi, wheezes Cardiovascular exam: PRESENT: RRR. ABSENT: diastolic murmur, rubs, systolic murmur Vascular exam: PRESENT: normal capillary refill Rectal exam: PRESENT: deferred Gentrourinary exam: PRESENT: indwelling catheter - chronic Extremities exam: PRESENT: full ROM. ABSENT: calf tenderness, clubbing, pedal edema Neurological exam: PRESENT: alert, awake, oriented to person, oriented to place, oriented to time, oriented to situation, CN II-XII grossly intact. ABSENT: motor sensory deficit Psychiatric exam: PRESENT: depressed, flat affect. ABSENT: homicidal ideation, suicidal ideation Skin exam: PRESENT: dry, warm, other - multiple skin wounds: partial thickness wound to dorsum Rt foot w/ maceration, multiple ~1 cm round shallow ulcerations to left pretibial region (improved appearance), Stage III (POA) left heel, stage III (POA) decubitus sacral ulcer. ABSENT: cyanosis, rash Results Laboratory Results: 01/30/20 05:01 01/30/20 05:01 01/30/20 01/30/20 05:01 05:01 WBC 10.6 H RBC 3.47 L Hgb 9.8 L Hct 29.5 L MCV 85 MCH 28.1 MCHC 33.0 RDW 19.1 H Plt Count 130 L Sodium 136.6 L Potassium 3.1 L Chloride 91 L Carbon Dioxide 36 H Anion Gap 10 BUN 28 H Creatinine 1.14 Est GFR ( Amer) 58 L Glucose 178 H Calcium 9.1 01/26/20 01/26/20 01/26/20 00:30 06:52 06:52 Creatine Kinase 567 H Troponin I 0.219 NT-Pro-B Natriuret Pep 17379 H 01/26/20 11:14 Creatine Kinase Troponin I 0.190 NT-Pro-B Natriuret Pep Impressions: Chest X-Ray 01/25/20 22:26 IMPRESSION: Cardiomegaly with mild volume loss in the right medial lung base. Overall lung volumes and aeration have improved. No acute process. Hip/Pelvis X-Ray 09/23/20 22:26 IMPRESSION: No acute fracture dislocation the pelvis and both hips. Knee X-Ray 01/25/20 22:26 IMPRESSION: No acute osseous anomaly. copyright 2011 [employer]- All Rights Reserved Abdomen Ultrasound 01/27/20 00:00 IMPRESSION: Cholelithiasis with thickening of gallbladder wall and small amount of pericholecystic fluid. Correlate for cholecystitis. The liver is slightly heterogeneous, but there is no sage fatty infiltration. Study is slightly limited. Assessment and Plan - Diagnosis (1) WILLIS (acute kidney injury) Is this a current diagnosis for this admission?: Yes Plan: Resolved; Cr 2.54-> 2.09-> 1.66-> 1.42-> 1.14 Normal renal function at baseline Likely prerenal, electrolytes WNL, cautious volume restriction guided volume status. Nephrology was consulted; appreciate Dr. Blackman's assistance. Have signed off. Optimize cardiac output. Avoid nephrotoxic medications as able. IV fluids held Furosemide decreased to 20 IV daily. Daily weight, Strict I&Os Follow-up chemistry. (2) Decubitus ulcer Qualifiers: Pressure injury location: sacral region Pressure injury stage: stage 2 Qualified Code(s): L89.152 - Pressure ulcer of sacral region, stage 2 Is this a current diagnosis for this admission?: Yes Plan: Chronic stage III sacral decubitus ulcer s/p surgical debridement (01/29/20) Unstageable left heal wound Blood cultures negative at 4 days. Surgical service is consulted; have signed off. Wound care per surgery; advise wet-to-dry for sacral wound Turn/reposition every 2 hours. Transition to oral abx; Cefpodoxime and Zyvoxx to complete course of therapy. (3) Hypotension Qualifiers: Hypotension type: idiopathic hypotension Qualified Code(s): I95.0 - Idiopathic hypotension Is this a current diagnosis for this admission?: Yes Plan: Resolved Mild leukocytosis, lactic acid WNL. Continue midodrine. Continue treating underlying infectious process. Cardiology and Nephrology consulted. (4) Chronic atrial fibrillation Is this a current diagnosis for this admission?: Yes Plan: Chronic persistent atrial fibrillation, rate controlled. Discontinue telemetry today. Discussed w/ Dr. Cancino. Have resumed Xarelto. Outpatient PCP and cardiology follow-up. (5) Troponin I above reference range Is this a current diagnosis for this admission?: Yes Plan: Trending down; 0.219-> 0.190; no longer following. Monitor on telemtry. Discussed w/ Dr. Cancino. Troponin elevation is likely 2/2 WILLIS. Cardiology is consulted. (6) UTI (urinary tract infection) Qualifiers: Urinary tract infection type: catheter-associated UTI Indwelling urinary catheter type: indwelling urethral catheter Is this a current diagnosis for this admission?: Yes Plan: Indwelling chronic Ruth catheter due to spinal cord injury. UA positive for leukocyte esterase. Blood culture negative Urine cultures shows enterobacter cloacae >100k colonies; sensitive to cefepime Have replaced Ruth cath. Meticulous Ruth care. Transition to oral abx; Cefpodoxime to complete course of therapy. (7) Morbid obesity with BMI of 40.0-44.9, adult Is this a current diagnosis for this admission?: Yes Plan: BMI 41.6 Bed-bound/wheelchair bound patient Incentive spirometer. Turn/reposition Wound care as mentioned above. Registered dietitian is consulted. (8) Diabetes Qualifiers: Diabetes mellitus type: type 2 Diabetes mellitus care home insulin use: without intermodal dispatcher use Is this a current diagnosis for this admission?: Yes Plan: A1c 7.2% Patient is placed on a consistent carb diet. Accu-Cheks before meals and at bedtime with Humalog for sliding scale coverage. Hypoglycemia protocol in place. Registered dietitian and tobacco prevention health educator consulted. (9) Cholelithiasis Qualifiers: Cholelithiasis location: gallbladder Is this a current diagnosis for this admission?: Yes Plan: Right upper quadrant ultrasound shows cholelithiasis with thickening of gallbladder wall and small amount of pericholecystic fluid; correlate for cholecystitis. Patient currently asymptomatic; denies abdominal pain, nausea and vomiting. Discussed findings with Dr. Vincent; no surgical intervention indicated. (10) Elevated LFTs Is this a current diagnosis for this admission?: Yes Plan: U/S findings as above. Hepatitis panel is negative. LFTs trending down Periodically follow up liver panel. (11) Depression Is this a current diagnosis for this admission?: Yes Plan: Lexapro Supportive care. - Time Time Spent with patient: 25-34 minutes Medications reviewed and adjusted accordingly: Yes Anticipated Discharge Disposition: Alf Facility Anticipated Discharge Timeframe: when bed available
[2020-01-30] MEDS: RIVAROXABAN 10 MG TABLET PO SCH (17:56)
[2020-01-30] MEDS: ATORVASTATIN CALCIUM 40 MG TABLET PO SCH (22:13)
[2020-01-30] MEDS: LINEZOLID 600 MG TABLET PO SCH (22:13)
[2020-01-30] MEDS: CEFPODOXIME 200 MG TABLET PO SCH (22:13)
[2020-01-31] MEDS: HYDROCODONE/ACETAMINOPHEN 7.5-325 MG TABLET PO PRN ×2 (03:31→23:50)
[2020-01-31] MEDS: LEVOTHYROXINE SODIUM 0.025 MG TABLET PO SCH (06:04)
[2020-01-31 06:38] LABS: HEMATOCRIT 28.7 % (36.0-47.0); HEMOGLOBIN 9.6 g/dL (12.0-15.5); MEAN CORPUSCULAR HEMOGLOBIN 28.5 pg (27.0-33.4); MEAN CORPUSCULAR HGB CONC 33.6 g/dL (32.0-36.0); MEAN CORPUSCULAR VOLUME 85 fl (80-97); PLATELET COUNT 100 10^3/uL (150-450); RED BLOOD COUNT 3.38 10^6/uL (3.72-5.28); RED CELL DISTRIBUTION WIDTH 19.6 % (11.5-14.0); WHITE BLOOD COUNT 9.3 10^3/uL (4.0-10.5)
[2020-01-31 06:59] LABS: ANION GAP 6 (5-19); BLOOD UREA NITROGEN 20 mg/dL (7-20); CALCIUM 8.8 mg/dL (8.4-10.2); CARBON DIOXIDE 38 mmol/L (22-30); CHLORIDE 92 mmol/L (98-107); GLUCOSE 138 mg/dL (75-110)
[2020-01-31] MEDS: ASPIRIN 81 MG TABLET, CHEWABLE PO SCH (09:29)
[2020-01-31] MEDS: FAMOTIDINE 20 MG TABLET PO SCH ×2 (09:29→21:24)
[2020-01-31] MEDS: DOCUSATE SODIUM 100 MG CAPSULE PO SCH (09:29)
[2020-01-31] MEDS: MIDODRINE HCL 5 MG TABLET PO SCH ×3 (09:29→17:40)
[2020-01-31] MEDS: ISOSORBIDE MONONITRATE 30 MG TAB.ER.24H PO SCH (09:29)
[2020-01-31] MEDS: METOPROLOL TARTRATE 25 MG TABLET PO SCH ×2 (09:29→21:24)
[2020-01-31] MEDS: ESCITALOPRAM OXALATE 10 MG TABLET PO SCH (09:32)
[2020-01-31] MEDS: FUROSEMIDE INJ/PF 20 MG/2 ML SDV IV SCH (09:34)
[2020-01-31] MEDS: PRAMIPEXOLE DI-HCL 0.25 MG TABLET PO SCH (09:35)
[2020-01-31] MEDS: CEFPODOXIME 200 MG TABLET PO SCH ×2 (09:35→21:43)
[2020-01-31] MEDS: LINEZOLID 600 MG TABLET PO SCH ×2 (09:35→21:42)
[2020-01-31] MEDS: POTASSI CL 20 MEQ/50 ML RIDER 20 MEQ/50 ML RTUPB IV SCH ×4 (09:48→17:40)
[2020-01-31] MEDS: INSULIN LISPRO 100 UNIT/ML 3 ML VIAL SUBCUT SCH ×4 (11:31→21:23)
[2020-01-31] MEDS: RIVAROXABAN 10 MG TABLET PO SCH (17:40)
--- NOTE | 2020-01-31 18:11 | PDOC PROGRESS REPORT ---
Subjective Progress Note for:: 01/31/20 Subjective:: VANDANA COOL is a 69 year old female past medical history of atrial fibrillation, CHF, CAD, hyperlipidemia, hypertension, COPD on home oxygen, diabetes type 2, hypothyroidism, arthritis, CAD status post CABG and stent placement, who is paraplegic due to spinal cord injury, chronic indwelling Zambrano catheter due to neurogenic bladder caused by spinal cord injury, presenting to ED after a fall out of the bed. Patient is stating that when she was transferring herself from wheelchair to her bed he fell on her right knee and to the ground, patient does not lose any consciousness, did not have any head trauma, and is nonambulatory at baseline due to spinal cord injury, patient has bilateral lower extremity stasis dermatitis and worsening large sacral wound. Patient is also has soft BPs at baseline. Patient denies any fever, chills, nausea, vomiting, abdominal pain, chest pain, shortness of breath. In ED was noted to have mild leukocytosis, elevated creatinine, elevated proBNP, positive leukocyte esterase on UA with normal lactic acid. Hospitalist c onsulted for further management. 01/31/20. Care assumed today. She was minimally verbal, opens eyes when called but does not really speak, would intermittently follow command. Per review of previous provider's note, her mental status fluctuates that sometimes she would speak and other times not. She is currently being treated for stage III decubitus ulcer debrided 01/29/20. She has since been transitioned to cefpodoxime and zyvox. Xarelto resumed for atrial fibrillation, cardio following. WILLIS res olved, nephro following. Also being treated for UTI, she has a chronic zambrano. Plan is to send her to SNF for wound care. Daughter wants to take her back to [place]. Reason For Visit: DECUBITUS ULCER,UTI,HYPOTENSION,ACUTE CHF EXACERBA Physical Exam Vital Signs: Temp Pulse Resp BP Pulse Ox 97.9 F 77 19 120/67 95 01/31/20 15:34 01/31/20 15:34 01/31/20 15:34 01/31/20 15:34 01/31/20 15:34 Intake & Output 01/30/20 01/31/20 02/01/20 06:59 06:59 06:59 Intake Total 1683 150 150 Output Total 7070 8060 480 Balance -5348 -2000 -330 Weight 108.4 kg 108.4 kg General appearance: PRESENT: no acute distress Head exam: PRESENT: atraumatic, normocephalic Eye exam: PRESENT: EOMI, PERRLA Mouth exam: PRESENT: moist Neck exam: PRESENT: full ROM Respiratory exam: PRESENT: clear to auscultation huy, symmetrical, unlabored. A BSENT: rales Cardiovascular exam: PRESENT: irregular rhythm, +S1, +S2. ABSENT: systolic murmur Pulses: PRESENT: normal radial pulses GI/Abdominal exam: PRESENT: normal bowel sounds, soft. ABSENT: rebound, tenderness Gentrourinary exam: PRESENT: indwelling catheter Extremities exam: PRESENT: other - paraplegic from a spinal cord injury Musculoskeletal exam: PRESENT: other - non ambulatory Neurological exam: PRESENT: alert, awake, other - was not following command Results Laboratory Results: 01/31/20 05:50 01/31/20 05:50 01/31/20 01/31/20 01/31/20 05:50 05:50 05:50 WBC 9.3 RBC 3.38 L Hgb 9.6 L Hct 28.7 L MCV 85 MCH 28.5 MCHC 33.6 RDW 19.6 H Plt Count 100 L Sodium 136.3 L Potassium 3.0 L* Chloride 92 L Carbon Dioxide 38 H Anion Gap 6 BUN 20 Creatinine 0.97 Est GFR ( Amer) > 60 Glucose 138 H Calcium 8.8 Magnesium 1.2 L* 01/26/20 01:17 Blood Blood Culture - Final NO GROWTH IN 5 DAYS 01/26/20 00:30 Blood Blood Culture - Final NO GROWTH IN 5 DAYS 01/26/20 01/26/20 01/26/20 00:30 06:52 06:52 Creatine Kinase 567 H Troponin I 0.219 NT-Pro-B Natriuret Pep 83329 H 01/26/20 11:14 Creatine Kinase Troponin I 0.190 NT-Pro-B Natriuret Pep Impressions: Chest X-Ray 01/25/20 22:26 IMPRESSION: Cardiomegaly with mild volume loss in the right medial lung base. Overall lung volumes and aeration have improved. No acute process. Hip/Pelvis X-Ray 01/25/20 22:26 IMPRESSION: No acute fracture dislocation the pelvis and both hips. Knee X-Ray 01/25/20 22:26 IMPRESSION: No acute osseous anomaly. copyright 2010 [employer]- All Rights Reserved Abdomen Ultrasound 01/27/20 00:00 IMPRESSION: Cholelithiasis with thickening of gallbladder wall and small amount of pericholecystic fluid. Correlate for cholecystitis. The liver is slightly heterogeneous, but there is no sage fatty infiltration. Study is slightly limited. Assessment and Plan - Diagnosis (1) Decubitus ulcer Qualifiers: Pressure injury location: sacral region Pressure injury stage: stage 2 Qualified Code(s): L89.152 - Pressure ulcer of sacral region, stage 2 Is this a current diagnosis for this admission?: Yes Plan: Chronic stage III sacral decubitus ulcer s/p surgical debridement (01/29/20) Unstageable left heal wound Blood cultures negative at 4 days. Surgical service is consulted; have signed off. Wound care per surgery; advise wet-to-dry for sacral wound Turn/reposition every 2 hours. Transition to oral abx; Cefpodoxime and Zyvoxx to complete course of therapy. (2) WILLIS (acute kidney injury) Is this a current diagnosis for this admission?: Yes Plan: Resolved; Cr 2.54-> 2.09-> 1.66-> 1.42-> 1.14 Normal renal function at baseline Likely prerenal, electrolytes WNL, cautious volume restriction guided volume status. Nephrology was consulted; appreciate Dr. Blackman's assistance. Have signed off. Optimize cardiac output. Avoid nephrotoxic medications as able. IV fluids held Furosemide decreased to 20 IV daily. Daily weight, Strict I&Os Follow-up chemistry. (3) Hypotension Qualifiers: Hypotension type: idiopathic hypotension Qualified Code(s): I95.0 - Idiopathic hypotension Is this a current diagnosis for this admission?: Yes Plan: Resolved Mild leukocytosis, lactic acid WNL. Continue midodrine. Continue treating underlying infectious process. Cardiology and Nephrology consulted. (4) Chronic atrial fibrillation Is this a current diagnosis for this admission?: Yes Plan: Chronic persistent atrial fibrillation, rate controlled. Discontinue telemetry today. Discussed w/ Dr. Cancino. Have resumed Xarelto. Outpatient PCP and cardiology follow-up. (5) UTI (urinary tract infection) Qualifiers: Urinary tract infection type: catheter-associated UTI Indwelling urinary catheter type: indwelling urethral catheter Is this a current diagnosis for this admission?: Yes Plan: Indwelling chronic Zambrano catheter due to spinal cord injury. UA positive for leukocyte esterase. Blood culture negative Urine cultures shows enterobacter cloacae >100k colonies; sensitive to cefepime Have replaced Zambrano cath. Meticulous Zambrano care. Transition to oral abx; Cefpodoxime to complete course of therapy. (6) Troponin I above reference range Is this a current diagnosis for this admission?: Yes Plan: Trending down; 0.219-> 0.190; no longer following. Monitor on telemtry. Discussed w/ Dr. Cancino. Troponin elevation is likely 2/2 WILLIS. Cardiology is consulted. (7) Acute encephalopathy Is this a current diagnosis for this admission?: Yes Plan: - patient minimally verbal, does not answer questions - left sided weakness? - stroke, psych or metabolic cause - CT head ordered - electrolytes replaced. BG normal - on effexor (8) Hypokalemia Is this a current diagnosis for this admission?: Yes Plan: - K 3.0 replaced - continue to monitor (9) Hypomagnesemia Is this a current diagnosis for this admission?: Yes Plan: - Mg 1.2 - replaced via IV - will monitor - Time Time Spent with patient: 25-34 minutes Anticipated Discharge Disposition: [facility] Anticipated Discharge Timeframe: to be determined
[2020-01-31] MEDS: MAGNESIUM SULFATE/D5W 1 GM/100 ML RTUPB IV SCH ×5 (20:19→22:26)
[2020-01-31] MEDS: ATORVASTATIN CALCIUM 40 MG TABLET PO SCH (21:24)
[2020-02-01] MEDS: LORAZEPAM INJ 2 MG/1 ML VIAL IV PRN (01:28)
[2020-02-01] MEDS: LEVOTHYROXINE SODIUM 0.025 MG TABLET PO SCH (05:44)
[2020-02-01] MEDS ORDERED: MORPHINE SULFATE 10 MG/ML INJ IV PRN (05:54)
[2020-02-01 07:56] LABS: ABSOLUTE EOSINOPHILS # (AUTO) 0.2 10^3/uL (0.0-0.6); ABSOLUTE LYMPHOCYTES (AUTO) 1.6 10^3/uL (0.5-4.7); ABSOLUTE MONOCYTES (AUTO) 0.7 10^3/uL (0.1-1.4); ABSOLUTE NEUT (AUTO) 10.1 10^3/uL (1.7-8.2); BASOPHILS % (AUTO) 0.3 % (0-2); EOSINOPHILS % (AUTO) 1.6 % (0-6); HEMATOCRIT 28.6 % (36.0-47.0); HEMOGLOBIN 9.5 g/dL (12.0-15.5); LYMPHOCYTES % (AUTO) 12.6 % (13-45); MEAN CORPUSCULAR HEMOGLOBIN 28.1 pg (27.0-33.4); MEAN CORPUSCULAR HGB CONC 33.3 g/dL (32.0-36.0); MEAN CORPUSCULAR VOLUME 84 fl (80-97); MONOCYTES % (AUTO) 5.8 % (3-13); RED BLOOD COUNT 3.38 10^6/uL (3.72-5.28); RED CELL DISTRIBUTION WIDTH 19.7 % (11.5-14.0); SEGMENTED NEUTROPHILS % (AUTO) 79.7 % (42-78); TOTAL CELLS COUNTED % (AUTO) 100 %; WHITE BLOOD COUNT 12.6 10^3/uL (4.0-10.5)
[2020-02-01 08:02] LABS: ALBUMIN 3.4 g/dL (3.5-5.0); ALKALINE PHOSPHATASE 134 U/L (38-126); ANION GAP 12 (5-19); ASPARTATE AMINO TRANSFERASE 51 U/L (14-36); BILIRUBIN,DIRECT 0.5 mg/dL (0.0-0.4); BILIRUBIN,TOTAL 1.4 mg/dL (0.2-1.3); BLOOD UREA NITROGEN 14 mg/dL (7-20); CARBON DIOXIDE 30 mmol/L (22-30); CHLORIDE 96 mmol/L (98-107); GLUCOSE 155 mg/dL (75-110); POTASSIUM 3.2 mmol/L (3.6-5.0); TOTAL PROTEIN 7.2 g/dL (6.3-8.2)
[2020-02-01 08:24] LABS: PLATELET COUNT 74 10^3/uL (150-450)
[2020-02-01] MEDS: INSULIN LISPRO 100 UNIT/ML 3 ML VIAL SUBCUT SCH ×4 (08:42→21:46)
--- NOTE | 2020-02-01 09:09 | RADIOLOGY REPORT (SQ) ---
EXAM DESCRIPTION: CT HEAD WITHOUT IMAGES COMPLETED DATE/TIME: 02/01/2020 7:28 am REASON FOR STUDY: r/o stroke. Patient minimally verbal COMPARISON: 08/24/2018 TECHNIQUE: Axial images acquired through the brain without intravenous contrast. Images reviewed wi th bone, brain and subdural windows. Additional sagittal and coronal reconstructions were generated. Images stored on PACS. All CT scanners at this facility use dose modulation, iterative reconstruction, and/or weight based d osing when appropriate to reduce radiation dose to as low as reasonably achievable (ALARA). [facility]: Dose Right [facility]: CareDose [facility]: Dose Right [facility]: Teradose 4D [facility]: [place] RADIATION DOSE: CT Rad equipment meets quality standard of care and radiation dose reduction techniq ues were employed. CTDIvol: 69.5 - 69.5 mGy. DLP: 2729 mGy-cm. mGy. LIMITATIONS: None. FINDINGS: VENTRICLES: Prominent. CEREBRUM: No masses. No hemorrhage. No midline shift. Areas of low density in the white matter mos t likely due to chronic micro-vascular ischemic change. No evidence for acute infarction. CEREBELLUM: No masses. No hemorrhage. No alteration of density. No evidence for acute infarction. EXTRAAXIAL SPACES: Mild age-related involutional change. No fluid collections. No masses. ORBITS AND GLOBE: No intra- or extraconal masses. Normal contour of globe without masses. CALVARIUM: No fracture. PARANASAL SINUSES: No fluid or mucosal thickening. SOFT TISSUES: No mass or hematoma. OTHER: No other significant finding. IMPRESSION: MILD CHRONIC CHANGES OF ATROPHY AND MICROVASCULAR ISCHEMIA. NO ACUTE PROCESS. EVIDENCE OF ACUTE STROKE: NO. TECHNICAL DOCUMENTATION: JOB ID: [id number] Quality ID # [id number]: Final reports with documentation of one or more dose reduction techniques (e.g., Au tomated exposure control, adjustment of the mA and/or kV according to patient size, use of iterative reconstruction technique) 2010 [employer]- All Rights Reserved Reading location - IP/workstation name: [email or web address]
[2020-02-01] MEDS: ESCITALOPRAM OXALATE 10 MG TABLET PO SCH (09:40)
[2020-02-01] MEDS: MIDODRINE HCL 5 MG TABLET PO SCH ×3 (09:41→17:42)
[2020-02-01] MEDS: ASPIRIN 81 MG TABLET, CHEWABLE PO SCH (09:41)
[2020-02-01] MEDS: ISOSORBIDE MONONITRATE 30 MG TAB.ER.24H PO SCH (09:41)
[2020-02-01] MEDS: DOCUSATE SODIUM 100 MG CAPSULE PO SCH (09:41)
[2020-02-01] MEDS: FAMOTIDINE 20 MG TABLET PO SCH ×2 (09:41→21:47)
[2020-02-01] MEDS: METOPROLOL TARTRATE 25 MG TABLET PO SCH ×2 (09:41→21:47)
[2020-02-01] MEDS: FUROSEMIDE INJ/PF 20 MG/2 ML SDV IV SCH (09:42)
[2020-02-01] MEDS: LINEZOLID 600 MG TABLET PO SCH (09:43)
[2020-02-01] MEDS: PRAMIPEXOLE DI-HCL 0.25 MG TABLET PO SCH (09:43)
[2020-02-01] MEDS: CEFPODOXIME 200 MG TABLET PO SCH ×2 (09:43→21:46)
[2020-02-01] MEDS ORDERED: MAGNESIUM OXIDE 400 MG TABLET PO ONE (11:15)
[2020-02-01] MEDS: POTASSI CL 20 MEQ/50 ML RIDER 20 MEQ/50 ML RTUPB IV SCH ×3 (12:16→15:19)
[2020-02-01] MEDS: RIVAROXABAN 10 MG TABLET PO SCH (16:50)
[2020-02-01] MEDS: MORPHINE SULFATE 10 MG/ML INJ IV PRN (17:41)
--- NOTE | 2020-02-01 19:00 | PDOC PROGRESS REPORT ---
Subjective Progress Note for:: 02/01/20 Subjective:: VANDANA COOL is a 69 year old female past medical history of atrial fibrillation, CHF, CAD, hyperlipidemia, hypertension, COPD on home oxygen, diabetes type 2, hypothyroidism, arthritis, CAD status post CABG and stent placement, who is paraplegic due to spinal cord injury, chronic indwelling Zambrano catheter due to neurogenic bladder caused by spinal cord injury, presenting to ED after a fall out of the bed. Patient is stating that when she was transferring herself from wheelchair to her bed he fell on her right knee and to the ground, patient does not lose any consciousness, did not have any head trauma, and is nonambulatory at baseline due to spinal cord injury, patient has bilateral lower extremity stasis dermatitis and worsening large sacral wound. Patient is also has soft BPs at baseline. Patient denies any fever, chills, nausea, vomiting, abdominal pain, chest pain, shortness of breath. In ED was noted to have mild leukocytosis, elevated creatinine, elevated proBNP, positive leukocyte esterase on UA with normal lactic acid. Hospitalist c onsulted for further management. 01/31/20. Care assumed today. She was minimally verbal, opens eyes when called but does not really speak, would intermittently follow command. Per review of previous provider's note, her mental status fluctuates that sometimes she would speak and other times not. She is currently being treated for stage III decubitus ulcer debrided 01/29/20. She has since been transitioned to cefpodoxime and zyvox. Xarelto resumed for atrial fibrillation, cardio following. WILLIS res olved, nephro following. Also being treated for UTI, she has a chronic zambrano. Plan is to send her to SNF for wound care. Daughter wants to take her back to [place]. 02/01/20. She was seen and examined at bedside. She was still minimally verbal, but follows command. She does not answer my questions but according to her nurse she would sometimes answer no. CT head was negative for any acute stroke. She would not be able to get an MRI because she has a pacemaker. RN spoke to her and according to her she would have periods when she would just not talk to him. WBC count increased today to 12.6 but she remains afebrile. She is on oral abx. Awaiting SNF placement. Reason For Visit: DECUBITUS ULCER,UTI,HYPOTENSION,ACUTE CHF EXACERBA Physical Exam Vital Signs: Temp Pulse Resp BP Pulse Ox 98.6 F 90 19 109/61 77 L 02/01/20 11:40 02/01/20 16:01 02/01/20 16:01 02/01/20 16:01 02/01/20 16:01 Intake & Output 01/31/20 02/01/20 02/02/20 06:59 06:59 06:59 Intake Total 150 600 100 Output Total 3750 1980 300 Balance -3600 -1380 -200 Weight 108.4 kg 108.4 kg General appearance: PRESENT: no acute distress Head exam: PRESENT: atraumatic, normocephalic Eye exam: PRESENT: EOMI, PERRLA Ear exam: PRESENT: normal external ear exam Mouth exam: PRESENT: moist Neck exam: PRESENT: full ROM Respiratory exam: PRESENT: clear to auscultation huy, symmetrical, unlabored. ABSENT: rales Cardiovascular exam: PRESENT: RRR, +S1, +S2 Results Laboratory Results: 02/01/20 06:56 02/01/20 06:56 02/01/20 02/01/20 06:56 06:56 WBC 12.6 H RBC 3.38 L Hgb 9.5 L Hct 28.6 L MCV 84 MCH 28.1 MCHC 33.3 RDW 19.7 H Plt Count 74 L Seg Neutrophils % 79.7 H Sodium 138.2 Potassium 3.2 L Chloride 96 L Carbon Dioxide 30 Anion Gap 12 BUN 14 Creatinine 0.97 Est GFR ( Amer) > 60 Glucose 155 H Calcium 9.0 Total Bilirubin 1.4 H AST 51 H Alkaline Phosphatase 134 H Total Protein 7.2 Albumin 3.4 L 01/26/20 01/26/20 01/26/20 00:30 06:52 06:52 Creatine Kinase 567 H Troponin I 0.219 NT-Pro-B Natriuret Pep 30662 H 01/26/20 11:14 Creatine Kinase Troponin I 0.190 NT-Pro-B Natriuret Pep Impressions: Chest X-Ray 01/25/20 22:26 IMPRESSION: Cardiomegaly with mild volume loss in the right medial lung base. Overall lung volumes and aeration have improved. No acute process. Hip/Pelvis X-Ray 01/25/20 22:26 IMPRESSION: No acute fracture dislocation the pelvis and both hips. Knee X-Ray 01/25/20 22:26 IMPRESSION: No acute osseous anomaly. copyright 2010 [employer]- All Rights Reserved Abdomen Ultrasound 01/27/20 00:00 IMPRESSION: Cholelithiasis with thickening of gallbladder wall and small amount of pericholecystic fluid. Correlate for cholecystitis. The liver is slightly heterogeneous, but there is no sage fatty infiltration. Study is slightly limited. Head CT 02/01/20 08:00 IMPRESSION: MILD CHRONIC CHANGES OF ATROPHY AND MICROVASCULAR ISCHEMIA. NO ACUTE PROCESS. EVIDENCE OF ACUTE STROKE: NO. Assessment and Plan - Diagnosis (1) Decubitus ulcer Qualifiers: Pressure injury location: sacral region Pressure injury stage: stage 2 Qualified Code(s): L89.152 - Pressure ulcer of sacral region, stage 2 Is this a current diagnosis for this admission?: Yes Plan: Chronic stage III sacral decubitus ulcer s/p surgical debridement (01/29/20) Unstageable left heal wound Blood cultures negative at 4 days. Surgical service is consulted; have signed off. Wound care per surgery; advise wet-to-dry for sacral wound Turn/reposition every 2 hours. Transition to oral abx; Cefpodoxime and Zyvoxx to complete course of therapy. - awaiting SNF placement. To complete abx for 14 days (2) WILLIS (acute kidney injury) Is this a current diagnosis for this admission?: Yes Plan: Resolved; Cr 2.54-> 2.09-> 1.66-> 1.42-> 1.14 Normal renal function at baseline Likely prerenal, electrolytes WNL, cautious volume restriction guided volume status. Nephrology was consulted; appreciate Dr. Blackman's assistance. Have signed off. Optimize cardiac output. Avoid nephrotoxic medications as able. IV fluids held Furosemide decreased to 20 IV daily. Daily weight, Strict I&Os Follow-up chemistry. (3) Hypotension Qualifiers: Hypotension type: idiopathic hypotension Qualified Code(s): I95.0 - Idiopathic hypotension Is this a current diagnosis for this admission?: Yes Plan: Resolved Mild leukocytosis, lactic acid WNL. Continue midodrine. Continue treating underlying infectious process. Cardiology and Nephrology consulted. (4) Acute encephalopathy Is this a current diagnosis for this admission?: Yes Plan: - patient minimally verbal, does not answer questions - per , she would have periods of not speaking to him. Psychiatric origin possibly - stroke, psych or metabolic cause - CT head negative - electrolytes replaced. BG normal - on effexor (5) Chronic atrial fibrillation Is this a current diagnosis for this admission?: Yes Plan: Chronic persistent atrial fibrillation, rate controlled. Discontinue telemetry today. Discussed w/ Dr. Cancino. Have resumed Xarelto. Outpatient PCP and cardiology follow-up. (6) UTI (urinary tract infection) Qualifiers: Urinary tract infection type: catheter-associated UTI Indwelling urinary catheter type: indwelling urethral catheter Is this a current diagnosis for this admission?: Yes Plan: Indwelling chronic Zambrano catheter due to spinal cord injury. UA positive for leukocyte esterase. Blood culture negative Urine cultures shows enterobacter cloacae >100k colonies; sensitive to cefepime Have replaced Zambrano cath. Meticulous Zambrano care. Transition to oral abx; Cefpodoxime to complete course of therapy. (7) Troponin I above reference range Is this a current diagnosis for this admission?: Yes Plan: Trending down; 0.219-> 0.190; no longer following. Monitor on telemtry. Discussed w/ Dr. Cancino. Troponin elevation is likely 2/2 WILLIS. Cardiology is consulted. (8) Hypokalemia Is this a current diagnosis for this admission?: Yes Plan: - K 3.0 replaced - continue to monitor (9) Hypomagnesemia Is this a current diagnosis for this admission?: Yes Plan: - Mg 1.2 - replaced via IV - will monitor - Time Time Spent with patient: 15-24 minutes [facility] Anticipated Discharge Timeframe: within 48 hours
[2020-02-01] MEDS: ATORVASTATIN CALCIUM 40 MG TABLET PO SCH (21:47)
[2020-02-02] MEDS: LORAZEPAM INJ 2 MG/1 ML VIAL IV PRN ×2 (03:25→21:53)
[2020-02-02] MEDS: LEVOTHYROXINE SODIUM 0.025 MG TABLET PO SCH (05:06)
[2020-02-02] MEDS ORDERED: INFLUENZA QUAD (6MOS+) 2020-21 VAC 0.5 ML SYR IM ONE (08:00)
[2020-02-02] MEDS: INSULIN LISPRO 100 UNIT/ML 3 ML VIAL SUBCUT SCH ×4 (08:38→21:52)
[2020-02-02] MEDS: MIDODRINE HCL 5 MG TABLET PO SCH ×3 (09:16→17:29)
[2020-02-02] MEDS: ASPIRIN 81 MG TABLET, CHEWABLE PO SCH (09:16)
[2020-02-02] MEDS: FUROSEMIDE INJ/PF 20 MG/2 ML SDV IV SCH (09:16)
[2020-02-02] MEDS: ESCITALOPRAM OXALATE 10 MG TABLET PO SCH (09:16)
[2020-02-02] MEDS: DOCUSATE SODIUM 100 MG CAPSULE PO SCH (09:16)
[2020-02-02] MEDS: METOPROLOL TARTRATE 25 MG TABLET PO SCH ×2 (09:17→21:49)
[2020-02-02] MEDS: ISOSORBIDE MONONITRATE 30 MG TAB.ER.24H PO SCH (09:19)
[2020-02-02] MEDS: FAMOTIDINE 20 MG TABLET PO SCH ×2 (09:19→21:52)
[2020-02-02] MEDS: CEFPODOXIME 200 MG TABLET PO SCH (09:21)
[2020-02-02] MEDS: PRAMIPEXOLE DI-HCL 0.25 MG TABLET PO SCH (09:22)
[2020-02-02] MEDS: LINEZOLID 600 MG TABLET PO SCH ×2 (13:29→21:52)
--- NOTE | 2020-02-02 14:06 | PDOC PROGRESS REPORT ---
Subjective Progress Note for:: 02/02/20 Subjective:: VANDANA COOL is a 69 year old female past medical history of atrial fibrillation, CHF, CAD, hyperlipidemia, hypertension, COPD on home oxygen, diabetes type 2, hypothyroidism, arthritis, CAD status post CABG and stent placement, who is paraplegic due to spinal cord injury, chronic indwelling Zambrano catheter due to neurogenic bladder caused by spinal cord injury, presenting to ED after a fall out of the bed. Patient is stating that when she was transferring herself from wheelchair to her bed he fell on her right knee and to the ground, patient does not lose any consciousness, did not have any head trauma, and is nonambulatory at baseline due to spinal cord injury, patient has bilateral lower extremity stasis dermatitis and worsening large sacral wound. Patient is also has soft BPs at baseline. Patient denies any fever, chills, nausea, vomiting, abdominal pain, chest pain, shortness of breath. In ED was noted to have mild leukocytosis, elevated creatinine, elevated proBNP, positive leukocyte esterase on UA with normal lactic acid. Hospitalist c onsulted for further management. 01/31/20. Care assumed today. She was minimally verbal, opens eyes when called but does not really speak, would intermittently follow command. Per review of previous provider's note, her mental status fluctuates that sometimes she would speak and other times not. She is currently being treated for stage III decubitus ulcer debrided 01/29/20. She has since been transitioned to cefpodoxime and zyvox. Xarelto resumed for atrial fibrillation, cardio following. WILLIS res olved, nephro following. Also being treated for UTI, she has a chronic zambrano. Plan is to send her to SNF for wound care. Daughter wants to take her back to [place]. 02/01/20. She was seen and examined at bedside. She was still minimally verbal, but follows command. She does not answer my questions but according to her nurse she would sometimes answer no. CT head was negative for any acute stroke. She would not be able to get an MRI because she has a pacemaker. RN spoke to her and according to her she would have periods when she would just not talk to him. WBC count increased today to 12.6 but she remains afebrile. She is on oral abx. Awaiting SNF placement. 02/02/20. She was seen and examined at bedside. She still won't talk to me and would just moan constantly. However, according to her nurse she would speak full sentences occasionally. There may be a component of psych issues here. Wound dressings being changed by nursing. I tried to call her daughter to give her an update but was unable to reach her. Reason For Visit: DECUBITUS ULCER,UTI,HYPOTENSION,ACUTE CHF EXACERBA Physical Exam Vital Signs: Temp Pulse Resp BP Pulse Ox 99.0 F 74 20 95/69 L 93 02/02/20 11:20 02/02/20 11:20 02/02/20 11:20 02/02/20 11:20 02/02/20 11:20 Intake & Output 02/01/20 02/02/20 02/03/20 06:59 06:59 06:59 Intake Total 600 150 Output Total 1980 1100 Balance -1380 -950 Weight 108.4 kg 102.8 kg General appearance: PRESENT: no acute distress, obese Head exam: PRESENT: atraumatic, normocephalic Eye exam: PRESENT: EOMI, PERRLA Ear exam: PRESENT: normal external ear exam Mouth exam: PRESENT: moist Neck exam: PRESENT: full ROM Respiratory exam: PRESENT: clear to auscultation huy, symmetrical, unlabored Cardiovascular exam: PRESENT: RRR, +S1, +S2 Vascular exam: PRESENT: normal capillary refill GI/Abdominal exam: PRESENT: normal bowel sounds, soft. ABSENT: rebound, tenderness Extremities exam: ABSENT: joint swelling, pedal edema Neurological exam: PRESENT: awake, other - i have tried multiple times to get her to respond to me but she just moans but she follows command consistently Psychiatric exam: PRESENT: flat affect Skin exam: PRESENT: normal color Results Laboratory Results: 02/01/20 06:56 02/01/20 06:56 01/26/20 01/26/20 01/26/20 00:30 06:52 06:52 Creatine Kinase 567 H Troponin I 0.219 NT-Pro-B Natriuret Pep 35624 H 01/26/20 11:14 Creatine Kinase Troponin I 0.190 NT-Pro-B Natriuret Pep Impressions: Chest X-Ray 01/25/20 22:26 IMPRESSION: Cardiomegaly with mild volume loss in the right medial lung base. Overall lung volumes and aeration have improved. No acute process. Hip/Pelvis X-Ray 01/25/20 22:26 IMPRESSION: No acute fracture dislocation the pelvis and both hips. Knee X-Ray 01/25/20 22:26 IMPRESSION: No acute osseous anomaly. copyright 2010 [employer]- All Rights Reserved Abdomen Ultrasound 01/27/20 00:00 IMPRESSION: Cholelithiasis with thickening of gallbladder wall and small amount of pericholecystic fluid. Correlate for cholecystitis. The liver is slightly heterogeneous, but there is no sage fatty infiltration. Study is slightly limited. Head CT 02/01/20 08:00 IMPRESSION: MILD CHRONIC CHANGES OF ATROPHY AND MICROVASCULAR ISCHEMIA. NO ACUTE PROCESS. EVIDENCE OF ACUTE STROKE: NO. Assessment and Plan - Diagnosis (1) Decubitus ulcer Qualifiers: Pressure injury location: sacral region Pressure injury stage: stage 2 Qualified Code(s): L89.152 - Pressure ulcer of sacral region, stage 2 Is this a current diagnosis for this admission?: Yes Plan: Chronic stage III sacral decubitus ulcer s/p surgical debridement (01/29/20) Unstageable left heal wound Blood cultures negative at 4 days. Surgical service is consulted; have signed off. Wound care per surgery; advise wet-to-dry for sacral wound Turn/reposition every 2 hours. Transition to oral abx; Cefpodoxime and Zyvoxx to complete course of therapy. - awaiting SNF placement. To complete abx for 14 days (2) Acute encephalopathy Is this a current diagnosis for this admission?: Yes Plan: - patient minimally verbal, does not answer questions - per , she would have periods of not speaking to him. Psychiatric origin possibly - stroke, psych or metabolic cause - CT head negative - will consider psych consult. I have talked to her who affirms that she has had these episodes before. - electrolytes replaced. BG normal - on effexor (3) WILLIS (acute kidney injury) Is this a current diagnosis for this admission?: Yes Plan: Resolved; Cr 2.54-> 2.09-> 1.66-> 1.42-> 1.14 Normal renal function at baseline Likely prerenal, electrolytes WNL, cautious volume restriction guided volume status. Nephrology was consulted; appreciate Dr. Blackman's assistance. Have signed off. Optimize cardiac output. Avoid nephrotoxic medications as able. IV fluids held Furosemide decreased to 20 IV daily. Daily weight, Strict I&Os Follow-up chemistry. (4) Hypotension Qualifiers: Hypotension type: idiopathic hypotension Qualified Code(s): I95.0 - Idiopathic hypotension Is this a current diagnosis for this admission?: Yes Plan: Resolved Mild leukocytosis, lactic acid WNL. Continue midodrine. Continue treating underlying infectious process. Cardiology and Nephrology consulted. (5) Chronic atrial fibrillation Is this a current diagnosis for this admission?: Yes Plan: Chronic persistent atrial fibrillation, rate controlled. Discontinue telemetry today. Discussed w/ Dr. Cancino. Have resumed Xarelto. Outpatient PCP and cardiology follow-up. (6) UTI (urinary tract infection) Qualifiers: Urinary tract infection type: catheter-associated UTI Indwelling urinary catheter type: indwelling urethral catheter Is this a current diagnosis for this admission?: Yes Plan: Indwelling chronic Zambrano catheter due to spinal cord injury. UA positive for leukocyte esterase. Blood culture negative Urine cultures shows enterobacter cloacae >100k colonies; sensitive to cefepime Have replaced Zambrano cath. Meticulous Zambrano care. Transition to oral abx; Cefpodoxime to complete course of therapy. (7) Troponin I above reference range Is this a current diagnosis for this admission?: Yes Plan: Trending down; 0.219-> 0.190; no longer following. Monitor on telemtry. Discussed w/ Dr. Cancino. Troponin elevation is likely 2/2 WILLIS. Cardiology is consulted. (8) Hypokalemia Is this a current diagnosis for this admission?: Yes Plan: - K 3.0 replaced - continue to monitor (9) Hypomagnesemia Is this a current diagnosis for this admission?: Yes Plan: - Mg 1.2 - replaced via IV - will monitor - Time Time Spent with patient: 25-34 minutes Medications reviewed and adjusted accordingly: Yes Anticipated Discharge Disposition: [facility] Facility Anticipated Discharge Timeframe: to be determined
[2020-02-02] MEDS ORDERED: SODIUM BICARBONATE 8.4% INJ 50 MEQ/50 ML DISP.SYRIN ONE ×2 (14:45→23:59)
[2020-02-02] MEDS ORDERED: EPINEPHRINE INJ 1 MG/10 ML DISP.SYRIN ONE ×2 (14:45→23:59)
--- NOTE | 2020-02-02 16:56 | PDOC CONSULTATION ---
Consultation-Blank Consultation: Behavioral Health Consult: History of Depression, not talking the past two days, per report to medical staff she has done no talking at home for hours or days at a time. Patient is a paraplegic, bed bound, and being treated for sacral ulcers. Chart review completed at 1424 and ongoing. Review[address] Head CT dated 02/01/2020 which has neurodegenerative language, home medications (Abilify 2MG daily and Klonopin 0.5MG twice a day as needed), current medication (Lexapro 20MG daily and Ativan 1MG IV every 6 hours as needed), medical issues (thyroid- on Synthroid, diabetes), and lab work (hematology, chemistry, blood gas all have numerous labs that are off). Clinical Presentation: Depression Medication recommendations made by the psychiatric medication provider Dr. Aroldo MADSEN., includes: Discontinue Ativan 1MG IV every 6 hours as needed for anxiety Discontinue Lexapro 20MG daily for depression Add Buspar 5MG twice a day for anxiety/calming effect/depression/sleep Add Celexa 20MG daily for depression/anxiety/energy properties May need to switch to Effexor 37.5 daily for depression/increased energy and focus if Celexa not effective after 2-3 days (agitated response) Head CT dated 02/01/2020 has neurodegenerative language (chronic issue versus acute) Prominent ventricles Areas of low density in the white matter likely consistent with chronic microvascular ischemic chenages Mild age related involuntional change This is important when considering medications as physicians are asked to avoid the use of Antispychotic medications (Geodon, Zyprexa, Haldol, Thorazine), Benzodiazepines (Xanax, Ativan, Klonopin, Valium), some sleep aids (Ambken, Lunesta, Trazodone, Seroquel), prolonged use of steroids (Prednisone) and narcotic pain medication as these can cause and/or exacerbate psychosis, cognitive impairment, mood lability, aggression and agitation. Impression/Plan: Patient is cleared from acute psychiatric services. Collateral from Attending Hospitalist obtained, chart review completed, and medication recommendation provided. Please re consult [facility] for any further issues or recommendations. Consulted with Dr. Powers regarding the management and care of patient. Attending Hospitalist made aware of recommendations.
[2020-02-02] MEDS: RIVAROXABAN 10 MG TABLET PO SCH (17:22)
[2020-02-02] MEDS: ATORVASTATIN CALCIUM 40 MG TABLET PO SCH (21:49)
[2020-02-02] MEDS ORDERED: NOREPINEPHRINE BITARTRATE INJ/PF 4 MG/4 ML SDV IV ONE (23:59)
[2020-02-03] MEDS: INSULIN LISPRO 100 UNIT/ML 3 ML VIAL SUBCUT SCH (00:19)
[2020-02-03] MEDS: METOPROLOL TARTRATE 25 MG TABLET PO SCH (00:23)
[2020-02-03] MEDS: ATORVASTATIN CALCIUM 40 MG TABLET PO SCH (00:23)
[2020-02-03] MEDS: LINEZOLID 600 MG TABLET PO SCH (00:23)
[2020-02-03] MEDS: FAMOTIDINE 20 MG TABLET PO SCH (00:23)
[2020-02-03] MEDS: MORPHINE SULFATE 10 MG/ML INJ IV PRN (00:29)
--- NOTE | 2020-02-03 03:35 | Progress Note ---
Provider Note Provider Note: Critical CARE note: 02/03/2020 Critical care onset time: 2:20 AM Critical care issue: Decreased responsiveness I was called on a rapid response to see the patient who was poorly responsive after receiving doses of morphine and Phenergan IV. The patient's IV had infiltrated and a new IV was being placed when she resisted the placement of the IV. Shortly after this event she was noted by the nurse who was placing her IV to be poorly responsive. A continuous reading oximeter was on the patient and she was noted to have an O2 sat of 91% and a pulse of 60. She did not respond to verbal stimuli. Upon my arrival the patient was noted to not be responding to verbal stimuli and also did not respond to painful stimuli. After observing the patient for a short time it was apparent that she was hypoventilating and that are continuous reading pulse oximetry was not accurate. Patient was checked for a pulse and finding no pulse, a CODE BLUE was called and resuscitation efforts were initiated. An interosseous line was placed in the left anterior tibia and the patient was given IV epinephrine. The furniture removalist nocturnal provider intubated the patient with a 7.5 Turkish endotracheal tube. The patient was given additional doses of epinephrine and did respond with a tachycardic heart rate in the 120s to 130s and a palpable pulse with a blood pressure of 90 systolic. A Levophed drip was initiated and the patient was observed for several minutes with maintenance of her pulse. She was subsequently transferred to the ICU for further treatment. In critical care time: 2:51 AM Total critical care time: 31 minutes
--- NOTE | 2020-02-03 04:21 | Death Summary ---
Summary Date : 02/03/20 Time of :: 03:29 Autopsy: No Resuscitation Status: Full Code Consulting Provider: SUMEET Robertson - Final Diagnosis (1) Acute exacerbation of CHF (congestive heart failure) Is this a current diagnosis for this admission?: Yes Hospital Course:: 69-year-old female with a past medical history of atrial fibrillation, CHF, CAD, hyperlipidemia, hypertension, COPD on home oxygen, diabetes 2, hypothyroidism, arthritis, CAD status post CABG and stent placement, paraplegic due to spinal cord injury with subsequent neurogenic bladder and chronic indwelling Ruth catheter. Patient initially presented to the ED after falling from her wheelchair with no loss of consciousness. She was found in the ED to have an elevated BNP, elevated creatinine and mild leukocytosis. She was treated for a stage III decubitus ulcer which was debrided on 01/29/2020. This evening, patient developed rhythm changes, a stat EKG was ordered. By report, upon return to the patient's bedside, her RN found her to be less responsive. And DEVELOPMENT SCIENTIST was called and shortly thereafter, the situation developed into a PEA arrest. A CODE BLUE was called. Upon arrival to the room, I found CPR in process and at least 1 round of medications given. Patient was being bag mask ventilated with difficulty. I intubated patient between pulse checks and secured her airway. Patient had return of spontaneous circulation several times and proceeded to lose her pulse. She was started on a Levophed and epinephrine drip which seemed to sustain her pulse and we transported the patient to the intensive care unit. While in the elevator, the patient once again lost her pulse and CPR was resumed. Upon return spontaneous circulation, once again we continue to the intensive care unit. After transfer to her ICU bed, the patient coded once again. Despite multiple rounds of ACLS medications and compressions, patient failed to return to spontaneous circulation and was pronounced at 3:29 AM. Family is being notified.
--- NOTE | 2020-02-03 05:31 | Operative Report ---
Bedside Procedure - History of Present Illness History of Present Illness: Indication: Respiratory Failure Procedure rotary drill operator helper: SUMEET Robertson Attending physician: Dr. Ayala Consent: The procedure was performed emergently and the permission was implied because of the emergent nature. Procedure summary: Procedure was performed during cardiac arrest. Cricoid pressure was maintained from time induction agent was given the time of cuff balloon inflation. Using a size 4 Arsen laryngoscope and a size 7.5 endotracheal tube with stylette, the patient was intubated on the vent attempt. The stylette was removed and the cuff balloon was inflated. Appropriate endotracheal tube position was confirmed by direct visualization of vocal cord passage, CO2 colorimetric indicator and symmetric breath sounds. The tube was secured at 24 centimeters at the lips. Indication for Procedure: Cardiopulmonary arrest Provider: SARAH BUNN - Intubation Orotracheal Time of Intubation: 03:00 Airway evaluation: Normal anatomy, Obese Mallampati Classification: Class 3 Intubation method: Orotracheal Blade type: Arsen Blade size: 4 ETT size: 7.5 ETT secured at: Lips ETT secured at (cm): 24 Post Intubation Xray: No - Patient after CPR, prior to CXR.
[2020-02-03 06:13] VITALS: BP 95/32
== END 2020-02-03 03:29 | disposition expired | DRG 622 ==
LOC: ER 21:43 → EH 01-26 04:28 → 3S 01-26 06:10 → ICU 02-03 03:03
PROVIDERS: ADMIT Internal Medicine; ATTEND Internal Medicine
PROC: 5A09357 Assistance with Respiratory Ventilation, Less than 24 Consecutive Hours, Continuous Positive Airway Pressure (ICD-10-PCS; 2020-01-27)
PROC: 0JB70ZZ Excision of Back Subcutaneous Tissue and Fascia, Open Approach (ICD-10-PCS; principal; 2020-01-29 08:00)
PROC: 0BH17EZ Insertion of Endotracheal Airway into Trachea, Via Natural or Artificial Opening (ICD-10-PCS; 2020-02-03)
PROC: 5A12012 Performance of Cardiac Output, Single, Manual (ICD-10-PCS; 2020-02-03)
DX: E11.622 Type 2 diabetes mellitus with other skin ulcer (principal); L89.153 Pressure ulcer of sacral region, stage 3; I50.23 Acute on chronic systolic (congestive) heart failure; G93.40 Encephalopathy, unspecified; J96.11 Chronic respiratory failure with hypoxia; I13.0 Hypertensive heart and chronic kidney disease with heart failure and stage 1 through stage 4 chronic kidney disease, or unspecified chronic kidney disease; G82.20 Paraplegia, unspecified; I42.0 Dilated cardiomyopathy; E87.1 Hypo-osmolality and hyponatremia; T83.511A Infection and inflammatory reaction due to indwelling urethral catheter, initial encounter; I48.19 Other persistent atrial fibrillation; Z68.41 Body mass index [BMI] 40.0-44.9, adult; L97.428 Non-pressure chronic ulcer of left heel and midfoot with other specified severity; L97.418 Non-pressure chronic ulcer of right heel and midfoot with other specified severity; N39.0 Urinary tract infection, site not specified; N17.9 Acute kidney failure, unspecified; D63.1 Anemia in chronic kidney disease; Z99.81 Dependence on supplemental oxygen; E11.22 Type 2 diabetes mellitus with diabetic chronic kidney disease; I95.0 Idiopathic hypotension; N18.4 Chronic kidney disease, stage 4 (severe); E11.621 Type 2 diabetes mellitus with foot ulcer; E11.51 Type 2 diabetes mellitus with diabetic peripheral angiopathy without gangrene; I25.10 Atherosclerotic heart disease of native coronary artery without angina pectoris; E78.5 Hyperlipidemia, unspecified; J44.9 Chronic obstructive pulmonary disease, unspecified; E03.9 Hypothyroidism, unspecified; M19.90 Unspecified osteoarthritis, unspecified site; N31.9 Neuromuscular dysfunction of bladder, unspecified; W05.0XXA Fall from non-moving wheelchair, initial encounter; F32.9 Major depressive disorder, single episode, unspecified; R32 Unspecified urinary incontinence; K80.20 Calculus of gallbladder without cholecystitis without obstruction; E66.01 Morbid (severe) obesity due to excess calories; R15.9 Full incontinence of feces; E87.6 Hypokalemia; B96.89 Other specified bacterial agents as the cause of diseases classified elsewhere; E83.42 Hypomagnesemia; M25.561 Pain in right knee; Z95.1 Presence of aortocoronary bypass graft; Z95.5 Presence of coronary angioplasty implant and graft; T14.8XXS Other injury of unspecified body region, sequela; I25.2 Old myocardial infarction; Z95.810 Presence of automatic (implantable) cardiac defibrillator; Z95.820 Peripheral vascular angioplasty status with implants and grafts; Z87.891 Personal history of nicotine dependence; Z83.3 Family history of diabetes mellitus; Z82.49 Family history of ischemic heart disease and other diseases of the circulatory system; Z88.8 Allergy status to other drugs, medicaments and biological substances; Z88.6 Allergy status to analgesic agent; Z91.013 Allergy to seafood; Z11.59 Encounter for screening for other viral diseases; Z74.01 Bed confinement status
CPT/HCPCS: 00300; 36415; 36600; 70450; 71045; 76705; 80048; 80053; 80061; 80074; 81001; 82550; 82607; 82728; 82746; 82803; 82962; 83036; 83540; 83550; 83605; 83735; 83880; 84100; 84439; 84443; 84484; 85025; 85027; 85045; 85610; 85730; 87040; 87086; 87088; 87186; 87635; 92950; 93005; 93010; 94660; 96361; 96365; 96367; 99140; 99285; C9803; J0171; J0692; J1170; J1644; J1815; J1940; J2020; J2060; J2250; J2270; J2310; J2405; J2704; J3010; J3475; J3480; J3490; J7030; J7120